=== PATIENT | male | born 1940 | race Caucasian/White ===

== ENCOUNTER 2016-07-13 15:35 | Emergency (ER) | payer MEDICAID, MEDICARE, OTHER ==
[~2016-07-13] VITALS: Ht 165.1 cm; Wt 138.3 kg
[~2016-07-13 15:35] MED LIST: ACET325T38 PO; ALBU2.5V4 IH; ALLO300T2 PO; APIX5TAB PO; ASPI-983 PO; ASPI325T32 PO; ATOR80TA64 PO; BUDE10.2 IH; CARB15DR78 OU; CETI10TA20 PO; CHOL10007 PO; CRV25T PO; DICL100G18 TOP; ETD200C PO; FLUT16SP22 NS; FURO80TA3 PO; GABA-488 PO; GLIP10TA13 PO; GUAI100L13 PO; HYOS0.1216 PO; IPR14IN IH; IPRA4AER IH; ISM60TCR PO; LEVO200T6 PO; LORA1TAB PO; LOSA100T28 PO; MAGN400T39 PO; MENT113G5 TP; MORP100S3 PO; POTA-51 PO; ROPI1TAB40 PO; SODI30SP2 NS; TAMS0.4C98 PO; TRAZ100T92 PO; TRIA15CR TOP
[2016-07-13] MEDS ORDERED: DEXAMETHASONE 4 MG/ML SDV (DECADRON) IH ONE (16:15)
[2016-07-13] MEDS ORDERED: RT-ALBUTEROL/IPRATROPIUM 3 ML (DUONEB) VIAL INH ONE (16:15)
[2016-07-13 16:26] LABS: BASOPHILS # (AUTO) 0.1 10^3/uL (0.0-0.1); BASOPHILS % (AUTO) 1 % (0-10); EOSINOPHILS # (AUTO) 0.2 10^3/uL (0.0-0.3); EOSINOPHILS % (AUTO) 3 % (0-10); LYMPHOCYTES # (AUTO) 1.5 X 10^3 (1.0-4.0); LYMPHOCYTES % (AUTO) 20 % (12-44); MEAN CORPUSCULAR HEMOGLOBIN 31 PG (25-34); MEAN CORPUSCULAR HGB CONC 32 G/DL (32-36); MEAN CORPUSCULAR VOLUME 96 FL (80-99); MEAN PLATELET VOLUME 9.8 FL (7.4-10.4); MONOCYTES # (AUTO) 0.4 X 10^3 (0.0-1.0); MONOCYTES % (AUTO) 6 % (0-12); NEUTROPHILS # (AUTO) 5.2 X 10^3 (1.8-7.8); NEUTROPHILS % (AUTO) 71 % (42-75); PLATELET COUNT 239 10^3/uL (130-400); RED BLOOD COUNT 4.69 10^6/uL (4.35-5.85); RED CELL DISTRIBUTION WIDTH 14.9 % (10.0-14.5); WHITE BLOOD COUNT 7.4 10^3/uL (4.3-11.0)
--- NOTE | 2016-07-13 16:38 | Diagnostic Imaging Report ---
EXAMINATION: Chest radiograph, portable AP view. DATE: July 13, 2016 at 1629 hours. INDICATION: 76-year-old male, shortness of breath. COMPARISON: June 25, 2016. FINDINGS: There are median sternotomy wires. There are mediastinal surgical clips. Stable overall appearance of the cardiomediastinal silhouette. There is no identified pneumothorax. There is no large pleural effusion. There are streaky opacities in the right lower lobe which appear similar to comparison exam. There is no identified interval focal airspace consolidation. IMPRESSION: Streaky opacities in the right lower lobe which appear similar to comparison exam and may relate to atelectasis and/or infiltrate. Dictated by: Dictated on workstation # [id number]
[2016-07-13 16:44] LABS: ALANINE AMINOTRANSFERASE 16 U/L (0-55); ALBUMIN 3.5 G/DL (3.2-4.5); ANION GAP 14 MMOL/L (5-14); ASPARTATE AMINO TRANSFERASE 16 U/L (5-34); BILIRUBIN,TOTAL 0.7 MG/DL (0.1-1.0); BLOOD UREA NITROGEN 16 MG/DL (7-18); BUN/CREATININE RATIO 14; CARBON DIOXIDE 29 MMOL/L (21-32); CHLORIDE 99 MMOL/L (98-107); CREATINE KINASE 19 U/L (30-200); CREATININE SERUM 1.15 MG/DL (0.60-1.30); GFR ESTIMATED > 60; GLUCOSE 108 MG/DL (70-105); MAGNESIUM 1.9 MG/DL (1.8-2.4); POTASSIUM 4.4 MMOL/L (3.6-5.0); SODIUM 142 MMOL/L (135-145); TOTAL PROTEIN 6.6 G/DL (6.4-8.2)
[2016-07-13 16:47] LABS: ABG BASE EXCESS 7.4 MMOL/L (-2.5-2.5); ABG HCO3 34 MMOL/L (23-27); ABG OXYGEN SATURATION 98 % (94-100); ABG PCO2 56 MMHG (35-45); ABG PO2 97 MMHG (79-93); ABG TCO2 35.9 MMOL/L (21.0-31.0); ALLENS TEST POSITIVE
[2016-07-13 16:48] LABS: PATIENT TEMP 98.2
[2016-07-13 16:51] LABS: TROPONIN I < 0.30 NG/ML (<0.30)
--- NOTE | 2016-07-13 16:59 | ED Respiratory ---
General Chief Complaint: Respiratory Problems Stated Complaint: SOA Nursing Triage Note: c/o progressive soa x 2 weeks. Cough/congestion reported. 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 Source: patient History of Present Illness Time seen by provider: 15:45 Initial Comments PT ARRIVES VIA EMS FROM HOME PT HAS COPD AND CHF--HAS INCREASING SHORTNESS OF BREATH OVER THE LAST 2 WEEKS HAS CHRONIC COUGH, BUT IS GRADUALLY GETTING MORE FREQUENT--STATES HE SWALLOWS SPUTUM NO FEVER NO SWELLING IN FEET OR ANKLES HAD NEBULIZER TREATMENT JUST PRIOR TO ARRIVAL TOOK A Z-PACK LAST WEEK--NO IMPROVEMENT IN SYMPTOMS. WAS NOT PRESCRIBED PREDNISONE OR ANY OTHER MEDICATIONS PCP: [facility] CARDIOLOGY: [facility] Allergies and Home Medications Allergies Coded Allergies: adhesive tape (Verified Allergy, Mild, RASH, 05/23/16) shellfish derived (Verified Allergy, Mild, HIVES, 05/23/16) Penicillins (Verified Allergy, Unknown, 05/09/16) Home Medications Acetaminophen 325 Mg Tablet 650 MG PO QID PRN PRN PAIN (Reported) TAKES 2 (325MG) TABLETS Albuterol Sulfate 2.5 Mg/3 Ml Vial.neb 2.5 MG IH QID PRN PRN SHORTNESS OF BREATH (Reported) Allopurinol 300 Mg Tablet 300 MG PO DAILY (Reported) Apixaban 5 Mg Tablet 5 MG PO BID (Reported) Aspirin 81 Mg Tablet.dr 81 MG PO DAILY (Reported) Atorvastatin Calcium 80 Mg Tablet 40 MG PO HS (Reported) TAKES 1/2 (80MG) TABLET Budesonide/Formoterol Fumarate 10.2 Gm Hfa.aer.ad 2 PUFF IH BID (Reported) Carboxymethylcellulose Sodium 15 Ml Drops 1 DROP OU QID PRN PRN DRY EYES ( Reported) Carvedilol 25 Mg Tab 12.5 MG PO DAILY (Reported) TAKES 1/2 (25MG) TABLET Cetirizine HCl 10 Mg Tablet 10 MG PO DAILY (Reported) Cholecalciferol (Vitamin D3) 1,000 Unit Capsule 1,000 UNIT PO DAILY (Reported) Diclofenac Sodium 100 Gm Gel..gram. TOP TID PRN PRN PAIN (Reported) Etodolac 200 Mg Capsule 200 MG PO TID (Reported) Fluticasone Propionate 16 Gm [place].susp 1 SPRAY NS DAILY (Reported) Furosemide 80 Mg Tablet 80 MG PO DAILY (Reported) Gabapentin 300 Mg Capsule 600 MG PO TID (Reported) TAKES 2 (300MG) CAPSULES Glipizide 10 Mg Tablet 5 MG PO BIDAC (Reported) LAST FILLED 02/11/16 #90 / TAKES 1/2 (10MG) TABLET Guaifenesin 100 Mg/5 Ml Liquid 10 ML PO TID PRN PRN COUGH/CONGESTION (Reported) Hyoscyamine Sulfate 0.125 Mg Tablet 0.125 MG PO EVERY 2 HOURS PRN PRN INCREASED SECRETIONS (Reported) Isosorbide Mononitrate 60 Mg Tab 60 MG PO DAILY (Reported) Levofloxacin 500 Mg Tablet #10 500 MG PO DAILY Prescribed by: GINA WASSERMAN on 07/13/16 170 Levothyroxine Sodium 200 Mcg Tablet 200 MCG PO DAILY (Reported) Lorazepam 1 Mg Tablet 1 MG PO Q4H PRN PRN AIR HUNGER (Reported) Magnesium Oxide 400 Mg Tablet 800 MG PO BID (Reported) TAKES 2 (400MG) TABLETS Menthol 113 Gm Gel..gram. TP QID PRN PRN PAIN (Reported) Morphine Sulfate 100 Mg/5 Ml Solution 0.5 ML PO EVERY 15 MINUTES PRN PRN AIR HUNGER (Reported) UP TO 6 CONSECUTIVE DOSES; IF NOT RESOLVED THEN CONTACT PHYSICIAN Potassium Chloride 20 Meq Tablet.er 20 MEQ PO DAILY (Reported) Prednisone 5 Mg Tablet #78 5 MG PO UD 12 PILLS DAY 1, THEN DECREASE BY 1 PILL A DAY UNTIL GONE Prescribed by: GINA WASSERMAN on 07/13/161706 Ropinirole HCl 1 Mg Tablet 1 MG PO HS (Reported) Sodium Chloride 30 Ml [place] 2 SPRAYS NS FIVE TIMES DAILY PRN PRN CONGESTION ( Reported) Tamsulosin HCl 0.4 Mg Cap 0.4 MG PO HS (Reported) Trazodone HCl 100 Mg Tablet 150 MG PO HS (Reported) TAKES 1 & 1/2 (100MG) TABLET Triamcinolone Acetonide 15 Gm Cream..g. TOP BID (Reported) 1% Constitutional: no symptoms reportedNo chills, No diaphoresis, No fever EENTM: no symptoms reported Respiratory: see HPI cough short of breath Cardiovascular: see HPI chest pain (BRIEF CHEST PAIN EARLIER TODAY--NOT NOW) Gastrointestinal: no symptoms reported Genitourinary: no symptoms reported Musculoskeletal: no symptoms reported Skin: no symptoms reported Psychiatric/Neurological: No Symptoms Reported Hematologic/Lymphatic: No Symptoms Reported Immunological/Allergic: no symptoms reported Past Xyohypk-[id number] Hx Patient Social History Alcohol Use: Denies Use Recreational Drug Use: No Smoking Status: Former Smoker Type Used: Cigarettes Recent Foreign Travel: No Contact w/Someone Who Travel: No Recent Infectious Disease Expo: No Recent Hopitalizations: Yes (numerous in May) Physical Abuse Screen: No Sexual Abuse: No Immunizations Up To Date Tetanus Booster (TDap): Unknown Date of Pneumonia Vaccine: Apr 24, 2016 Date of Influenza Vaccine: Apr 24, 2016 Seasonal Allergies Seasonal Allergies: No Surgeries HX Surgeries: Yes (CARDIAC CATHS WITH 4-5 STENTS, S/P CABG 3 VESSEL; RIGHT TOTAL KNEE REPLACEMENT) Surgeries: Cardiac, CABG, Coronary Stent, Joint Replacement, Orthopedic Respiratory Hx Respiratory Disorders: Yes (O2 DEPENDENT AT 4L/NC; BIPAP AT HIS AND PRN DURING DAY) Respiratory Disorders: Asthma, COPD Cardiovascular Hx Cardiac Disorders: Yes (CHF; RBBB) Cardiac Disorders: Atrial Fibrillation, Coronary Artery Disease, High Cholesterol, Hypertension, Peripheral Vascular Neurological Hx Neurological Disorders: Yes (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; RESTLESS LEG) Neurological Disorders: Neuropathy, Stroke Reproductive System Hx Reproductive Disorders: No Sexually Transmitted Disease: No HIV/AIDS: No Genitourinary Hx 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) Genitourinary Disorders: Renal Failure Gastrointestinal Hx Gastrointestinal Disorders: Yes Gastrointestinal Disorders: Gastroesophageal Reflux Musculoskeletal Hx Musculoskeletal Disorders: Yes (ELECTRIC WHEELCHAIR) Musculoskeletal Disorders: Arthritis Endocrine Hx Endocrine Disorders: Yes (MORBID OBESITY) Endocrine Disorders: Diabetes, Non-Insulin dep HEENT HX ENT Disorders: No (GLASSES) Cancer Hx Cancer: No Psychosocial Hx Psychiatric Problems: No Integumentary HX Skin/Integumentary Disorder: No Blood Transfusions Hx Blood Disorders: No Family Medical History Significant Family History: No Pertinent Family Hx Family Medial History: Patient reports no known family medical history. Physical Exam Vital Signs Vital Sign - Last 12Hours 07/13/16 07/13/16 15:35 16:28 Temp 97.8 Pulse 70 Resp 22 B/P 129/84 Pulse Ox 98 O2 Delivery Non Rebreather O2 Flow Rate 4 Capillary Refill : Less Than 3 Seconds General Appearance: WD/WN no apparent distress obese Neck: non-tender full range of motion supple normal inspection Respiratory: decreased breath sounds (DIMINISHED BREATH SOUNDS IN ALL LUNG VAZQUEZ)No accessory muscle use, No wheezing Cardiovascular: no edema no murmur irregularly irregular Gastrointestinal: normal bowel sounds soft Extremities: normal inspection no pedal edema no calf tenderness normal capillary refill Neurologic/Psychiatric: stock repairer II-XII nml as tested no motor/sensory deficits ( HAS HX OF PERIPHERAL NEUROPATHY) alert normal mood/affect oriented x 3 Skin: normal color warm/dry other (SCABBED WOUND OVER LEFT LATERAL MALLEOLUS, AND DRESSING OVER LEFT GREAT TOE) Progress/Results/Core Measures Results/Orders Lab Results Laboratory Tests Test 07/13/16 16:25 07/13/16 16:40 Range/Units Activated Partial Thromboplast Time 20 L 24-35 SEC Alanine Aminotransferase (ALT/SGPT) 16 0-55 U/L Albumin 3.5 3.2-4.5 G/DL Alkaline Phosphatase 115 40-136 U/L Anion Gap 14 5-14 MMOL/L Aspartate Amino Transf (AST/SGOT) 16 5-34 U/L B-Type Natriuretic Peptide 142.0 H <100.0 PG/ML BUN/Creatinine Ratio 14 Basophils # (Auto) 0.1 0.0-0.1 10^3/uL Basophils (%) (Auto) 1 0-10 % Blood Urea Nitrogen 16 7-18 MG/DL Calcium Level 9.0 8.5-10.1 MG/DL Carbon Dioxide Level 29 21-32 MMOL/L Chloride Level 99 98-107 MMOL/L Creatine Kinase MB 0.7 <6.6 NG/ML Creatinine 1.15 0.60-1.30 MG/DL Eosinophils # (Auto) 0.2 0.0-0.3 10^3/uL Eosinophils (%) (Auto) 3 0-10 % Estimat Glomerular Filtration Rate > 60 Glucose Level 108 H 70-105 MG/DL Hematocrit 45 40-54 % Hemoglobin 14.3 13.3-17.7 G/DL INR Comment 1.0 0.8-1.4 Lymphocytes # (Auto) 1.5 1.0-4.0 X 10^3 Lymphocytes (%) (Auto) 20 12-44 % Magnesium Level 1.9 1.8-2.4 MG/DL Mean Corpuscular Hemoglobin 31 25-34 PG Mean Corpuscular Hemoglobin Concent 32 32-36 G/DL Mean Corpuscular Volume 96 80-99 FL Mean Platelet Volume 9.8 7.4-10.4 FL Monocytes # (Auto) 0.4 0.0-1.0 X 10^3 Monocytes (%) (Auto) 6 0-12 % Neutrophils # (Auto) 5.2 1.8-7.8 X 10^3 Neutrophils (%) (Auto) 71 42-75 % Platelet Count 239 130-400 10^3/uL Potassium Level 4.4 3.6-5.0 MMOL/L Prothrombin Time 13.0 12.2-14.7 SEC Red Blood Count 4.69 4.35-5.85 10^6/uL Red Cell Distribution Width 14.9 H 10.0-14.5 % Sodium Level 142 135-145 MMOL/L Total Bilirubin 0.7 0.1-1.0 MG/DL Total Creatine Kinase 19 L 30-200 U/L Total Protein 6.6 6.4-8.2 G/DL Troponin I < 0.30 <0.30 NG/ML White Blood Count 7.4 4.3-11.0 10^3/uL Hayder Test POSITIVE Arterial Blood Base Excess 7.4 H -2.5-2.5 MMOL/L Arterial Blood HCO3 34 H 23-27 MMOL/L Arterial Blood Oxygen Saturation 98 94-100 % Arterial Blood Partial Pressure CO2 56 H 35-45 MMHG Arterial Blood Partial Pressure O2 97 H 79-93 MMHG Arterial Blood Total CO2 35.9 H 21.0-31.0 MMOL/L Arterial Blood pH 7.40 7.37-7.43 Blood Gas Inspired Oxygen 4 Blood Gas Patient Temperature 98.2 Blood Gas Puncture Site RIGHT RADIAL Blood Gas Ventilator Setting NO My Orders Orders-GINA WASSERMAN DO Saline Lock/Iv-Start (07/13/16 16:01) Ekg Tracing (07/13/16 16:01) O2 (07/13/16 16:01) Monitor-Rhythm Ecg Trace Only (07/13/16 16:01) Arterial Blood Gas (07/13/16 16:01) BNP (07/13/16 16:01) Cbc With Automated Diff (07/13/16 16:01) Comprehensive Metabolic Panel (07/13/16 16:01) Creatine Kinase (07/13/16 16:01) Creatine Kinase Mb (07/13/16 16:01) Magnesium (07/13/16 16:01) Protime With Inr (07/13/16 16:01) Partial Thromboplastin Time (07/13/16 16:01) Troponin I (07/13/16 16:01) Chest 1 View, Ap/Pa Only (07/13/16 16:01) Albuterol/Ipra Inhalation Soln (Duoneb I (07/13/16 16:15) Dexamethasone Injection (Decadron Inject (07/13/16 16:15) Rt Request For Service (07/13/16 16:01) Svn Sm Volume Nebulizer Rt-Rfs (07/13/16 16:01) Methylprednisolone Sod Succ (Solu-Medrol (07/13/16 17:00) Levofloxacin Tablet (Levaquin Tablet) (07/13/16 17:15) Medications Given in ED Current Medications Medications Dose Ordered Sig/Scar Route Start Time Stop Time Status Last Admin Dose Admin Albuterol/ Ipratropium 3 ml ONCE ONCE INH 07/13/16 16:15 07/13/16 16:16 DC 07/13/16 16:18 3 ML Dexamethasone Sodium Phosphate 20 mg ONCE ONCE IH 07/13/16 16:15 07/13/16 16:16 DC 07/13/16 16:17 20 MG Levofloxacin 500 mg ONCE ONCE PO 07/13/16 17:15 07/13/16 17:16 DC 07/13/16 17:14 500 MG Methylprednisolone Sodium Succinate 125 mg ONCE ONCE IVP 07/13/16 17:00 07/13/16 17:01 UNV 07/13/16 17:14 125 MG Vital Signs/I&O Vital Sign - Last 12Hours 07/13/16 07/13/16 15:35 16:28 Temp 97.8 Pulse 70 Resp 22 B/P 129/84 Pulse Ox 98 96 O2 Delivery Non Rebreather Nasal Cannula O2 Flow Rate 4 Blood Pressure Mean: 99 Progress Note : Progress Note IMPROVED AERATION AFTER NEBULIZER TREATMENT UNEVENTFUL ER STAY O2 SATS IN UPPER 90'S DURING ENTIRE ER STAY ECG Initial ECG Impression Time: 16:07 Initial ECG Rate: 70 Initial ECG Rhythm: A Fib/Flutter (RBBB) Initial ECG Comparisson: Unchanged Diagnostic Imaging Comments CXR--ATELECTASIS/INFILTRATE RLL, UNCHANGED FROM PREVIOUS--PER RADIOLOGIST REPORT @ 1117 Reviewed: Reviewed by Me Departure Impression Impression: Primary Impression: COPD exacerbation Disposition: HOME, SELF-CARE Condition: Improved Departure-Patient Inst. Referrals: [facility] (PCP/Family) Primary Care Physician Patient Instructions: Exacerbation of COPD (DC) Add. Discharge Instructions: HOME, REST CONTINUE YOUR CURRENT MEDICATIONS PRESCRIBED USE YOUR NEBULIZER PRESCRIBED KEEP YOUR APPOINTMENT ON 07/15/16 SCHEDULED RETURN TO ER IF WORSE All discharge instructions reviewed with patient and/or family. Voiced understanding. Scripts Levofloxacin (Levaquin)500 Mg [id number] Mg PO DAILY INFECTION #10 TAB Prov:GINA WASSERMAN DO 07/13/16 Prednisone 5 Mg Tablet5 Mg PO UD #78 TAB 12 PILLS DAY 1, THEN DECREASE BY 1 PILL A DAY UNTIL GONE Prov:GINA WASSERMAN DO 07/13/16 GINA WASSERMAN DO Jul 13, 2016 16:59
[2016-07-13] MEDS ORDERED: methylPREDNISolone 125 MG (Solu-MEDROL) VIAL IVP ONE (17:00)
[2016-07-13] MEDS ORDERED: methylPREDNISolone 125 MG (Solu-MEDROL) VIAL ONE (17:05)
[2016-07-13] MEDS ORDERED: LEVO500T2 PO (17:07)
[2016-07-13] MEDS ORDERED: PRED5TAB PO (17:07)
[2016-07-13] MEDS ORDERED: LEVOFLOXACIN 500 MG TAB (LEVAQUIN) PO ONE (17:15)
[2016-07-13 17:26] VITALS: BP 136/82
[2016-08-01] MEDS ORDERED: METO100T6 PO (14:52)
[2016-08-01] MEDS ORDERED: PRD20T PO (14:54)
== END 2016-07-13 17:26 | disposition home or self-care (01) ==
LOC: EDUNIT# 15:35 → ER 15:36
DX: J44.1 Chronic obstructive pulmonary disease with (acute) exacerbation (principal); I25.10 Atherosclerotic heart disease of native coronary artery without angina pectoris; I10 Essential (primary) hypertension; E11.9 Type 2 diabetes mellitus without complications; Z95.1 Presence of aortocoronary bypass graft; Z99.81 Dependence on supplemental oxygen; Z87.891 Personal history of nicotine dependence; Z79.899 Other long term (current) drug therapy
CPT/HCPCS: 36415; 71010; 80053; 82550; 82553; 82805; 83735; 83880; 84484; 85025; 85610; 85730; 93005; 93041; 94640; 96374

== ENCOUNTER 2016-07-31 13:54 | Inpatient (IN) | payer OTHER, MEDICAID ==
[~2016-07-31] VITALS: Ht 165.1 cm; Wt 133.1 kg
[~2016-07-31 13:54] MED LIST changes: +LEVO500T2 PO; +PRED5TAB PO; +RT-ALBUTEROL/IPRATROPIUM 3 ML (DUONEB) VIAL ONE
[2016-07-31] MEDS ORDERED: RT-ALBUTEROL SULF 2.5 MG/3 ML PRE-MIX VIAL ONE (14:10)
[2016-07-31 14:11] LABS: BASOPHILS % (AUTO) 0 % (0-10); EOSINOPHILS # (AUTO) 0.1 10^3/uL (0.0-0.3); EOSINOPHILS % (AUTO) 0 % (0-10); LYMPHOCYTES # (AUTO) 1.8 X 10^3 (1.0-4.0); LYMPHOCYTES % (AUTO) 12 % (12-44); MEAN CORPUSCULAR HEMOGLOBIN 31 PG (25-34); MEAN CORPUSCULAR HGB CONC 33 G/DL (32-36); MEAN CORPUSCULAR VOLUME 93 FL (80-99); MEAN PLATELET VOLUME 9.7 FL (7.4-10.4); MONOCYTES # (AUTO) 0.9 X 10^3 (0.0-1.0); MONOCYTES % (AUTO) 6 % (0-12); NEUTROPHILS # (AUTO) 12.1 X 10^3 (1.8-7.8); NEUTROPHILS % (AUTO) 81 % (42-75); PLATELET COUNT 196 10^3/uL (130-400); RED BLOOD COUNT 5.05 10^6/uL (4.35-5.85); RED CELL DISTRIBUTION WIDTH 15.5 % (10.0-14.5); WHITE BLOOD COUNT 14.9 10^3/uL (4.3-11.0)
[2016-07-31 14:30] LABS: BAND NEUTROPHILS 2 %; BASOPHILS % (MANUAL) 0 %; EOSINOPHILS % (MANUAL) 0 %; LYMPHOCYTES % (MANUAL) 16 %; NEUTROPHILS % (MANUAL) 79 %
[2016-07-31 14:31] LABS: ANISOCYTOSIS SLIGHT
[2016-07-31 14:36] LABS: ALANINE AMINOTRANSFERASE 19 U/L (0-55); ALBUMIN 3.5 G/DL (3.2-4.5); ANION GAP 12 MMOL/L (5-14); ASPARTATE AMINO TRANSFERASE 11 U/L (5-34); BILIRUBIN,TOTAL 1.6 MG/DL (0.1-1.0); BLOOD UREA NITROGEN 13 MG/DL (7-18); BUN/CREATININE RATIO 13; CARBON DIOXIDE 28 MMOL/L (21-32); CHLORIDE 97 MMOL/L (98-107); CREATININE SERUM 1.03 MG/DL (0.60-1.30); GFR ESTIMATED > 60; GLUCOSE 164 MG/DL (70-105); POTASSIUM 4.3 MMOL/L (3.6-5.0); SODIUM 137 MMOL/L (135-145); TOTAL PROTEIN 6.6 G/DL (6.4-8.2)
--- NOTE | 2016-07-31 15:34 | Diagnostic Imaging Report ---
Portable upright radiograph of the chest. INDICATION: Shortness of breath. FINDINGS: The heart size is moderately enlarged. There is mild pulmonary vascular congestion. There are sternotomy wires and mediastinal clips seen. No significant effusion. No pneumothorax. The mediastinum and smitha appear unremarkable. IMPRESSION: Cardiomegaly with mild vascular congestion. Dictated by: Dictated on workstation # [id number]
[2016-07-31] MEDS ORDERED: DILTIAZEM 25 MG/5 ML INJ (CARDIZEM) VIAL IVP ONE (16:00)
--- NOTE | 2016-07-31 16:05 | ED Respiratory ---
General Chief Complaint: Respiratory Problems Stated Complaint: SOA Nursing Triage Note: PT ARRIVED PER EMS PT CO OF SOA, STARTED APPROX 4 DAYS AGO, PT HAS O2 ON AT 4L PER N/C, PT HAS SL IN L HAND #22 BY EMS, PT WAS GIVEN 2 RT TX AND SOLUMEDROL 125MG IV BY EMS (LAUREN BERMUDEZ) History of Present Illness Time seen by provider: 14:45 Initial Comments Pt presents for SOA, treated for Pneumonia with Levaquin and Prednisone earlier this month. Improved and became SOA today. Uses bypap at home. Timing/Duration: just prior to arrival Severity: moderate Prior Episodes/Possible Cause: frequent episodes Modifying Factors: Improves With Rest Associated Symptoms: coughNo fever/chills, lightheadednessNo sinus infection , No sore throat, other (Weakness) (LAUREN BERMUDEZ) Allergies and Home Medications Allergies Coded Allergies: adhesive tape (Verified Allergy, Mild, RASH, 05/23/16) shellfish derived (Verified Allergy, Mild, HIVES, 05/23/16) Penicillins (Verified Allergy, Unknown, 05/09/16) Home Medications Albuterol Sulfate 2.5 Mg/3 Ml Vial.neb 2.5 MG IH QID PRN PRN SHORTNESS OF BREATH (Reported) Albuterol/Ipratropium 4 Gm Aero 1 PUFF IH QID (Reported) Allopurinol 300 Mg Tablet 300 MG PO DAILY (Reported) Apixaban 5 Mg Tablet 5 MG PO BID (Reported) Aspirin 81 Mg Tablet.dr 81 MG PO DAILY (Reported) Atorvastatin Calcium 80 Mg Tablet 40 MG PO HS (Reported) TAKES 1/2 (80MG) TABLET Benzonatate 100 Mg Capsule 100 MG PO TID PRN PRN COUGH (Reported) FILLED 07/31/16 #30 FOR A 10 DAY THERAPY Budesonide/Formoterol Fumarate 10.2 Gm Hfa.aer.ad 2 PUFF IH BID (Reported) Carboxymethylcellulose Sodium 15 Ml Drops 1 DROP OU QID PRN PRN DRY EYES ( Reported) Cetirizine HCl 10 Mg Tablet 10 MG PO DAILY (Reported) Cholecalciferol (Vitamin D3) 1,000 Unit Capsule 1,000 UNIT PO DAILY (Reported) Diclofenac Sodium 100 Gm Gel..gram. TOP QID PRN PRN PAIN (Reported) Diphenhydramine HCl 25 Mg Capsule 25 MG PO PRN PRN PRN ALLERGIES (Reported) Etodolac 200 Mg Capsule 200 MG PO TID (Reported) Fluoxetine HCl 20 Mg Capsule 20 MG PO DAILY (Reported) LAST FILLED 06/12/16 #30 Fluticasone Propionate 16 Gm [place].susp 1 SPRAY NS DAILY (Reported) Furosemide 80 Mg Tablet 80 MG PO DAILY (Reported) Gabapentin 300 Mg Capsule 300 MG PO TID (Reported) Glipizide 10 Mg Tablet 5 MG PO BIDAC (Reported) TAKES 1/2 (10MG) TABLET Guaifenesin 100 Mg/5 Ml Liquid 10 ML PO TID PRN PRN COUGH/CONGESTION (Reported) Hydrocodone/Acetaminophen 1 Each Tablet 1 TAB PO BID PRN PRN PAIN (Reported) Isosorbide Mononitrate 60 Mg Tab 60 MG PO DAILY (Reported) Levothyroxine Sodium 112 Mcg Tablet 2 TAB PO DAILY (Reported) Lorazepam 1 Mg Tablet 1 MG PO Q4H PRN PRN ANXIETY (Reported) Losartan Potassium 100 Mg Tablet 100 MG PO DAILY (Reported) Magnesium Oxide 400 Mg Tablet 800 MG PO BID (Reported) TAKES 2 (400MG) TABLETS Metoprolol Succinate 100 Mg Tab.er.24h #30 100 MG PO DAILY Prescribed by: DOM SOLARES on 08/01/16 1452 Potassium Chloride 20 Meq Tablet.er 20 MEQ PO DAILY (Reported) Prednisone 20 Mg Tab #10 40 MG PO DAILY Prescribed by: DOM SOLARES on 08/01/16 1454 Ropinirole HCl 1 Mg Tablet 1 MG PO HS (Reported) Trazodone HCl 100 Mg Tablet 150 MG PO HS (Reported) TAKES 1 & 1/2 (100MG) TABLET Constitutional: no symptoms reported see HPI EENTM: no symptoms reported see HPI Respiratory: see HPI cough dyspnea on exertion short of breath Cardiovascular: see HPI palpitations Gastrointestinal: no symptoms reported see HPI Genitourinary: no symptoms reported see HPI Musculoskeletal: no symptoms reported see HPI Skin: no symptoms reported see HPI Psychiatric/Neurological: No Symptoms Reported See HPI Hematologic/Lymphatic: No Symptoms Reported See HPI Immunological/Allergic: no symptoms reported see HPI (LAUREN BERMUDEZ) All Other Systems Reviewed Negative Unless Noted: Yes (LAUREN BERMUDEZ) Past Wyvsfyx-Bqxiep-Rmzvmu Hx Patient Social History Alcohol Use: Rarely Uses Recreational Drug Use: No Smoking Status: Former Smoker Type Used: Cigarettes Recent Foreign Travel: No Contact w/Someone Who Travel: No Recent Infectious Disease Expo: No Recent Hopitalizations: Yes (numerous in May) Physical Abuse Screen: No Sexual Abuse: No (LAUREN BERMUDEZ) Immunizations Up To Date Tetanus Booster (TDap): Unknown Date of Pneumonia Vaccine: Apr 24, 2016 Date of Influenza Vaccine: Apr 24, 2016 (LAUREN BERMUDEZ) Seasonal Allergies Seasonal Allergies: No (LAUREN BERMUDEZ) Surgeries HX Surgeries: Yes Surgeries: Cardiac, CABG, Coronary Stent, Joint Replacement, Orthopedic (LAUREN BERMUDEZ) Respiratory Hx Respiratory Disorders: Yes (O2 DEPENDENT AT 4L/NC; BIPAP AT HIS AND PRN DURING DAY) Respiratory Disorders: Asthma, COPD (LAUREN BERMUDEZ) Cardiovascular Hx Cardiac Disorders: Yes (CHF; RBBB) Cardiac Disorders: Atrial Fibrillation, Coronary Artery Disease, High Cholesterol, Hypertension, Peripheral Vascular (LAUREN BERMUDEZ) Neurological Hx Neurological Disorders: Yes (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; RESTLESS LEG) Neurological Disorders: Neuropathy, Stroke (LAUREN BERMUDEZ) Reproductive System Hx Reproductive Disorders: No Sexually Transmitted Disease: No HIV/AIDS: No (LAUREN BERMUDEZ) Genitourinary Hx 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) Genitourinary Disorders: Renal Failure (LAUREN BERMUDEZ) Gastrointestinal Hx Gastrointestinal Disorders: Yes Gastrointestinal Disorders: Gastroesophageal Reflux (LAUREN BERMUDEZ) Musculoskeletal Hx Musculoskeletal Disorders: Yes (ELECTRIC WHEELCHAIR) Musculoskeletal Disorders: Arthritis (LAUREN BERMUDEZ) Endocrine Hx Endocrine Disorders: Yes (MORBID OBESITY) Endocrine Disorders: Diabetes, Non-Insulin dep (LAUREN BERMUDEZ) HEENT HX ENT Disorders: No (GLASSES) (LAUREN BERMUDEZ) Cancer Hx Cancer: No (LAUREN BERMUDEZ) Psychosocial Hx Psychiatric Problems: No (LAUREN BERMUDEZ) Integumentary HX Skin/Integumentary Disorder: No (LAUREN BERMUDEZ) Blood Transfusions Hx Blood Disorders: No (LAUREN BERMUDEZ) Reviewed Nursing Assessment Reviewed/Agree w Nursing PMH: Yes (LAUREN BERMUDEZ) Family Medical History Significant Family History: No Pertinent Family Hx Family Medial History: Patient reports no known family medical history. (LAUREN BERMUDEZ) Family Medial History: Patient reports no known family medical history. (FLORIDALMA ALLEN MD) Physical Exam Vital Signs Vital Sign - Last 12Hours 07/31/16 07/31/16 07/31/16 14:00 14:07 14:08 Temp 98.7 Pulse 108 Resp 24 B/P 143/104 Pulse Ox 96 O2 Delivery Nasal Cannula O2 Flow Rate 4 (FLORIDALMA ALLEN MD) Vital Signs Capillary Refill : Less Than 3 Seconds (LAUREN BERMUDEZ) General Appearance: WD/WN no apparent distress Cardiovascular: normal peripheral pulses no edema tachycardia irregularly irregular Gastrointestinal: normal bowel sounds non tender soft Extremities: normal range of motion non-tender normal inspection no pedal edema no calf tenderness normal capillary refill Neurologic/Psychiatric: no motor/sensory deficits alert normal mood/affect Skin: normal color warm/dry Lymphatic: no adenopathy (LAUREN BERMUDEZ) Progress/Results/Core Measures Results/Orders Lab Results Laboratory Tests Test 07/31/16 14:00 Range/Units Alanine Aminotransferase (ALT/SGPT) 19 0-55 U/L Albumin 3.5 3.2-4.5 G/DL Alkaline Phosphatase 89 40-136 U/L Anion Gap 12 5-14 MMOL/L Anisocytosis SLIGHT Aspartate Amino Transf (AST/SGOT) 11 5-34 U/L B-Type Natriuretic Peptide 341.1 H <100.0 PG/ML BUN/Creatinine Ratio 13 Band Neutrophils 2 % Basophils # (Auto) 0.0 0.0-0.1 10^3/uL Basophils % (Manual) 0 % Basophils (%) (Auto) 0 0-10 % Blood Urea Nitrogen 13 7-18 MG/DL Calcium Level 9.0 8.5-10.1 MG/DL Carbon Dioxide Level 28 21-32 MMOL/L Chloride Level 97 L 98-107 MMOL/L Creatinine 1.03 0.60-1.30 MG/DL Eosinophils # (Auto) 0.1 0.0-0.3 10^3/uL Eosinophils % (Manual) 0 % Eosinophils (%) (Auto) 0 0-10 % Estimat Glomerular Filtration Rate > 60 Glucose Level 164 H 70-105 MG/DL Hematocrit 47 40-54 % Hemoglobin 15.6 13.3-17.7 G/DL Lymphocytes # (Auto) 1.8 1.0-4.0 X 10^3 Lymphocytes % (Manual) 16 % Lymphocytes (%) (Auto) 12 12-44 % Mean Corpuscular Hemoglobin 31 25-34 PG Mean Corpuscular Hemoglobin Concent 33 32-36 G/DL Mean Corpuscular Volume 93 80-99 FL Mean Platelet Volume 9.7 7.4-10.4 FL Monocytes # (Auto) 0.9 0.0-1.0 X 10^3 Monocytes % (Manual) 3 % Monocytes (%) (Auto) 6 0-12 % Neutrophils # (Auto) 12.1 H 1.8-7.8 X 10^3 Neutrophils % (Manual) 79 % Neutrophils (%) (Auto) 81 H 42-75 % Platelet Count 196 130-400 10^3/uL Potassium Level 4.3 3.6-5.0 MMOL/L Red Blood Count 5.05 4.35-5.85 10^6/uL Red Cell Distribution Width 15.5 H 10.0-14.5 % Sodium Level 137 135-145 MMOL/L Total Bilirubin 1.6 H 0.1-1.0 MG/DL Total Protein 6.6 6.4-8.2 G/DL White Blood Count 14.9 H 4.3-11.0 10^3/uL (FLORIDALMA ALLEN MD) Vital Signs/I&O Vital Sign - Last 12Hours 07/31/16 07/31/16 07/31/16 07/31/16 14:00 14:02 14:07 14:08 Temp 98.7 Pulse 108 124 Resp 24 22 B/P 143/104 Pulse Ox 96 97 98 96 O2 Delivery Nasal Cannula Nasal Cannula Nasal Cannula O2 Flow Rate 4 3 45 4 07/31/16 16:59 Pulse 99 Resp 28 Pulse Ox 9 O2 Flow Rate 40 (FLORIDALMA ALLEN MD) Blood Pressure Mean: 117 Progress Note : Time: 16:00 Progress Note Heart rate 110-135, Cardizem 20 mg IV. Within 5 min heart rate 80s. Discussed patient findings with Dr. Solares, recommended admission for cardiac stepdown with telemetry. Consult Dr. Butler. Notified Dr. Butler at 1635, requested consult with Dr. Conti. Dr. Conti notified at 1715, asked to order SoluMedrol [address] Butler in ED to assess patient. No new orders received. (LAUREN BERMUDEZ) ECG EKG : EKG Time: 14:32 Rate: 125 Rhythm: A Fib/Flutter Intervals: MI, QRS (138), QT (364) ECG Comparisson: Unchanged ECG Impression: Atrial Fibrillation w/RVR Comment reviewed with Dr. Zelaya, agreed with interpretation. Reviewed by Dr. Butler at 1515, agreed with interpretation. (LAUREN BERMUDEZ) EKG : Comment 07/31/2016, 1432. A-Fib with RVR, rate 125, changed from previous with respect to rate. No evidence of STEMI. (FLORIDALMA ALLEN MD) Diagnostic Imaging Diagonstic Imaging: Xray Plain Films/CT/US/NM/MRI: chest Comments NAME: [facility]ELGAR [facility] REC#: [id number] PT STATUS: REG ER : 1940 PHYSICIAN: SUJATA ZELAYA MD ADMIT DATE: 07/31/16/ER Draft Date of Exam:07/31/16 CHEST 1 VIEW, AP/PA ONLY Portable upright radiograph of the chest. INDICATION: Shortness of breath. FINDINGS: The heart size is moderately enlarged. There is mild pulmonary vascular congestion. There are sternotomy wires and mediastinal clips seen. No significant effusion. No pneumothorax. The mediastinum and smitha appear unremarkable. IMPRESSION: Cardiomegaly with mild vascular congestion. Dictated on workstation # [id number] Dict: 07/31/16 1520 Trans: 07/31/16 1534 [id number] Interpreted by: NIKOLAS NARAYANAN MD Electronically signed by: (LAUREN BERMUDEZ) Departure Impression Impression: Primary Impression: Chronic atrial fibrillation Additional Impression: COPD exacerbation Disposition: ADMITTED INPATIENT Condition: Stable Decision to Admit Reason: Admit from ER (General) Time/Decision to Admit Time: 16:04 (LAUREN BERMUDEZ) Departure-Patient Inst. Referrals: [facility] (PCP/Family) Primary Care Physician Scripts Prednisone 20 Mg Tab40 Mg PO DAILY #10 TAB Ref 0 Prov:DOM SOLARES MD 08/01/16 Metoprolol Succinate (Toprol Xl)100 Mg Tab.er.05i201 Mg PO DAILY #30 TAB Ref 0 Prov:DOM SOLARES MD 08/01/16 LAUREN BERMUDEZ Jul 31, 2016 16:04 FLORIDALMA ALLEN MD Aug 03, 2016 08:52
[2016-07-31] MEDS ORDERED: CATHETER FLUSH 10 ML SYR IV PRN (18:45)
[2016-07-31] MEDS ORDERED: methylPREDNISolone 40 MG/ML (Solu-MEDROL) VIAL IV SCH ×3 (18:45→21:00)
[2016-07-31] MEDS ORDERED: NS IV 1000 ML 1,000 ML IV SCH (18:45)
[2016-07-31] MEDS: RT-ALBUTEROL/IPRATROPIUM 3 ML (DUONEB) VIAL INH SCH ×2 (19:55→22:04)
[2016-07-31 20:10] VITALS: BP 138/103
[2016-07-31] MEDS ORDERED: rOPINIRole 1 MG (REQUIP) TABLET ONE (23:12)
[2016-08-01] VITALS: BP 130/98
[2016-08-01] MEDS: RT-ALBUTEROL/IPRATROPIUM 3 ML (DUONEB) VIAL INH SCH ×3 (02:08→14:52)
[2016-08-01 04:00] VITALS: BP 127/94
[2016-08-01 04:42] LABS: BASOPHILS % (AUTO) 0 % (0-10); EOSINOPHILS % (AUTO) 0 % (0-10); LYMPHOCYTES # (AUTO) 0.6 X 10^3 (1.0-4.0); LYMPHOCYTES % (AUTO) 6 % (12-44); MEAN CORPUSCULAR HEMOGLOBIN 31 PG (25-34); MEAN CORPUSCULAR HGB CONC 34 G/DL (32-36); MEAN CORPUSCULAR VOLUME 93 FL (80-99); MEAN PLATELET VOLUME 10.2 FL (7.4-10.4); MONOCYTES # (AUTO) 0.2 X 10^3 (0.0-1.0); MONOCYTES % (AUTO) 1 % (0-12); NEUTROPHILS # (AUTO) 10.5 X 10^3 (1.8-7.8); NEUTROPHILS % (AUTO) 93 % (42-75); PLATELET COUNT 202 10^3/uL (130-400); RED BLOOD COUNT 4.93 10^6/uL (4.35-5.85); RED CELL DISTRIBUTION WIDTH 15.3 % (10.0-14.5); WHITE BLOOD COUNT 11.3 10^3/uL (4.3-11.0)
[2016-08-01 04:59] LABS: ALANINE AMINOTRANSFERASE 15 U/L (0-55); ALBUMIN 3.4 G/DL (3.2-4.5); ANION GAP 13 MMOL/L (5-14); ASPARTATE AMINO TRANSFERASE 9 U/L (5-34); BILIRUBIN,TOTAL 0.8 MG/DL (0.1-1.0); BLOOD UREA NITROGEN 22 MG/DL (7-18); BUN/CREATININE RATIO 21; CALCIUM 8.9 MG/DL (8.5-10.1); CARBON DIOXIDE 24 MMOL/L (21-32); CHLORIDE 98 MMOL/L (98-107); CREATININE SERUM 1.05 MG/DL (0.60-1.30); GFR ESTIMATED > 60; GLUCOSE 215 MG/DL (70-105); POTASSIUM 4.4 MMOL/L (3.6-5.0); SODIUM 135 MMOL/L (135-145); TOTAL PROTEIN 6.4 G/DL (6.4-8.2)
--- NOTE | 2016-08-01 05:48 | Pulmonary Consultation ---
History of Present Illness History of Present Illness Date of Consultation 08/01/16 05:42 Date of Admission History of Present Illness 76 with hx of recent pneumonia and recent admission for IV abx presented after SOB became progressively worse. Upon admission he was found to be in Afib RVR. He was admitted to ICU after given cardizem bolus. Pt feels improved since admission is Afib is currently controlled with a rate of 80. I am consulted for pulmonary management . Allergies and Home Medications Allergies Coded Allergies: adhesive tape (Verified Allergy, Mild, RASH, 05/23/16) shellfish derived (Verified Allergy, Mild, HIVES, 05/23/16) Penicillins (Verified Allergy, Unknown, 05/09/16) Home Medications Acetaminophen 325 Mg Tablet 650 MG PO QID PRN PRN PAIN (Reported) TAKES 2 (325MG) TABLETS Albuterol Sulfate 2.5 Mg/3 Ml Vial.neb 2.5 MG IH QID PRN PRN SHORTNESS OF BREATH (Reported) Allopurinol 300 Mg Tablet 300 MG PO DAILY (Reported) Apixaban 5 Mg Tablet 5 MG PO BID (Reported) Aspirin 81 Mg Tablet.dr 81 MG PO DAILY (Reported) Atorvastatin Calcium 80 Mg Tablet 40 MG PO HS (Reported) TAKES 1/2 (80MG) TABLET Budesonide/Formoterol Fumarate 10.2 Gm Hfa.aer.ad 2 PUFF IH BID (Reported) Carboxymethylcellulose Sodium 15 Ml Drops 1 DROP OU QID PRN PRN DRY EYES ( Reported) Carvedilol 25 Mg Tab 12.5 MG PO DAILY (Reported) TAKES 1/2 (25MG) TABLET Cetirizine HCl 10 Mg Tablet 10 MG PO DAILY (Reported) Cholecalciferol (Vitamin D3) 1,000 Unit Capsule 1,000 UNIT PO DAILY (Reported) Diclofenac Sodium 100 Gm Gel..gram. TOP TID PRN PRN PAIN (Reported) Etodolac 200 Mg Capsule 200 MG PO TID (Reported) Fluticasone Propionate 16 Gm [place].susp 1 SPRAY NS DAILY (Reported) Furosemide 80 Mg Tablet 80 MG PO DAILY (Reported) Gabapentin 300 Mg Capsule 600 MG PO TID (Reported) TAKES 2 (300MG) CAPSULES Glipizide 10 Mg Tablet 5 MG PO BIDAC (Reported) LAST FILLED 02/11/16 #90 / TAKES 1/2 (10MG) TABLET Guaifenesin 100 Mg/5 Ml Liquid 10 ML PO TID PRN PRN COUGH/CONGESTION (Reported) Hyoscyamine Sulfate 0.125 Mg Tablet 0.125 MG PO EVERY 2 HOURS PRN PRN INCREASED SECRETIONS (Reported) Isosorbide Mononitrate 60 Mg Tab 60 MG PO DAILY (Reported) Levofloxacin 500 Mg Tablet #10 500 MG PO DAILY Prescribed by: GINA WASSERMAN on 07/13/16 1707 Levothyroxine Sodium 200 Mcg Tablet 200 MCG PO DAILY (Reported) Lorazepam 1 Mg Tablet 1 MG PO Q4H PRN PRN AIR HUNGER (Reported) Magnesium Oxide 400 Mg Tablet 800 MG PO BID (Reported) TAKES 2 (400MG) TABLETS Menthol 113 Gm Gel..gram. TP QID PRN PRN PAIN (Reported) Morphine Sulfate 100 Mg/5 Ml Solution 0.5 ML PO EVERY 15 MINUTES PRN PRN AIR HUNGER (Reported) UP TO 6 CONSECUTIVE DOSES; IF NOT RESOLVED THEN CONTACT PHYSICIAN Potassium Chloride 20 Meq Tablet.er 20 MEQ PO DAILY (Reported) Prednisone 5 Mg Tablet #78 5 MG PO UD 12 PILLS DAY 1, THEN DECREASE BY 1 PILL A DAY UNTIL GONE Prescribed by: GINA WASSERMAN on 07/13/161706 Ropinirole HCl 1 Mg Tablet 1 MG PO HS (Reported) Sodium Chloride 30 Ml Fay 2 SPRAYS NS FIVE TIMES DAILY PRN PRN CONGESTION ( Reported) Tamsulosin HCl 0.4 Mg Cap 0.4 MG PO HS (Reported) Trazodone HCl 100 Mg Tablet 150 MG PO HS (Reported) TAKES 1 & 1/2 (100MG) TABLET Triamcinolone Acetonide 15 Gm Cream..g. TOP BID (Reported) 1% Past Lodrqbk-Pitpen-Uepqbd Hx Patient Social History Alcohol Use: Rarely Uses Recreational Drug Use: No Smoking Status: Former Smoker Type Used: Cigarettes Recent Foreign Travel: No Contact w/Someone Who Travel: No Recent Infectious Disease Expo: No Recent Hopitalizations: Yes (numerous in May) Physical Abuse Screen: No Sexual Abuse: No Immunizations Up To Date Tetanus Booster (TDap): Unknown Date of Pneumonia Vaccine: Apr 24, 2016 Date of Influenza Vaccine: Apr 24, 2016 Seasonal Allergies Seasonal Allergies: No Surgeries HX Surgeries: Yes Surgeries: Cardiac, CABG, Coronary Stent, Joint Replacement, Orthopedic Respiratory Hx Respiratory Disorders: Yes (O2 DEPENDENT AT 4L/NC; BIPAP AT HIS AND PRN DURING DAY) Respiratory Disorders: Asthma, COPD Cardiovascular Hx Cardiac Disorders: Yes (CHF; RBBB) Cardiac Disorders: Atrial Fibrillation, Coronary Artery Disease, High Cholesterol, Hypertension, Peripheral Vascular Neurological Hx Neurological Disorders: Yes (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; RESTLESS LEG) Neurological Disorders: Neuropathy, Stroke Reproductive System Hx Reproductive Disorders: No Sexually Transmitted Disease: No HIV/AIDS: No Genitourinary Hx 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) Genitourinary Disorders: Renal Failure Gastrointestinal Hx Gastrointestinal Disorders: Yes Gastrointestinal Disorders: Gastroesophageal Reflux Musculoskeletal Hx Musculoskeletal Disorders: Yes (ELECTRIC WHEELCHAIR) Musculoskeletal Disorders: Arthritis Endocrine Hx Endocrine Disorders: Yes (MORBID OBESITY) Endocrine Disorders: Diabetes, Non-Insulin dep HEENT HX ENT Disorders: No (GLASSES) Cancer Hx Cancer: No Psychosocial Hx Psychiatric Problems: No Integumentary HX Skin/Integumentary Disorder: No Blood Transfusions Hx Blood Disorders: No Reviewed Nursing Assessment Reviewed/Agree w Nursing PMH: Yes Family Medical History Significant Family History: No Pertinent Family Hx Family Medial History: Patient reports no known family medical history. Review of Systems Constitutional: : Malaise: Sweats: WeaknessNo: Chills, Fever, Other Eyes: No: Conjunctivae inflammation, Eyelid inflammation, Other, Pain, Redness , Vision change ENT: No: Ear discharge, Ear pain, Mouth pain, Mouth swelling, Nose congestion, Nose discharge, Nose pain, Other, Throat pain, Throat swelling Respiratory: : Cough: Dry: SOB with excertion: Shortness of breath Cardiovascular: : Edema: Lt Headedness: Orthopnea: Palpitations: Paroxysmal Noc. Dyspnea Gastrointestinal: No: Abdominal Pain, Constipation, Diarrhea, Hematochezia, Melena, Nausea, Other, Vomiting Genitourinary: No Dysuria, No Frequency, No Incontinence, No Hematuria, No Retention, No Other Musculoskeletal: No: arm pain, back pain, foot pain, hand pain, leg pain, neck pain, other, shoulder pain Skin: No: Bruising, Jaundice, Lesions, Other, Rash Neurological: : Weakness Exam Exam Vital Signs Date Time Temp Pulse Resp B/P Pulse Ox O2 Delivery O2 Flow Rate FiO2 08/01/16 04:36 3.00 08/01/16 04:00 96 Nasal Cannula 3.00 08/01/16 04:00 98.2 90 20 127/94 96 Nasal Cannula 3.00 08/01/16 02:08 92 20 94 40.00 08/01/16 01:00 99 08/01/16 00:26 78 20 95 40.00 08/01/16 00:00 97 NIV/Bilevel 40 08/01/16 00:00 98.4 96 20 130/98 96 NIV/Bilevel 40.00 07/31/16 22:05 98 4.00 07/31/16 21:00 97 Nasal Cannula 4.00 07/31/16 20:10 98.0 103 24 138/103 96 Nasal Cannula 4.00 07/31/16 20:00 97 Nasal Cannula 4.00 07/31/16 19:55 97 5.00 07/31/16 19:40 87 6.00 07/31/16 19:38 87 07/31/16 19:00 120 07/31/16 17:50 Nasal Cannula 4.00 07/31/16 17:40 87 18 94 Nasal Cannula 4 07/31/16 16:59 99 28 9 40 07/31/16 14:08 98.7 124 22 143/104 96 Nasal Cannula 4 07/31/16 14:07 108 24 98 45 07/31/16 14:02 97 Nasal Cannula 3 07/31/16 14:00 96 Nasal Cannula 4 General Appearance: No Apparent Distress WD/WN HEENT: PERRL/EOMI TMs Normal Normal ENT Inspection Neck: Full Range of Motion Normal Inspection Non Tender Supple Respiratory: Chest Non Tender No Accessory Muscle Use No Respiratory Distress Decreased Breath Sounds Cardiovascular: Regular Rate, Rhythm No Edema No Gallop Capillary Refill: Less Than 3 Seconds Gastrointestinal: normal bowel sounds non tender soft Extremity: Normal Capillary Refill Normal Inspection Neurologic/Psychiatric: Alert Oriented x3 Skin: Normal Color Warm/Dry Results Lab Laboratory Tests 07/31/16 14:00 08/01/16 03:40 Assessment/Plan Assessment/Plan -Afib RVR - currently controlled -cardiology consulted pulmonary edema with worsening dyspnea -lasix - CHF with EF 40-50% COPD hx -svns CAD with hx of CABG Clinical Quality Measures DVT/VTE Risk/Contraindication: Risk Factor Score Per Nursin RFS Level Per Nursing on Admit: 4+=Very High MU JACKSON DO Aug 01, 2016 05:48
[2016-08-01] MEDS: inSUlin (REGULAR) HUMAN 1 UNIT/0.01 ML (CHARGE PER UNIT) SC SCH ×2 (06:07→11:30)
[2016-08-01] MEDS ORDERED: glipiZIDE 5 MG (GLUCOTROL) TAB PO SCH (07:00)
[2016-08-01] MEDS ORDERED: RT-ALBUTEROL/IPRATROPIUM 3 ML (DUONEB) VIAL INH PRN (07:01)
[2016-08-01 08:32] VITALS: BP 158/94
[2016-08-01] MEDS ORDERED: FUROSEMIDE 40 MG/4 ML INJ (LASIX) IVP SCH (09:00)
[2016-08-01] MEDS ORDERED: HYDR-3812 PO (10:13)
[2016-08-01] MEDS ORDERED: BENZ100C23 PO (10:13)
[2016-08-01] MEDS ORDERED: FLUO20CA25 PO (10:13)
--- NOTE | 2016-08-01 11:11 | Consultation-Cardiology ---
HPI-Cardiology Cardiology Consultation Date of Consultation 08/01/16 Date of Admission Indication: tachycardia HPI 76-year-old gentleman with history of COPD, persistent atrial fibrillation, has been in and out of the hospital recently, yesterday was having increasing shortness of breath, came into the emergency room, was on his BiPAP. Noted to be tachycardic. I was called for evaluation and started him on Cardizem drip. Currently he is feeling better and asking to go home. Denied any chest pain, had baseline shortness of breath which has been persistent, pedal edema, no syncope or near syncopal episodes. Home Medications & Allergies Allergies: Coded Allergies: adhesive tape (Verified Allergy, Mild, RASH, 05/23/16) shellfish derived (Verified Allergy, Mild, HIVES, 05/23/16) Penicillins (Verified Allergy, Unknown, 05/09/16) Home Medication List Reviewed: No reviewed some of his home medication, waiting for the full reconciliation KKH-Aspamt-Mlholk Hx Patient Social History Alcohol Use: Rarely Uses Recreational Drug Use: No Smoking Status: Former Smoker Type Used: Cigarettes Recent Foreign Travel: No Recent Infectious Disease Expo: No Recent Hopitalizations: Yes (numerous in May) Physical Abuse Screen: No Sexual Abuse: No Immunizations Up To Date Tetanus Booster (TDap): Unknown Date of Pneumonia Vaccine: Apr 24, 2016 Date of Influenza Vaccine: Apr 24, 2016 Past Medical History past medical history as discussed below Family Medical History Significant Family History: No Pertinent Family Hx Family Medical Hx noncontributory to his current condition Family History: Patient reports no known family medical history. Constitutional: see HPI malaise weakness EENTM: no symptoms reported see HPI Respiratory: see HPI cough dyspnea on exertion phlegm short of breath Cardiovascular: see HPINo chest pain, edemaNo Hx of Intervention, palpitationsNo syncope, No vascular heart diseas, No other Gastrointestinal: no symptoms reported see HPI Genitourinary: no symptoms reported see HPI Musculoskeletal: no symptoms reported see HPI Skin: no symptoms reported see HPI Psychiatric/Neurological: No Symptoms Reported See HPI Reviewed Test Results Reviewed Test Results Lab Laboratory Tests Test 07/31/16 14:00 08/01/16 03:40 Range/Units Alanine Aminotransferase (ALT/SGPT) 19 15 0-55 U/L Albumin 3.5 3.4 3.2-4.5 G/DL Alkaline Phosphatase 89 86 40-136 U/L Anion Gap 12 13 5-14 MMOL/L Anisocytosis SLIGHT Aspartate Amino Transf (AST/SGOT) 11 9 5-34 U/L B-Type Natriuretic Peptide 341.1 H <100.0 PG/ML BUN/Creatinine Ratio 13 21 Band Neutrophils 2 % Basophils # (Auto) 0.0 0.0 0.0-0.1 10^3/uL Basophils % (Manual) 0 % Basophils (%) (Auto) 0 0 0-10 % Blood Urea Nitrogen 13 22 H 7-18 MG/DL Calcium Level 9.0 8.9 8.5-10.1 MG/DL Carbon Dioxide Level 28 24 21-32 MMOL/L Chloride Level 97 L 98 98-107 MMOL/L Creatinine 1.03 1.05 0.60-1.30 MG/DL Eosinophils # (Auto) 0.1 0.0 0.0-0.3 10^3/uL Eosinophils % (Manual) 0 % Eosinophils (%) (Auto) 0 0 0-10 % Estimat Glomerular Filtration Rate > 60 > 60 Glucose Level 164 H 215 H 70-105 MG/DL Hematocrit 47 46 40-54 % Hemoglobin 15.6 15.3 13.3-17.7 G/DL Lymphocytes # (Auto) 1.8 0.6 L 1.0-4.0 X 10^3 Lymphocytes % (Manual) 16 % Lymphocytes (%) (Auto) 12 6 L 12-44 % Mean Corpuscular Hemoglobin 31 31 25-34 PG Mean Corpuscular Hemoglobin Concent 33 34 32-36 G/DL Mean Corpuscular Volume 93 93 80-99 FL Mean Platelet Volume 9.7 10.2 7.4-10.4 FL Monocytes # (Auto) 0.9 0.2 0.0-1.0 X 10^3 Monocytes % (Manual) 3 % Monocytes (%) (Auto) 6 1 0-12 % Neutrophils # (Auto) 12.1 H 10.5 H 1.8-7.8 X 10^3 Neutrophils % (Manual) 79 % Neutrophils (%) (Auto) 81 H 93 H 42-75 % Platelet Count 196 202 130-400 10^3/uL Potassium Level 4.3 4.4 3.6-5.0 MMOL/L Red Blood Count 5.05 4.93 4.35-5.85 10^6/uL Red Cell Distribution Width 15.5 H 15.3 H 10.0-14.5 % Sodium Level 137 135 135-145 MMOL/L Total Bilirubin 1.6 H 0.8 0.1-1.0 MG/DL Total Protein 6.6 6.4 6.4-8.2 G/DL White Blood Count 14.9 H 11.3 H 4.3-11.0 10^3/uL Physical Exam Vital Signs Vital Sign - Last 12Hours 07/31/16 07/31/16 07/31/16 08/01/16 14:00 14:07 14:08 00:00 Temp 98.7 Pulse 108 Resp 24 B/P 143/104 Pulse Ox 96 O2 Delivery Nasal Cannula O2 Flow Rate 4 FiO2 40 Capillary Refill : Less Than 3 Seconds General Appearance: WD/WN Mild Distress Eyes: Bilateral Eye EOMI, Bilateral Eye Normal Inspection, Bilateral Eye PERRL HEENT: PERRL/EOMI TMs Normal Normal ENT Inspection Pharynx Normal Neck: Full Range of Motion Normal Inspection Non Tender Supple Carotid Bruit Respiratory: Chest Non Tender Normal Breath Sounds No Accessory Muscle Use No Respiratory Distress Crackles Cardiovascular: No Edema No Gallop No JVD No Murmur Normal Peripheral Pulses Irregularly Irregular Gastrointestinal: Normal Bowel Sounds No Organomegaly No Pulsatile Mass Non Tender Soft Back: Normal Inspection No CVA Tenderness No Vertebral Tenderness Extremity: Normal Capillary Refill Normal Inspection Normal Range of Motion Non Tender No Calf Tenderness Pedal Edema Neurologic/Psychiatric: Alert Oriented x3 No Motor/Sensory Deficits Normal Mood/Affect Skin: Normal Color Warm/Dry Lymphatic: No Adenopathy A/P-Cardiology Admission Diagnosis CHF, chronic compensated left ventricular diastolic dysfunction, hypertensive heart disease Shortness of breath COPD Persistent atrial fibrillation Hypertension Assessment/Plan Shortness of breath, status post respiratory insufficiency, better at this time , was on BiPAP last night. better at this time. possible discharge today. Followed by Dr. Conti Chronic congestive heart failure, chronic compensated left ventricular systolic dysfunction, ejection fraction 40-45 percent. Probably ischemic cardiomyopathy. Maintained on beta blockers, cannot tolerate PAMELA inhibitor and/ or ARB due to renal insufficiency with history of renal failure. I recommend the use of selective beta-1 sebastien instead of Coreg, discussed with Dr. Hung. Persistent atrial fibrillation, was tachycardic yesterday, currently heart rate is better controlled. Use selective beta-1 blockers and monitor as an outpatient. [id number] score is 5, yearly risk of stroke without oral anticoagulation is 6.7 percent, maintained on Eliquis 5mg BID. Coronary artery disease, history of CABG 3 done in 2002. Continue to monitor. Planning for stress test as outpatient once patient is more stable. Chronic renal insufficiency, no change from baseline. Continue to monitor renal function Hypertension, controlled, continue current medications and monitor COPD/obstructive sleep apnea using BiPAP and oxygen at home, status post exacerbation, better at this time. Diabetes mellitus, followed and managed by primary care physician Hyperlipidemia, maintained on Lipitor. Hypothyroidism, on thyroid replacement therapy managed by primary care physician Obesity, BMI is 48. Clinical Quality Measures DVT/VTE Risk/Contraindication: Risk Factor Score Per Nursin RFS Level Per Nursing on Admit: 4+=Very High MANJULA COLES MD Aug 01, 2016 11:11
[2016-08-01 12:00] VITALS: BP 142/86
[2016-08-01] MEDS ORDERED: LOSA100T28 PO (14:21)
[2016-08-01] MEDS ORDERED: LEVO112T55 PO (14:24)
[2016-08-01] MEDS ORDERED: IPRA4AER IH (14:29)
[2016-08-01] MEDS ORDERED: DIPH25CA79 PO (14:29)
[2016-08-01] MEDS ORDERED: METO100T6 PO (14:52)
[2016-08-01] MEDS ORDERED: PRD20T PO (14:54)
--- NOTE | 2016-08-01 14:57 | Discharge Instructions ---
Discharge [facility] Discharge Medications New, Converted or Re-Newed RX: Transmitted to Pharmacy New Medications: Metoprolol Succinate (Toprol Xl) 100 Mg Tab.er.24h 100 MG PO DAILY #30 Ref 0 TAB Prednisone (Prednisone) 20 Mg Tab 40 MG PO DAILY #10 Ref 0 TAB Continued Medications: Albuterol Sulfate (Albuterol Sulfate) 2.5 Mg/3 Ml Vial.neb 2.5 MG IH QID PRN SHORTNESS OF BREATH EA Albuterol/Ipratropium (Combivent Respimat Inhal [place]) 4 Gm Aero 1 PUFF IH QID INH Allopurinol (Allopurinol) 300 Mg Tablet 300 MG PO DAILY TAB Apixaban (Eliquis) 5 Mg Tablet 5 MG PO BID TAB Aspirin (Aspirin EC) 81 Mg Tablet.dr 81 MG PO DAILY TAB Atorvastatin Calcium (Lipitor) 80 Mg Tablet 40 MG PO HS TAKES 1/2 (80MG) TABLET TAB Benzonatate (Benzonatate) 100 Mg Capsule 100 MG PO TID FILLED 07/31/16 #30 FOR A 10 DAY THERAPY PRN COUGH CAP Budesonide/Formoterol Fumarate (Symbicort 160-4.5 Mcg Inhaler) 10.2 Gm Hfa.aer.ad 2 PUFF IH BID INHALER Carboxymethylcellulose Sodium (Lubricant Eye Drops) 15 Ml Drops 1 DROP OU QID PRN DRY EYES DROPS Cetirizine HCl (Zyrtec) 10 Mg Tablet 10 MG PO DAILY TAB Cholecalciferol (Vitamin D3) (Vitamin D3) 1,000 Unit Capsule 1000 UNIT PO DAILY CAP Diclofenac Sodium (Voltaren) 100 Gm Gel..gram. TOP QID PRN PAIN EA Diphenhydramine HCl (Benadryl) 25 Mg Capsule 25 MG PO PRN PRN ALLERGIES CAP Etodolac (Etodolac) 200 Mg Capsule 200 MG PO TID CAP Fluoxetine HCl (Fluoxetine HCl) 20 Mg Capsule 20 MG PO DAILY LAST FILLED 06/12/16 #30 Fluticasone Propionate (Fluticasone Propionate) 16 Gm [place].susp 1 SPRAY NS DAILY SPRAY Furosemide (Furosemide) 80 Mg Tablet 80 MG PO DAILY TAB Gabapentin (Gabapentin) 300 Mg Capsule 300 MG PO TID CAP Glipizide (Glipizide) 10 Mg Tablet 5 MG PO BIDAC TAKES 1/2 (10MG) TABLET TAB Guaifenesin (Guaifenesin) 100 Mg/5 Ml Liquid 10 ML PO TID PRN COUGH/CONGESTION EA Hydrocodone/Acetaminophen (Hydrocodon -Acetaminophen 5-325) 1 Each Tablet 1 TAB PO BID PRN PAIN Isosorbide Mononitrate (Isosorbide Mononitrate ER) 60 Mg Tab 60 MG PO DAILY TAB Levothyroxine Sodium (Levothyroxine Sodium) 112 Mcg Tablet 2 TAB PO DAILY TAB Lorazepam (Lorazepam) 1 Mg Tablet 1 MG PO Q4H PRN ANXIETY TAB Losartan Potassium (Losartan Potassium) 100 Mg Tablet 100 MG PO DAILY TAB Magnesium Oxide (Magnesium) 400 Mg Tablet 800 MG PO BID TAKES 2 (400MG) TABLETS TAB Potassium Chloride (Potassium Chloride) 20 Meq Tablet.er 20 MEQ PO DAILY TAB Ropinirole HCl (Requip) 1 Mg Tablet 1 MG PO HS TAB Trazodone HCl (Trazodone HCl) 100 Mg Tablet 150 MG PO HS TAKES 1 & 1/2 (100MG) TABLET TAB Discontinued Medications: Carvedilol (Coreg) 25 Mg Tab 12.5 MG PO BID TAKES 1/2 (25MG) TABLET TAB Hyoscyamine Sulfate (Hyoscyamine Sulfate) 0.125 Mg Tablet 0.125 MG PO EVERY 2 HOURS PRN INCREASED SECRETIONS TAB Patient Instructions Goal/Follow Up Appt: Follow up with Derrick Padilla at [facility] in [place] on 08/11/16 at 1020 am. Patient Instructions: Stop taking carvedilol (for your heart) because it may interfere with your breathing. Start taking Toprol XL in place of it which is less likely to interfere with your breathing. Take prednisone for 5 days to help with your breathing. Return to The Hospital For: Fever, worsening shortness of breath, racing heart, chest pain Activity & Diet Discharge Diet: ADA Diet Activity as Tolerated: Yes Copy Copies To 1: WENDI Tyler BETHANY N MD Aug 01, 2016 2:57 pm
--- NOTE | 2016-08-01 15:04 | Short Stay Summary ---
HPI History of Present Illness: 76 yo male with history of COPD on bipap at home at night and as needed and on 4 lpm supplemental oxygen chronically, presented to ER due to worsening shortness of breath over the last few days. He states he called his primary and was started on tessalon perles because he was coughing a lot but he continued to get worse, so he came in. He denies fever. He does say he uses his nebulizer with albuterol at home, but states he is unable to time his breathing right to use his other inhaler so he has not been using that (he doesn't recall which inhaler it is and on review of his medication list, it appears he should be on symbicort and combivent). He also has a history of a fib and heart failure and was found to be in a fib with RVR in the ER. Today he is on 3 lpm supplemental oxygen after one dose of solumedrol and breathing treatments over night. He states he is feeling well and wanting to go home. He was on cardizem briefly and rate is normal now. Attending Physician Dom Hung MD PCP [facility] [place] Date of Admission Jul 31, 2016 at 5:25 pm Home Medications Home Medications Reviewed patient Home Medication Reconciliation Form Allergies Coded Allergies: adhesive tape (Verified Allergy, Mild, RASH, 05/23/16) shellfish derived (Verified Allergy, Mild, HIVES, 05/23/16) Penicillins (Verified Allergy, Unknown, 05/09/16) IMM-[id number]-Gwvimd Hx Patient Social History Alcohol Use: Rarely Uses Recreational Drug Use: No Smoking Status: Former Smoker Type Used: Cigarettes Recent Foreign Travel: No Contact w/other who traveled: No Recent Hopitalizations: Yes (numerous in May) Recent Infectious Disease Expo: No Physical Abuse Screen: No Sexual Abuse: No Immunizations Up To Date Tetanus Booster (TDap): Unknown Date of Pneumonia Vaccine: Apr 24, 2016 Date of Influenza Vaccine: Apr 24, 2016 Past Medical History PMHx: NIDDMII HTN HLD CHF Hypothyroidism CVA with left leg weakness- non-ambulatory CAD s/p Stents then CABG Chronic A fib COPD SurgHx: Coronary artery bypass Right knee replacement Vasectomy Family Medical History Significant Family History: No Pertinent Family Hx Family History: Patient reports no known family medical history. Review of Systems ([facility]) Constitutional: No fever Respiratory: cough short of breath Cardiovascular: No chest pain Gastrointestinal: No abdominal pain, No constipation, No diarrhea, No nausea, No vomiting Genitourinary: no symptoms reported Musculoskeletal: joint pain Skin: no symptoms reported Psychiatric/Neurological: No Symptoms Reported Reviewed Test Results Reviewed Test Results Lab Laboratory Tests Test 07/31/16 14:00 08/01/16 03:40 08/01/16 11:13 Range/Units Alanine Aminotransferase (ALT/SGPT) 19 15 0-55 U/L Albumin 3.5 3.4 3.2-4.5 G/DL Alkaline Phosphatase 89 86 40-136 U/L Anion Gap 12 13 5-14 MMOL/L Anisocytosis SLIGHT Aspartate Amino Transf (AST/SGOT) 11 9 5-34 U/L B-Type Natriuretic Peptide 341.1 H <100.0 PG/ML BUN/Creatinine Ratio 13 21 Band Neutrophils 2 % Basophils # (Auto) 0.0 0.0 0.0-0.1 10^3/uL Basophils % (Manual) 0 % Basophils (%) (Auto) 0 0 0-10 % Blood Urea Nitrogen 13 22 H 7-18 MG/DL Calcium Level 9.0 8.9 8.5-10.1 MG/DL Carbon Dioxide Level 28 24 21-32 MMOL/L Chloride Level 97 L 98 98-107 MMOL/L Creatinine 1.03 1.05 0.60-1.30 MG/DL Eosinophils # (Auto) 0.1 0.0 0.0-0.3 10^3/uL Eosinophils % (Manual) 0 % Eosinophils (%) (Auto) 0 0 0-10 % Estimat Glomerular Filtration Rate > 60 > 60 Glucose Level 164 H 215 H 70-105 MG/DL Hematocrit 47 46 40-54 % Hemoglobin 15.6 15.3 13.3-17.7 G/DL Lymphocytes # (Auto) 1.8 0.6 L 1.0-4.0 X 10^3 Lymphocytes % (Manual) 16 % Lymphocytes (%) (Auto) 12 6 L 12-44 % Mean Corpuscular Hemoglobin 31 31 25-34 PG Mean Corpuscular Hemoglobin Concent 33 34 32-36 G/DL Mean Corpuscular Volume 93 93 80-99 FL Mean Platelet Volume 9.7 10.2 7.4-10.4 FL Monocytes # (Auto) 0.9 0.2 0.0-1.0 X 10^3 Monocytes % (Manual) 3 % Monocytes (%) (Auto) 6 1 0-12 % Neutrophils # (Auto) 12.1 H 10.5 H 1.8-7.8 X 10^3 Neutrophils % (Manual) 79 % Neutrophils (%) (Auto) 81 H 93 H 42-75 % Platelet Count 196 202 130-400 10^3/uL Potassium Level 4.3 4.4 3.6-5.0 MMOL/L Red Blood Count 5.05 4.93 4.35-5.85 10^6/uL Red Cell Distribution Width 15.5 H 15.3 H 10.0-14.5 % Sodium Level 137 135 135-145 MMOL/L Total Bilirubin 1.6 H 0.8 0.1-1.0 MG/DL Total Protein 6.6 6.4 6.4-8.2 G/DL White Blood Count 14.9 H 11.3 H 4.3-11.0 10^3/uL Glucometer 165 H 70-110 MG/DL Radiology CXR: IMPRESSION: Cardiomegaly with mild vascular congestion. Physical Exam-([facility]) Physical Exam Vital Signs VS - Last 72 Hours, by Label 07/31/16 07/31/16 07/31/16 07/31/16 14:00 14:02 14:07 14:08 Temp 98.7 Pulse 108 124 Resp 24 22 B/P 143/104 Pulse Ox 96 97 98 96 O2 Delivery Nasal Cannula Nasal Cannula Nasal Cannula O2 Flow Rate 4 3 45 4 07/31/16 07/31/16 07/31/16 07/31/16 16:59 17:40 17:50 19:00 Pulse 99 87 120 Resp 28 18 Pulse Ox 9 94 O2 Delivery Nasal Cannula Nasal Cannula O2 Flow Rate 40 4 4.00 07/31/16 07/31/16 07/31/16 07/31/16 19:38 19:40 19:55 20:00 Pulse Ox 87 87 97 97 O2 Delivery Nasal Cannula O2 Flow Rate 6.00 5.00 4.00 07/31/16 07/31/16 07/31/16 08/01/16 20:10 21:00 22:05 00:00 Temp 98.0 98.4 Pulse 103 96 Resp 24 20 B/P 138/103 130/98 Pulse Ox 96 97 98 96 O2 Delivery Nasal Cannula Nasal Cannula NIV/Bilevel O2 Flow Rate 4.00 4.00 4.00 40.00 08/01/16 08/01/16 08/01/16 08/01/16 00:00 00:26 01:00 02:08 Pulse 78 99 92 Resp 20 20 Pulse Ox 97 95 94 O2 Delivery NIV/Bilevel O2 Flow Rate 40.00 40.00 FiO2 40 08/01/16 08/01/16 08/01/16 08/01/16 04:00 04:00 04:36 07:00 Temp 98.2 Pulse 90 92 Resp 20 B/P 127/94 Pulse Ox 96 96 O2 Delivery Nasal Cannula Nasal Cannula O2 Flow Rate 3.00 3.00 3.00 08/01/16 08/01/16 08/01/16 08/01/16 07:08 08:32 08:33 08:34 Temp 97.3 Pulse 99 Resp 20 B/P 158/94 Pulse Ox 95 97 97 97 O2 Delivery Nasal Cannula Nasal Cannula Nasal Cannula O2 Flow Rate 3.00 3.00 3.00 3.00 08/01/16 08/01/16 08/01/16 12:00 12:00 14:52 Temp 98.7 Pulse 96 Resp 18 B/P 142/86 Pulse Ox 94 94 93 O2 Delivery Nasal Cannula Nasal Cannula O2 Flow Rate 3.00 3.00 3.00 Capillary Refill : Less Than 3 Seconds General Appearance: no apparent distress Respiratory: lungs clear Cardiovascular: no murmur irregularly irregular Gastrointestinal: normal bowel sounds non tender soft Extremities: no pedal edema Neurologic/Psychiatric: alert normal mood/affect Skin: normal color warm/dry Short Stay Diagnosis Discharge Diagnosis-Short Stay Admission Diagnosis 1. COPD exacerbation 2. Atrial fibrillation with rapid ventricular response 3. DMII 4. HTN 5. Chronic pain 6. HLD 7. Hypothyroidism Final Discharge Diagnosis 1. COPD exacerbation- rapid improvement with one dose of solumedrol and was not using home inhalers -RT for education on how to use respimat inhaler -Prednisone burst on d/c 2. Atrial fibrillation with rapid ventricular response- likely related to above -Resolved with brief period of cardizem, changed from carvedilol to Toprol XL given his COPD No changes made in the remainder of his medical condition medications 3. DMII 4. HTN 5. Chronic pain 6. HLD 7. Hypothyroidism Conclusion Plan See discharge diagnosis Clinical Quality Measures DVT/VTE Risk/Contraindication: Risk Factor Score Per Nursin RFS Level Per Nursing on Admit: 4+=Very High DOM HUNG MD Aug 01, 2016 3:04 pm
[2016-08-01 15:55] VITALS: BP 142/86
[2016-08-01] MEDS ORDERED: APIXABAN 5 MG (ELIQUIS) TABLET PO SCH (21:00)
[2016-08-01] MEDS ORDERED: rOPINIRole 1 MG (REQUIP) TABLET PO SCH (21:00)
== END 2016-08-01 18:30 | disposition home or self-care (01) | DRG 191 ==
LOC: EDUNIT# 13:54 → ER 13:55 → ICU 17:25
PROVIDERS: ADMIT Family Medicine; ATTEND Family Medicine
DX: J44.1 Chronic obstructive pulmonary disease with (acute) exacerbation (principal); I48.2 Chronic atrial fibrillation; I50.22 Chronic systolic (congestive) heart failure; Z68.42 Body mass index [BMI] 45.0-49.9, adult; I69.354 Hemiplegia and hemiparesis following cerebral infarction affecting left non-dominant side; E11.9 Type 2 diabetes mellitus without complications; I12.9 Hypertensive chronic kidney disease with stage 1 through stage 4 chronic kidney disease, or unspecified chronic kidney disease; Z66 Do not resuscitate; I25.10 Atherosclerotic heart disease of native coronary artery without angina pectoris; N18.9 Chronic kidney disease, unspecified; Z95.1 Presence of aortocoronary bypass graft; Z87.891 Personal history of nicotine dependence; E78.00 Pure hypercholesterolemia, unspecified; K21.9 Gastro-esophageal reflux disease without esophagitis; G47.33 Obstructive sleep apnea (adult) (pediatric); I25.5 Ischemic cardiomyopathy; E78.5 Hyperlipidemia, unspecified; E03.9 Hypothyroidism, unspecified; E66.9 Obesity, unspecified; Z95.5 Presence of coronary angioplasty implant and graft; Z96.651 Presence of right artificial knee joint; G89.29 Other chronic pain; Z99.3 Dependence on wheelchair
CPT/HCPCS: 36415; 71010; 80053; 82962; 83880; 85007; 85025; 85027; 93005; 93041; 94640; 94660; 94664; 94760; 96374

== ENCOUNTER 2016-08-31 07:32 | Emergency (ER) | payer OTHER, MEDICAID ==
[~2016-08-31] VITALS: Ht 165.1 cm; Wt 133.1 kg
[~2016-08-31 07:32] MED LIST changes: +BENZ100C23 PO; +DIPH25CA79 PO; +FLUO20CA25 PO; +HYDR-3812 PO; +LEVO112T55 PO; +METO100T6 PO; +PRD20T PO; -RT-ALBUTEROL/IPRATROPIUM 3 ML (DUONEB) VIAL ONE
--- NOTE | 2016-08-31 07:47 | ED Respiratory ---
General Chief Complaint: Respiratory Problems Stated Complaint: SOB Source: patient, RN/MD, EMS Exam Limitations: no limitations History of Present Illness Time seen by provider: 07:40 Initial Comments Patient states that yesterday he started having progressively worsening shortness of breath over his baseline. He uses 5-1/2 L by oxygen concentrator at home and was using the same amount he came in by EMS this morning. On 5 L nasal cannula. He uses albuterol by small-volume nebulizer his last dose was 5: 00 yesterday evening. He states he uses about 3-4 times a day routinely anyways. He is concerned that he just [facility] and feels that it is not totally set up correctly and he was feeling a little more short of breath than usual. He denies a cough, fever, chills, nausea, vomiting, diarrhea, rash, pain. He does note that about a week ago he dropped a bottle of soda on the floor and while bending over to pick it up from his mobility chair he fell on his left arm and shoulder. His pain is limited to the shoulder and elbow region and was worked up by his doctor outpatient in [place], [place] with an x-ray. He denies chest pain, edema of the legs, pain in the calves. He reports a mild left temporal headache that started on arrival. No radiation or vision changes. He states he gets these headaches may respond to [place] typically. Timing/Duration: yesterday Allergies and Home Medications Allergies Coded Allergies: adhesive tape (Verified Allergy, Mild, RASH, 05/23/16) shellfish derived (Verified Allergy, Mild, HIVES, 05/23/16) Penicillins (Verified Allergy, Unknown, 05/09/16) Home Medications Albuterol Sulfate 2.5 Mg/3 Ml Vial.neb 2.5 MG IH QID PRN PRN SHORTNESS OF BREATH (Reported) Albuterol/Ipratropium 4 Gm Aero 1 PUFF IH QID (Reported) Allopurinol 300 Mg Tablet 300 MG PO DAILY (Reported) Apixaban 5 Mg Tablet 5 MG PO BID (Reported) Aspirin 81 Mg Tablet.dr 81 MG PO DAILY (Reported) Atorvastatin Calcium 80 Mg Tablet 40 MG PO HS (Reported) TAKES 1/2 (80MG) TABLET Benzonatate 100 Mg Capsule 100 MG PO TID PRN PRN COUGH (Reported) FILLED 07/31/16 #30 FOR A 10 DAY THERAPY Budesonide/Formoterol Fumarate 10.2 Gm Hfa.aer.ad 2 PUFF IH BID (Reported) Carboxymethylcellulose Sodium 15 Ml Drops 1 DROP OU QID PRN PRN DRY EYES ( Reported) Cetirizine HCl 10 Mg Tablet 10 MG PO DAILY (Reported) Cholecalciferol (Vitamin D3) 1,000 Unit Capsule 1,000 UNIT PO DAILY (Reported) Diclofenac Sodium 100 Gm Gel..gram. TOP QID PRN PRN PAIN (Reported) Diphenhydramine HCl 25 Mg Capsule 25 MG PO PRN PRN PRN ALLERGIES (Reported) Etodolac 200 Mg Capsule 200 MG PO TID (Reported) Fluoxetine HCl 20 Mg Capsule 20 MG PO DAILY (Reported) LAST FILLED 06/12/16 #30 Fluticasone Propionate 16 Gm [place].susp 1 SPRAY NS DAILY (Reported) Furosemide 80 Mg Tablet 80 MG PO DAILY (Reported) Gabapentin 300 Mg Capsule 300 MG PO TID (Reported) Glipizide 10 Mg Tablet 5 MG PO BIDAC (Reported) TAKES 1/2 (10MG) TABLET Guaifenesin 100 Mg/5 Ml Liquid 10 ML PO TID PRN PRN COUGH/CONGESTION (Reported) Hydrocodone/Acetaminophen 1 Each Tablet 1 TAB PO BID PRN PRN PAIN (Reported) Isosorbide Mononitrate 60 Mg Tab 60 MG PO DAILY (Reported) Levothyroxine Sodium 112 Mcg Tablet 2 TAB PO DAILY (Reported) Lorazepam 1 Mg Tablet 1 MG PO Q4H PRN PRN ANXIETY (Reported) Losartan Potassium 100 Mg Tablet 100 MG PO DAILY (Reported) Magnesium Oxide 400 Mg Tablet 800 MG PO BID (Reported) TAKES 2 (400MG) TABLETS Metoprolol Succinate 100 Mg Tab.er.24h #30 100 MG PO DAILY Prescribed by: DOM SOLARES on 08/01/16 1452 Potassium Chloride 20 Meq Tablet.er 20 MEQ PO DAILY (Reported) Prednisone 20 Mg Tab #10 40 MG PO DAILY Prescribed by: DOM SOLARES on 08/01/16 1454 Ropinirole HCl 1 Mg Tablet 1 MG PO HS (Reported) Trazodone HCl 100 Mg Tablet 150 MG PO HS (Reported) TAKES 1 & 1/2 (100MG) TABLET Constitutional: No chills, No dizziness, No fever, No malaise, No weakness, No weight gain, No weight loss EENTM: No ear pain, No epistaxis, No eye pain, No nose congestion, No nose pain Respiratory: No cough, dyspnea on exertionNo hemoptysis, No phlegm, short of breath wheezing Cardiovascular: No chest pain, Hx of InterventionNo palpitations, No syncope, vascular heart diseas Gastrointestinal: No abdominal pain, No constipation, No diarrhea Genitourinary: No discharge, No dysuria, frequencyNo hematuria, nocturia Musculoskeletal: No back pain, No joint pain Skin: No pruritus, No rash Psychiatric/Neurological: Denies Headache, Denies Paresthesia Past Euoqzwp-Tkdruq-Kcnnou Hx Patient Social History Alcohol Use: Denies Use Recreational Drug Use: No Smoking Status: Former Smoker (crit 1979) Type Used: Cigarettes Recent Hopitalizations: Yes (numerous in May) Immunizations Up To Date Tetanus Booster (TDap): Unknown Date of Pneumonia Vaccine: Apr 24, 2016 Date of Influenza Vaccine: Apr 24, 2016 Seasonal Allergies Seasonal Allergies: No Surgeries HX Surgeries: Yes Surgeries: Cardiac, CABG, Coronary Stent, Joint Replacement, Orthopedic Respiratory Hx Respiratory Disorders: Yes (O2 DEPENDENT AT 4L/NC; BIPAP AT HIS AND PRN DURING DAY) Respiratory Disorders: Asthma, COPD Cardiovascular Hx Cardiac Disorders: Yes (CHF; RBBB) Cardiac Disorders: Atrial Fibrillation, Coronary Artery Disease, High Cholesterol, Hypertension, Peripheral Vascular Neurological Hx Neurological Disorders: Yes (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; RESTLESS LEG) Neurological Disorders: Neuropathy, Stroke Reproductive System Hx Reproductive Disorders: No Sexually Transmitted Disease: No HIV/AIDS: No Genitourinary Hx 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) Genitourinary Disorders: Renal Failure Gastrointestinal Hx Gastrointestinal Disorders: Yes Gastrointestinal Disorders: Gastroesophageal Reflux Musculoskeletal Hx Musculoskeletal Disorders: Yes (ELECTRIC WHEELCHAIR) Musculoskeletal Disorders: Arthritis Endocrine Hx Endocrine Disorders: Yes (MORBID OBESITY) Endocrine Disorders: Diabetes, Non-Insulin dep HEENT HX ENT Disorders: No (GLASSES) Cancer Hx Cancer: No Psychosocial Hx Psychiatric Problems: No Integumentary HX Skin/Integumentary Disorder: No Blood Transfusions Hx Blood Disorders: No Family Medical History Significant Family History: No Pertinent Family Hx Family Medial History: Patient reports no known family medical history. Physical Exam Vital Signs Vital Sign - Last 12Hours 08/31/16 08/31/16 07:32 08:40 Temp 98.7 Pulse 112 B/P 117/113 Pulse Ox 93 O2 Delivery Nasal Cannula O2 Flow Rate 2 Capillary Refill : General Appearance: WD/WN no apparent distress Eyes: Bilateral Eye EOMI, Bilateral Eye Normal Inspection HEENT: normal ENT inspection TMs normal pharynx normal Neck: non-tender supple normal inspection Respiratory: chest non-tender no respiratory distress decreased breath soundsNo accessory muscle use Cardiovascular: normal peripheral pulses regular rate, rhythm no edema Gastrointestinal: normal bowel sounds non tender soft Extremities: non-tender no calf tenderness normal capillary refillNo inflammation Neurologic/Psychiatric: alert normal mood/affect oriented x 3 Skin: warm/dry rash (excoriations on trunk from xeroderma) Progress/Results/Core Measures Results/Orders Lab Results Laboratory Tests Test 08/31/16 07:47 Range/Units Anion Gap 10 5-14 MMOL/L BUN/Creatinine Ratio 11 Basophils # (Auto) 0.0 0.0-0.1 10^3/uL Basophils (%) (Auto) 0 0-10 % Blood Urea Nitrogen 13 7-18 MG/DL Calcium Level 9.4 8.5-10.1 MG/DL Carbon Dioxide Level 39 H 21-32 MMOL/L Chloride Level 93 L 98-107 MMOL/L Creatinine 1.21 0.60-1.30 MG/DL Eosinophils # (Auto) 0.1 0.0-0.3 10^3/uL Eosinophils (%) (Auto) 1 0-10 % Estimat Glomerular Filtration Rate 59 Glucose Level 136 H 70-105 MG/DL Hematocrit 42 40-54 % Hemoglobin 12.9 L 13.3-17.7 G/DL Lymphocytes # (Auto) 1.3 1.0-4.0 X 10^3 Lymphocytes (%) (Auto) 14 12-44 % Magnesium Level 1.8 1.8-2.4 MG/DL Mean Corpuscular Hemoglobin 30 25-34 PG Mean Corpuscular Hemoglobin Concent 31 L 32-36 G/DL Mean Corpuscular Volume 99 80-99 FL Mean Platelet Volume 9.7 7.4-10.4 FL Monocytes # (Auto) 0.6 0.0-1.0 X 10^3 Monocytes (%) (Auto) 6 0-12 % Neutrophils # (Auto) 7.7 1.8-7.8 X 10^3 Neutrophils (%) (Auto) 79 H 42-75 % Platelet Count 228 130-400 10^3/uL Potassium Level 4.7 3.6-5.0 MMOL/L Red Blood Count 4.24 L 4.35-5.85 10^6/uL Red Cell Distribution Width 14.7 H 10.0-14.5 % Sodium Level 142 135-145 MMOL/L Troponin I < 0.30 <0.30 NG/ML White Blood Count 9.8 4.3-11.0 10^3/uL Micro Results Microbiology 08/31/16 Influenza Types A,B Antigen (MARTY) - Final, Complete My Orders Orders-MICHELLE MADRID Basic Metabolic Panel (08/31/16 07:47) Cbc With Automated Diff (08/31/16 07:47) Magnesium (08/31/16 07:47) Troponin I (08/31/16 07:47) Influenza A And B Antigens (08/31/16 07:47) Chest 1 View, Ap/Pa Only (08/31/16 07:47) Albuterol/Ipra Inhalation Soln (Duoneb I (08/31/16 08:00) Ekg Tracing (08/31/16 07:47) O2 (08/31/16 07:47) Saline Lock/Iv-Start (08/31/16 07:47) Monitor-Rhythm Ecg Trace Only (08/31/16 07:47) Svn Sm Volume Nebulizer Rt-Rfs (08/31/16 07:47) Methylprednisolone Sod Succ (Solu-Medrol (08/31/16 08:00) Acetaminophen Tablet (Tylenol Tablet) (08/31/16 08:27) Ondansetron Injection (Zofran Injectio (08/31/16 09:00) Azithromycin Tablet (Zithromax Tablet) (08/31/16 09:15) Medications Given in ED Current Medications Medications Dose Ordered Sig/Scar Route Start Time Stop Time Status Last Admin Dose Admin Albuterol/ Ipratropium 3 ml ONCE ONCE INH 08/31/16 08:00 08/31/16 08:01 DC 08/31/16 08:39 3 ML Methylprednisolone Sodium Succinate 125 mg ONCE ONCE IVP 08/31/16 08:00 08/31/16 08:01 DC 08/31/16 08:34 125 MG Ondansetron HCl 4 mg ONCE ONCE IVP 08/31/16 09:00 08/31/16 09:01 DC 08/31/16 09:03 4 MG Vital Signs/I&O Vital Sign - Last 12Hours 08/31/16 08/31/16 08/31/16 07:32 07:32 08:40 Temp 98.7 Pulse 112 B/P 117/113 Pulse Ox 93 O2 Delivery Nasal Cannula O2 Flow Rate 2 2.00 Progress Note : Time: 07:59 Progress Note Patient with a long-standing history of COPD presents ER with complaint of more short of breath on his new CPAP settings. He denies any cough or fever which would be consistent with a pneumonia. We will get an influenza anyways as he does use inhaled steroids. The patient has no pedal edema or redness suggestive of DVT and is therefore low probability for PE. The patient's pain in his left arm is consistent with his recent fall been going on for a week. Just the same we will get a troponin considering epicardial occlusion given his history of CABG. EKG and chest x-ray. Basic set of lab. This most likely represents COPD exacerbation with possible Tarik colitis versus pneumonia as will be revealed on x-ray. We'll plan to treat with steroids and antibiotics as appropriate. Influeza neg. Mild anemia probably of chronic disease. Bicarbonate elevated likely in response to his chronic respiratory acidosis. Glucose marginally elevated at 136. Influenza Negative. Troponin negative. Just a tree shows new pulmonary congestion since last x-ray in month ago and he may need to increase his Lasix. We will give an initial dose of steroids and azithromycin today ECG EKG : Rhythm: S.Tach Intervals: Normal ECG Comparisson: Unchanged ECG Impression: Nonspecific Changes (movement artifact noted.) Diagnostic Imaging Diagonstic Imaging: Xray Plain Films/CT/US/NM/MRI: chest Comments Right medial lobe lower atelectasis from probable poor inspiratory effort noted. Pulmonary congestion noted. No infiltrates noted. NAME: RAMEZ MELGAR [facility] REC#: [id number] PT STATUS: REG ER : 1940 PHYSICIAN: MICHELLE MADRID MD ADMIT DATE: 08/31/16/ER Draft Date of Exam:08/31/16 CHEST 1 VIEW, AP/PA ONLY INDICATION: Chest pain with shortness of breath. Comparison with 07/31/2016. FINDINGS: There is cardiomegaly again noted with median sternotomy changes. The lungs are well-aerated. No infiltrates have developed. There continues to be mild pulmonary venous congestion.. No pneumothorax or pleural effusion. IMPRESSION: Cardiomegaly with pulmonary venous congestive changes again noted. Overall appearance has not changed significantly. Dictated on workstation # [id number] Dict: 08/31/16 0855 Trans: 08/31/16 0859 [facility] [id number] Interpreted by: JN FALCON MD Electronically signed by: Departure Impression Impression: Primary Impression: COPD exacerbation Disposition: Condition: Stable Departure-Patient Inst. Decision time for Depature: 09:10 Referrals: [facility] (PCP/Family) Primary Care Physician Patient Instructions: Exacerbation of COPD (DC) Add. Discharge Instructions: There are no signs of infection in any of your blood work or x-ray however he may be having an exacerbation or worsening temporarily of your COPD. We have given used steroids and a first dose of antibiotics. Tomorrow you'll need to take Your prescriptions from the pharmacy and start taking one tablet of the prednisone, steroid twice a day with food. He will also need to take one tablet of the antibiotic every day with food to completion. If you have new or worsening symptoms he should return to care or toxic your primary care provider for help with your CPAP. You should contact your supplier for the CPAP machine tomorrow trying get it adjusted so that you do not feel so short of breath. He should also consider doing daily weights to monitor for fluid overload and discuss the appropriate treatment with your primary care physician. All discharge instructions reviewed with patient and/or family. Voiced understanding. Scripts Prednisone 20 Mg Tab20 Mg PO BID #8 TAB Ref 0 Prov:MICHELLE MADRID 08/31/16 Azithromycin 250 Mg [id number] Mg PO DAILY #4 TAB Ref 0 Prov:MICHELLE MADRID 08/31/16 Copy Copies To 1: LEI CHATTERJEE TITUS J Aug 31, 2016 07:47
[2016-08-31] MEDS ORDERED: RT-ALBUTEROL/IPRATROPIUM 3 ML (DUONEB) VIAL INH ONE (08:00)
[2016-08-31] MEDS ORDERED: methylPREDNISolone 125 MG (Solu-MEDROL) VIAL IVP ONE (08:00)
[2016-08-31 08:02] LABS: BASOPHILS % (AUTO) 0 % (0-10); EOSINOPHILS # (AUTO) 0.1 10^3/uL (0.0-0.3); EOSINOPHILS % (AUTO) 1 % (0-10); LYMPHOCYTES # (AUTO) 1.3 X 10^3 (1.0-4.0); LYMPHOCYTES % (AUTO) 14 % (12-44); MEAN CORPUSCULAR HEMOGLOBIN 30 PG (25-34); MEAN CORPUSCULAR HGB CONC 31 G/DL (32-36); MEAN CORPUSCULAR VOLUME 99 FL (80-99); MEAN PLATELET VOLUME 9.7 FL (7.4-10.4); MONOCYTES # (AUTO) 0.6 X 10^3 (0.0-1.0); MONOCYTES % (AUTO) 6 % (0-12); NEUTROPHILS # (AUTO) 7.7 X 10^3 (1.8-7.8); NEUTROPHILS % (AUTO) 79 % (42-75); PLATELET COUNT 228 10^3/uL (130-400); RED BLOOD COUNT 4.24 10^6/uL (4.35-5.85); RED CELL DISTRIBUTION WIDTH 14.7 % (10.0-14.5); WHITE BLOOD COUNT 9.8 10^3/uL (4.3-11.0)
[2016-08-31 08:14] LABS: ANION GAP 10 MMOL/L (5-14); BLOOD UREA NITROGEN 13 MG/DL (7-18); BUN/CREATININE RATIO 11; CALCIUM 9.4 MG/DL (8.5-10.1); CARBON DIOXIDE 39 MMOL/L (21-32); CHLORIDE 93 MMOL/L (98-107); CREATININE SERUM 1.21 MG/DL (0.60-1.30); GFR ESTIMATED 59; GLUCOSE 136 MG/DL (70-105); MAGNESIUM 1.8 MG/DL (1.8-2.4); POTASSIUM 4.7 MMOL/L (3.6-5.0); SODIUM 142 MMOL/L (135-145)
[2016-08-31 08:21] LABS: TROPONIN I < 0.30 NG/ML (<0.30)
[2016-08-31] MEDS ORDERED: ACETAMINOPHEN 500 MG TAB (TYLENOL) PO STA (08:27)
--- NOTE | 2016-08-31 08:59 | Diagnostic Imaging Report ---
INDICATION: Chest pain with shortness of breath. Comparison with 07/31/2016. FINDINGS: There is cardiomegaly again noted with median sternotomy changes. The lungs are well-aerated. No infiltrates have developed. There continues to be mild pulmonary venous congestion.. No pneumothorax or pleural effusion. IMPRESSION: Cardiomegaly with pulmonary venous congestive changes again noted. Overall appearance has not changed significantly. Dictated by: Dictated on workstation # [id number]
[2016-08-31] MEDS ORDERED: ONDANSETRON 4 MG/2 ML (SDV) Z0FRAN IVP ONE (09:00)
[2016-08-31] MEDS ORDERED: AZIT250T5 PO (09:14)
[2016-08-31] MEDS ORDERED: PRD20T PO (09:14)
[2016-08-31] MEDS ORDERED: AZITHROMYCIN 250 MG TAB (ZITHROMAX) PO ONE (09:15)
[2016-08-31 09:36] VITALS: BP 137/94
[2016-08-31 10:22] VITALS: BP 170/99
[2016-11-22] MEDS ORDERED: PRED10TA22 PO (10:36)
[2016-11-22] MEDS ORDERED: LEVO750T9 PO (10:36)
== END 2016-08-31 10:22 | disposition home or self-care (01) ==
LOC: EDUNIT# 07:32 → ER 07:33
DX: J44.1 Chronic obstructive pulmonary disease with (acute) exacerbation (principal); I10 Essential (primary) hypertension; I51.7 Cardiomegaly; I25.10 Atherosclerotic heart disease of native coronary artery without angina pectoris; E66.01 Morbid (severe) obesity due to excess calories; Z79.01 Long term (current) use of anticoagulants; Z79.82 Long term (current) use of aspirin; Z79.899 Other long term (current) drug therapy; Z95.1 Presence of aortocoronary bypass graft; Z95.5 Presence of coronary angioplasty implant and graft; Z99.81 Dependence on supplemental oxygen
CPT/HCPCS: 36415; 71010; 80048; 83735; 84484; 85025; 87804; 93005; 93041; 94640; 96374; 96375

== ENCOUNTER 2016-09-26 20:01 | Observation (INO) | payer OTHER, MEDICAID ==
[~2016-09-26] VITALS: Ht 167.6 cm; Wt 132.4 kg
[~2016-09-26 20:01] MED LIST changes: +AZIT250T5 PO
[2016-09-26 21:00] VITALS: BP 133/90
[2016-09-26 22:00] VITALS: BP 139/97
[2016-09-26] MEDS ORDERED: FUROSEMIDE 40 MG/4 ML INJ (LASIX) IVP SCH (22:00)
[2016-09-26 22:31] LABS: MEAN PLATELET VOLUME 10.2 FL (7.4-10.4); RED BLOOD COUNT 4.54 10^6/uL (4.35-5.85); WHITE BLOOD COUNT 10.3 10^3/uL (4.3-11.0)
[2016-09-26 22:38] LABS: ALBUMIN 3.6 G/DL (3.2-4.5); BILIRUBIN,TOTAL 0.7 MG/DL (0.1-1.0); CALCIUM 9.8 MG/DL (8.5-10.1); CREATININE SERUM 1.53 MG/DL (0.60-1.30); TOTAL PROTEIN 7.2 G/DL (6.4-8.2)
[2016-09-26 22:42] LABS: POTASSIUM 5.1 MMOL/L (3.6-5.0)
[2016-09-26 23:00] VITALS: BP 160/96
[2016-09-27] VITALS (12 sets, daily range): BP systolic 97–164; BP diastolic 69–119
[2016-09-27] MEDS ORDERED: RT-ALBUTEROL SULF 2.5 MG/3 ML PRE-MIX VIAL INH PRN
[2016-09-27] MEDS: HYDROcodone/APAP 5 MG/325 MG (LORTAB) TAB PO PRN ×2 (01:00→08:15)
[2016-09-27] MEDS ORDERED: HYDROcodone/APAP 5 MG/325 MG (LORTAB) TAB ONE (01:04)
[2016-09-27] MEDS: RT-ALBUTEROL SULF 2.5 MG/3 ML PRE-MIX VIAL INH SCH ×2 (02:47→06:39)
[2016-09-27 04:29] LABS: MEAN PLATELET VOLUME 10.4 FL (7.4-10.4); RED BLOOD COUNT 4.55 10^6/uL (4.35-5.85); RED CELL DISTRIBUTION WIDTH 14.9 % (10.0-14.5); WHITE BLOOD COUNT 7.5 10^3/uL (4.3-11.0)
[2016-09-27 04:55] LABS: ALBUMIN 3.5 G/DL (3.2-4.5); BILIRUBIN,TOTAL 0.7 MG/DL (0.1-1.0); CALCIUM 9.8 MG/DL (8.5-10.1); CREATININE SERUM 1.46 MG/DL (0.60-1.30); PHOSPHORUS 4.3 MG/DL (2.3-4.7); TOTAL PROTEIN 7.2 G/DL (6.4-8.2)
[2016-09-27] MEDS ORDERED: meTOprolol SUCCINATE 100 MG (TOPROL XL) TAB PO ONE (05:30)
[2016-09-27] MEDS ORDERED: meTOproloL SUCCINATE 50 MG (TOPROL XL) TAB PO ONE (05:35)
[2016-09-27] MEDS ORDERED: RT-ADVAIR HFA 115/21 MCG PER PUFF IH SCH (08:00)
--- NOTE | 2016-09-27 08:35 | Diagnostic Imaging Report ---
INDICATION: Shortness of breath. Comparison is made with prior examination from 08/31/16. FINDINGS: There is cardiomegaly. There is some central pulmonary venous congestion. There are bibasilar infiltrates, left greater than right. There is no pleural effusion or pneumothorax. There has been a previous median sternotomy. IMPRESSION: Bibasilar infiltrates, left greater than right. Cardiomegaly and moderate central pulmonary venous congestion Dictated by: Dictated on workstation # [id number]
[2016-09-27] MEDS ORDERED: FUROSEMIDE 40 MG/4 ML INJ (LASIX) IVP ONE (08:45)
--- NOTE | 2016-09-27 08:48 | Short Stay Summary ---
History of Present Illness History of Present Illness Reason for visit/HPI 76-year-old gentleman with history of COPD, using BiPAP, history of cardiomyopathy. He went to [facility] emergency room for increasing shortness of breath and weakness in his left upper extremity. He was reported to have elevated proBNP. Patient has history of chronic atrial fibrillation, hypertension and hyperlipidemia. Upon arrival patient was feeling better, he denied any chest pain, shortness of breath has improved after receiving 80 mg of Lasix. His BNP on arrival was normal and repeating BMP this morning was normal, chest x-ray was underpenetrated and suggested of mild pulmonary edema. He is currently asymptomatic. He has been compliant with his medications. Noncompliant with appointments. Date of Admission Sep 26, 2016 at 21:04 Date of Discharge Attending Physician Blair Butler MD Admitting Physician Rebecca,[facility] Allergies and Home Medications Allergies Coded Allergies: adhesive tape (Verified Allergy, Mild, RASH, 05/23/16) shellfish derived (Verified Allergy, Mild, HIVES, 05/23/16) Penicillins (Verified Allergy, Unknown, 05/09/16) Home Medications Albuterol Sulfate 2.5 Mg/3 Ml Vial.neb 2.5 MG IH QID PRN PRN SHORTNESS OF BREATH (Reported) Albuterol/Ipratropium 4 Gm Aero 1 PUFF IH QID (Reported) Allopurinol 300 Mg Tablet 300 MG PO DAILY (Reported) Apixaban 5 Mg Tablet 5 MG PO BID (Reported) Aspirin 81 Mg Tablet.dr 81 MG PO DAILY (Reported) Atorvastatin Calcium 80 Mg Tablet 40 MG PO HS (Reported) TAKES 1/2 (80MG) TABLET Azithromycin 250 Mg Tablet #4 250 MG PO DAILY Prescribed by: MICHELLE MADRID on 08/31/16 0914 Benzonatate 100 Mg Capsule 100 MG PO TID PRN PRN COUGH (Reported) FILLED 07/31/16 #30 FOR A 10 DAY THERAPY Budesonide/Formoterol Fumarate 10.2 Gm Hfa.aer.ad 2 PUFF IH BID (Reported) Carboxymethylcellulose Sodium 15 Ml Drops 1 DROP OU QID PRN PRN DRY EYES ( Reported) Cetirizine HCl 10 Mg Tablet 10 MG PO DAILY (Reported) Cholecalciferol (Vitamin D3) 1,000 Unit Capsule 1,000 UNIT PO DAILY (Reported) Diclofenac Sodium 100 Gm Gel..gram. TOP QID PRN PRN PAIN (Reported) Diphenhydramine HCl 25 Mg Capsule 25 MG PO PRN PRN PRN ALLERGIES (Reported) Etodolac 200 Mg Capsule 200 MG PO TID (Reported) Fluoxetine HCl 20 Mg Capsule 20 MG PO DAILY (Reported) LAST FILLED 06/12/16 #30 Fluticasone Propionate 16 Gm [place].susp 1 SPRAY NS DAILY (Reported) Furosemide 80 Mg Tablet 80 MG PO DAILY (Reported) Gabapentin 300 Mg Capsule 300 MG PO TID (Reported) Glipizide 10 Mg Tablet 5 MG PO BIDAC (Reported) TAKES 1/2 (10MG) TABLET Guaifenesin 100 Mg/5 Ml Liquid 10 ML PO TID PRN PRN COUGH/CONGESTION (Reported) Hydrocodone/Acetaminophen 1 Each Tablet 1 TAB PO BID PRN PRN PAIN (Reported) Isosorbide Mononitrate 60 Mg Tab 60 MG PO DAILY (Reported) Levothyroxine Sodium 112 Mcg Tablet 2 TAB PO DAILY (Reported) Lorazepam 1 Mg Tablet 1 MG PO Q4H PRN PRN ANXIETY (Reported) Losartan Potassium 100 Mg Tablet 100 MG PO DAILY (Reported) Magnesium Oxide 400 Mg Tablet 800 MG PO BID (Reported) TAKES 2 (400MG) TABLETS Metoprolol Succinate 100 Mg Tab.er.24h #30 100 MG PO DAILY Prescribed by: DOM SOLARES on 08/01/16 1452 Potassium Chloride 20 Meq Tablet.er 20 MEQ PO DAILY (Reported) Prednisone 20 Mg Tab #10 40 MG PO DAILY Prescribed by: DOM SOLARES on 08/01/16 1454 Prednisone 20 Mg Tab #8 20 MG PO BID Prescribed by: MICHELLE MADRID on 08/31/16 0914 Ropinirole HCl 1 Mg Tablet 1 MG PO HS (Reported) Trazodone HCl 100 Mg Tablet 150 MG PO HS (Reported) TAKES 1 & 1/2 (100MG) TABLET Past [id number]-Egivrg Hx Patient Social History Alcohol Use: Occasionally Uses Recreational Drug Use: No Smoking Status: Former Smoker Type Used: Cigarettes Physical Abuse Screen: No Sexual Abuse: No Recent Foreign Travel: No Contact w/other who traveled: No Recent Hopitalizations: Yes (numerous in May) Recent Infectious Disease Expo: No Immunizations Up To Date Tetanus Booster (TDap): Unknown Date of Pneumonia Vaccine: Apr 24, 2016 Date of Influenza Vaccine: Apr 24, 2016 Seasonal Allergies Seasonal Allergies: No Surgeries HX Surgeries: Yes Surgeries: Cardiac, CABG, Coronary Stent, Joint Replacement, Orthopedic Respiratory Hx Respiratory Disorders: Yes (O2 DEPENDENT AT 4L/NC; BIPAP AT HIS AND PRN DURING DAY) Cardiovascular Hx Cardiovascular Disorders: Yes (CHF; RBBB) Cardiac Disorders: Atrial Fibrillation, Coronary Artery Disease, High Cholesterol, Hypertension, Peripheral Vascular Neurological Hx Neurological Disorders: Yes (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; RESTLESS LEG) Neurological Disorders: Neuropathy, Stroke Reproductive System Hx Reproductive Disorders: No Sexually Transmitted Disease: No HIV/AIDS: No Genitourinary Hx 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) Genitourinary Disorders: Renal Failure Gastrointestinal Hx Gastrointestinal Disorders: Yes Gastrointestinal Disorders: Gastroesophageal Reflux Musculoskeletal Hx Musculoskeletal Disorders: Yes (ELECTRIC WHEELCHAIR) Musculoskeletal Disorders: Arthritis Endocrine Hx Endocrine Disorders: Yes (MORBID OBESITY) Endocrine Disorders: Diabetes, Non-Insulin dep HEENT HX ENT Disorders: No (GLASSES) Cancer Hx Cancer: No Psychosocial Hx Psychiatric Problems: No Integumentary HX Skin/Integumentary Disorder: No Blood Transfusions Hx Blood Disorders: No Family Medical History Significant Family History: No Pertinent Family Hx Other Significan Family Hx: noncontributory to his current condition Family Hx: Patient reports no known family medical history. Constitutional: no symptoms reported see HPI EENTM: no symptoms reported see HPI Respiratory: see HPI cough dyspnea on exertionNo hemoptysis, No orthopnea, No phlegm, short of breathNo stridor, No wheezing, No other Cardiovascular: no symptoms reported see HPI Gastrointestinal: no symptoms reported see HPI Genitourinary: no symptoms reported see HPI Musculoskeletal: no symptoms reported see HPI Skin: no symptoms reported see HPI Psychiatric/Neurological: No Symptoms Reported See HPI Physical Exam Vital Signs Vital Sign - Last 12Hours 09/26/16 21:00 Pulse 90 Resp 19 B/P 133/90 Pulse Ox 98 O2 Delivery Nasal Cannula O2 Flow Rate 3.50 Capillary Refill : General Appearance: No Apparent Distress WD/WN Eyes: Bilateral Eye EOMI, Bilateral Eye Normal Inspection, Bilateral Eye PERRL HEENT: PERRL/EOMI TMs Normal Normal ENT Inspection Pharynx Normal Neck: Full Range of Motion Normal Inspection Non Tender Supple Carotid Bruit Respiratory: Chest Non Tender Lungs Clear Normal Breath Sounds No Accessory Muscle Use No Respiratory Distress Cardiovascular: No Edema No Gallop No JVD Normal Peripheral Pulses Systolic Murmur Irregularly Irregular Gastrointestinal: Normal Bowel Sounds No Organomegaly No Pulsatile Mass Non Tender Soft Back: Normal Inspection No CVA Tenderness No Vertebral Tenderness Extremity: Normal Capillary Refill Normal Inspection Normal Range of Motion Non Tender No Calf Tenderness No Pedal Edema Neurologic/Psychiatric: Alert Oriented x3 No Motor/Sensory Deficits Normal Mood/Affect Skin: Normal Color Warm/Dry Lymphatic: No Adenopathy Clinical Quality Measures DVT/VTE Risk/Contraindication: VTE Present on Admission: Yes Risk Factor Score Per Nursin RFS Level Per Nursing on Admit: 4+=Very High Short Stay Diagnosis Discharge Diagnosis-Short Stay Admission Diagnosis: shortness of breath Congestive heart failure, chronic compensated left ventricular systolic dysfunction, ejection fraction 40-45 percent Coronary artery disease Hypertension Hyperlipidemia Final Discharge Diagnosis: shortness of breath Coronary artery disease COPD/obstructive sleep apnea Hypertension Atrial fibrillation Conclusion Labs Laboratory Tests 09/26/16 22:07: Alanine Aminotransferase (ALT/SGPT) 7, Albumin 3.6, Alkaline Phosphatase 91, Anion Gap 13, Aspartate Amino Transf (AST/SGOT) 9, B-Type Natriuretic Peptide 93.6, BUN/Creatinine Ratio 12, Blood Urea Nitrogen 19H, Calcium Level 9.8, Carbon Dioxide Level 35H, Chloride Level 91L, Creatinine 1.53H, Estimat Glomerular Filtration Rate 45, Glucose Level 142H, Hematocrit 44, Hemoglobin 14.1, Mean Corpuscular Hemoglobin 31, Mean Corpuscular Hemoglobin Concent 32, Mean Corpuscular Volume 96, Mean Platelet Volume 10.2, Platelet Count 269, Potassium Level 5.1H, Red Blood Count 4.54, Red Cell Distribution Width 15.0H, Sodium Level 139, Total Bilirubin 0.7, Total Protein 7.2, White Blood Count 10.3 09/27/16 03:35: Alanine Aminotransferase (ALT/SGPT) 9, Albumin 3.5, Alkaline Phosphatase 89, Anion Gap 15H, Aspartate Amino Transf (AST/SGOT) 11, B-Type Natriuretic Peptide 67.7, BUN/Creatinine Ratio 14, Blood Urea Nitrogen 21H, Calcium Level 9.8, Carbon Dioxide Level 33H, Chloride Level 90L, Creatinine 1.46H, Estimat Glomerular Filtration Rate 47, Glucose Level 179H, Hematocrit 43, Hemoglobin 14.0, Mean Corpuscular Hemoglobin 31, Mean Corpuscular Hemoglobin Concent 32, Mean Corpuscular Volume 95, Mean Platelet Volume 10.4, Platelet Count 296, Potassium Level 5.0, Red Blood Count 4.55, Red Cell Distribution Width 14.9H, Sodium Level 138, Total Bilirubin 0.7, Total Protein 7.2, White Blood Count 7.5 , Magnesium Level 2.0, Phosphorus Level 4.3 Conclusion/Plan Shortness of breath, reporting improvement. Patient was seen previously by Dr. Conti, noncompliant with appointments. Chronic congestive heart failure, chronic compensated left ventricular systolic dysfunction, ejection fraction 40-45 percent. Probably ischemic cardiomyopathy. Maintained on beta blockers, cannot tolerate PAMELA inhibitor and/ or ARB due to renal insufficiency with history of renal failure. BNP level is normal. No changes are recommended. Continue on home medication and monitor. Educated about compliance with medication Persistent atrial fibrillation, rate is controlled, continue on current medication monitor. [id number] score is 5, yearly risk of stroke without oral anticoagulation is 6.7 percent, maintained on Eliquis 5mg BID. Coronary artery disease, history of CABG 3 done in 2002. Continue to monitor. Planning for stress test as outpatient Chronic renal insufficiency, continue to monitor renal function as an outpatient Hypertension, controlled, continue current medications and monitor COPD/obstructive sleep apnea using BiPAP and oxygen at home, educated about compliance Diabetes mellitus, followed and managed by primary care physician Hyperlipidemia, maintained on Lipitor. Hypothyroidism, followed and managed by primary care physician Obesity, BMI is 47 Noncompliance with medication and doctor's appointment, educated about compliance.. BLAIR BUTLER MD Sep 27, 2016 08:48
[2016-09-27] MEDS ORDERED: APIXABAN 5 MG (ELIQUIS) TABLET PO SCH ×2 (09:00→21:00)
[2016-09-27] MEDS ORDERED: meTOproloL SUCCINATE 50 MG (TOPROL XL) TAB PO SCH (09:00)
[2016-09-27] MEDS ORDERED: LORA10TA7 PO (10:41)
--- NOTE | 2016-09-27 10:44 | Diagnostic Imaging Report ---
INDICATION: Chest pain. COMPARISON: 09/26/2016 FINDINGS: There is cardiomegaly. There is venous congestion. There are bibasilar infiltrates. There has been a previous sternotomy. There is no pneumothorax. The mediastinum is unremarkable. IMPRESSION: Bibasilar pulmonary infiltrates. Cardiomegaly and central pulmonary venous congestion. Dictated by: Dictated on workstation # [id number]
[2016-09-27] MEDS ORDERED: TAMS0.4C2 PO (10:51)
[2016-09-27] MEDS ORDERED: NAPR500T3 PO (10:53)
[2016-09-27] MEDS ORDERED: RT-ALBUTEROL/IPRATROPIUM 3 ML (DUONEB) VIAL INH PRN (11:00)
[2016-09-27] MEDS ORDERED: RT-ALBUTEROL SULF 2.5 MG/3 ML PRE-MIX VIAL IH PRN (11:15)
[2016-09-27] MEDS ORDERED: RX-HYDROCODONE/APAP 5/325 MG #4 TAB PK PO PRN (11:15)
[2016-09-27] MEDS ORDERED: guaiFENesin SYRUP 100 MG/5 ML 10 ML (ROBITUSSIN SF) PO PRN (11:15)
[2016-09-27] MEDS ORDERED: GABAPENTIN 300 MG (NEURONTIN) CAP PO SCH (13:00)
[2016-09-27] MEDS ORDERED: NON-FORMULARY MEDICATION 1 EA EA (Albuterol/Ipratropium (Combivent Respimat Inhal Spray) 1 IH SCH (13:00)
[2016-09-27] MEDS ORDERED: RT-ALBUTEROL/IPRATROPIUM 3 ML (DUONEB) VIAL INH SCH (14:00)
[2016-09-27] MEDS ORDERED: ALFUZOSIN HCL 10 MG TAB (UROXATRAL) PO SCH (18:00)
[2016-09-27] MEDS ORDERED: traZODone 100 MG (DESYREL) TAB PO SCH (21:00)
[2016-09-27] MEDS ORDERED: ATORVASTATIN 80 MG (LIPITOR) TABLET PO SCH (21:00)
[2016-09-27] MEDS ORDERED: RT-SYMBICORT 160/4.5 MCG INHALER PER PUFF IH SCH (21:00)
[2016-09-27] MEDS ORDERED: rOPINIRole 1 MG (REQUIP) TABLET PO SCH (21:00)
[2016-09-28] MEDS ORDERED: LORATADINE (CLARITIN) 10 MG TAB PO SCH (09:00)
[2016-09-28] MEDS ORDERED: ASPIRIN E.C. 81 MG (ECOTRIN) TAB PO SCH (09:00)
[2016-09-28] MEDS ORDERED: ALLOPURINOL 300 MG (ZYLOPRIM) TAB PO SCH (09:00)
[2016-09-28] MEDS ORDERED: ISOSORBIDE MONONITRATE 60 MG (IMDUR) TAB PO SCH (09:00)
[2016-09-28] MEDS ORDERED: meTOprolol SUCCINATE 100 MG (TOPROL XL) TAB PO SCH (09:00)
[2016-09-28] MEDS ORDERED: FLUTICASONE NASAL SPRAY (FLONASE) 16 GM BTL NS SCH (09:00)
[2016-11-22] MEDS ORDERED: PRED10TA22 PO (10:36)
[2016-11-22] MEDS ORDERED: LEVO750T9 PO (10:36)
== END 2016-09-27 11:09 | disposition home or self-care (01) ==
LOC: ICU 21:04 → INTOOBSV 21:04 → UNDODISIN 09-27 13:55
PROVIDERS: ADMIT Internal Medicine Cardiovascular Disease; ATTEND Internal Medicine Cardiovascular Disease
DX: R06.02 Shortness of breath (principal); I25.10 Atherosclerotic heart disease of native coronary artery without angina pectoris; J44.9 Chronic obstructive pulmonary disease, unspecified; G47.33 Obstructive sleep apnea (adult) (pediatric); I13.0 Hypertensive heart and chronic kidney disease with heart failure and stage 1 through stage 4 chronic kidney disease, or unspecified chronic kidney disease; I50.22 Chronic systolic (congestive) heart failure; N18.9 Chronic kidney disease, unspecified; I48.1 Persistent atrial fibrillation; E11.9 Type 2 diabetes mellitus without complications; E78.5 Hyperlipidemia, unspecified; I73.9 Peripheral vascular disease, unspecified; I69.954 Hemiplegia and hemiparesis following unspecified cerebrovascular disease affecting left non-dominant side; E03.9 Hypothyroidism, unspecified; E66.9 Obesity, unspecified; Z99.81 Dependence on supplemental oxygen; Z99.3 Dependence on wheelchair; Z91.14 Patient's other noncompliance with medication regimen; Z91.19 Patient's noncompliance with other medical treatment and regimen; Z68.42 Body mass index [BMI] 45.0-49.9, adult; Z87.891 Personal history of nicotine dependence; Z95.5 Presence of coronary angioplasty implant and graft; Z95.1 Presence of aortocoronary bypass graft
CPT/HCPCS: 36415; 71010; 80053; 83735; 83880; 84100; 85027; 87081; 93005; 94640; 99211; G0378

== ENCOUNTER → 2016-11-19 | Outpatient (CLI) | payer MEDICARE, MEDICAID ==
[~2016-11-19] VITALS: Ht 167.6 cm; Wt 138.8 kg
[~2016-11-19] MED LIST changes: +CATHETER FLUSH 10 ML SYR IV PRN; +LORA10TA7 PO; +NAPR500T3 PO; +REGADENOSON 0.4 MG/5 ML SYR (LEXISCAN) IV ONE; +TAMS0.4C2 PO
[2016-11-19 09:31] VITALS: BP 175/102
--- NOTE | 2016-11-20 07:08 | STRESS TEST ---
DATE OF SERVICE: LEXISCAN MYOVIEW STRESS TEST REFERRING PHYSICIAN: [facility] FINDINGS: Baseline heart rate is 85. Baseline blood pressure 175/102. Baseline EKG is sinus rhythm with right bundle branch block. SUMMARY: The patient was injected with 10.42 mCi of technetium-99 Myoview, and the resting images were obtained. Then the patient received 0.4 mg of Lexiscan, followed by 31.2 mCi of technetium-99 Myoview. Throughout the test, there were no EKG changes. The resting and stress images were reviewed and compared in the short axis, horizontal long axis and vertical long axis views. Review of the images showed diaphragmatic attenuation with apical thinning, fixed defect noted at the mid to apical inferior wall and inferolateral wall. SSS is 6, SDS 1, TID value 1.09. On the gated images, there were 2 different measurements. The first measurement, ejection fraction 52%. The second measurement was 36% with hypokinesia noted diffusely, probably due to the underlying right bundle branch block. CONCLUSIONS: 1. The patient tolerated Lexiscan well. 2. Baseline right bundle branch block persisted throughout test. 3. Diaphragmatic attenuation with fixed defect at the mid to apical inferior wall and inferolateral wall with no significant ischemia. 4. Gated images have discrepancy in the measurement at 36% in one modality and 52% at the second modality. 5. Overall, echocardiogram would be helpful in evaluating the left ventricular function. Job ID: [id number] DocumentID: [id number] Dictated Date: 11/19/2016 15:58:21 [employer] Date: 11/19/2016 20:43:00 Dictated By: MANJULA COLES MD
== END ==
LOC: CARD 08:17
PROVIDERS: ATTEND Internal Medicine Cardiovascular Disease
DX: I48.91 Unspecified atrial fibrillation (principal); I50.9 Heart failure, unspecified; N17.9 Acute kidney failure, unspecified; E11.9 Type 2 diabetes mellitus without complications; J44.9 Chronic obstructive pulmonary disease, unspecified
CPT/HCPCS: 78452; 93017

== ENCOUNTER 2016-11-21 18:04 | Inpatient (IN) | payer MEDICARE, MEDICAID ==
[2016-11-21] VITALS (8 sets, daily range): BP systolic 133–202; BP diastolic 55–128
[~2016-11-21] VITALS: Ht 165.1 cm; Wt 134.0 kg
[~2016-11-21 18:04] MED LIST changes: -CATHETER FLUSH 10 ML SYR IV PRN; -REGADENOSON 0.4 MG/5 ML SYR (LEXISCAN) IV ONE
[2016-11-21] MEDS ORDERED: NS IV 1000 ML 1,000 ML IV ONE (18:14)
--- NOTE | 2016-11-21 18:27 | ED General ---
General Chief Complaint: Respiratory Problems Stated Complaint: SOA Source of Information: Patient, EMS Exam Limitations: No Limitations History of Present Illness Time Seen by Provider: 18:07 Initial Comments Here with report of shortness of breath since 1 a.m. this morning that has persisted despite multiple breathing treatments. EMS was called and brought patient here. He complains of shortness of breath and nausea without vomiting. Denies fever or chills. Denies diarrhea. Does have history of pneumonia. He did have stress test done earlier this week Timing/Duration: 12-24 Hours Severity: Moderate Modifying Factors: worse with Movement, improves with Rest Associated Systoms: No Chest Pain, No Cough, No Fever/Chills, Nausea/Vomiting, Shortness of Air Allergies and Home Medications Allergies Coded Allergies: adhesive tape (Verified Allergy, Mild, RASH, 05/23/16) shellfish derived (Verified Allergy, Mild, HIVES, 05/23/16) Penicillins (Verified Allergy, Unknown, 05/09/16) Home Medications Albuterol Sulfate 2.5 Mg/3 Ml Vial.neb, 2.5 MG IH QID PRN for SHORTNESS OF BREATH, (Reported) Albuterol/Ipratropium 4 Gm Aero, 1 PUFF IH QID, (Reported) Allopurinol 300 Mg Tablet, 300 MG PO DAILY, (Reported) Apixaban 5 Mg Tablet, 5 MG PO BID, (Reported) Aspirin 81 Mg Tablet.dr, 81 MG PO DAILY, (Reported) Atorvastatin Calcium 80 Mg Tablet, 40 MG PO HS, (Reported) TAKES 1/2 (80MG) TABLET Budesonide/Formoterol Fumarate 10.2 Gm Hfa.aer.ad, 2 PUFF IH BID, (Reported) Carboxymethylcellulose Sodium 15 Ml Drops, 1 DROP OU QID PRN for DRY EYES, ( Reported) Cholecalciferol (Vitamin D3) 1,000 Unit Capsule, 1,000 UNIT PO DAILY, (Reported) Diclofenac Sodium 100 Gm Gel..gram., TOP QID PRN for PAIN, (Reported) Diphenhydramine HCl 25 Mg Capsule, 25 MG PO PRN PRN for ALLERGIES, (Reported) Fluticasone Propionate 16 Gm Wilson.susp, 1 SPRAY NS DAILY, (Reported) Furosemide 80 Mg Tablet, 80 MG PO DAILY, (Reported) Gabapentin 300 Mg Capsule, 300 MG PO TID, (Reported) Glipizide 10 Mg Tablet, 5 MG PO BIDAC, (Reported) TAKES 1/2 (10MG) TABLET Guaifenesin 100 Mg/5 Ml Liquid, 10 ML PO TID PRN for COUGH/CONGESTION, (Reported ) Hydrocodone/Acetaminophen 1 Each Tablet, 1 TAB PO BID PRN for PAIN, (Reported) Isosorbide Mononitrate 60 Mg Tab, 60 MG PO DAILY, (Reported) Levothyroxine Sodium 112 Mcg Tablet, 2 TAB PO DAILY, (Reported) Loratadine 10 Mg Tablet, 10 MG PO DAILY, (Reported) Lorazepam 1 Mg Tablet, 0.5 MG PO BID, (Reported) Losartan Potassium 100 Mg Tablet, 100 MG PO DAILY, (Reported) Magnesium Oxide 400 Mg Tablet, 420 MG PO BID, (Reported) TAKES 2 (400MG) TABLETS Metoprolol Succinate 100 Mg Tab.er.24h, 100 MG PO DAILY, #30 Ref 0 Prescribed by: DOM SOLARES on 08/01/16 1452 Naproxen 500 Mg Tablet, 500 MG PO BID, (Reported) Potassium Chloride 20 Meq Tablet.er, 20 MEQ PO DAILY, (Reported) Ropinirole HCl 1 Mg Tablet, 1 MG PO HS, (Reported) Tamsulosin HCl 0.4 Mg Cap.er.24h, 0.4 MG PO HS, (Reported) Trazodone HCl 100 Mg Tablet, 150 MG PO HS, (Reported) TAKES 1 & 1/2 (100MG) TABLET Constitutional: see HPI, No chills, fever (mild noted at triage) EENTM: no symptoms reported Respiratory: cough, short of breath, wheezing Cardiovascular: No chest pain, No palpitations Gastrointestinal: No abdominal pain, nausea, No vomiting Genitourinary: no symptoms reported Musculoskeletal: no symptoms reported Skin: no symptoms reported All Other Systems Reviewed Negative Unless Noted: Yes Past Ehdtjsb-Cisfsv-Oucbdr Hx Patient Social History Alcohol Use: Occasionally Uses Recreational Drug Use: No Smoking Status: Former Smoker Type Used: Cigarettes Recent Hopitalizations: Yes (numerous in May) Immunizations Up To Date Tetanus Booster (TDap): Unknown PED Vaccines UTD: No Date of Pneumonia Vaccine: Apr 24, 2016 Date of Influenza Vaccine: Apr 24, 2016 Seasonal Allergies Seasonal Allergies: No Surgeries HX Surgeries: Yes Surgeries: Cardiac, CABG, Coronary Stent, Joint Replacement, Orthopedic Respiratory Hx Respiratory Disorders: Yes (O2 DEPENDENT AT 4L/NC; BIPAP AT HIS AND PRN DURING DAY) Respiratory Disorders: Asthma, Sleep Apnea, COPD Cardiovascular Hx Cardiac Disorders: Yes (CHF; RBBB) Cardiac Disorders: Atrial Fibrillation, Coronary Artery Disease, High Cholesterol, Hypertension, Peripheral Vascular Neurological Hx Neurological Disorders: Yes (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; RESTLESS LEG) Neurological Disorders: Neuropathy, Stroke Reproductive System Hx Reproductive Disorders: No Sexually Transmitted Disease: No HIV/AIDS: No Genitourinary Hx 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) Genitourinary Disorders: Renal Failure Gastrointestinal Hx Gastrointestinal Disorders: Yes Gastrointestinal Disorders: Gastroesophageal Reflux Musculoskeletal Hx Musculoskeletal Disorders: Yes (ELECTRIC WHEELCHAIR) Musculoskeletal Disorders: Arthritis Endocrine Hx Endocrine Disorders: Yes (MORBID OBESITY) Endocrine Disorders: Diabetes, Non-Insulin dep HEENT HX ENT Disorders: No (GLASSES) Cancer Hx Cancer: No Psychosocial Hx Psychiatric Problems: No Integumentary HX Skin/Integumentary Disorder: No Blood Transfusions Hx Blood Disorders: No Reviewed Nursing Assessment Reviewed/Agree w Nursing PMH: Yes Family Medical History Significant Family History: No Pertinent Family Hx Family Medial History: Patient reports no known family medical history. Physical Exam-Suspected Sepsis Physical Exam Vital Signs Vital Sign - Last 12Hours 11/21/16 18:04 Temp 99.6 Pulse 120 B/P (MAP) 159/93 Pulse Ox 95 O2 Delivery Room Air O2 Flow Rate 3.00 Capillary Refill : General Appearance: No Apparent Distress, Obese HEENT: PERRL/EOMI, Pharynx Normal Neck: Non Tender, Supple Respiratory: Lungs Clear, Decreased Breath Sounds Cardiovascular: Irregularly Irregular, Tachycardia Gastrointestinal: Non Tender, Soft Back: Normal Inspection, No CVA Tenderness, No Vertebral Tenderness Extremity: Normal Capillary Refill, Non Tender, No Calf Tenderness Neurologic/Psychiatric: Alert, Oriented x3 Skin: normal color Focused Exam Lactic Acid Level Laboratory Tests Test 11/21/16 19:00 Lactic Acid Level 1.51 MMOL/L (0.50-2.00) Progress/Results/Core Measures Suspected Sepsis SIRS Temperature: Pulse: Respiratory Rate: Laboratory Tests 11/21/16 19:00: White Blood Count 15.3H Blood Pressure / Mean: Laboratory Tests 11/21/16 19:00: Creatinine 0.95, INR Comment 1.0, Platelet Count 312, Total Bilirubin 1.2H Results/Orders Lab Results Laboratory Tests Test 11/21/16 18:14 11/21/16 19:00 Range/Units Urine Color YELLOW Urine Clarity CLEAR Urine pH 8 5-9 Urine Specific Renner 1.010 L 1.016-1.022 Urine Protein 2+ H NEGATIVE Urine Glucose (UA) NEGATIVE NEGATIVE Urine Ketones NEGATIVE NEGATIVE Urine Nitrite NEGATIVE NEGATIVE Urine Bilirubin NEGATIVE NEGATIVE Urine Urobilinogen NORMAL NORMAL MG/DL Urine Leukocyte Esterase NEGATIVE NEGATIVE Urine RBC (Auto) NEGATIVE NEGATIVE Urine RBC NONE /HPF Urine WBC NONE /HPF Urine Squamous Epithelial Cells RARE /HPF Urine Crystals NONE /LPF Urine Bacteria NONE /HPF Urine Casts NONE /LPF Urine Mucus NEGATIVE /LPF Urine Culture Indicated NO White Blood Count 15.3 H 4.3-11.0 10^3/uL Red Blood Count 4.91 4.35-5.85 10^6/uL Hemoglobin 15.1 13.3-17.7 G/DL Hematocrit 48 40-54 % Mean Corpuscular Volume 98 80-99 FL Mean Corpuscular Hemoglobin 31 25-34 PG Mean Corpuscular Hemoglobin Concent 32 32-36 G/DL Red Cell Distribution Width 14.8 H 10.0-14.5 % Platelet Count 312 130-400 10^3/uL Mean Platelet Volume 10.0 7.4-10.4 FL Neutrophils (%) (Auto) 80 H 42-75 % Lymphocytes (%) (Auto) 11 L 12-44 % Monocytes (%) (Auto) 6 0-12 % Eosinophils (%) (Auto) 3 0-10 % Basophils (%) (Auto) 1 0-10 % Neutrophils # (Auto) 12.3 H 1.8-7.8 X 10^3 Lymphocytes # (Auto) 1.6 1.0-4.0 X 10^3 Monocytes # (Auto) 0.9 0.0-1.0 X 10^3 Eosinophils # (Auto) 0.5 H 0.0-0.3 10^3/uL Basophils # (Auto) 0.1 0.0-0.1 10^3/uL Neutrophils % (Manual) 72 % Lymphocytes % (Manual) 7 % Monocytes % (Manual) 6 % Eosinophils % (Manual) 7 % Basophils % (Manual) 1 % Band Neutrophils 7 % Blood Morphology Comment NORMAL Prothrombin Time 13.0 12.2-14.7 SEC INR Comment 1.0 0.8-1.4 Activated Partial Thromboplast Time 31 24-35 SEC Sodium Level 139 135-145 MMOL/L Potassium Level 4.2 3.6-5.0 MMOL/L Chloride Level 90 L 98-107 MMOL/L Carbon Dioxide Level 37 H 21-32 MMOL/L Anion Gap 12 5-14 MMOL/L Blood Urea Nitrogen 14 7-18 MG/DL Creatinine 0.95 0.60-1.30 MG/DL Estimat Glomerular Filtration Rate > 60 BUN/Creatinine Ratio 15 Glucose Level 166 H 70-105 MG/DL Lactic Acid Level 1.51 0.50-2.00 MMOL/L Calcium Level 10.2 H 8.5-10.1 MG/DL Total Bilirubin 1.2 H 0.1-1.0 MG/DL Aspartate Amino Transf (AST/SGOT) 13 5-34 U/L Alanine Aminotransferase (ALT/SGPT) 13 0-55 U/L Alkaline Phosphatase 95 40-136 U/L Troponin I < 0.30 <0.30 NG/ML Total Protein 8.1 6.4-8.2 G/DL Albumin 4.1 3.2-4.5 G/DL My Orders Orders - FLORIDALMA ALLEN MD Cbc With Automated Diff (11/21/16 18:14) Comprehensive Metabolic Panel (11/21/16 18:14) Lactic Acid Analyzer (11/21/16 18:14) Blood Culture (11/21/16 18:14) Sputum Culture (11/21/16 18:14) Ua Culture If Indicated (11/21/16 18:14) Protime With Inr (11/21/16 18:14) Partial Thromboplastin Time (11/21/16 18:14) Chest 1 View, Ap/Pa Only (11/21/16 18:14) O2 (11/21/16 18:14) Saline Lock/Iv-Start (11/21/16 18:14) Ekg Tracing (11/21/16 18:14) Troponin I (11/21/16 18:14) Vital Signs Adult Sepsis Patie Q1HR (11/21/16 18:14) Remove Rings In Anticipation O (11/21/16 18:14) Accucheck Stat ONCE (11/21/16 18:14) Saline Lock/Iv-Start (11/21/16 18:14) Ns Iv 1000 Ml (Sodium Chloride 0.9%) (11/21/16 18:14) Sodium Chloride (Ad... W/Diltiazem Drip (11/21/16 19:15) Diltiazem Injection (Cardizem Injection) (11/21/16 19:15) Manual Differential (11/21/16 19:00) Methylprednisolone Sod Succ (Solu-Medrol (11/21/16 20:41) Medications Given in ED Current Medications Medications Dose Ordered Sig/Scar Route Start Time Stop Time Status Last Admin Dose Admin Diltiazem HCl 20 mg ONCE ONCE IVP 11/21/16 19:15 11/21/16 19:16 DC 11/21/16 19:15 20 MG Sodium Chloride 1,000 ml @ 0 mls/hr Q0M ONCE IV 11/21/16 18:14 11/21/16 18:17 DC 11/21/16 18:54 0 MLS/HR Vital Signs/I&O Vital Sign - Last 12Hours 11/21/16 11/21/16 11/21/16 18:04 18:04 19:15 Temp 99.6 99.6 Pulse 120 120 B/P (MAP) 159/93 159/93 Pulse Ox 95 95 O2 Delivery Room Air Nasal Cannula O2 Flow Rate 3.00 3.00 Capillary Refill : Progress Note : Progress Note Seen and evaluated. IV, labs, EKG, chest x-ray, blood cultures and lactic acid , normal saline 1 L bolus. Patient noted to be in atrial fibrillation with rapid ventricular response. We will see if she responds to fluids. He admits to using multiple dosing of albuterol throughout the day due to the breathing problems. His lungs are currently clear but decreased breath sounds. Monitor patient. Cardizem 20 mg bolus and drip at 10 mg an hour initiated. 1944: Heart rate improved. Patient will need admission. Labs are pending. 2020: Patient states he does not want to stay despite concerns about worsening of his condition including . He states he is not comfortable in the hospital and wants to go home. He has oxygen at home although does not have oxygen for the trip. We discussed this and he states he is okay with that he'll discomfort back if needed. He adamantly refuses admission. We will attempt to get home health again if possible. I will also try to convert him to oral dosing at least for tonight of Cardizem. Monitor patient. 2024: We are working on getting oxygen from home health for him to take and use on the way home. 2034: Patient states that he will stay now. I did discuss the case with Dr. Evangelista at 2037 and she accepts patient for admission, inpatient status. We will initiate Solu-Medrol IV and RT mat protocol as he likely has underlying bronchitis as well. 2042: Did discuss the case with Dr. Wright, on-call for cardiology as patient normally sees Dr. Butler. He accepts patient in consult. Patient and family agree with plan. ECG Initial ECG Impression Date: November 21, 2016 Initial ECG Impression Time: 18:17 Initial ECG Rate: 126 Initial ECG Rhythm: A Fib/Flutter Initial ECG Impression: Atrial Fibrillation w/RVR Comment Atrial fibrillation with rapid ventricular response. No evidence of ST elevation [place]. Left axis deviation and similar previous. Overall similar to previous except for increased rate. Interpreted by me. Previous EKG 09/27/16. Diagnostic Imaging Diagonstic Imaging: Xray Plain Films/CT/US/NM/MRI: chest Comments VIA [facility]. [place], [place] NAME: RAMEZ MELGAR [facility] REC#: [id number] PT STATUS: REG ER : 1940 PHYSICIAN: FLORIDALMA ALLEN MD ADMIT DATE: 11/21/16/ER Draft Date of Exam:11/21/16 CHEST 1 VIEW, AP/PA ONLY INDICATION: Shortness of breath. Comparison is made with prior examination from 09/27/16. FINDINGS: There is cardiomegaly. There is some central pulmonary venous congestion. There is no pleural effusion or pneumothorax. There has been a previous median sternotomy and coronary bypass graft. There does appear to be some minimal right basilar subsegmental atelectasis and/or pneumonitis. IMPRESSION: 1. Minimal right basilar subsegmental atelectasis and/or pneumonitis. 2. Cardiomegaly and some central pulmonary venous congestion. Dictated on workstation # [id number] Dict: 11/21/16 1829 Trans: 11/21/16 1124 [facility] [id number] Interpreted by: MIGUEL ANGEL RODRIGUEZ Electronically signed by: Departure Communication Time/Spoke to Admitting Phy: 20:38 Time/Spoke to Consulting Physi: 20:43 Impression Impression: Primary Impression: Atrial fibrillation with RVR Additional Impression: Dyspnea Qualified Codes: R06.09 - Other forms of dyspnea Disposition: 09 ADMITTED INPATIENT Condition: Stable Decision to Admit Reason: Admit from ER (General) Decision to Admit/Date: November 21, 2016 Time/Decision to Admit Time: 20:38 Departure-Patient Inst. Decision time for Depature: 20:28 Referrals: LEI CHATTERJEE DO (PCP) Primary Care Physician SUSANA WAYNE (Family) Primary Care Physician Add. Discharge Instructions: All discharge instructions reviewed with patient and/or family. Voiced understanding. FLORIDALMA ALLEN MD November 21, 2016 18:27
--- NOTE | 2016-11-21 18:34 | Diagnostic Imaging Report ---
INDICATION: Shortness of breath. Comparison is made with prior examination from 09/27/16. FINDINGS: There is cardiomegaly. There is some central pulmonary venous congestion. There is no pleural effusion or pneumothorax. There has been a previous median sternotomy and coronary bypass graft. There does appear to be some minimal right basilar subsegmental atelectasis and/or pneumonitis. IMPRESSION: 1. Minimal right basilar subsegmental atelectasis and/or pneumonitis. 2. Cardiomegaly and some central pulmonary venous congestion. Dictated by: Dictated on workstation # [id number]
[2016-11-21 19:10] LABS: BASOPHILS # (AUTO) 0.1 10^3/uL (0.0-0.1); BASOPHILS % (AUTO) 1 % (0-10); EOSINOPHILS # (AUTO) 0.5 10^3/uL (0.0-0.3); EOSINOPHILS % (AUTO) 3 % (0-10); LYMPHOCYTES # (AUTO) 1.6 X 10^3 (1.0-4.0); LYMPHOCYTES % (AUTO) 11 % (12-44); MEAN CORPUSCULAR HEMOGLOBIN 31 PG (25-34); MEAN CORPUSCULAR HGB CONC 32 G/DL (32-36); MEAN CORPUSCULAR VOLUME 98 FL (80-99); MONOCYTES # (AUTO) 0.9 X 10^3 (0.0-1.0); MONOCYTES % (AUTO) 6 % (0-12); NEUTROPHILS # (AUTO) 12.3 X 10^3 (1.8-7.8); NEUTROPHILS % (AUTO) 80 % (42-75); PLATELET COUNT 312 10^3/uL (130-400); RED BLOOD COUNT 4.91 10^6/uL (4.35-5.85); RED CELL DISTRIBUTION WIDTH 14.8 % (10.0-14.5); WHITE BLOOD COUNT 15.3 10^3/uL (4.3-11.0)
[2016-11-21 19:12] LABS: BILIRUBIN,URINE NEGATIVE (NEGATIVE); KETONES,URINE NEGATIVE (NEGATIVE); LEUKOCYTE ESTERASE ,URINE NEGATIVE (NEGATIVE); NITRITE,URINE NEGATIVE (NEGATIVE); PH,URINE 8 (5-9); PROTEIN,URINE 2+ (NEGATIVE); UROBILINOGEN,URINE NORMAL (NORMAL)
[2016-11-21] MEDS ORDERED: DILTIAZEM 25 MG/5 ML INJ (CARDIZEM) VIAL IVP ONE (19:15)
[2016-11-21] MEDS ORDERED: DILTIAZEM DRIP 100 MG in SODIUM CHLORIDE (ADD-VANTAGE) 100 ML IV SCH (19:15)
[2016-11-21 19:20] LABS: SQUAMOUS EPITHELIAL CELL,UR RARE /HPF
[2016-11-21 19:27] LABS: BAND NEUTROPHILS 7 %; BASOPHILS % (MANUAL) 1 %; EOSINOPHILS % (MANUAL) 7 %; LYMPHOCYTES % (MANUAL) 7 %; NEUTROPHILS % (MANUAL) 72 %
[2016-11-21 19:30] LABS: ALANINE AMINOTRANSFERASE 13 U/L (0-55); ALBUMIN 4.1 G/DL (3.2-4.5); ANION GAP 12 MMOL/L (5-14); ASPARTATE AMINO TRANSFERASE 13 U/L (5-34); BILIRUBIN,TOTAL 1.2 MG/DL (0.1-1.0); BLOOD UREA NITROGEN 14 MG/DL (7-18); BUN/CREATININE RATIO 15; CALCIUM 10.2 MG/DL (8.5-10.1); CARBON DIOXIDE 37 MMOL/L (21-32); CHLORIDE 90 MMOL/L (98-107); CREATININE SERUM 0.95 MG/DL (0.60-1.30); GFR ESTIMATED > 60; GLUCOSE 166 MG/DL (70-105); POTASSIUM 4.2 MMOL/L (3.6-5.0); SODIUM 139 MMOL/L (135-145); TOTAL PROTEIN 8.1 G/DL (6.4-8.2)
[2016-11-21 19:36] LABS: TROPONIN I < 0.30 NG/ML (<0.30)
[2016-11-21] MEDS ORDERED: methylPREDNISolone 125 MG (Solu-MEDROL) VIAL IV STA (20:41)
[2016-11-21] MEDS ORDERED: CATHETER FLUSH 10 ML SYR IV PRN (21:30)
[2016-11-21] MEDS ORDERED: DILTIAZEM DRIP 100 MG/NS 100 ML IV SCH ×2 (21:30)
[2016-11-21] MEDS ORDERED: NS IV 1000 ML 1,000 ML IV SCH (21:30)
[2016-11-21] MEDS: APIXABAN 5 MG (ELIQUIS) TABLET PO SCH (21:40)
[2016-11-21] MEDS: CATHETER FLUSH 10 ML SYR IV SCH (22:00)
[2016-11-21] MEDS ORDERED: RT-ALBUTEROL SULF 2.5 MG/3 ML PRE-MIX VIAL IH PRN (22:00)
[2016-11-22] VITALS (13 sets, daily range): BP systolic 142–189; BP diastolic 93–146
[2016-11-22] MEDS: methylPREDNISolone 125 MG (Solu-MEDROL) VIAL IV SCH ×2 (01:48→08:19)
[2016-11-22] MEDS ORDERED: hydrALAZINE (APESOLINE) 20 MG/ML VIAL IV ONE (03:45)
[2016-11-22] MEDS ORDERED: LORazepam 1 MG (ATIVAN) TAB ONE (04:25)
[2016-11-22] MEDS ORDERED: LORazepam 1 MG (ATIVAN) TAB PO ONE (04:30)
[2016-11-22 04:42] LABS: BASOPHILS % (AUTO) 0 % (0-10); EOSINOPHILS % (AUTO) 0 % (0-10); LYMPHOCYTES # (AUTO) 0.7 X 10^3 (1.0-4.0); LYMPHOCYTES % (AUTO) 6 % (12-44); MEAN CORPUSCULAR HEMOGLOBIN 30 PG (25-34); MEAN CORPUSCULAR HGB CONC 32 G/DL (32-36); MEAN CORPUSCULAR VOLUME 96 FL (80-99); MEAN PLATELET VOLUME 10.6 FL (7.4-10.4); MONOCYTES # (AUTO) 0.1 X 10^3 (0.0-1.0); MONOCYTES % (AUTO) 1 % (0-12); NEUTROPHILS # (AUTO) 10.8 X 10^3 (1.8-7.8); NEUTROPHILS % (AUTO) 94 % (42-75); PLATELET COUNT 297 10^3/uL (130-400); RED BLOOD COUNT 4.87 10^6/uL (4.35-5.85); RED CELL DISTRIBUTION WIDTH 14.7 % (10.0-14.5); WHITE BLOOD COUNT 11.5 10^3/uL (4.3-11.0)
[2016-11-22] MEDS ORDERED: HYDROmorphone (DILAUDID) 2 MG/ML VIAL IV ONE (05:00)
[2016-11-22] MEDS ORDERED: HYDROmorphone (DILAUDID) 2 MG/ML VIAL IVP ONE (05:00)
[2016-11-22 05:01] LABS: ALANINE AMINOTRANSFERASE 13 U/L (0-55); ALBUMIN 3.8 G/DL (3.2-4.5); ANION GAP 14 MMOL/L (5-14); ASPARTATE AMINO TRANSFERASE 13 U/L (5-34); BILIRUBIN,TOTAL 1.1 MG/DL (0.1-1.0); BLOOD UREA NITROGEN 14 MG/DL (7-18); BUN/CREATININE RATIO 16; CALCIUM 9.7 MG/DL (8.5-10.1); CARBON DIOXIDE 31 MMOL/L (21-32); CHLORIDE 93 MMOL/L (98-107); GFR ESTIMATED > 60; GLUCOSE 264 MG/DL (70-105); MAGNESIUM 1.6 MG/DL (1.8-2.4); PHOSPHORUS 2.5 MG/DL (2.3-4.7); POTASSIUM 4.3 MMOL/L (3.6-5.0); SODIUM 138 MMOL/L (135-145); TOTAL PROTEIN 7.8 G/DL (6.4-8.2)
[2016-11-22] MEDS ORDERED: KCL 20 MEQ TAB (K-DUR) PO SCH (06:00)
[2016-11-22] MEDS ORDERED: MAGNESIUM 1 GM/100 ML IVPB 100 ML IV SCH ×2 (06:00→06:15)
[2016-11-22] MEDS ORDERED: POTASSIUM CL 10MEQ/50ML IVPB 50 ML IV SCH (06:00)
[2016-11-22] MEDS ORDERED: RT-ALBUTEROL SULF 2.5 MG/3 ML PRE-MIX VIAL IH SCH (07:00)
[2016-11-22] MEDS: CATHETER FLUSH 10 ML SYR IV SCH (08:19)
[2016-11-22] MEDS: APIXABAN 5 MG (ELIQUIS) TABLET PO SCH (08:33)
--- NOTE | 2016-11-22 08:42 | Diagnostic Imaging Report ---
EXAMINATION: Chest radiograph, portable AP view. DATE: November 22, at 2017 at 0441 hours. INDICATION: 76-year-old male, dyspnea. COMPARISON: 11/21/2016. FINDINGS: There are median sternotomy wires. There are mediastinal surgical clips. Stable overall appearance of the cardio mediastinal silhouette. There is no identified pneumothorax. There is no large pleural effusion. There are bilateral predominantly interstitial opacities which appear unchanged. IMPRESSION: 1. Unchanged bilateral predominantly interstitial lung opacities since comparison exam. Differential diagnostic considerations would include pulmonary interstitial edema versus atypical infection. Dictated by: Dictated on workstation # [id number]
[2016-11-22] MEDS ORDERED: meTOprolol SUCCINATE 100 MG (TOPROL XL) TAB PO SCH ×2 (09:00→09:15)
[2016-11-22] MEDS ORDERED: FUROSEMIDE 40 MG (LASIX) TAB PO SCH (09:16)
[2016-11-22] MEDS ORDERED: LOSARTAN 50 MG (COZAAR) TAB PO SCH (09:16)
[2016-11-22] MEDS ORDERED: ISOSORBIDE MONONITRATE 60 MG (IMDUR) TAB PO SCH (09:17)
--- NOTE | 2016-11-22 10:30 | Short Stay Summary ---
HPI History of Present Illness: 76 yo M that presented to ER with palpitations. Patient states that he has had 3 days of shortness of breath and was taking albuterol neb treatments every 2 hrs for the last 24 hrs. Denies any fevers or chills. No sick contacts. Has not missed any doses of medications. States that he had big salty meal 3 days ago but denies any increased swelling or weight gain. Source: patient, RN/MD, old records Exam Limitations: no limitations Date seen by provider: November 22, 2016 Time seen by provider: 11:45 Attending Physician Kandis Evangelista MD PCP Aliyah Gonzales DO Consult Date of Admission November 21, 2016 at 20:50 Home Medications Home Medications Reviewed patient Home Medication Reconciliation Form Allergies Coded Allergies: adhesive tape (Verified Allergy, Mild, RASH, 05/23/16) shellfish derived (Verified Allergy, Mild, HIVES, 05/23/16) Penicillins (Verified Allergy, Unknown, 05/09/16) [id number] Hx Patient Social History Living Status: Lives at home and has youth care worker come into home Alcohol Use: Occasionally Uses Recreational Drug Use: No Smoking Status: Former Smoker Type Used: Cigarettes Recent Foreign Travel: No Contact w/other who traveled: No Recent Hopitalizations: Yes (numerous in May) Recent Infectious Disease Expo: No Physical Abuse Screen: No Sexual Abuse: No Immunizations Up To Date Tetanus Booster (TDap): Unknown Date of Pneumonia Vaccine: Apr 24, 2016 Date of Influenza Vaccine: Apr 24, 2016 Past Medical History PMHx: NIDDMII HTN HLD CHF Hypothyroidism CVA with left leg weakness- non-ambulatory CAD s/p Stents then CABG Chronic A fib COPD SurgHx: Coronary artery bypass Right knee replacement Vasectomy Family Medical History Significant Family History: No Pertinent Family Hx Other Significan Family Hx: noncontributory to his current condition Family History: Patient reports no known family medical history. Review of Systems ([facility]) Constitutional: no symptoms reported, No chills, No fever, No malaise, No weakness, No weight gain EENTM: nose congestion Respiratory: cough, dyspnea on exertion, No orthopnea, short of breath, No wheezing Cardiovascular: No chest pain, No edema, palpitations Gastrointestinal: no symptoms reported, No abdominal pain, No constipation, No diarrhea, No nausea, No vomiting Genitourinary: no symptoms reported, No dysuria, No frequency, No hematuria Musculoskeletal: no symptoms reported, No back pain, No joint pain, No muscle pain Skin: no symptoms reported, No lesions, No rash Psychiatric/Neurological: No Symptoms Reported, Denies Anxiety, Denies Depressed, Denies Weakness Reviewed Test Results Reviewed Test Results Lab Laboratory Tests Test 11/22/16 01:13 11/22/16 03:54 Range/Units Troponin I < 0.30 <0.30 NG/ML White Blood Count 11.5 H 4.3-11.0 10^3/uL Red Blood Count 4.87 4.35-5.85 10^6/uL Hemoglobin 14.8 13.3-17.7 G/DL Hematocrit 47 40-54 % Mean Corpuscular Volume 96 80-99 FL Mean Corpuscular Hemoglobin 30 25-34 PG Mean Corpuscular Hemoglobin Concent 32 32-36 G/DL Red Cell Distribution Width 14.7 H 10.0-14.5 % Platelet Count 297 130-400 10^3/uL Mean Platelet Volume 10.6 H 7.4-10.4 FL Neutrophils (%) (Auto) 94 H 42-75 % Lymphocytes (%) (Auto) 6 L 12-44 % Monocytes (%) (Auto) 1 0-12 % Eosinophils (%) (Auto) 0 0-10 % Basophils (%) (Auto) 0 0-10 % Neutrophils # (Auto) 10.8 H 1.8-7.8 X 10^3 Lymphocytes # (Auto) 0.7 L 1.0-4.0 X 10^3 Monocytes # (Auto) 0.1 0.0-1.0 X 10^3 Eosinophils # (Auto) 0.0 0.0-0.3 10^3/uL Basophils # (Auto) 0.0 0.0-0.1 10^3/uL Sodium Level 138 135-145 MMOL/L Potassium Level 4.3 3.6-5.0 MMOL/L Chloride Level 93 L 98-107 MMOL/L Carbon Dioxide Level 31 21-32 MMOL/L Anion Gap 14 5-14 MMOL/L Blood Urea Nitrogen 14 7-18 MG/DL Creatinine 0.90 0.60-1.30 MG/DL Estimat Glomerular Filtration Rate > 60 BUN/Creatinine Ratio 16 Glucose Level 264 H 70-105 MG/DL Calcium Level 9.7 8.5-10.1 MG/DL Phosphorus Level 2.5 2.3-4.7 MG/DL Magnesium Level 1.6 L 1.8-2.4 MG/DL Total Bilirubin 1.1 H 0.1-1.0 MG/DL Aspartate Amino Transf (AST/SGOT) 13 5-34 U/L Alanine Aminotransferase (ALT/SGPT) 13 0-55 U/L Alkaline Phosphatase 91 40-136 U/L Total Protein 7.8 6.4-8.2 G/DL Albumin 3.8 3.2-4.5 G/DL Radiology Date of Exam: 11/21/16 CHEST 1 VIEW, AP/PA ONLY INDICATION: Shortness of breath. Comparison is made with prior examination from 09/27/16. FINDINGS: There is cardiomegaly. There is some central pulmonary venous congestion. There is no pleural effusion or pneumothorax. There has been a previous median sternotomy and coronary bypass graft. There does appear to be some minimal right basilar subsegmental atelectasis and/or pneumonitis. IMPRESSION: 1. Minimal right basilar subsegmental atelectasis and/or pneumonitis. 2. Cardiomegaly and some central pulmonary venous congestion. Physical Exam-([facility]) Physical Exam Vital Signs VS - Last 72 Hours, by Label 11/21/16 11/21/16 11/21/16 11/21/16 18:04 18:04 19:15 20:58 Temp 99.6 99.6 98.7 Pulse 120 120 104 Resp 23 B/P (MAP) 159/93 159/93 Pulse Ox 95 95 95 O2 Delivery Room Air Nasal Cannula O2 Flow Rate 3.00 3.00 4.00 11/21/16 11/21/16 11/21/16 11/21/16 21:00 21:00 21:00 21:05 Temp 99.3 Pulse 75 103 96 Resp 22 30 B/P (MAP) 133/91 133/91 Pulse Ox 97 94 97 O2 Delivery Nasal Cannula Nasal Cannula O2 Flow Rate 4.00 4.00 11/21/16 11/21/16 11/21/16 11/21/16 21:15 21:30 21:34 21:34 Pulse 94 93 Resp 37 20 B/P (MAP) 202/128 201/126 Pulse Ox 96 96 94 94 O2 Delivery Nasal Cannula Nasal Cannula O2 Flow Rate 4.00 4.00 4.00 11/21/16 11/21/16 11/21/16 11/21/16 21:45 22:00 22:30 23:00 Pulse 77 96 74 75 Resp 37 23 24 33 B/P (MAP) 183/88 154/55 151/88 139/124 Pulse Ox 97 95 O2 Delivery Nasal Cannula Nasal Cannula Nasal Cannula NIV Bilevel O2 Flow Rate 4.00 4.00 4.00 4.00 11/21/16 11/22/16 11/22/16 11/22/16 23:15 00:00 00:00 00:08 Temp 97.7 Pulse 76 75 75 Resp 18 22 26 B/P (MAP) 173/112 Pulse Ox 94 94 94 96 O2 Delivery NIV Bilevel O2 Flow Rate 4.00 4.00 4.00 4.00 11/22/16 11/22/16 11/22/16 11/22/16 01:00 01:21 02:00 02:22 Pulse 87 83 80 99 Resp 19 32 26 B/P (MAP) 181/103 183/126 Pulse Ox 93 93 94 O2 Delivery NIV Bilevel NIV Bilevel O2 Flow Rate 4.00 4.00 4.00 11/22/16 11/22/16 11/22/16 11/22/16 03:00 03:21 04:00 04:00 Temp 98.3 Pulse 87 93 98 Resp 25 25 31 B/P (MAP) 164/101 164/95 189/146 Pulse Ox 95 93 92 92 O2 Delivery NIV Bilevel Nasal Cannula O2 Flow Rate 4.00 4.00 5.00 5.00 11/22/16 11/22/16 11/22/16 11/22/16 05:00 06:00 07:00 07:43 Temp 97.0 Pulse 98 84 80 Resp 30 25 B/P (MAP) 184/123 167/118 Pulse Ox 96 95 O2 Delivery Nasal Cannula Nasal Cannula O2 Flow Rate 5.00 5.00 11/22/16 11/22/16 07:58 08:00 Pulse Ox 95 94 O2 Flow Rate 5.00 5.00 Capillary Refill : Less Than 3 Seconds General Appearance: WD/WN, no apparent distress, obese HEENT: PERRL/EOMI Neck: non-tender, full range of motion, supple, normal inspection Respiratory: chest non-tender, normal breath sounds, no respiratory distress, no accessory muscle use, No crackles, wheezing Cardiovascular: normal peripheral pulses, irregularly irregular, other (1+ edema, which is patient baseline) Gastrointestinal: normal bowel sounds, non tender, soft, no organomegaly, no pulsatile mass Extremities: normal range of motion, non-tender, normal inspection, no calf tenderness, normal capillary refill, pedal edema Neurologic/Psychiatric: generator worker II-XII nml as tested, no motor/sensory deficits, alert, normal mood/affect, oriented x 3 Skin: normal color, warm/dry Lymphatic: no adenopathy Short Stay Diagnosis Discharge Diagnosis-Short Stay Admission Diagnosis Atrial Fibrillation with RVR COPD Exacerbation HTN DM Gout Hypothyroidism Final Discharge Diagnosis See Above Conclusion Plan 76 yo M that was admitted from ER with palpitations and shortness of breath found to be in Atrial fibrillation with RVR Plan Atrial Fibrillation with RVR - Cardiology consult - Patient is rate controlled this AM in the 70s on Cardizem, Restart home Metoprolol - Continue chronic anticoagulation COPD Exacerbation - Discussed with patient the importance of not taking albuterol more then prescribed as this could have increased risk of A fib with RVR - Started on PO steroids and 7 days of Levaquin - Patient on home oxygen requirement HTN - Restart home meds, BP curve trending down Hypothyroidism - Normal TSH in clinic - Restart home synthroid FEN: Cardiac, ADA diet DVT PPX: Eliquis Dispo: Ok to d/c home with close follow up in clinic if ok with cardiology Clinical Quality Measures DVT/VTE Risk/Contraindication: Risk Factor Score Per Nursin RFS Level Per Nursing on Admit: 4+=Very High Copy Copies To 1: Derrick NIETO HOLLY R MD November 22, 2016 10:30
[2016-11-22] MEDS ORDERED: PRED10TA22 PO (10:36)
[2016-11-22] MEDS ORDERED: LEVO750T9 PO (10:36)
--- NOTE | 2016-11-22 10:39 | Discharge Instructions ---
Discharge [facility] Discharge Medications New, Converted or Re-Newed RX: Transmitted to Pharmacy New Medications: Levofloxacin (Levaquin) 750 Mg Tablet 750 MG PO DAILY for 7 Days, #7 TAB Prednisone (Prednisone) 10 Mg Tab.ds.pk 10 MG PO DAILY, #42 PKG Take 6 tabs(60mg)daily,decrease by 1 tab(10mg)every other day. Continued Medications: Albuterol Sulfate (Albuterol Sulfate) 2.5 Mg/3 Ml Vial.neb 2.5 MG IH QID PRN for SHORTNESS OF BREATH, EA Albuterol/Ipratropium (Combivent Respimat Inhal [place]) 4 Gm Aero 1 PUFF IH QID, INH Allopurinol (Allopurinol) 300 Mg Tablet 300 MG PO DAILY, TAB Apixaban (Eliquis) 5 Mg Tablet 5 MG PO BID, TAB Aspirin (Aspirin EC) 81 Mg Tablet.dr 81 MG PO DAILY, TAB Atorvastatin Calcium (Lipitor) 80 Mg Tablet 40 MG PO HS, TAB TAKES 1/2 (80MG) TABLET Budesonide/Formoterol Fumarate (Symbicort 160-4.5 Mcg Inhaler) 10.2 Gm Hfa.aer.ad 2 PUFF IH BID, INHALER Carboxymethylcellulose Sodium (Lubricant Eye Drops) 15 Ml Drops 1 DROP OU QID PRN for DRY EYES, DROPS Cholecalciferol (Vitamin D3) (Vitamin D3) 1,000 Unit Capsule 1000 UNIT PO DAILY, CAP Diclofenac Sodium (Voltaren) 100 Gm Gel..gram. TOP QID PRN for PAIN, EA Diphenhydramine HCl (Benadryl) 25 Mg Capsule 25 MG PO PRN PRN for ALLERGIES, CAP Fluticasone Propionate (Fluticasone Propionate) 16 Gm [place].susp 1 SPRAY NS DAILY, SPRAY Furosemide (Furosemide) 80 Mg Tablet 80 MG PO DAILY, TAB Gabapentin (Gabapentin) 300 Mg Capsule 300 MG PO TID, CAP Glipizide (Glipizide) 10 Mg Tablet 5 MG PO BIDAC, TAB TAKES 1/2 (10MG) TABLET Guaifenesin (Guaifenesin) 100 Mg/5 Ml Liquid 10 ML PO TID PRN for COUGH/CONGESTION, EA Hydrocodone/Acetaminophen (Hydrocodon -Acetaminophen 5-325) 1 Each Tablet 1 TAB PO BID PRN for PAIN Isosorbide Mononitrate (Isosorbide Mononitrate ER) 60 Mg Tab 60 MG PO DAILY, TAB Levothyroxine Sodium (Levothyroxine Sodium) 112 Mcg Tablet 2 TAB PO DAILY, TAB Loratadine (Loratadine) 10 Mg Tablet 10 MG PO DAILY, TAB Lorazepam (Lorazepam) 1 Mg Tablet 0.5 MG PO BID, TAB Losartan Potassium (Losartan Potassium) 100 Mg Tablet 100 MG PO DAILY, TAB Magnesium Oxide (Magnesium) 400 Mg Tablet 420 MG PO BID, TAB TAKES 2 (400MG) TABLETS Metoprolol Succinate (Toprol Xl) 100 Mg Tab.er.24h 100 MG PO DAILY, #30 TAB 0 Refills Naproxen (Naproxen) 500 Mg Tablet 500 MG PO BID, TAB Potassium Chloride (Potassium Chloride) 20 Meq Tablet.er 20 MEQ PO DAILY, TAB Ropinirole HCl (Requip) 1 Mg Tablet 1 MG PO HS, TAB Tamsulosin HCl (Tamsulosin HCl) 0.4 Mg Cap.er.24h 0.4 MG PO HS, CAP Discontinued Medications: Trazodone HCl (Trazodone HCl) 100 Mg Tablet 150 MG PO HS, TAB TAKES 1 & 1/2 (100MG) TABLET Patient Instructions Goal/Follow Up Appt: We will call with a hospital followup appt for next week Patient Instructions: - Make sure you complete your steroids and antibioitics - Do not take more then prescribed breathing treatments Return to The Hospital For: - Increasing shortness of breath - Chest pain - Palpitations Activity & Diet Discharge Diet: Low Sodium Diet, ADA Diet, Cardiac Diet Activity as Tolerated: Yes Copy Copies To 1: MITZI BARTLETT MD, HOLLY R MD November 22, 2016 10:39
--- NOTE | 2016-11-22 11:30 | Consultation-Cardiology ---
HPI-Cardiology Cardiology Consultation: Date of Consultation 11/22/16 Date of Admission Attending Physician Mitzi Bartlett MD Admitting Physician Aliyah Gonzales DO Consulting Physician Devon WRIGHT MD HPI: Chief Complaint: Shortness of breath This is a 76-year-old gentleman who is a patient of Dr. Butler. He has history of persistent atrial fibrillation on rate control and Eliquis for anticoagulation. He also has history of morbid obesity, COPD. He presented to the ER with complaints of palpitations and shortness of breath. He had taken significant amount of albuterol in the prior 24 hours. He denied any syncope or near syncope. He also denied any chest pain. He was found to be in atrial fibrillation with rapid ventricular rate and given IV Cardizem. Review of Systems-Cardiology Review of Systems Constitutional: No As described under HPI, No no symptoms reported, No chills, No fever, No lightheadedness, No malaise, No tiredness, No weight loss, No weight gain, No other Eyes: No As described under HPI, No no symptoms reported, No blindness, No blurred vision, No contact lenses, No drainage, No decreased acuity, No foreign body sensation, No glasses, No inflammation, No pain, No photophobia, No previous injury, No shadows, No tunnel vision, No other, No vision change Ears/Nose/Throat: No As described under HPI, No no symptoms reported, No chronic hearing loss, No epistaxis, No ear discharge, No ear pain, No loose teeth, No mouth pain, No mouth swelling, No nasal drainage, No nose pain, No recent hearing loss, No throat pain, No throat swelling, No ulcerations, No other Respiratory: shortness of breath Cardiovascular: palpitations Gastrointestinal: No no symptoms reported, No As described under HPI, No abdomen distended, No abdominal pain, No blood streaked bowels, No constipation , No diarrhea, No difficulty swallowing, No nausea, No poor appetite, No poor fluid intake, No rectal bleeding, No vomiting, No other, No nausea/vomiting/ diarrhea, No stool coloration changes Genitourinary: No no symptoms reported, No As described under HPI, No burning, No dysuria, No discharge, No frequency, No flank pain, No hematuria, No incontinence, No pain, No urgency, No other, No urine frequency changes, No urine coloration changes Musculoskeletal: No no symptoms reported, No As describe under HPI, No back pain, No gout, No joint pain, No joint swelling, No muscle pain, No muscle stiffness, No neck pain, No other Skin: No no symptoms reported, No As described under HPI, No change in color, No change in hair/nails, No dryness, No lesions, No lumps, No rash, No other, No skin related problems, No ulcerations, No rash on exposed areas, No ulcerations on exposed areas Psychiatric/Neurological: No As described under HPI, No anxiety, No depression , No emotional problems, No focal weakness, No headache, No no symptoms reported , No numbness, No other, No pre-existing deficit, No seizure, No syncope, No tingling, No tremors, No weakness Hematologic: No no symptoms reported, No As described under HPI, No anemia, No blood clots, No easy bleeding, No easy bruising, No swollen glands, No other, No bleeding abnormalities All Other Systems Reviewed Negative Unless Noted: Yes OPA-Bdgtvn-Deelbt Hx Patient Social History Alcohol Use: Occasionally Uses Recreational Drug Use: No Smoking Status: Former Smoker Type Used: Cigarettes Recent Foreign Travel: No Recent Infectious Disease Expo: No Physical Abuse Screen: No Sexual Abuse: No Immunizations Up To Date Tetanus Booster (TDap): Unknown Date of Pneumonia Vaccine: Apr 24, 2016 Date of Influenza Vaccine: Apr 24, 2016 Past Medical History PMH As described under Assessment. Family Medical History Family History: Patient reports no known family medical history. Allergies and Home Medications Allergies Coded Allergies: adhesive tape (Verified Allergy, Mild, RASH, 05/23/16) shellfish derived (Verified Allergy, Mild, HIVES, 05/23/16) Penicillins (Verified Allergy, Unknown, 05/09/16) Home Medications Albuterol Sulfate 2.5 Mg/3 Ml Vial.neb, 2.5 MG IH QID PRN for SHORTNESS OF BREATH, (Reported) Albuterol/Ipratropium 4 Gm Aero, 1 PUFF IH QID, (Reported) Allopurinol 300 Mg Tablet, 300 MG PO DAILY, (Reported) Apixaban 5 Mg Tablet, 5 MG PO BID, (Reported) Aspirin 81 Mg Tablet.dr, 81 MG PO DAILY, (Reported) Atorvastatin Calcium 80 Mg Tablet, 40 MG PO HS, (Reported) TAKES 1/2 (80MG) TABLET Budesonide/Formoterol Fumarate 10.2 Gm Hfa.aer.ad, 2 PUFF IH BID, (Reported) Carboxymethylcellulose Sodium 15 Ml Drops, 1 DROP OU QID PRN for DRY EYES, ( Reported) Cholecalciferol (Vitamin D3) 1,000 Unit Capsule, 1,000 UNIT PO DAILY, (Reported) Diclofenac Sodium 100 Gm Gel..gram., TOP QID PRN for PAIN, (Reported) Diphenhydramine HCl 25 Mg Capsule, 25 MG PO PRN PRN for ALLERGIES, (Reported) Fluticasone Propionate 16 Gm [place].susp, 1 SPRAY NS DAILY, (Reported) Furosemide 80 Mg Tablet, 80 MG PO DAILY, (Reported) Gabapentin 300 Mg Capsule, 300 MG PO TID, (Reported) Glipizide 10 Mg Tablet, 5 MG PO BIDAC, (Reported) TAKES 1/2 (10MG) TABLET Guaifenesin 100 Mg/5 Ml Liquid, 10 ML PO TID PRN for COUGH/CONGESTION, (Reported ) Hydrocodone/Acetaminophen 1 Each Tablet, 1 TAB PO BID PRN for PAIN, (Reported) Isosorbide Mononitrate 60 Mg Tab, 60 MG PO DAILY, (Reported) Levofloxacin 750 Mg Tablet, 750 MG PO DAILY for 7 Days, #7 Prescribed by: MITZI BARTLETT on 11/22/16 1036 Levothyroxine Sodium 112 Mcg Tablet, 2 TAB PO DAILY, (Reported) Loratadine 10 Mg Tablet, 10 MG PO DAILY, (Reported) Lorazepam 1 Mg Tablet, 0.5 MG PO BID, (Reported) Losartan Potassium 100 Mg Tablet, 100 MG PO DAILY, (Reported) Magnesium Oxide 400 Mg Tablet, 420 MG PO BID, (Reported) TAKES 2 (400MG) TABLETS Metoprolol Succinate 100 Mg Tab.er.24h, 100 MG PO DAILY, #30 Ref 0 Prescribed by: DOM SOLARES on 08/01/16 1452 Naproxen 500 Mg Tablet, 500 MG PO BID, (Reported) Potassium Chloride 20 Meq Tablet.er, 20 MEQ PO DAILY, (Reported) Prednisone 10 Mg Tab.ds.pk, 10 MG PO DAILY, #42 Take 6 tabs(60mg)daily,decrease by 1 tab(10mg)every other day. Prescribed by: MITZI BARTLETT on 11/22/16 1036 Ropinirole HCl 1 Mg Tablet, 1 MG PO HS, (Reported) Tamsulosin HCl 0.4 Mg Cap.er.24h, 0.4 MG PO HS, (Reported) Physical Exam-Cardiology Physical Exam Vital Signs/I&O Vital Sign - Last 12Hours 11/22/16 11/22/16 11/22/16 11/22/16 00:00 00:00 00:08 01:00 Temp 97.7 Pulse 75 75 87 Resp 22 26 19 B/P (MAP) 173/112 181/103 Pulse Ox 94 94 96 93 O2 Delivery NIV Bilevel NIV Bilevel O2 Flow Rate 4.00 4.00 4.00 4.00 11/22/16 11/22/16 11/22/16 11/22/16 01:21 02:00 02:22 03:00 Pulse 83 80 99 87 Resp 32 26 25 B/P (MAP) 183/126 164/101 Pulse Ox 93 94 95 O2 Delivery NIV Bilevel NIV Bilevel O2 Flow Rate 4.00 4.00 4.00 11/22/16 11/22/16 11/22/16 11/22/16 03:21 04:00 04:00 05:00 Temp 98.3 Pulse 93 98 98 Resp 25 31 30 B/P (MAP) 164/95 189/146 184/123 Pulse Ox 93 92 92 96 O2 Delivery Nasal Cannula Nasal Cannula O2 Flow Rate 4.00 5.00 5.00 5.00 11/22/16 11/22/16 11/22/16 11/22/16 06:00 07:00 07:43 07:58 Temp 97.0 Pulse 84 80 Resp 25 B/P (MAP) 167/118 Pulse Ox 95 95 O2 Delivery Nasal Cannula O2 Flow Rate 5.00 5.00 11/22/16 08:00 Pulse Ox 94 O2 Flow Rate 5.00 Intake and Output 11/22/16 00:00 Intake Total 1125 ml Balance 1125 ml Capillary Refill : Less Than 3 Seconds Constitutional: No appears stated age, No AAO x 3, No apparent distress, No PERRL, No well-developed, No well-nourished, No other HEENT: No PERRL, No normal ENT inspection, No TMs normal, No pharynx normal, No scleral icterus (R), No scleral icterus (L), No pale conjunctivae (R), No pale conjunctivae (L), No photophobia, No TM abnormal (R), No TM abnormal (L), No pharyngeal erythema, No tonsillar exudate, No other, No discharge, No EOMI, No hearing is well preserved, No hard of hearing, No oral hygience is good, No ulceration, No xanthelasmas are seen Neck: No non-tender, No full range of motion, No supple, No normal inspection, No carotid bruit, No limited range of motion, No lymphadenopathy (R), No lymphadenopathy (L), No tender lateral, No tender midline, No thyromegaly, No other, No carotid pulses are 2 + bilaterally, No with good upstrokes Respiratory: chest expansion is symmetric, chest is bilaterally symmetric, other (Decrease air entry bilaterally) Cardiovascular: irregularly irregular, S1 and S2 Gastrointestinal: No tender, No soft, No round, No distended, No pulsatile mass , No organomegaly, No guarding, No rebound, No tenderness, No hernia, No mass, No audible bowel sounds, No abnormal bowel sounds, No abdominal bruits, No spleenomegaly, No other Rectal: deferred Extremities: No normal range of motion, No non-tender, No normal inspection, No pedal edema, No calf tenderness, No normal capillary refill, No pelvis stable , No calf tenderness, No inflammation, No pedal edema, No slow capillary refill , No swelling, No other, No abrasion, No clubbing, No cyanosis, No ecchymosis, No laceration, No no lower extremity edema bilateral, No significant edema, No tenderness, No wound Neurologic/Psychiatric: No supervisor pigment making II-XII nml as tested, No no motor/sensory deficits, No alert, No normal mood/affect, No oriented x 3, No abnormal cerebellar tests, No abnormal supervisor pigment making II-XII, No abnormal gait, No aphasia, No EOM palsy, No facial droop, No motor weakness, No sensory deficit, No depressed affect, No disoriented x 3, No other, No grossly intact, No power is 5/5 both on sides Skin: normal color Data Review Labs Laboratory Tests 11/21/16 18:14: Urine Color YELLOW, Urine Clarity CLEAR, Urine pH 8, Urine Specific [place] 1.010L, Urine Protein 2+H, Urine Glucose (UA) NEGATIVE, Urine Ketones NEGATIVE, Urine Nitrite NEGATIVE, Urine Bilirubin NEGATIVE, Urine Urobilinogen NORMAL, Urine Leukocyte Esterase NEGATIVE, Urine RBC (Auto) NEGATIVE, Urine RBC NONE, Urine WBC NONE, Urine Squamous Epithelial Cells RARE, Urine Crystals NONE, Urine Bacteria NONE, Urine Casts NONE, Urine Mucus NEGATIVE, Urine Culture Indicated NO 11/21/16 19:00: White Blood Count 15.3H, Red Blood Count 4.91, Hemoglobin 15.1, Hematocrit 48, Mean Corpuscular Volume 98, Mean Corpuscular Hemoglobin 31, Mean Corpuscular Hemoglobin Concent 32, Red Cell Distribution Width 14.8H, Platelet Count 312, Mean Platelet Volume 10.0, Neutrophils (%) (Auto) 80H, Lymphocytes (%) (Auto) 11L, Monocytes (%) (Auto) 6, Eosinophils (%) (Auto) 3, Basophils (%) (Auto) 1, Neutrophils # (Auto) 12.3H, Lymphocytes # (Auto) 1.6, Monocytes # (Auto) 0.9, Eosinophils # (Auto) 0.5H, Basophils # (Auto) 0.1, Neutrophils % (Manual) 72, Lymphocytes % (Manual) 7, Monocytes % (Manual) 6, Eosinophils % (Manual) 7, Basophils % (Manual) 1, Band Neutrophils 7, Blood Morphology Comment NORMAL, Prothrombin Time 13.0, INR Comment 1.0, Activated Partial Thromboplast Time 31, Sodium Level 139, Potassium Level 4.2, Chloride Level 90L, Carbon Dioxide Level 37H, Anion Gap 12, Blood Urea Nitrogen 14, Creatinine 0.95, Estimat Glomerular Filtration Rate > 60, BUN/Creatinine Ratio 15, Glucose Level 166H, Lactic Acid Level 1.51, Calcium Level 10.2H, Total Bilirubin 1.2H, Aspartate Amino Transf ( AST/SGOT) 13, Alanine Aminotransferase (ALT/SGPT) 13, Alkaline Phosphatase 95, Troponin I < 0.30, Total Protein 8.1, Albumin 4.1 11/22/16 01:13: Troponin I < 0.30 11/22/16 03:54: White Blood Count 11.5H, Red Blood Count 4.87, Hemoglobin 14.8, Hematocrit 47, Mean Corpuscular Volume 96, Mean Corpuscular Hemoglobin 30, Mean Corpuscular Hemoglobin Concent 32, Red Cell Distribution Width 14.7H, Platelet Count 297, Mean Platelet Volume 10.6H, Neutrophils (%) (Auto) 94H, Lymphocytes (%) (Auto) 6L, Monocytes (%) (Auto) 1, Eosinophils (%) (Auto) 0, Basophils (%) (Auto) 0, Neutrophils # (Auto) 10.8H, Lymphocytes # (Auto) 0.7L, Monocytes # (Auto) 0.1, Eosinophils # (Auto) 0.0, Basophils # (Auto) 0.0, Sodium Level 138, Potassium Level 4.3, Chloride Level 93L, Carbon Dioxide Level 31, Anion Gap 14, Blood Urea Nitrogen 14, Creatinine 0.90, Estimat Glomerular Filtration Rate > 60, BUN/ Creatinine Ratio 16, Glucose Level 264H, Calcium Level 9.7, Total Bilirubin 1.1H , Aspartate Amino Transf (AST/SGOT) 13, Alanine Aminotransferase (ALT/SGPT) 13, Alkaline Phosphatase 91, Total Protein 7.8, Albumin 3.8, Phosphorus Level 2.5, Magnesium Level 1.6L ECG Impression ECG Initial ECG Impression: Atrial Fibrillation A/P-Cardiology Assessment/Admission Diagnosis Atrial fibrillation, COPD exacerbation, Albuterol overdose Plan Was kept on IV Cardizem overnight. Better rate control was achieved. We will transition to home dose of metoprolol and DC IV Cardizem. He will continue on oral anticoagulation. Deferred treatment of COPD to primary team. Okay to discharge and can follow-up with Dr. Butler as an outpatient. Thank you for your consultation. Please call me if you have any questions. Susanne Wright MD, FACP, FACC, FSCAI, FHRS, CCDS Interventional Cardiology Cardiac Electrophysiology Vascular Medicine and Endovascular Interventions Clinical Quality Measures DVT/VTE Risk/Contraindication: Risk Factor Score Per Nursin RFS Level Per Nursing on Admit: 4+=Very High Devon WRIGHT MD November 22, 2016 11:30 am
[2016-11-23] MEDS ORDERED: meTOprolol SUCCINATE 100 MG (TOPROL XL) TAB PO SCH (09:00)
== END 2016-11-22 12:10 | disposition home or self-care (01) | DRG 309 ==
LOC: EDUNIT# 18:04 → ER 18:06 → ICU 20:50
PROVIDERS: ADMIT Family Medicine; ATTEND Family Medicine
DX: I48.2 Chronic atrial fibrillation (principal); J44.1 Chronic obstructive pulmonary disease with (acute) exacerbation; I69.354 Hemiplegia and hemiparesis following cerebral infarction affecting left non-dominant side; E11.9 Type 2 diabetes mellitus without complications; I10 Essential (primary) hypertension; Z68.42 Body mass index [BMI] 45.0-49.9, adult; E78.5 Hyperlipidemia, unspecified; Z66 Do not resuscitate; I50.9 Heart failure, unspecified; E03.9 Hypothyroidism, unspecified; I25.10 Atherosclerotic heart disease of native coronary artery without angina pectoris; E66.01 Morbid (severe) obesity due to excess calories; T48.6X1A Poisoning by antiasthmatics, accidental (unintentional), initial encounter; Z95.1 Presence of aortocoronary bypass graft; Z95.5 Presence of coronary angioplasty implant and graft; Z96.651 Presence of right artificial knee joint; Z87.891 Personal history of nicotine dependence; Z79.01 Long term (current) use of anticoagulants
CPT/HCPCS: 36415; 71010; 80053; 81000; 83605; 83735; 84100; 84484; 85007; 85025; 85027; 85610; 85730; 87040; 87081; 93005; 94640; 94660; 94760; 96361; 96365; 96366; 96375

== ENCOUNTER 2016-12-05 17:21 | Inpatient (IN) | payer MEDICARE, MEDICAID ==
[~2016-12-05] VITALS: Ht 167.6 cm; Wt 132.5 kg
[~2016-12-05 17:21] MED LIST changes: +LEVO750T9 PO; +PRED10TA22 PO
[2016-12-05] MEDS ORDERED: DILTIAZEM 25 MG/5 ML INJ (CARDIZEM) VIAL IVP ONE (17:30)
[2016-12-05] MEDS ORDERED: DILTIAZEM DRIP 100 MG in SODIUM CHLORIDE (ADD-VANTAGE) 100 ML IV SCH (17:30)
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
[2016-12-05 17:46] LABS: BASOPHILS % (AUTO) 0 % (0-10); EOSINOPHILS % (AUTO) 0 % (0-10); LYMPHOCYTES # (AUTO) 1.1 X 10^3 (1.0-4.0); LYMPHOCYTES % (AUTO) 5 % (12-44); MEAN CORPUSCULAR HEMOGLOBIN 31 PG (25-34); MEAN CORPUSCULAR HGB CONC 32 G/DL (32-36); MEAN CORPUSCULAR VOLUME 94 FL (80-99); MEAN PLATELET VOLUME 9.5 FL (7.4-10.4); MONOCYTES # (AUTO) 0.9 X 10^3 (0.0-1.0); MONOCYTES % (AUTO) 5 % (0-12); NEUTROPHILS # (AUTO) 17.9 X 10^3 (1.8-7.8); NEUTROPHILS % (AUTO) 90 % (42-75); PLATELET COUNT 308 10^3/uL (130-400); RED BLOOD COUNT 4.91 10^6/uL (4.35-5.85); RED CELL DISTRIBUTION WIDTH 15.7 % (10.0-14.5); WHITE BLOOD COUNT 19.9 10^3/uL (4.3-11.0)
[2016-12-05 17:55] LABS: ABG BASE EXCESS 8.9 MMOL/L (-2.5-2.5); ABG HCO3 33 MMOL/L (23-27); ABG OXYGEN SATURATION 94 % (94-100); ABG PCO2 51 MMHG (35-45); ABG PH 7.43 (7.37-7.43); ABG PO2 68 MMHG (79-93)
[2016-12-05 17:56] LABS: ALLENS TEST YES-POS; PATIENT TEMP 98.9
[2016-12-05 18:02] LABS: BAND NEUTROPHILS 6 %; BASOPHILS % (MANUAL) 0 %; EOSINOPHILS % (MANUAL) 0 %; LYMPHOCYTES % (MANUAL) 8 %; NEUTROPHILS % (MANUAL) 78 %
[2016-12-05 18:06] LABS: ALANINE AMINOTRANSFERASE 31 U/L (0-55); ALBUMIN 3.6 G/DL (3.2-4.5); ANION GAP 14 MMOL/L (5-14); ASPARTATE AMINO TRANSFERASE 16 U/L (5-34); BILIRUBIN,TOTAL 1.3 MG/DL (0.1-1.0); BLOOD UREA NITROGEN 19 MG/DL (7-18); BUN/CREATININE RATIO 20; CALCIUM 9.6 MG/DL (8.5-10.1); CARBON DIOXIDE 30 MMOL/L (21-32); CHLORIDE 92 MMOL/L (98-107); CREATININE SERUM 0.95 MG/DL (0.60-1.30); GFR ESTIMATED > 60; GLUCOSE 211 MG/DL (70-105); POTASSIUM 4.1 MMOL/L (3.6-5.0); SODIUM 136 MMOL/L (135-145); TOTAL PROTEIN 7.1 G/DL (6.4-8.2)
[2016-12-05 18:12] LABS: TROPONIN I < 0.30 NG/ML (<0.30)
--- NOTE | 2016-12-05 18:23 | Diagnostic Imaging Report ---
Indication: Worsening dyspnea. Discussion: Single portable upright view of the chest was obtained, comparison 11/22/2016. Cardiomegaly is stable. Probable mild pulmonary edema is slightly decreased as compared to prior exam. No pleural fluid or pneumothorax. Median sternotomy is again noted. Impression: Cardiomegaly with decreasing pulmonary edema. Dictated by: Dictated on workstation # [id number]
[2016-12-05 18:27] LABS: THYROID STIMULATING HORMONE 0.61 UIU/ML (0.35-4.94)
[2016-12-05 19:20] VITALS: BP 194/122
[2016-12-05 20:00] VITALS: BP 155/117
[2016-12-05] MEDS ORDERED: CATHETER FLUSH 10 ML SYR IV PRN (20:00)
[2016-12-05] MEDS ORDERED: RT-ADVAIR HFA 115/21 MCG PER PUFF IH SCH (20:00)
[2016-12-05] MEDS ORDERED: RT-ALBUTEROL SULF 2.5 MG/3 ML PRE-MIX VIAL IH PRN (20:00)
[2016-12-05] MEDS: DILTIAZEM DRIP 100 MG/NS 100 ML IV SCH ×2 (20:28)
[2016-12-05] MEDS: APIXABAN 5 MG (ELIQUIS) TABLET PO SCH (20:28)
[2016-12-05] MEDS: NS IV 1000 ML 1,000 ML IV SCH (20:28)
[2016-12-05 21:00] VITALS: BP 142/107
[2016-12-05] MEDS ORDERED: meTOprolol 5 MG/5 ML (LOPRESSOR) VIAL IV ONE (21:15)
[2016-12-05 22:00] VITALS: BP 116/82
[2016-12-05 23:00] VITALS: BP 123/90
[2016-12-06] VITALS (13 sets, daily range): BP systolic 104–173; BP diastolic 74–131
[2016-12-06] MEDS ORDERED: TRAZ100T92 PO (00:24)
[2016-12-06] MEDS ORDERED: LORazepam 0.5 MG (ATIVAN) TABLET ONE (02:19)
[2016-12-06] MEDS: rOPINIRole 0.25 MG (REQUIP) TAB ONE ×2 (03:00→03:18)
[2016-12-06] MEDS ORDERED: rOPINIRole 1 MG (REQUIP) TABLET PO ONE (03:00)
[2016-12-06] MEDS: DILTIAZEM DRIP 100 MG/NS 100 ML IV SCH ×2 (03:18)
[2016-12-06 04:40] LABS: BASOPHILS % (AUTO) 0 % (0-10); EOSINOPHILS # (AUTO) 0.1 10^3/uL (0.0-0.3); EOSINOPHILS % (AUTO) 1 % (0-10); LYMPHOCYTES # (AUTO) 1.3 X 10^3 (1.0-4.0); LYMPHOCYTES % (AUTO) 9 % (12-44); MEAN CORPUSCULAR HEMOGLOBIN 30 PG (25-34); MEAN CORPUSCULAR HGB CONC 32 G/DL (32-36); MEAN CORPUSCULAR VOLUME 96 FL (80-99); MONOCYTES # (AUTO) 0.7 X 10^3 (0.0-1.0); MONOCYTES % (AUTO) 5 % (0-12); NEUTROPHILS # (AUTO) 12.2 X 10^3 (1.8-7.8); NEUTROPHILS % (AUTO) 85 % (42-75); PLATELET COUNT 264 10^3/uL (130-400); RED BLOOD COUNT 4.62 10^6/uL (4.35-5.85); RED CELL DISTRIBUTION WIDTH 15.8 % (10.0-14.5); WHITE BLOOD COUNT 14.4 10^3/uL (4.3-11.0)
[2016-12-06 05:15] LABS: ANION GAP 12 MMOL/L (5-14); BLOOD UREA NITROGEN 21 MG/DL (7-18); BUN/CREATININE RATIO 23; CARBON DIOXIDE 31 MMOL/L (21-32); CHLORIDE 94 MMOL/L (98-107); GFR ESTIMATED > 60; GLUCOSE 142 MG/DL (70-105); MAGNESIUM 2.1 MG/DL (1.8-2.4); PHOSPHORUS 3.4 MG/DL (2.3-4.7); POTASSIUM 3.7 MMOL/L (3.6-5.0); SODIUM 137 MMOL/L (135-145)
[2016-12-06] MEDS ORDERED: MAGNESIUM 1 GM/100 ML IVPB 100 ML IV SCH (06:00)
[2016-12-06] MEDS ORDERED: KCL 20 MEQ TAB (K-DUR) PO SCH (06:00)
[2016-12-06] MEDS ORDERED: POTASSIUM CL 10MEQ/50ML IVPB 50 ML IV SCH (06:00)
[2016-12-06] MEDS: RT-ALBUTEROL SULF 2.5 MG/3 ML PRE-MIX VIAL IH SCH ×2 (07:19→11:11)
[2016-12-06] MEDS: APIXABAN 5 MG (ELIQUIS) TABLET PO SCH (08:12)
[2016-12-06] MEDS: NS IV 1000 ML 1,000 ML IV SCH (08:13)
[2016-12-06] MEDS ORDERED: ASPIRIN 81 MG CHEW (CHILDREN'S ASA) PO SCH (09:00)
[2016-12-06] MEDS ORDERED: LORazepam 0.5 MG (ATIVAN) TABLET PO SCH (09:00)
[2016-12-06] MEDS ORDERED: meTOprolol SUCCINATE 100 MG (TOPROL XL) TAB PO SCH (09:00)
--- NOTE | 2016-12-06 11:56 | Diagnostic Imaging Report ---
INDICATION: Atrial fibrillation, congestive failure. Study compared 12/05/2016. FINDINGS: There is leftward rotation, cardiomediastinal silhouette stable. There is borderline prominence of the central pulmonary vascularity but no convincing evidence of edema, pneumonia, effusion, or pneumothorax. IMPRESSION: No significant change. Dictated by: Dictated on workstation # [id number]
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
--- NOTE | 2016-12-06 12:17 | Discharge Instructions ---
Discharge [facility] Discharge Medications New, Converted or Re-Newed RX: Other Continued Medications: Albuterol Sulfate (Albuterol Sulfate) 2.5 Mg/3 Ml Vial.neb 2.5 MG IH QID PRN for SHORTNESS OF BREATH, EA Albuterol/Ipratropium (Combivent Respimat Inhal [place]) 4 Gm Aero 1 PUFF IH QID, INH Allopurinol (Allopurinol) 300 Mg Tablet 300 MG PO DAILY, TAB Apixaban (Eliquis) 5 Mg Tablet 5 MG PO BID, TAB Aspirin (Aspirin EC) 81 Mg Tablet.dr 81 MG PO DAILY, TAB Atorvastatin Calcium (Lipitor) 80 Mg Tablet 40 MG PO HS, TAB TAKES 1/2 (80MG) TABLET Budesonide/Formoterol Fumarate (Symbicort 160-4.5 Mcg Inhaler) 10.2 Gm Hfa.aer.ad 2 PUFF IH BID, INHALER Carboxymethylcellulose Sodium (Lubricant Eye Drops) 15 Ml Drops 1 DROP OU QID PRN for DRY EYES, DROPS Cholecalciferol (Vitamin D3) (Vitamin D3) 1,000 Unit Capsule 1000 UNIT PO DAILY, CAP Diclofenac Sodium (Voltaren) 100 Gm Gel..gram. TOP QID PRN for PAIN, EA Diphenhydramine HCl (Benadryl) 25 Mg Capsule 25 MG PO PRN PRN for ALLERGIES, CAP Fluticasone Propionate (Fluticasone Propionate) 16 Gm [place].susp 1 SPRAY NS DAILY, SPRAY Furosemide (Furosemide) 80 Mg Tablet 80 MG PO DAILY, TAB Gabapentin (Gabapentin) 300 Mg Capsule 300 MG PO TID, CAP Glipizide (Glipizide) 10 Mg Tablet 5 MG PO BIDAC, TAB TAKES 1/2 (10MG) TABLET Guaifenesin (Guaifenesin) 100 Mg/5 Ml Liquid 10 ML PO TID PRN for COUGH/CONGESTION, EA Hydrocodone/Acetaminophen (Hydrocodon -Acetaminophen 5-325) 1 Each Tablet 1 TAB PO BID PRN for PAIN Isosorbide Mononitrate (Isosorbide Mononitrate ER) 60 Mg Tab 60 MG PO DAILY, TAB Loratadine (Loratadine) 10 Mg Tablet 10 MG PO DAILY, TAB Lorazepam (Lorazepam) 1 Mg Tablet 0.5 MG PO BID, TAB Losartan Potassium (Losartan Potassium) 100 Mg Tablet 100 MG PO DAILY, TAB Magnesium Oxide (Magnesium) 400 Mg Tablet 420 MG PO BID, TAB TAKES 2 (400MG) TABLETS Metoprolol Succinate (Toprol Xl) 100 Mg Tab.er.24h 100 MG PO DAILY, #30 TAB 0 Refills Naproxen (Naproxen) 500 Mg Tablet 500 MG PO BID, TAB Potassium Chloride (Potassium Chloride) 20 Meq Tablet.er 20 MEQ PO DAILY, TAB Ropinirole HCl (Requip) 1 Mg Tablet 1 MG PO HS, TAB Tamsulosin HCl (Tamsulosin HCl) 0.4 Mg Cap.er.24h 0.4 MG PO HS, CAP Trazodone HCl (Trazodone HCl) 100 Mg Tablet 200 MG PO HS, TAB Patient Instructions Goal/Follow Up Appt: The [facility] transition care nurse will call you with an appointment on Thursday. Patient Instructions: Please take all medications as prescribed. Return to The Hospital For: chest pain, rapid heart rate, shortness of breath Activity & Diet Discharge Diet: ADA Diet Activity as Tolerated: Yes Copy Copies To 1: CARON KNUTSON APRN, MD December 06, 2016 12:17
--- NOTE | 2016-12-06 12:30 | Consultation-Cardiology ---
HPI-Cardiology Cardiology Consultation: Date of Consultation 12/06/16 Date of Admission Attending Physician Keyona Adames MD Admitting Physician Aliyah Gonzales DO Consulting Physician Devon QIU MD HPI: Chief Complaint: atrial fibrillation this is a 76-year-old gentleman with known history of COPD, CABG, atrial fibrillation. He is a patient of Dr. Butler. I recently saw him for an episode of atrial fibrillation with rapid ventricular rate which were controlled with Cardizem. He is already on Eliquis for oral anticoagulation. He presents with shortness of breath and was found to have atrial fibrillation with rapid ventricular rate which has responded to Cardizem. On my interview he does not complain of any palpitations or shortness of breath. Review of Systems-Cardiology Review of Systems Constitutional: No As described under HPI, No no symptoms reported, No chills, No fever, No lightheadedness, No malaise, No tiredness, No weight loss, No weight gain, No other Eyes: No As described under HPI, No no symptoms reported, No blindness, No blurred vision, No contact lenses, No drainage, No decreased acuity, No foreign body sensation, No glasses, No inflammation, No pain, No photophobia, No previous injury, No shadows, No tunnel vision, No other, No vision change Ears/Nose/Throat: No As described under HPI, No no symptoms reported, No chronic hearing loss, No epistaxis, No ear discharge, No ear pain, No loose teeth, No mouth pain, No mouth swelling, No nasal drainage, No nose pain, No recent hearing loss, No throat pain, No throat swelling, No ulcerations, No other Respiratory: No no symptoms reported, No As described under HPI, No cough, No orthopnea, shortness of breath, No SOB with excertion, No SOB at rest, No stridor, No wheezing, No other Cardiovascular: No no symptoms reported, No As described under HPI, No chest pain, No edema, irregular heart rate, No lightheadedness, No palpitations, No syncope, No other Gastrointestinal: No no symptoms reported, No As described under HPI, No abdomen distended, No abdominal pain, No blood streaked bowels, No constipation , No diarrhea, No difficulty swallowing, No nausea, No poor appetite, No poor fluid intake, No rectal bleeding, No vomiting, No other, No nausea/vomiting/ diarrhea, No stool coloration changes Genitourinary: No no symptoms reported, No As described under HPI, No burning, No dysuria, No discharge, No frequency, No flank pain, No hematuria, No incontinence, No pain, No urgency, No other, No urine frequency changes, No urine coloration changes Musculoskeletal: No no symptoms reported, No As describe under HPI, No back pain, No gout, No joint pain, No joint swelling, No muscle pain, No muscle stiffness, No neck pain, No other Skin: No no symptoms reported, No As described under HPI, No change in color, No change in hair/nails, No dryness, No lesions, No lumps, No rash, No other, No skin related problems, No ulcerations, No rash on exposed areas, No ulcerations on exposed areas Psychiatric/Neurological: No As described under HPI, No anxiety, No depression , No emotional problems, No focal weakness, No headache, No no symptoms reported , No numbness, No other, No pre-existing deficit, No seizure, No syncope, No tingling, No tremors, No weakness VNT-Uzkazp-Bmlrit Hx Patient Social History Alcohol Use: Occasionally Uses Recreational Drug Use: No Smoking Status: Former Smoker Type Used: Cigarettes Recent Foreign Travel: No Recent Infectious Disease Expo: No Physical Abuse Screen: No Sexual Abuse: No Immunizations Up To Date Tetanus Booster (TDap): Unknown Date of Pneumonia Vaccine: Apr 24, 2016 Date of Influenza Vaccine: Apr 24, 2016 Past Medical History PMH As described under Assessment. Family Medical History Family History: Patient reports no known family medical history. Allergies and Home Medications Allergies Coded Allergies: adhesive tape (Verified Allergy, Mild, RASH, 05/23/16) shellfish derived (Verified Allergy, Mild, HIVES, 05/23/16) Penicillins (Verified Allergy, Unknown, 05/09/16) Home Medications Albuterol Sulfate 2.5 Mg/3 Ml Vial.neb, 2.5 MG IH QID PRN for SHORTNESS OF BREATH, (Reported) Albuterol/Ipratropium 4 Gm Aero, 1 PUFF IH QID, (Reported) Allopurinol 300 Mg Tablet, 300 MG PO DAILY, (Reported) Apixaban 5 Mg Tablet, 5 MG PO BID, (Reported) Aspirin 81 Mg Tablet.dr, 81 MG PO DAILY, (Reported) Atorvastatin Calcium 80 Mg Tablet, 40 MG PO HS, (Reported) TAKES 1/2 (80MG) TABLET Budesonide/Formoterol Fumarate 10.2 Gm Hfa.aer.ad, 2 PUFF IH BID, (Reported) Carboxymethylcellulose Sodium 15 Ml Drops, 1 DROP OU QID PRN for DRY EYES, ( Reported) Cholecalciferol (Vitamin D3) 1,000 Unit Capsule, 1,000 UNIT PO DAILY, (Reported) Diclofenac Sodium 100 Gm Gel..gram., TOP QID PRN for PAIN, (Reported) Diphenhydramine HCl 25 Mg Capsule, 25 MG PO PRN PRN for ALLERGIES, (Reported) Fluticasone Propionate 16 Gm [place].susp, 1 SPRAY NS DAILY, (Reported) Furosemide 80 Mg Tablet, 80 MG PO DAILY, (Reported) Gabapentin 300 Mg Capsule, 300 MG PO TID, (Reported) Glipizide 10 Mg Tablet, 5 MG PO BIDAC, (Reported) TAKES 1/2 (10MG) TABLET Guaifenesin 100 Mg/5 Ml Liquid, 10 ML PO TID PRN for COUGH/CONGESTION, (Reported ) Hydrocodone/Acetaminophen 1 Each Tablet, 1 TAB PO BID PRN for PAIN, (Reported) Isosorbide Mononitrate 60 Mg Tab, 60 MG PO DAILY, (Reported) Loratadine 10 Mg Tablet, 10 MG PO DAILY, (Reported) Lorazepam 1 Mg Tablet, 0.5 MG PO BID, (Reported) Losartan Potassium 100 Mg Tablet, 100 MG PO DAILY, (Reported) Magnesium Oxide 400 Mg Tablet, 420 MG PO BID, (Reported) TAKES 2 (400MG) TABLETS Metoprolol Succinate 100 Mg Tab.er.24h, 100 MG PO DAILY, #30 Ref 0 Prescribed by: DOM SOLARES on 08/01/16 1452 Naproxen 500 Mg Tablet, 500 MG PO BID, (Reported) Potassium Chloride 20 Meq Tablet.er, 20 MEQ PO DAILY, (Reported) Ropinirole HCl 1 Mg Tablet, 1 MG PO HS, (Reported) Tamsulosin HCl 0.4 Mg Cap.er.24h, 0.4 MG PO HS, (Reported) Trazodone HCl 100 Mg Tablet, 200 MG PO HS, (Reported) Physical Exam-Cardiology Physical Exam Vital Signs/I&O Vital Sign - Last 12Hours 12/06/16 12/06/16 12/06/1617 01:00 01:00 02:00 03:00 Pulse 66 76 79 76 Resp 22 B/P (MAP) 155/131 147/95 137/112 Pulse Ox 95 89 91 O2 Flow Rate 4.00 4.00 4.00 12/06/16 12/06/16 12/06/16 12/06/16 03:18 04:00 04:00 04:00 Temp 98.6 98.0 Pulse 76 78 Resp 22 B/P (MAP) 137/112 173/93 Pulse Ox 91 92 93 O2 Flow Rate 4.00 4.00 4.00 12/06/16 12/06/16 12/06/16 12/06/16 05:00 06:00 07:00 07:00 Temp 98.3 Pulse 89 79 87 B/P (MAP) 158/101 145/113 Pulse Ox 89 90 O2 Flow Rate 4.00 4.00 12/06/16 12/06/16 12/06/16 12/06/16 07:19 07:31 08:00 11:11 Pulse Ox 96 95 96 O2 Flow Rate 4.50 4.50 4.00 4.50 12/06/16 12:00 O2 Flow Rate 4.00 Intake and Output 12/06/16 00:00 Intake Total 250 ml Balance 250 ml Capillary Refill : Less Than 3 Seconds Constitutional: No appears stated age, No AAO x 3, No apparent distress, No PERRL, No well-developed, No well-nourished, other (obese) HEENT: No PERRL, No normal ENT inspection, No TMs normal, No pharynx normal, No scleral icterus (R), No scleral icterus (L), No pale conjunctivae (R), No pale conjunctivae (L), No photophobia, No TM abnormal (R), No TM abnormal (L), No pharyngeal erythema, No tonsillar exudate, No other, No discharge, No EOMI, No hearing is well preserved, No hard of hearing, No oral hygience is good, No ulceration, No xanthelasmas are seen Neck: No non-tender, No full range of motion, No supple, No normal inspection, No carotid bruit, No limited range of motion, No lymphadenopathy (R), No lymphadenopathy (L), No tender lateral, No tender midline, No thyromegaly, No other, No carotid pulses are 2 + bilaterally, No with good upstrokes Respiratory: chest expansion is symmetric, chest is bilaterally symmetric, other (decreased air entry bilaterally.) Cardiovascular: No regular rate-rhythm, irregularly irregular, No extra beats, No parasternal heave is noted, No JVD, edema, No bradycardia, No tachycardia, No point of maximal impulse, No cardiac thrills are palpable, No S1 and S2, No gallop/S3, No gallop/S4, No diastolic murmur, No systolic murmur, No friction rub, No click, No other Gastrointestinal: No tender, No soft, No round, No distended, No pulsatile mass , No organomegaly, No guarding, No rebound, No tenderness, No hernia, No mass, No audible bowel sounds, No abnormal bowel sounds, No abdominal bruits, No spleenomegaly, No other Rectal: deferred Extremities: No normal range of motion, No non-tender, No normal inspection, pedal edema, No calf tenderness, No normal capillary refill, No pelvis stable, No calf tenderness, No inflammation, No pedal edema, No slow capillary refill, No swelling, No other, No abrasion, No clubbing, No cyanosis, No ecchymosis, No laceration, No no lower extremity edema bilateral, No significant edema, No tenderness, No wound Neurologic/Psychiatric: No supervisor pleating II-XII nml as tested, No no motor/sensory deficits, No alert, No normal mood/affect, No oriented x 3, No abnormal cerebellar tests, No abnormal supervisor pleating II-XII, No abnormal gait, No aphasia, No EOM palsy, No facial droop, No motor weakness, No sensory deficit, No depressed affect, No disoriented x 3, No other, No grossly intact, No power is 5/5 both on sides Data Review Labs Laboratory Tests 12/05/16 17:35: White Blood Count 19.9H, Red Blood Count 4.91, Hemoglobin 15.0, Hematocrit 46, Mean Corpuscular Volume 94, Mean Corpuscular Hemoglobin 31, Mean Corpuscular Hemoglobin Concent 32, Red Cell Distribution Width 15.7H, Platelet Count 308, Mean Platelet Volume 9.5, Neutrophils (%) (Auto) 90H, Lymphocytes (%) (Auto) 5L , Monocytes (%) (Auto) 5, Eosinophils (%) (Auto) 0, Basophils (%) (Auto) 0, Neutrophils # (Auto) 17.9H, Lymphocytes # (Auto) 1.1, Monocytes # (Auto) 0.9, Eosinophils # (Auto) 0.0, Basophils # (Auto) 0.0, Neutrophils % (Manual) 78, Lymphocytes % (Manual) 8, Monocytes % (Manual) 8, Eosinophils % (Manual) 0, Basophils % (Manual) 0, Band Neutrophils 6, Blood Morphology Comment NORMAL, Sodium Level 136, Potassium Level 4.1, Chloride Level 92L, Carbon Dioxide Level 30, Anion Gap 14, Blood Urea Nitrogen 19H, Creatinine 0.95, Estimat Glomerular Filtration Rate > 60, BUN/Creatinine Ratio 20, Glucose Level 211H, Calcium Level 9.6, Total Bilirubin 1.3H, Aspartate Amino Transf (AST/SGOT) 16, Alanine Aminotransferase (ALT/SGPT) 31, Alkaline Phosphatase 80, Troponin I < 0.30, B- Type Natriuretic Peptide 355.4H, Total Protein 7.1, Albumin 3.6, Thyroid Stimulating Hormone (TSH) 0.61, Free Thyroxine 1.18 12/05/16 17:46: Blood Gas Puncture Site RR, Blood Gas Patient Temperature 98.9, Arterial Blood pH 7.43, Arterial Blood Partial Pressure CO2 51H, Arterial Blood Partial Pressure O2 68L, Arterial Blood HCO3 33H, Arterial Blood Total CO2 35.0H, Arterial Blood Oxygen Saturation 94, Arterial Blood Base Excess 8.9H, Hayder Test YES-POS, Blood Gas Ventilator Setting NO, Blood Gas Inspired Oxygen 5L 12/06/16 04:06: White Blood Count 14.4H, Red Blood Count 4.62, Hemoglobin 13.9, Hematocrit 44, Mean Corpuscular Volume 96, Mean Corpuscular Hemoglobin 30, Mean Corpuscular Hemoglobin Concent 32, Red Cell Distribution Width 15.8H, Platelet Count 264, Mean Platelet Volume 10.0, Neutrophils (%) (Auto) 85H, Lymphocytes (%) (Auto) 9L , Monocytes (%) (Auto) 5, Eosinophils (%) (Auto) 1, Basophils (%) (Auto) 0, Neutrophils # (Auto) 12.2H, Lymphocytes # (Auto) 1.3, Monocytes # (Auto) 0.7, Eosinophils # (Auto) 0.1, Basophils # (Auto) 0.0, Sodium Level 137, Potassium Level 3.7, Chloride Level 94L, Carbon Dioxide Level 31, Anion Gap 12, Blood Urea Nitrogen 21H, Creatinine 0.90, Estimat Glomerular Filtration Rate > 60, BUN /Creatinine Ratio 23, Glucose Level 142H, Calcium Level 9.0, Phosphorus Level 3.4, Magnesium Level 2.1 ECG Impression ECG Initial ECG Impression: Atrial Fibrillation A/P-Cardiology Assessment/Admission Diagnosis atrial fibrillation with rapid ventricular rate, Mild acute diastolic heart failure CAD, CABG Plan atrial fibrillation: Well controlled on Cardizem and Eliquis. Acute diastolic heart failure: Stable now. CAD, CABG: Continue outpatient medications. Patient is okay to discharge Cardiac bravo to follow-up with Dr. Butler next week. Thank you for your consultation. Please call me if you have any questions. Susanne Qiu MD, FACP, FACC, FSCAI, FHRS, CCDS Interventional Cardiology Cardiac Electrophysiology Vascular Medicine and Endovascular Interventions Clinical Quality Measures DVT/VTE Risk/Contraindication: Risk Factor Score Per Nursin RFS Level Per Nursing on Admit: 2=Moderate Devon QIU MD December 06, 2016 12:30 pm
[2016-12-06] MEDS ORDERED: rOPINIRole 1 MG (REQUIP) TABLET PO SCH (21:00)
--- NOTE | 2016-12-08 07:02 | ECHOCARDIOGRAPHY REPORT ---
DATE OF SERVICE: 12/06/2016 ECHOCARDIOGRAM ATTENDING PHYSICIAN: Dr. Keyona Adames ORDERING PHYSICIAN: Jhon Wright MD PRIMARY PHYSICIAN: Aliyah Gonzales DO DIAGNOSES: Atrial fibrillation with rapid ventricular rate, congestive heart failure. FINDINGS: 1. Atrial fibrillation. 2. Left atrial dimensions are significantly enlarged. Left atrial diameter is 5.5 cm. 3. Aortic root dimension is normal. 4. Left ventricular systolic function is borderline normal. LVEF is 50%. Moderate concentric LVH is present. Diastolic interventricular septal diameter is 1.5 cm. 5. No significant wall motion abnormalities. 6. Right atrial enlargement and right ventricular enlargement is noted. 7. There is no evidence of pericardial effusion. 8. Mild diastolic dysfunction is present. 9. IVC is dilated at 2.4 cm, which suggests increased right atrial pressure. VALVULAR STRUCTURE OF THE HEART: There is mild to moderate tricuspid regurgitation with RVSP of 42 mmHg. The mitral valve is thickened with mitral annular calcification and mild mitral regurgitation. Aortic calcification is noted with no significant stenosis or regurgitation. There is no significant pulmonic valve pathology. CONCLUSION: 1. Atrial fibrillation. 2. Borderline LVEF of 50%. 3. Enlarged left atrium and concentric LVH. 4. Mild to moderate tricuspid regurgitation. 5. Mild pulmonary hypertension. 6. Enlarged right atrium and RV enlargement. 7. Dilated IVC, which suggests increased right atrial pressure. 8. Mild diastolic dysfunction. Job ID: [id number] DocumentID: [id number] Dictated Date: 12/07/2016 13:50:14 Steeping Press Tender Date: 12/07/2016 15:44:08 Dictated By: JHON WRIGHT MD
--- NOTE | 2016-12-11 08:22 | Physician Query-Heart Failure ---
Physician Query-Heart Failure Query to Physician: Provider's Document Request-Please contact hide and skin fleshing machine operator listed on document for more information. Dear Provider, We need your assistance to accurately capture the severity of the patients heart failure. Physician participation is requested in all cases of information coder uncertainty to minimize errors in code assignment and to avoid compliance issues. Please select the type of heart failure the patient has below. Clinical Findings: Pro-BNP 355.4 Ejection Fraction: Above/Equal to 40 PHYSICIAN RESPONSE: Please clarify if the patient has mild ACUTE diastolic CHF. I am not seeing treatment for it other than his current home medications. His BNP is mildly elevated. If this is ACUTE diastolic CHF please state what treatment was done. thank you Type of Heart Failure: Type of Heart Failure: Diastolic HF (Acute) Status: Acute If you have questions please contact: Digital Cartographer: Ext: Thank you for your time and cooperation. Clinical Tong Setter/Digital Cartographer This is a permanent part of the medical record STEPHANIA CHAWLA Dec 11, 2016 08:22 Devon QIU MD Dec 11, 2016 16:33
== END 2016-12-06 13:00 | disposition home or self-care (01) | DRG 308 ==
LOC: EDUNIT# 17:21 → ER 17:23 → ICU 18:38
PROVIDERS: ADMIT Pediatrics; ATTEND Pediatrics
DX: I48.0 Paroxysmal atrial fibrillation (principal); I11.0 Hypertensive heart disease with heart failure; I50.31 Acute diastolic (congestive) heart failure; E66.01 Morbid (severe) obesity due to excess calories; Z68.42 Body mass index [BMI] 45.0-49.9, adult; I69.354 Hemiplegia and hemiparesis following cerebral infarction affecting left non-dominant side; I25.10 Atherosclerotic heart disease of native coronary artery without angina pectoris; I07.1 Rheumatic tricuspid insufficiency; Z66 Do not resuscitate; J44.9 Chronic obstructive pulmonary disease, unspecified; E11.9 Type 2 diabetes mellitus without complications; E78.5 Hyperlipidemia, unspecified; E03.9 Hypothyroidism, unspecified; K21.9 Gastro-esophageal reflux disease without esophagitis; Z87.891 Personal history of nicotine dependence; Z79.01 Long term (current) use of anticoagulants; Z99.81 Dependence on supplemental oxygen; Z95.1 Presence of aortocoronary bypass graft; Z95.5 Presence of coronary angioplasty implant and graft
CPT/HCPCS: 36415; 71010; 80048; 80053; 82805; 83735; 83880; 84100; 84439; 84443; 84484; 85007; 85025; 85027; 87081; 93005; 93306; 94640; 94760; 96365

== ENCOUNTER 2016-12-25 13:17 | Observation (INO) | payer MEDICARE, MEDICAID ==
[~2016-12-25] VITALS: Ht 172.7 cm; Wt 144.2 kg
[2016-12-25] MEDS ORDERED: ASPIRIN 81 MG CHEW (CHILDREN'S ASA) PO ONE (13:45)
[2016-12-25] MEDS ORDERED: RT-ALBUTEROL/IPRATROPIUM 3 ML (DUONEB) VIAL ONE (13:50)
--- NOTE | 2016-12-25 14:03 | ED Respiratory ---
General Chief Complaint: Respiratory Problems Stated Complaint: RESP ISSUES Source: patient Exam Limitations: no limitations History of Present Illness Time seen by provider: 14:03 Initial Comments To ER per [facility] with reports of shortness of breath that is chronic in nature worse since yesterday. No fevers or chills. No cough. He has known COPD and atrial fibrillation. Upon arrival to ER his rate is controlled in the 90-100 range. Oxygen saturation 93 percent on 3 L. He does wear a BiPAP at home nearly all the time. He is morbidly obese which is contributing to his hypoventilation Timing/Duration: yesterday, getting worse Severity: moderate Associated Symptoms: shortness of breath Allergies and Home Medications Allergies Coded Allergies: adhesive tape (Verified Allergy, Mild, RASH, 05/23/16) shellfish derived (Verified Allergy, Mild, HIVES, 05/23/16) Penicillins (Verified Allergy, Unknown, 05/09/16) Home Medications Albuterol Sulfate 2.5 Mg/3 Ml Vial.neb, 2.5 MG IH QID PRN for SHORTNESS OF BREATH, (Reported) Albuterol/Ipratropium 4 Gm Aero, 1 PUFF IH QID, (Reported) Allopurinol 300 Mg Tablet, 300 MG PO DAILY, (Reported) Apixaban 5 Mg Tablet, 5 MG PO BID, (Reported) Aspirin 81 Mg Tablet.dr, 81 MG PO DAILY, (Reported) Atorvastatin Calcium 80 Mg Tablet, 40 MG PO HS, (Reported) TAKES 1/2 (80MG) TABLET Budesonide/Formoterol Fumarate 10.2 Gm Hfa.aer.ad, 2 PUFF IH BID, (Reported) Carboxymethylcellulose Sodium 15 Ml Drops, 1 DROP OU QID PRN for DRY EYES, ( Reported) Cholecalciferol (Vitamin D3) 1,000 Unit Capsule, 1,000 UNIT PO DAILY, (Reported) Diclofenac Sodium 100 Gm Gel..gram., TOP QID PRN for PAIN, (Reported) Diphenhydramine HCl 25 Mg Capsule, 25 MG PO PRN PRN for ALLERGIES, (Reported) Fluticasone Propionate 16 Gm Antlers.susp, 1 SPRAY NS DAILY, (Reported) Furosemide 80 Mg Tablet, 80 MG PO DAILY, (Reported) Gabapentin 300 Mg Capsule, 300 MG PO TID, (Reported) Glipizide 10 Mg Tablet, 5 MG PO BIDAC, (Reported) TAKES 1/2 (10MG) TABLET Guaifenesin 100 Mg/5 Ml Liquid, 10 ML PO TID PRN for COUGH/CONGESTION, (Reported ) Hydrocodone/Acetaminophen 1 Each Tablet, 1 TAB PO BID PRN for PAIN, (Reported) Isosorbide Mononitrate 60 Mg Tab, 60 MG PO DAILY, (Reported) Loratadine 10 Mg Tablet, 10 MG PO DAILY, (Reported) Lorazepam 1 Mg Tablet, 0.5 MG PO BID, (Reported) Losartan Potassium 100 Mg Tablet, 100 MG PO DAILY, (Reported) Magnesium Oxide 400 Mg Tablet, 420 MG PO BID, (Reported) TAKES 2 (400MG) TABLETS Metoprolol Succinate 100 Mg Tab.er.24h, 100 MG PO DAILY, #30 Ref 0 Prescribed by: DOM SOLARES on 08/01/16 1452 Naproxen 500 Mg Tablet, 500 MG PO BID, (Reported) Potassium Chloride 20 Meq Tablet.er, 20 MEQ PO DAILY, (Reported) Ropinirole HCl 1 Mg Tablet, 1 MG PO HS, (Reported) Tamsulosin HCl 0.4 Mg Cap.er.24h, 0.4 MG PO HS, (Reported) Trazodone HCl 100 Mg Tablet, 200 MG PO HS, (Reported) Constitutional: see HPI EENTM: see HPI Respiratory: see HPI, dyspnea on exertion, short of breath Genitourinary: no symptoms reported Musculoskeletal: no symptoms reported Skin: no symptoms reported Psychiatric/Neurological: No Symptoms Reported Hematologic/Lymphatic: No Symptoms Reported Past Vokkyil-Arjpgj-Dlsfsl Hx Patient Social History Type Used: Cigarettes Recent Hopitalizations: Yes (ONE MONTH AGO) Immunizations Up To Date Tetanus Booster (TDap): Unknown PED Vaccines UTD: No Date of Pneumonia Vaccine: Apr 24, 2016 Date of Influenza Vaccine: Apr 24, 2016 Seasonal Allergies Seasonal Allergies: No Surgeries HX Surgeries: Yes Surgeries: Cardiac, CABG, Coronary Stent, Joint Replacement, Orthopedic Respiratory Hx Respiratory Disorders: Yes (O2 DEPENDENT AT 4L/NC; BIPAP AT HIS AND PRN DURING DAY) Respiratory Disorders: Asthma, Sleep Apnea, COPD Cardiovascular Hx Cardiac Disorders: Yes (CHF; RBBB) Cardiac Disorders: Atrial Fibrillation, Coronary Artery Disease, High Cholesterol, Hypertension, Peripheral Vascular Neurological Hx Neurological Disorders: Yes (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; RESTLESS LEG) Neurological Disorders: Neuropathy, Stroke Reproductive System Hx Reproductive Disorders: No Sexually Transmitted Disease: No HIV/AIDS: No Genitourinary Hx 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) Genitourinary Disorders: Renal Failure Gastrointestinal Hx Gastrointestinal Disorders: Yes Gastrointestinal Disorders: Gastroesophageal Reflux Musculoskeletal Hx Musculoskeletal Disorders: Yes (ELECTRIC WHEELCHAIR) Musculoskeletal Disorders: Arthritis Endocrine Hx Endocrine Disorders: Yes (MORBID OBESITY) Endocrine Disorders: Diabetes, Non-Insulin dep HEENT HX ENT Disorders: No (GLASSES) Cancer Hx Cancer: No Psychosocial Hx Psychiatric Problems: No Integumentary HX Skin/Integumentary Disorder: No Blood Transfusions Hx Blood Disorders: No Family Medical History Significant Family History: No Pertinent Family Hx Family Medial History: Patient reports no known family medical history. Physical Exam Vital Signs Vital Sign - Last 12Hours 12/25/16 12/25/16 13:17 13:18 Temp 97.9 Pulse 100 Resp 22 B/P (MAP) 139/100 Pulse Ox 94 O2 Delivery Nasal Cannula O2 Flow Rate 4.00 Capillary Refill : General Appearance: WD/WN, no apparent distress Eyes: Bilateral Eye EOMI, Bilateral Eye Normal Inspection, Bilateral Eye PERRL HEENT: PERRL/EOMI, normal ENT inspection Neck: non-tender, full range of motion Respiratory: no respiratory distress, no accessory muscle use, decreased breath sounds, accessory muscle use Cardiovascular: no murmur, irregularly irregular Gastrointestinal: normal bowel sounds, non tender, soft Extremities: normal range of motion, non-tender Neurologic/Psychiatric: alert, normal mood/affect, oriented x 3 Skin: normal color, warm/dry Progress/Results/Core Measures Results/Orders Lab Results Laboratory Tests Test 12/25/16 13:50 12/25/16 14:20 Range/Units White Blood Count 10.0 4.3-11.0 10^3/uL Red Blood Count 4.59 4.35-5.85 10^6/uL Hemoglobin 13.8 13.3-17.7 G/DL Hematocrit 45 40-54 % Mean Corpuscular Volume 97 80-99 FL Mean Corpuscular Hemoglobin 30 25-34 PG Mean Corpuscular Hemoglobin Concent 31 L 32-36 G/DL Red Cell Distribution Width 14.8 H 10.0-14.5 % Platelet Count 285 130-400 10^3/uL Mean Platelet Volume 9.8 7.4-10.4 FL Neutrophils (%) (Auto) 80 H 42-75 % Lymphocytes (%) (Auto) 12 12-44 % Monocytes (%) (Auto) 6 0-12 % Eosinophils (%) (Auto) 2 0-10 % Basophils (%) (Auto) 0 0-10 % Neutrophils # (Auto) 8.1 H 1.8-7.8 X 10^3 Lymphocytes # (Auto) 1.2 1.0-4.0 X 10^3 Monocytes # (Auto) 0.6 0.0-1.0 X 10^3 Eosinophils # (Auto) 0.2 0.0-0.3 10^3/uL Basophils # (Auto) 0.0 0.0-0.1 10^3/uL Sodium Level 140 135-145 MMOL/L Potassium Level 4.2 3.6-5.0 MMOL/L Chloride Level 93 L 98-107 MMOL/L Carbon Dioxide Level 37 H 21-32 MMOL/L Anion Gap 10 5-14 MMOL/L Blood Urea Nitrogen 10 7-18 MG/DL Creatinine 0.93 0.60-1.30 MG/DL Estimat Glomerular Filtration Rate > 60 BUN/Creatinine Ratio 11 0-20 Glucose Level 180 H 70-105 MG/DL Calcium Level 9.2 8.5-10.1 MG/DL Magnesium Level 1.9 1.8-2.4 MG/DL Total Bilirubin 0.5 0.1-1.0 MG/DL Aspartate Amino Transf (AST/SGOT) 15 5-34 U/L Alanine Aminotransferase (ALT/SGPT) 17 0-55 U/L Alkaline Phosphatase 94 40-136 U/L Myoglobin 40.8 10.0-92.0 NG/ML Troponin I < 0.30 <0.30 NG/ML Total Protein 6.4 6.4-8.2 GM/DL Albumin 3.7 3.2-4.5 GM/DL Blood Gas Puncture Site RT RAD Blood Gas Patient Temperature 97.4 Arterial Blood pH 7.34 *L 7.37-7.43 Arterial Blood Partial Pressure CO2 76 *H 35-45 MMHG Arterial Blood Partial Pressure O2 92 79-93 MMHG Arterial Blood HCO3 40 H 23-27 MMOL/L Arterial Blood Total CO2 42.9 H 21.0-31.0 MMOL/L Arterial Blood Oxygen Saturation 98 94-100 % Arterial Blood Base Excess 14.0 H -2.5-2.5 MMOL/L Hayder Test YES-POS Blood Gas Ventilator Setting NO Blood Gas Inspired Oxygen 4L My Orders Orders - MOUNA CLAUDIO APRN Cbc With Automated Diff (12/25/16 13:31) Magnesium (12/25/16 13:31) Chest 1 View, Ap/Pa Only (12/25/16 13:31) Ekg Tracing (12/25/16 13:31) Cardiac Profile 1 (12/25/16 13:31) Comprehensive Metabolic Panel (12/25/16 13:31) Myoglobin Serum (12/25/16 13:31) Protime With Inr (12/25/16 13:31) Partial Thromboplastin Time (12/25/16 13:31) O2 (12/25/16 13:31) Monitor-Rhythm Ecg Trace Only (12/25/16 13:31) Lipid Panel (12/26/16 06:00) Aspirin Chewable Tablet (Baby Aspirin Ch (12/25/16 13:45) Saline Lock/Iv-Start (12/25/16 13:31) Arterial Blood Gas (12/25/16 13:48) Albuterol/Ipra Inhalation Soln (Duoneb I (12/25/16 13:50) Arterial Blood Gas (12/25/16 14:23) BNP (12/25/16 14:36) Furosemide Injection (Lasix Injection) (12/25/16 14:45) Bipap Rt-Rfs (12/25/16 14:37) Medications Given in ED Current Medications Medications Dose Ordered Sig/Scar Route Start Time Stop Time Status Last Admin Dose Admin Albuterol/ Ipratropium 3 ml STK-MED ONCE .ROUTE 12/25/16 13:50 12/25/16 13:55 DC 12/25/16 14:09 3 ML Aspirin 324 mg ONCE ONCE PO 12/25/16 13:45 12/25/16 13:46 DC 12/25/16 14:08 324 MG Vital Signs/I&O Vital Sign - Last 12Hours 12/25/16 12/25/16 12/25/16 12/25/16 13:17 13:18 14:08 14:09 Temp 97.9 98.1 Pulse 100 Resp 22 B/P (MAP) 139/100 Pulse Ox 94 96 95 O2 Delivery Nasal Cannula Nasal Cannula Nasal Cannula O2 Flow Rate 4.00 4.00 Departure Impression Impression: Primary Impression: Acute on chronic diastolic CHF (congestive heart failure) Additional Impressions: COPD exacerbation Hypercapnia Disposition: ADMITTED INPATIENT Condition: Stable Departure-Patient Inst. Referrals: LEI CHATTERJEE DO (PCP) Primary Care Physician SUSANA WAYNE (Family) Primary Care Physician MOUNA CLAUDIO APRN Dec 25, 2016 14:03
[2016-12-25 14:13] LABS: BASOPHILS % (AUTO) 0 % (0-10); EOSINOPHILS # (AUTO) 0.2 10^3/uL (0.0-0.3); EOSINOPHILS % (AUTO) 2 % (0-10); LYMPHOCYTES # (AUTO) 1.2 X 10^3 (1.0-4.0); LYMPHOCYTES % (AUTO) 12 % (12-44); MEAN CORPUSCULAR HEMOGLOBIN 30 PG (25-34); MEAN CORPUSCULAR HGB CONC 31 G/DL (32-36); MEAN CORPUSCULAR VOLUME 97 FL (80-99); MEAN PLATELET VOLUME 9.8 FL (7.4-10.4); MONOCYTES # (AUTO) 0.6 X 10^3 (0.0-1.0); MONOCYTES % (AUTO) 6 % (0-12); NEUTROPHILS # (AUTO) 8.1 X 10^3 (1.8-7.8); NEUTROPHILS % (AUTO) 80 % (42-75); PLATELET COUNT 285 10^3/uL (130-400); RED BLOOD COUNT 4.59 10^6/uL (4.35-5.85); RED CELL DISTRIBUTION WIDTH 14.8 % (10.0-14.5)
[2016-12-25 14:27] LABS: ALANINE AMINOTRANSFERASE 17 U/L (0-55); ALBUMIN 3.7 GM/DL (3.2-4.5); ANION GAP 10 MMOL/L (5-14); ASPARTATE AMINO TRANSFERASE 15 U/L (5-34); BILIRUBIN,TOTAL 0.5 MG/DL (0.1-1.0); BLOOD UREA NITROGEN 10 MG/DL (7-18); BUN/CREATININE RATIO 11 (0-20); CALCIUM 9.2 MG/DL (8.5-10.1); CARBON DIOXIDE 37 MMOL/L (21-32); CHLORIDE 93 MMOL/L (98-107); CREATININE SERUM 0.93 MG/DL (0.60-1.30); GFR ESTIMATED > 60; GLUCOSE 180 MG/DL (70-105); HEMOLYSIS 32 (0-29); ICTERUS 0.6 (0-1.9); LIPEMIA 4 (0-49); MAGNESIUM 1.9 MG/DL (1.8-2.4); POTASSIUM 4.2 MMOL/L (3.6-5.0); SODIUM 140 MMOL/L (135-145); TOTAL PROTEIN 6.4 GM/DL (6.4-8.2)
[2016-12-25 14:30] LABS: ABG HCO3 40 MMOL/L (23-27); ABG OXYGEN SATURATION 98 % (94-100); ABG PO2 92 MMHG (79-93); ABG TCO2 42.9 MMOL/L (21.0-31.0)
[2016-12-25 14:31] LABS: ABG PCO2 76 MMHG (35-45); ABG PH 7.34 (7.37-7.43); ALLENS TEST YES-POS
[2016-12-25 14:32] LABS: PATIENT TEMP 97.4
--- NOTE | 2016-12-25 14:33 | Diagnostic Imaging Report ---
Portable upright radiograph of the chest. INDICATION: Shortness of breath. COMPARISON: 12/06/2016. FINDINGS: The heart size is moderately enlarged. There is vascular congestion and interstitial thickening compatible with interstitial edema. No significant airspace consolidation. No effusion or pneumothorax. The mediastinum and smitha appear unremarkable. Sternotomy wires are seen. The findings overall are similar/ slightly worse compared to 12/06/2016. IMPRESSION: Cardiomegaly with interstitial pulmonary edema. Dictated by: Dictated on workstation # [id number]
[2016-12-25 14:34] LABS: MYOGLOBIN SERUM 40.8 NG/ML (10.0-92.0)
[2016-12-25 14:38] LABS: INR 1.1 (0.8-1.4); PROTHROMBIN TIME PATIENT 13.6 SEC (12.2-14.7)
[2016-12-25] MEDS ORDERED: FUROSEMIDE 40 MG/4 ML INJ (LASIX) IVP ONE (14:45)
[2016-12-25 14:53] VITALS: BP 139/100
[2016-12-25 16:47] LABS: ABG BASE EXCESS 14.7 MMOL/L (-2.5-2.5); ABG OXYGEN SATURATION 99 % (94-100); ABG PO2 133 MMHG (79-93); ABG TCO2 43.6 MMOL/L (21.0-31.0)
[2016-12-25 16:51] LABS: ABG HCO3 41 MMOL/L (23-27); ABG PCO2 77 MMHG (35-45); ABG PH 7.34 (7.37-7.43)
[2016-12-25 16:52] LABS: PATIENT TEMP 97.3
[2016-12-25] MEDS ORDERED: CATHETER FLUSH 10 ML SYR IV PRN (19:00)
[2016-12-25 20:00] VITALS: BP 92/64
[2016-12-26] VITALS: BP 106/88
[2016-12-26 04:00] VITALS: BP 119/91
[2016-12-26 04:20] LABS: BASOPHILS % (AUTO) 0 % (0-10); EOSINOPHILS # (AUTO) 0.2 10^3/uL (0.0-0.3); EOSINOPHILS % (AUTO) 2 % (0-10); LYMPHOCYTES # (AUTO) 1.8 X 10^3 (1.0-4.0); LYMPHOCYTES % (AUTO) 19 % (12-44); MEAN CORPUSCULAR HEMOGLOBIN 30 PG (25-34); MEAN CORPUSCULAR HGB CONC 30 G/DL (32-36); MEAN CORPUSCULAR VOLUME 100 FL (80-99); MEAN PLATELET VOLUME 9.7 FL (7.4-10.4); MONOCYTES # (AUTO) 0.6 X 10^3 (0.0-1.0); MONOCYTES % (AUTO) 6 % (0-12); NEUTROPHILS # (AUTO) 6.7 X 10^3 (1.8-7.8); NEUTROPHILS % (AUTO) 73 % (42-75); PLATELET COUNT 267 10^3/uL (130-400); RED BLOOD COUNT 4.37 10^6/uL (4.35-5.85); RED CELL DISTRIBUTION WIDTH 14.9 % (10.0-14.5); WHITE BLOOD COUNT 9.2 10^3/uL (4.3-11.0)
[2016-12-26 04:39] LABS: CHOLESTEROL 194 MG/DL (< 200); DIRECT LDL 129 MG/DL (1-129); LIPEMIA 6 (0-49); TRIGLYCERIDES 166 MG/DL (<150); VLDL CHOLESTEROL 33 MG/DL (5-40)
[2016-12-26] MEDS: CATHETER FLUSH 10 ML SYR IV SCH ×2 (06:28→14:21)
[2016-12-26] MEDS ORDERED: FUROSEMIDE 40 MG/4 ML INJ (LASIX) IV SCH (07:00)
[2016-12-26 08:05] VITALS: BP 132/86
[2016-12-26] MEDS ORDERED: RT-ALBUTEROL/IPRATROPIUM 3 ML (DUONEB) VIAL INH PRN (08:30)
--- NOTE | 2016-12-26 08:49 | Short Stay Summary ---
HPI History of Present Illness: 76yo gentleman well known to the medicine service presents from his home in [place] with complaints of increasing shortness of breath. Patient has a longstanding hsitory of CHF and severe COPD along with obesity hypoventilation syndrome. He has a home BiPAP but is questionable compliant. States he had increasing shortnes of breath in the days leading up to [facility] ER visit. No fever , no sputum production, cough at baseline. Has been taking meds as prescribed. Source: patient Exam Limitations: no limitations Date seen by provider: Dec 26, 2016 Time Seen by Provider: 09:30 Attending Physician Caron Adames MD PCP Aliyah Gonzales DO Consult Date of Admission Dec 25, 2016 at 16:56 Home Medications Home Medications Reviewed patient Home Medication Reconciliation Form Allergies Coded Allergies: adhesive tape (Verified Allergy, Mild, RASH, 05/23/16) shellfish derived (Verified Allergy, Mild, HIVES, 05/23/16) Penicillins (Verified Allergy, Unknown, 05/09/16) PMZ-Tiaioa-Yrcnej Hx Patient Social History Alcohol Use: Occasionally Uses Recreational Drug Use: No Smoking Status: Former Smoker Type Used: Cigarettes Recent Foreign Travel: No Contact w/other who traveled: No Recent Hopitalizations: Yes (ONE MONTH AGO) Recent Infectious Disease Expo: No Physical Abuse Screen: No Sexual Abuse: No Immunizations Up To Date Tetanus Booster (TDap): Unknown Date of Pneumonia Vaccine: Apr 24, 2016 Date of Influenza Vaccine: Apr 24, 2016 Past Medical History PMHx: NIDDMII HTN HLD CHF Hypothyroidism CVA with left leg weakness- non-ambulatory CAD s/p Stents then CABG Chronic A fib COPD SurgHx: Coronary artery bypass Right knee replacement Vasectomy Family Medical History Significant Family History: No Pertinent Family Hx Other Significan Family Hx: noncontributory to his current condition Family History: Patient reports no known family medical history. Review of Systems (CHC) Time Seen by Provider: 09:30 Constitutional: no symptoms reported Reviewed Test Results Reviewed Test Results Lab Laboratory Tests Test 12/25/16 13:50 12/25/16 14:20 12/25/16 16:35 12/26/16 04:02 Range/Units White Blood Count 10.0 9.2 4.3-11.0 10^3/uL Red Blood Count 4.59 4.37 4.35-5.85 10^6/uL Hemoglobin 13.8 13.0 L 13.3-17.7 G/DL Hematocrit 45 44 40-54 % Mean Corpuscular Volume 97 100 H 80-99 FL Mean Corpuscular Hemoglobin 30 30 25-34 PG Mean Corpuscular Hemoglobin Concent 31 L 30 L 32-36 G/DL Red Cell Distribution Width 14.8 H 14.9 H 10.0-14.5 % Platelet Count 285 267 130-400 10^3/uL Mean Platelet Volume 9.8 9.7 7.4-10.4 FL Neutrophils (%) (Auto) 80 H 73 42-75 % Lymphocytes (%) (Auto) 12 19 12-44 % Monocytes (%) (Auto) 6 6 0-12 % Eosinophils (%) (Auto) 2 2 0-10 % Basophils (%) (Auto) 0 0 0-10 % Neutrophils # (Auto) 8.1 H 6.7 1.8-7.8 X 10^3 Lymphocytes # (Auto) 1.2 1.8 1.0-4.0 X 10^3 Monocytes # (Auto) 0.6 0.6 0.0-1.0 X 10^3 Eosinophils # (Auto) 0.2 0.2 0.0-0.3 10^3/uL Basophils # (Auto) 0.0 0.0 0.0-0.1 10^3/uL Prothrombin Time 13.6 12.2-14.7 SEC INR Comment 1.1 0.8-1.4 Activated Partial Thromboplast Time 32 24-35 SEC Sodium Level 140 135-145 MMOL/L Potassium Level 4.2 3.6-5.0 MMOL/L Chloride Level 93 L 98-107 MMOL/L Carbon Dioxide Level 37 H 21-32 MMOL/L Anion Gap 10 5-14 MMOL/L Blood Urea Nitrogen 10 7-18 MG/DL Creatinine 0.93 0.60-1.30 MG/DL Estimat Glomerular Filtration Rate > 60 BUN/Creatinine Ratio 11 0-20 Glucose Level 180 H 70-105 MG/DL Calcium Level 9.2 8.5-10.1 MG/DL Magnesium Level 1.9 1.8-2.4 MG/DL Total Bilirubin 0.5 0.1-1.0 MG/DL Aspartate Amino Transf (AST/SGOT) 15 5-34 U/L Alanine Aminotransferase (ALT/SGPT) 17 0-55 U/L Alkaline Phosphatase 94 40-136 U/L Myoglobin 40.8 10.0-92.0 NG/ML Troponin I < 0.30 <0.30 NG/ML B-Type Natriuretic Peptide 242.0 H <100.0 PG/ML Total Protein 6.4 6.4-8.2 GM/DL Albumin 3.7 3.2-4.5 GM/DL Blood Gas Puncture Site RT RAD LEFT AC Blood Gas Patient Temperature 97.4 97.3 Arterial Blood pH 7.34 *L 7.34 *L 7.37-7.43 Arterial Blood Partial Pressure CO2 76 *H 77 *H 35-45 MMHG Arterial Blood Partial Pressure O2 92 133 H 79-93 MMHG Arterial Blood HCO3 40 H 41 *H 23-27 MMOL/L Arterial Blood Total CO2 42.9 H 43.6 H 21.0-31.0 MMOL/L Arterial Blood Oxygen Saturation 98 99 94-100 % Arterial Blood Base Excess 14.0 H 14.7 H -2.5-2.5 MMOL/L Hayder Test YES-POS NA Blood Gas Ventilator Setting NO NO Blood Gas Inspired Oxygen 4L 50% BIPAP Triglycerides Level 166 H <150 MG/DL Cholesterol Level 194 < 200 MG/DL LDL Cholesterol Direct 129 1-129 MG/DL VLDL Cholesterol 33 5-40 MG/DL HDL Cholesterol 37 L 40-60 MG/DL Physical Exam-(CHC) Physical Exam Vital Signs VS - Last 72 Hours, by Label 12/25/16 12/25/16 12/25/16 12/25/16 13:17 13:18 14:08 14:09 Temp 97.9 98.1 Pulse 100 Resp 22 B/P (MAP) 139/100 Pulse Ox 94 96 95 O2 Delivery Nasal Cannula Nasal Cannula Nasal Cannula O2 Flow Rate 4.00 4.00 12/25/16 12/25/16 12/25/16 12/25/16 14:53 18:36 18:40 18:51 Temp 97.5 Pulse 109 90 Resp 24 18 22 Pulse Ox 98 100 O2 Delivery NIV Bilevel O2 Flow Rate 50.00 50.00 FiO2 50 12/25/16 12/25/16 12/25/16 12/25/16 19:00 20:00 20:00 21:00 Temp 96.6 Pulse 80 80 Resp 21 B/P (MAP) 92/64 Pulse Ox 98 98 98 O2 Delivery NIV Bilevel NIV Bilevel NIV Bilevel O2 Flow Rate 50.00 50.00 50.00 12/25/16 12/26/16 12/26/16 12/26/16 22:23 00:00 00:00 00:39 Temp 97.0 Pulse 83 Resp 18 21 20 B/P (MAP) 106/88 Pulse Ox 96 96 O2 Delivery NIV Bilevel NIV Bilevel O2 Flow Rate 50.00 50.00 50.00 50.00 12/26/16 12/26/16 12/26/16 12/26/16 01:00 01:52 04:00 04:00 Temp 97.7 Pulse 74 80 66 Resp 18 21 B/P (MAP) 119/91 Pulse Ox 95 96 96 O2 Delivery NIV Bilevel NIV Bilevel O2 Flow Rate 50.00 50.00 50.00 12/26/16 12/26/16 12/26/16 04:15 07:00 08:22 Pulse 79 75 80 Resp 23 21 Pulse Ox 98 100 O2 Flow Rate 50.00 50.00 Capillary Refill : Less Than 3 Seconds General Appearance: WD/WN, no apparent distress, obese HEENT: PERRL/EOMI, normal ENT inspection, other (BiPAP mask obscures further exam) Neck: non-tender, full range of motion, supple, normal inspection Respiratory: lungs clear, normal breath sounds, no respiratory distress, no accessory muscle use Cardiovascular: no edema, no gallop, no JVD, no murmur, irregularly irregular Gastrointestinal: normal bowel sounds, non tender, soft, no organomegaly Neurologic/Psychiatric: orthopedic dentist II-XII nml as tested, no motor/sensory deficits, alert, normal mood/affect, oriented x 3 Skin: normal color, warm/dry Short Stay Diagnosis Discharge Diagnosis-Short Stay Admission Diagnosis COPD WITH ACUTE EXACERBATION CHRONIC ATRIAL FIBRILLATION OBESITY HYPOVENTILATION SYNDROME CHRONIC SYSTOLIC HEART FAILURE Final Discharge Diagnosis SEE ABOVE Conclusion Plan Derick was observed in hospital. I did not determine that Mr Nguyễn was more acutely ill than is his chronic symptomatology. I did mention to him that he was in hospital a lot and that he had the option of speaking with our palliative care nurse. He stated that he wanted to continue coming to hospital to get everything done as he was "trying to get a wing built in his name." He apparently believes that coming to hospital is a benefit to us. He agreed that he was feeling better after having had the lasix 40mg IV in ER and spending the night in ICU. His afib rate was controlled while in hospital. He was discharged to continue his current regimen at home. Clinical Quality Measures DVT/VTE Risk/Contraindication: Risk Factor Score Per Nursin RFS Level Per Nursing on Admit: 4+=Very High Copy Copies To 1: CARON KNUTSON APRN, MD Dec 26, 2016 08:49
[2016-12-26] MEDS ORDERED: RT-ALBUTEROL/IPRATROPIUM 3 ML (DUONEB) VIAL INH SCH ×2 (09:00→11:00)
[2016-12-26 12:00] VITALS: BP 129/86
--- NOTE | 2016-12-26 12:13 | Discharge Instructions ---
Discharge [facility] Discharge Medications New, Converted or Re-Newed RX: Other Continued Medications: Albuterol Sulfate (Albuterol Sulfate) 2.5 Mg/3 Ml Vial.neb 2.5 MG IH QID PRN for SHORTNESS OF BREATH, EA Albuterol/Ipratropium (Combivent Respimat Inhal Conklin) 4 Gm Aero 1 PUFF IH QID, INH Allopurinol (Allopurinol) 300 Mg Tablet 300 MG PO DAILY, TAB Apixaban (Eliquis) 5 Mg Tablet 5 MG PO BID, TAB Aspirin (Aspirin EC) 81 Mg Tablet.dr 81 MG PO DAILY, TAB Atorvastatin Calcium (Lipitor) 80 Mg Tablet 40 MG PO HS, TAB TAKES 1/2 (80MG) TABLET Budesonide/Formoterol Fumarate (Symbicort 160-4.5 Mcg Inhaler) 10.2 Gm Hfa.aer.ad 2 PUFF IH BID, INHALER Carboxymethylcellulose Sodium (Lubricant Eye Drops) 15 Ml Drops 1 DROP OU QID PRN for DRY EYES, DROPS Cholecalciferol (Vitamin D3) (Vitamin D3) 1,000 Unit Capsule 1000 UNIT PO DAILY, CAP Diclofenac Sodium (Voltaren) 100 Gm Gel..gram. TOP QID PRN for PAIN, EA Diphenhydramine HCl (Benadryl) 25 Mg Capsule 25 MG PO PRN PRN for ALLERGIES, CAP Fluticasone Propionate (Fluticasone Propionate) 16 Gm Conklin.susp 1 SPRAY NS DAILY, SPRAY Furosemide (Furosemide) 80 Mg Tablet 80 MG PO DAILY, TAB Gabapentin (Gabapentin) 300 Mg Capsule 300 MG PO TID, CAP Glipizide (Glipizide) 10 Mg Tablet 5 MG PO BIDAC, TAB TAKES 1/2 (10MG) TABLET Guaifenesin (Guaifenesin) 100 Mg/5 Ml Liquid 10 ML PO TID PRN for COUGH/CONGESTION, EA Hydrocodone/Acetaminophen (Hydrocodon -Acetaminophen 5-325) 1 Each Tablet 1 TAB PO BID PRN for PAIN Isosorbide Mononitrate (Isosorbide Mononitrate ER) 60 Mg Tab 60 MG PO DAILY, TAB Loratadine (Loratadine) 10 Mg Tablet 10 MG PO DAILY, TAB Lorazepam (Lorazepam) 1 Mg Tablet 0.5 MG PO BID, TAB Losartan Potassium (Losartan Potassium) 100 Mg Tablet 100 MG PO DAILY, TAB Magnesium Oxide (Magnesium) 400 Mg Tablet 420 MG PO BID, TAB TAKES 2 (400MG) TABLETS Metoprolol Succinate (Toprol Xl) 100 Mg Tab.er.24h 100 MG PO DAILY, #30 TAB 0 Refills Naproxen (Naproxen) 500 Mg Tablet 500 MG PO BID, TAB Potassium Chloride (Potassium Chloride) 20 Meq Tablet.er 20 MEQ PO DAILY, TAB Ropinirole HCl (Requip) 1 Mg Tablet 1 MG PO HS, TAB Tamsulosin HCl (Tamsulosin HCl) 0.4 Mg Cap.er.24h 0.4 MG PO HS, CAP Trazodone HCl (Trazodone HCl) 100 Mg Tablet 200 MG PO HS, TAB Patient Instructions Goal/Follow Up Appt: COLIN WAYNE AT 3PM ON 01/01 Patient Instructions: PLEASE TAKE ALL MEDICATIONS PRESCRIBED. USE YOUR BIPAP MACHINE PRESCRIBED. Return to The Hospital For: INCREASED SHORTNESS OF BREATH THAT WORSENS SUDDENLY. Activity & Diet Discharge Diet: Low Fat/Low Cholesterol Activity as Tolerated: Yes Copy Copies To 1: CARON KNUTSON APRN, MD Dec 26, 2016 12:13
== END 2016-12-26 12:11 | disposition home or self-care (01) ==
LOC: EDUNIT# 13:17 → ER 13:18 → ICU 16:56 → UNDOADMOB 16:56 → ICU 18:40 → UNDODISOB 12-26 14:35
PROVIDERS: ADMIT Pediatrics; ATTEND Pediatrics
DX: J44.1 Chronic obstructive pulmonary disease with (acute) exacerbation (principal); I50.22 Chronic systolic (congestive) heart failure; I48.2 Chronic atrial fibrillation; E66.2 Morbid (severe) obesity with alveolar hypoventilation; I69.354 Hemiplegia and hemiparesis following cerebral infarction affecting left non-dominant side; I25.10 Atherosclerotic heart disease of native coronary artery without angina pectoris; E11.9 Type 2 diabetes mellitus without complications; I10 Essential (primary) hypertension; K21.9 Gastro-esophageal reflux disease without esophagitis; J45.909 Unspecified asthma, uncomplicated; I45.10 Unspecified right bundle-branch block; G25.81 Restless legs syndrome; G47.30 Sleep apnea, unspecified; Z95.1 Presence of aortocoronary bypass graft; Z95.5 Presence of coronary angioplasty implant and graft; Z99.81 Dependence on supplemental oxygen
CPT/HCPCS: 36415; 71010; 80053; 80061; 82805; 83735; 83874; 83880; 84484; 85025; 85610; 85730; 93005; 93041; 94640; 94660; 99211; G0378

== ENCOUNTER 2017-01-08 11:23 | Inpatient (IN) | payer MEDICARE, MEDICAID ==
[~2017-01-08] VITALS: Ht 172.7 cm; Wt 135.8 kg
[2017-01-08] VITALS (10 sets, daily range): BP systolic 132–205; BP diastolic 73–146
[2017-01-08] MEDS ORDERED: methylPREDNISolone 125 MG (Solu-MEDROL) VIAL IVP ONE (11:30)
[2017-01-08] MEDS ORDERED: RT-ALBUTEROL/IPRATROPIUM 3 ML (DUONEB) VIAL INH ONE (11:30)
[2017-01-08] MEDS ORDERED: DEXAMETHASONE 4 MG/ML SDV (DECADRON) IH ONE (11:30)
[2017-01-08] MEDS ORDERED: NITROGLYCERIN 2% OINT 1 GM UNIT DOSE PACKET ONE (11:31)
--- NOTE | 2017-01-08 11:34 | ED Respiratory ---
General Stated Complaint: DYSPNEA Source: patient (LIMITED HISTORIAN), EMS, old records (ALLPM[facility] IS FROM OLD RECORDS) History of Present Illness Time seen by provider: 11:23 Initial Comments PT ARRIVES VIA [facility] PT WITH LONGSTANDING CHF AND COPD, WITH C/O INCREASED SHORTNESS OF BREATH SINCE 399 PT ALSO HAS CHRONIC OBESITY-RELATED HYPOVENTILATION C/O SLIGHT RIGHT CP NO FEVER HAS HAD INCREASED COUGH WITH A LITTLE SPUTUM NO SWELLING IN LEGS/ FEET OR PAIN IN CALVES PT WITH HOME BIPAP/CPAP--EMS REPORT CPAP, OLD RECORDS STATE BIPAP AND PT DOES NOT KNOW WHICH ONE IT IS. PT WITH HISTORY OF NON-COMPLIANCE WITH IT'S USE EMS REPORT THAT WHEN THEY ARRIVED, PT HAD THE MASK ON, BUT O2 HAD BEEN TURNED OFF PT NORMALLY WEARS O2 AT 4-5 L/NC AND O2 SAT AT SCENE WAS 96% ON 4L PT WAS JUST ADMITTED HERE 12/25-12/26/16 FOR SAME COMPLAINTS PCP: [facility] Allergies and Home Medications Allergies Coded Allergies: adhesive tape (Verified Allergy, Mild, RASH, 05/23/16) shellfish derived (Verified Allergy, Mild, HIVES, 05/23/16) Penicillins (Verified Allergy, Unknown, 05/09/16) Home Medications Albuterol Sulfate 2.5 Mg/3 Ml Vial.neb, 2.5 MG IH QID PRN for SHORTNESS OF BREATH, (Reported) Albuterol/Ipratropium 4 Gm Aero, 1 PUFF IH QID, (Reported) Allopurinol 300 Mg Tablet, 300 MG PO DAILY, (Reported) Apixaban 5 Mg Tablet, 5 MG PO BID, (Reported) Aspirin 81 Mg Tablet.dr, 81 MG PO DAILY, (Reported) Atorvastatin Calcium 80 Mg Tablet, 40 MG PO HS, (Reported) TAKES 1/2 (80MG) TABLET Budesonide/Formoterol Fumarate 10.2 Gm Hfa.aer.ad, 2 PUFF IH BID, (Reported) Carboxymethylcellulose Sodium 15 Ml Drops, 1 DROP OU QID PRN for DRY EYES, ( Reported) Cholecalciferol (Vitamin D3) 1,000 Unit Capsule, 1,000 UNIT PO DAILY, (Reported) Diclofenac Sodium 100 Gm Gel..gram., TOP QID PRN for PAIN, (Reported) Diphenhydramine HCl 25 Mg Capsule, 25 MG PO PRN PRN for ALLERGIES, (Reported) Fluticasone Propionate 16 Gm [place].susp, 1 SPRAY NS DAILY, (Reported) Furosemide 80 Mg Tablet, 80 MG PO DAILY, (Reported) Gabapentin 300 Mg Capsule, 300 MG PO TID, (Reported) Glipizide 10 Mg Tablet, 5 MG PO BIDAC, (Reported) TAKES 1/2 (10MG) TABLET Guaifenesin 100 Mg/5 Ml Liquid, 10 ML PO TID PRN for COUGH/CONGESTION, (Reported ) Hydrocodone/Acetaminophen 1 Each Tablet, 1 TAB PO BID PRN for PAIN, (Reported) Isosorbide Mononitrate 60 Mg Tab, 60 MG PO DAILY, (Reported) Loratadine 10 Mg Tablet, 10 MG PO DAILY, (Reported) Lorazepam 1 Mg Tablet, 0.5 MG PO BID, (Reported) Losartan Potassium 100 Mg Tablet, 100 MG PO DAILY, (Reported) Magnesium Oxide 400 Mg Tablet, 420 MG PO BID, (Reported) TAKES 2 (400MG) TABLETS Metoprolol Succinate 100 Mg Tab.er.24h, 100 MG PO DAILY, #30 Ref 0 Prescribed by: DOM SOLARES on 08/01/16 1452 Naproxen 500 Mg Tablet, 500 MG PO BID, (Reported) Potassium Chloride 20 Meq Tablet.er, 20 MEQ PO DAILY, (Reported) Ropinirole HCl 1 Mg Tablet, 1 MG PO HS, (Reported) Tamsulosin HCl 0.4 Mg Cap.er.24h, 0.4 MG PO HS, (Reported) Trazodone HCl 100 Mg Tablet, 200 MG PO HS, (Reported) Constitutional: no symptoms reported, No chills, No diaphoresis, No fever EENTM: no symptoms reported Respiratory: see HPI, cough, dyspnea on exertion, short of breath, No wheezing Cardiovascular: see HPI, chest pain, No edema, No palpitations, No syncope Gastrointestinal: no symptoms reported Genitourinary: no symptoms reported Musculoskeletal: no symptoms reported Skin: no symptoms reported Psychiatric/Neurological: No Symptoms Reported Hematologic/Lymphatic: No Symptoms Reported Immunological/Allergic: no symptoms reported Past Nqpuipj-Mmjuez-Spkptj Hx Patient Social History Type Used: Cigarettes Recent Hopitalizations: Yes (ONE MONTH AGO) Immunizations Up To Date Tetanus Booster (TDap): Unknown PED Vaccines UTD: No Date of Pneumonia Vaccine: Apr 24, 2016 Date of Influenza Vaccine: Apr 24, 2016 Seasonal Allergies Seasonal Allergies: No Surgeries HX Surgeries: Yes (CARDIAC CATHS WITH STENTS, THEN CABG; RIGHT TOTAL KNEE REPLACEMENT) Surgeries: Cardiac, CABG, Coronary Stent, Joint Replacement, Orthopedic, Vasectomy Respiratory Hx Respiratory Disorders: Yes (O2 DEPENDENT AT 4L/NC; BIPAP AT HIS AND PRN DURING DAY) Respiratory Disorders: Asthma, Sleep Apnea, COPD Cardiovascular Hx Cardiac Disorders: Yes (CHF; RBBB) Cardiac Disorders: Atrial Fibrillation, Coronary Artery Disease, High Cholesterol, Hypertension, Peripheral Vascular Neurological Hx Neurological Disorders: Yes (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; RESTLESS LEG) Neurological Disorders: Neuropathy, Stroke Reproductive System Hx Reproductive Disorders: No Sexually Transmitted Disease: No HIV/AIDS: No Genitourinary Hx 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) Genitourinary Disorders: Renal Failure Gastrointestinal Hx Gastrointestinal Disorders: Yes Gastrointestinal Disorders: Gastroesophageal Reflux Musculoskeletal Hx Musculoskeletal Disorders: Yes (ELECTRIC WHEELCHAIR) Musculoskeletal Disorders: Arthritis Endocrine Hx Endocrine Disorders: Yes (MORBID OBESITY) Endocrine Disorders: Hypothyroidsim, Diabetes, Non-Insulin dep HEENT HX ENT Disorders: No (GLASSES) Cancer Hx Cancer: No Psychosocial Hx Psychiatric Problems: No Integumentary HX Skin/Integumentary Disorder: No Blood Transfusions Hx Blood Disorders: No Family Medical History Significant Family History: No Pertinent Family Hx Family Medial History: Patient reports no known family medical history. Physical Exam Vital Signs Vital Sign - Last 12Hours 01/08/17 01/08/17 01/08/17 11:34 11:45 12:00 Temp 98.2 Pulse 97 Resp 22 B/P (MAP) 199/139 Pulse Ox 98 O2 Delivery NIV Bilevel O2 Flow Rate 50.00 FiO2 50 Capillary Refill : General Appearance: moderate distress, obese, other (MILDLY LETHRAGIC/DROWSY. WANTS TO LAY FLAT. ) HEENT: PERRL/EOMI Neck: normal inspection Respiratory: respiratory distress, decreased breath sounds (MINIMAL AERARTION IN ALL LUNG VAZQUEZ), accessory muscle use, No rales, No rhonchi, No wheezing Cardiovascular: no edema, no JVD, no murmur, irregularly irregular Gastrointestinal: non tender, soft Extremities: normal inspection, no pedal edema, no calf tenderness, normal capillary refill Neurologic/Psychiatric: director of employer services II-XII nml as tested, no motor/sensory deficits, alert, oriented x 3, other (MILDLY LETHARGIC) Skin: normal color, warm/dry Focused Exam Lactic Acid Level Laboratory Tests Test 01/08/17 12:02 Lactic Acid Level 1.78 MMOL/L (0.50-2.00) Progress/Results/Core Measures Results/Orders Lab Results Laboratory Tests Test 01/08/17 11:37 01/08/17 11:45 01/08/17 12:02 Range/Units White Blood Count 8.1 4.3-11.0 10^3/uL Red Blood Count 4.76 4.35-5.85 10^6/uL Hemoglobin 14.3 13.3-17.7 G/DL Hematocrit 45 40-54 % Mean Corpuscular Volume 95 80-99 FL Mean Corpuscular Hemoglobin 30 25-34 PG Mean Corpuscular Hemoglobin Concent 32 32-36 G/DL Red Cell Distribution Width 14.8 H 10.0-14.5 % Platelet Count 266 130-400 10^3/uL Mean Platelet Volume 10.0 7.4-10.4 FL Neutrophils (%) (Auto) 67 42-75 % Lymphocytes (%) (Auto) 24 12-44 % Monocytes (%) (Auto) 5 0-12 % Eosinophils (%) (Auto) 4 0-10 % Basophils (%) (Auto) 1 0-10 % Neutrophils # (Auto) 5.4 1.8-7.8 X 10^3 Lymphocytes # (Auto) 1.9 1.0-4.0 X 10^3 Monocytes # (Auto) 0.4 0.0-1.0 X 10^3 Eosinophils # (Auto) 0.3 0.0-0.3 10^3/uL Basophils # (Auto) 0.1 0.0-0.1 10^3/uL Prothrombin Time 12.5 12.2-14.7 SEC INR Comment 1.0 0.8-1.4 Activated Partial Thromboplast Time 28 24-35 SEC Sodium Level 139 135-145 MMOL/L Potassium Level 4.0 3.6-5.0 MMOL/L Chloride Level 93 L 98-107 MMOL/L Carbon Dioxide Level 32 21-32 MMOL/L Anion Gap 14 5-14 MMOL/L Blood Urea Nitrogen 14 7-18 MG/DL Creatinine 1.09 0.60-1.30 MG/DL Estimat Glomerular Filtration Rate > 60 BUN/Creatinine Ratio 13 Glucose Level 163 H 70-105 MG/DL Calcium Level 9.3 8.5-10.1 MG/DL Magnesium Level 1.8 1.8-2.4 MG/DL Total Bilirubin 0.4 0.1-1.0 MG/DL Aspartate Amino Transf (AST/SGOT) 17 5-34 U/L Alanine Aminotransferase (ALT/SGPT) 20 0-55 U/L Alkaline Phosphatase 100 40-136 U/L Total Creatine Kinase 17 L 30-200 U/L Creatine Kinase MB 1.3 <6.6 NG/ML Troponin I < 0.30 <0.30 NG/ML B-Type Natriuretic Peptide 124.0 H <100.0 PG/ML Total Protein 7.4 6.4-8.2 GM/DL Albumin 3.7 3.2-4.5 GM/DL Blood Gas Puncture Site RR Blood Gas Patient Temperature 98.2 Arterial Blood pH 7.35 L 7.37-7.43 Arterial Blood Partial Pressure CO2 53 H 35-45 MMHG Arterial Blood Partial Pressure O2 138 H 79-93 MMHG Arterial Blood HCO3 28 H 23-27 MMOL/L Arterial Blood Total CO2 29.8 21.0-31.0 MMOL/L Arterial Blood Oxygen Saturation 99 94-100 % Arterial Blood Base Excess 3.0 H -2.5-2.5 MMOL/L Hayder Test YES-POS Blood Gas Ventilator Setting NO Blood Gas Inspired Oxygen 50% Lactic Acid Level 1.78 0.50-2.00 MMOL/L My Orders Orders - GINA WASSERMAN DO Saline Lock/Iv-Start (01/08/17 11:29) Ekg Tracing (01/08/17 11:29) O2 (01/08/17 11:29) Monitor-Rhythm Ecg Trace Only (01/08/17 11:29) Arterial Blood Gas (01/08/17 11:29) BNP (01/08/17 11:29) Cbc With Automated Diff (01/08/17 11:29) Comprehensive Metabolic Panel (01/08/17 11:29) Creatine Kinase (01/08/17 11:29) Creatine Kinase Mb (01/08/17 11:29) Lactic Acid Analyzer (01/08/17 11:29) Magnesium (01/08/17 11:29) Protime With Inr (01/08/17 11:29) Partial Thromboplastin Time (01/08/17 11:29) Troponin I (01/08/17 11:29) Blood Culture (01/08/17 11:29) Chest 1 View, Ap/Pa Only (01/08/17 11:29) Albuterol/Ipra Inhalation Soln (Duoneb I (01/08/17 11:30) Dexamethasone Injection (Decadron Inject (01/08/17 11:30) Rt Request For Service (01/08/17 11:29) Svn Sm Volume Nebulizer Rt-Rfs (01/08/17 11:29) Svn Sm Volume Nebulizer Rt-Rfs (01/08/17 11:29) Methylprednisolone Sod Succ (Solu-Medrol (01/08/17 11:30) Nitroglycerin Ointment (Nitrobid Ointme (01/08/17 11:45) Nitroglycerin Ointment (Nitrobid Ointme (01/08/17 11:31) Dexamethasone Pf Injection (Decadron Pf (01/08/17 11:35) Furosemide Injection (Lasix Injection) (01/08/17 12:45) Medications Given in ED Current Medications Medications Dose Ordered Sig/Scar Route Start Time Stop Time Status Last Admin Dose Admin Albuterol/ Ipratropium 3 ml ONCE ONCE INH 01/08/17 11:30 01/08/17 11:32 DC 01/08/17 11:42 3 ML Dexamethasone Sodium Phosphate 10 mg STK-MED ONCE .ROUTE 01/08/17 11:35 01/08/17 11:40 DC 01/08/17 11:42 20 MG Furosemide 40 mg ONCE ONCE IVP 01/08/17 12:45 01/08/17 12:52 DC 01/08/17 13:01 40 MG Methylprednisolone Sodium Succinate 125 mg ONCE ONCE IVP 01/08/17 11:30 01/08/17 11:32 DC 01/08/17 11:42 125 MG Nitroglycerin 1 inch ONCE ONCE TOP 01/08/17 11:45 01/08/17 11:46 DC 01/08/17 11:41 1 INCH Vital Signs/I&O Vital Sign - Last 12Hours 01/08/17 01/08/17 01/08/17 01/08/17 11:34 11:45 11:50 12:00 Temp 98.2 Pulse 97 97 Resp 22 22 B/P (MAP) 199/139 Pulse Ox 98 99 98 98 O2 Delivery NIV Bilevel Bi-pap O2 Flow Rate 50.00 50.00 FiO2 50 50 Progress Note : Progress Note BIPAP PLACED ON ARRIVAL GIVEN NEB TREATMENT, SOLU-MEDROL, LASIX AND NITROPASTE--BP DOWN, INCREASED AREATION. O2 SATS IN UPPER 90'S THROUGHOUT ER STAY PT SLEPT THROUGH ENTIRE ER STAY--ROUSES TO VERBAL AND TACTILE STIMULI, THEN GOES BACK TO SLEEP--WANTS TO LAY FLAT ON HIS BACK ECG Initial ECG Impression Time: 11:31 Initial ECG Rate: 99 Initial ECG Rhythm: A Fib/Flutter (RBBB) Initial ECG Comparisson: Unchanged Diagnostic Imaging Comments CXR--CARDIOMEGALY, CENTRAL VASCULAR CONGESTION AND POSSIBLE EDEMA--PER RADIOLOGIST REPORT @ 1240 Reviewed: Reviewed by Me Departure Communication Progress Notes 1245--SPOKE WITH DR. LOPEZ, DEVELOPMENTAL MATHEMATICS PROFESSOR FOR [facility]. ACCEPTS PT FOR ADMIT. WILL CONSULT DR. JACKSON AND DR. COLES ON PT'S ADMIT Impression Impression: Primary Impression: COPD exacerbation Additional Impressions: Uncontrolled hypertension Chronic atrial fibrillation Chronic CHF CHRONIC HYPOVENTILATION DUE TO OBESITY Disposition: ADMITTED INPATIENT Condition: Improved Decision to Admit Reason: Admit from ER (General) Decision to Admit/Date: Jan 08, 2017 Time/Decision to Admit Time: 12:45 Departure-Patient Inst. Referrals: LEI CHATTERJEE DO (PCP/Family) Primary Care Physician GINA WASSERMAN DO Jan 08, 2017 11:34
[2017-01-08] MEDS ORDERED: DEXAMETHASONE PF 10 MG/ML (DECADRON) VIAL ONE (11:35)
[2017-01-08] MEDS ORDERED: NITROGLYCERIN 2% OINT 1 GM UNIT DOSE PACKET TOP ONE (11:45)
[2017-01-08 11:46] LABS: BASOPHILS # (AUTO) 0.1 10^3/uL (0.0-0.1); BASOPHILS % (AUTO) 1 % (0-10); EOSINOPHILS # (AUTO) 0.3 10^3/uL (0.0-0.3); EOSINOPHILS % (AUTO) 4 % (0-10); LYMPHOCYTES # (AUTO) 1.9 X 10^3 (1.0-4.0); LYMPHOCYTES % (AUTO) 24 % (12-44); MEAN CORPUSCULAR HEMOGLOBIN 30 PG (25-34); MEAN CORPUSCULAR HGB CONC 32 G/DL (32-36); MEAN CORPUSCULAR VOLUME 95 FL (80-99); MONOCYTES # (AUTO) 0.4 X 10^3 (0.0-1.0); MONOCYTES % (AUTO) 5 % (0-12); NEUTROPHILS # (AUTO) 5.4 X 10^3 (1.8-7.8); NEUTROPHILS % (AUTO) 67 % (42-75); PLATELET COUNT 266 10^3/uL (130-400); RED BLOOD COUNT 4.76 10^6/uL (4.35-5.85); RED CELL DISTRIBUTION WIDTH 14.8 % (10.0-14.5); WHITE BLOOD COUNT 8.1 10^3/uL (4.3-11.0)
--- OUTSIDE RECORDS SUMMARY | 2017-01-08 11:55 | XMS REPORT | Continuity of Care Document ---
Author Author [facility] Organization [facility] Address Unknown Phone Unavailable Allergies Active Description Code Type Severity Reaction Onset Reported/Identified Relationship to Patient Clinical Status Yes SHELLFISH Food Allergy N/A N/A 10/29/2010 Yes Penicillins Drug Allergy N/A N/A 02/15/2013 Yes Penicillins [id number] Drug Allergy Unknown N/A 05/09/2016 Yes adhesive tape [id number] Drug Allergy Mild RASH 05/23/2016 Yes shellfish derived [id number] Drug Allergy Mild HIVES 05/23/2016 Medications Problems Date Dx Coded Attending Type Code Diagnosis Diagnosed By 08/16/2008 465.9 ECHO VIRUS UPPER RESPIRATORY 08/16/2008 496 CHRONIC OBSTRUCTIVE PULMONARY DISEASE 08/16/2008 LEI CHATTERJEE DO 465.9 ECHO VIRUS UPPER RESPIRATORY 08/16/2008 LEI CHATTERJEE DO 496 CHRONIC OBSTRUCTIVE PULMONARY DISEASE 08/16/2008 SUSANA WAYNE APRN 465.9 ECHO VIRUS UPPER RESPIRATORY 08/16/2008 SUSANA WAYNE APRN 496 CHRONIC OBSTRUCTIVE PULMONARY DISEASE 05/29/2009 244.9 HYPOTHYROIDISM 05/29/2009 272.4 HYPERLIPIDEMIA UNSPECIFIED 05/29/2009 278.01 OBESITY MORBID BMI >40 05/29/2009 401.1 HYPERTENSION, BENIGN ESSENTIAL 05/29/2009 414.01 CAD 05/29/2009 786.05 SHORTNESS OF BREATH 05/29/2009 844.3 SPRAINS AND STRAINS OF KNEE AND LEG, TIBIOFIBULAR (JOINT) ( LIGAMENT), SUPERIOR 05/29/2009 LEI CHATTERJEE DO 244.9 HYPOTHYROIDISM 05/29/2009 LEI CHATTERJEE DO 272.4 HYPERLIPIDEMIA UNSPECIFIED 05/29/2009 LEI CHATTERJEE DO 278.01 OBESITY MORBID BMI >40 05/29/2009 LEI CHATTERJEE DO 401.1 HYPERTENSION, BENIGN ESSENTIAL 05/29/2009 LEI CHATTERJEE DO 414.01 CAD 05/29/2009 LEI CHATTERJEE DO 786.05 SHORTNESS OF BREATH 05/29/2009 LEI CHATTERJEE DO 844.3 SPRAINS AND STRAINS OF KNEE AND LEG, TIBIOFIBULAR (JOINT) (LIGAMENT), SUPERIOR 05/29/2009 SUSANA WAYNE APRN 244.9 HYPOTHYROIDISM 05/29/2009 SUSANA WAYNE APRN 272.4 HYPERLIPIDEMIA UNSPECIFIED 05/29/2009 SUSANA WAYNE APRN 278.01 OBESITY MORBID BMI >40 05/29/2009 SUSANA WAYNE APRN 401.1 HYPERTENSION, BENIGN ESSENTIAL 05/29/2009 SUSANA WAYNE APRN 414.01 CAD 05/29/2009 SUSANA WAYNE APRN 786.05 SHORTNESS OF BREATH 05/29/2009 SUSANA WAYNE APRN 844.3 SPRAINS AND STRAINS OF KNEE AND LEG, TIBIOFIBULAR (JOINT) (LIGAMENT), SUPERIOR 10/29/2010 381.00 ACUTE NONSUPPURATIVE OTITIS MEDIA UNSPECIFIED 10/29/2010 LEI CHATTERJEE DO 381.00 ACUTE NONSUPPURATIVE OTITIS MEDIA UNSPECIFIED 10/29/2010 SUSANA WAYNE APRN 381.00 ACUTE NONSUPPURATIVE OTITIS MEDIA UNSPECIFIED 01/31/2013 342.80 OTHER SPECIFIED HEMIPLEGIA AND HEMIPARESIS AFFECTING UNSPECIFIED SIDE 01/31/2013 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 01/31/2013 LEI CHATTERJEE DO 342.80 OTHER SPECIFIED HEMIPLEGIA AND HEMIPARESIS AFFECTING UNSPECIFIED SIDE 01/31/2013 LEI CHATTERJEE DO 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 01/31/2013 SUSANA WAYNE APRN 342.80 OTHER SPECIFIED HEMIPLEGIA AND HEMIPARESIS AFFECTING UNSPECIFIED SIDE 01/31/2013 SUSANA WAYNE APRN 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 02/15/2013 719.07 EDEMA FOOT 02/15/2013 LEI CHATTERJEE DO 719.07 EDEMA FOOT 02/15/2013 SUSANA WAYNE APRN 719.07 EDEMA FOOT 04/18/2013 LEI CHATTERJEE DO 110.3 DERMATOPHYTOSIS OF GROIN AND PERIANAL AREA 04/18/2013 SUSANA WAYNE APRN 110.3 DERMATOPHYTOSIS OF GROIN AND PERIANAL AREA 12/08/2013 CHATTERJEE DO, LEI K 380.4 CERUMEN IMPACTION 12/08/2013 LEI CHATTERJEE DO K 719.46 PAIN- KNEE 12/08/2013 TONE ARTISSUSNAA Amos R 380.4 CERUMEN IMPACTION 12/08/2013 TONE ARTISSUSANA Amos 719.46 PAIN- KNEE 08/08/2014 WAYNESUSANA BEACH APRN 691.8 ECZEMA- ATOPIC 05/09/2016 DOM SOLARES MD, Ot E11.9 TYPE 2 DIABETES MELLITUS WITHOUT COMPLIC 05/09/2016 DOM SOLARES MD, Ot E66.9 OBESITY, UNSPECIFIED 05/09/2016 DOM SOLARES MD, Ot E78.00 PURE HYPERCHOLESTEROLEMIA, UNSPECIFIED 05/09/2016 DOM SOLARES MD, Ot I10 ESSENTIAL (PRIMARY) HYPERTENSION 05/09/2016 DOM SOLARES MD, Ot I25.10 ATHSCL HEART DISEASE OF [place] CORONARY 05/09/2016 DOM SOLARES MD Ot I69.354 HEMIPLGA FOLLOWING CEREBRAL INFRC AFFECT 05/09/2016 DOM SOLARES MD Ot I69.398 OTHER SEQUELAE OF CEREBRAL INFARCTION 05/09/2016 DOM SOLARES MD, Ot J44.9 CHRONIC OBSTRUCTIVE PULMONARY DISEASE, U 05/09/2016 DOM SOLARES MD Ot N17.9 ACUTE KIDNEY FAILURE, UNSPECIFIED 05/09/2016 DOM SOLARES MD Ot R32 UNSPECIFIED URINARY INCONTINENCE 05/09/2016 DOM SOLARES MD Ot Z68.42 BODY MASS INDEX (BMI) 45.0-49.9, ADULT 05/09/2016 DOM SOLARES MD Ot Z95.1 PRESENCE OF AORTOCORONARY BYPASS GRAFT 05/09/2016 DOM SOLARES MD Ot Z95.5 PRESENCE OF CORONARY ANGIOPLASTY IMPLANT 05/09/2016 DOM SOLARES MD Ot E11.9 TYPE 2 DIABETES MELLITUS WITHOUT COMPLIC 05/09/2016 DOM SOLARES MD Ot E66.9 OBESITY, UNSPECIFIED 05/09/2016 DOM SOLARES MD Ot E78.00 PURE HYPERCHOLESTEROLEMIA, UNSPECIFIED 05/09/2016 DOM SOLARES MD Ot I10 ESSENTIAL (PRIMARY) HYPERTENSION 05/09/2016 DOM SOLARES MD Ot I25.10 ATHSCL HEART DISEASE OF [place] CORONARY 05/09/2016 DOM SOLARES MD Ot I69.354 HEMIPLGA FOLLOWING CEREBRAL INFRC AFFECT 05/09/2016 DOM SOLARES MD Ot I69.398 OTHER SEQUELAE OF CEREBRAL INFARCTION 05/09/2016 DOM SOLARES MD Ot J44.9 CHRONIC OBSTRUCTIVE PULMONARY DISEASE, U 05/09/2016 DOM SOLARES MD Ot N17.9 ACUTE KIDNEY FAILURE, UNSPECIFIED 05/09/2016 DOM SOLARES MD Ot R32 UNSPECIFIED URINARY INCONTINENCE 05/09/2016 DOM SOLARES MD Ot Z68.42 BODY MASS INDEX (BMI) 45.0-49.9, ADULT 05/09/2016 DOM SOLARES MD Ot Z95.1 PRESENCE OF AORTOCORONARY BYPASS GRAFT 05/09/2016 DOM SOLARES MD Ot Z95.5 PRESENCE OF CORONARY ANGIOPLASTY IMPLANT 05/09/2016 DOM SOLARES MD Ot E11.9 TYPE 2 DIABETES MELLITUS WITHOUT COMPLIC 05/09/2016 DOM SOLARES MD Ot E66.9 OBESITY, UNSPECIFIED 05/09/2016 DOM SOLARES MD Ot E78.00 PURE HYPERCHOLESTEROLEMIA, UNSPECIFIED 05/09/2016 DOM SOLARES MD Ot I10 ESSENTIAL (PRIMARY) HYPERTENSION 05/09/2016 DOM SOLARES MD Ot I25.10 ATHSCL HEART DISEASE OF [place] CORONARY 05/09/2016 DOM SOLARES MD Ot I69.354 HEMIPLGA FOLLOWING CEREBRAL INFRC AFFECT 05/09/2016 DOM SOLARES MD Ot I69.398 OTHER SEQUELAE OF CEREBRAL INFARCTION 05/09/2016 DOM SOLARES MD Ot J44.9 CHRONIC OBSTRUCTIVE PULMONARY DISEASE, U 05/09/2016 DOM SOLARES MD Ot N17.9 ACUTE KIDNEY FAILURE, UNSPECIFIED 05/09/2016 DOM SOLARES MD Ot R32 UNSPECIFIED URINARY INCONTINENCE 05/09/2016 DOM SOLARES MD Ot Z68.42 BODY MASS INDEX (BMI) 45.0-49.9, ADULT 05/09/2016 DOM SOLARES MD Ot Z95.1 PRESENCE OF AORTOCORONARY BYPASS GRAFT 05/09/2016 DOM SOLARES MD Ot Z95.5 PRESENCE OF CORONARY ANGIOPLASTY IMPLANT 05/10/2016 DOM SOLARES MD Ot E11.9 TYPE 2 DIABETES MELLITUS WITHOUT COMPLIC 05/10/2016 DOM SOLARES MD Ot E66.9 OBESITY, UNSPECIFIED 05/10/2016 DOM SOLARES MD Ot E78.00 PURE HYPERCHOLESTEROLEMIA, UNSPECIFIED 05/10/2016 DOM SOLARES MD Ot I10 ESSENTIAL (PRIMARY) HYPERTENSION 05/10/2016 DOM SOLARES MD Ot I25.10 ATHSCL HEART DISEASE OF [place] CORONARY 05/10/2016 DOM SOLARES MD Ot I69.354 HEMIPLGA FOLLOWING CEREBRAL INFRC AFFECT 05/10/2016 DOM SOLARES MD Ot I69.398 OTHER SEQUELAE OF CEREBRAL INFARCTION 05/10/2016 DOM SOLARES MD Ot J44.9 CHRONIC OBSTRUCTIVE PULMONARY DISEASE, U 05/10/2016 DOM SOLARES MD Ot N17.9 ACUTE KIDNEY FAILURE, UNSPECIFIED 05/10/2016 DOM SOLARES MD Ot R32 UNSPECIFIED URINARY INCONTINENCE 05/10/2016 DOM SOLARES MD Ot Z68.42 BODY MASS INDEX (BMI) 45.0-49.9, ADULT 05/10/2016 DOM SOLARES MD Ot Z95.1 PRESENCE OF AORTOCORONARY BYPASS GRAFT 05/10/2016 DOM SOLARES MD Ot Z95.5 PRESENCE OF CORONARY ANGIOPLASTY IMPLANT 05/10/2016 DOM SOLARES MD Ot E11.9 TYPE 2 DIABETES MELLITUS WITHOUT COMPLIC 05/10/2016 DOM SOLARES MD Ot E66.9 OBESITY, UNSPECIFIED 05/10/2016 DOM SOLARES MD Ot E78.00 PURE HYPERCHOLESTEROLEMIA, UNSPECIFIED 05/10/2016 DOM SOLARES MD Ot I10 ESSENTIAL (PRIMARY) HYPERTENSION 05/10/2016 DOM SOLARES MD Ot I25.10 ATHSCL HEART DISEASE OF [place] CORONARY 05/10/2016 DOM SOLARES MD Ot I69.354 HEMIPLGA FOLLOWING CEREBRAL INFRC AFFECT 05/10/2016 DOM SOLARES MD Ot I69.398 OTHER SEQUELAE OF CEREBRAL INFARCTION 05/10/2016 DOM SOLARES MD, Ot J44.9 CHRONIC OBSTRUCTIVE PULMONARY DISEASE, U 05/10/2016 DOM SOLARES MD Ot N17.9 ACUTE KIDNEY FAILURE, UNSPECIFIED 05/10/2016 DOM SOLARES MD Ot R32 UNSPECIFIED URINARY INCONTINENCE 05/10/2016 DOM SOLARES MD Ot Z68.42 BODY MASS INDEX (BMI) 45.0-49.9, ADULT 05/10/2016 DOM SOLARES MD Ot Z95.1 PRESENCE OF AORTOCORONARY BYPASS GRAFT 05/10/2016 DOM SOLARES MD Ot Z95.5 PRESENCE OF CORONARY ANGIOPLASTY IMPLANT 05/10/2016 DOM SOLARES MD Ot E11.9 TYPE 2 DIABETES MELLITUS WITHOUT COMPLIC 05/10/2016 DOM SOLARES MD Ot E66.9 OBESITY, UNSPECIFIED 05/10/2016 DOM SOLARES MD Ot E78.00 PURE HYPERCHOLESTEROLEMIA, UNSPECIFIED 05/10/2016 DOM SOLARES MD Ot I10 ESSENTIAL (PRIMARY) HYPERTENSION 05/10/2016 DOM SOLARES MD Ot I25.10 ATHSCL HEART DISEASE OF [place] CORONARY 05/10/2016 DOM SOLARES MD Ot I69.354 HEMIPLGA FOLLOWING CEREBRAL INFRC AFFECT 05/10/2016 DOM SOLARES MD Ot I69.398 OTHER SEQUELAE OF CEREBRAL INFARCTION 05/10/2016 DOM SOLARES MD Ot J44.9 CHRONIC OBSTRUCTIVE PULMONARY DISEASE, U 05/10/2016 DOM SOLARES MD Ot N17.9 ACUTE KIDNEY FAILURE, UNSPECIFIED 05/10/2016 DOM SOLARES MD Ot R32 UNSPECIFIED URINARY INCONTINENCE 05/10/2016 DOM SOLARES MD Ot Z68.42 BODY MASS INDEX (BMI) 45.0-49.9, ADULT 05/10/2016 DOM SOLARES MD Ot Z95.1 PRESENCE OF AORTOCORONARY BYPASS GRAFT 05/10/2016 DOM SOLARES MD Ot Z95.5 PRESENCE OF CORONARY ANGIOPLASTY IMPLANT 05/10/2016 DOM SOLARES MD Ot E03.9 HYPOTHYROIDISM, UNSPECIFIED 05/10/2016 DOM SOLARES MD Ot E11.9 TYPE 2 DIABETES MELLITUS WITHOUT COMPLIC 05/10/2016 DOM SOLARES MD, Ot E66.9 OBESITY, UNSPECIFIED 05/10/2016 DOM SOLARES MD Ot E78.00 PURE HYPERCHOLESTEROLEMIA, UNSPECIFIED 05/10/2016 DOM SOLARES MD, Ot E78.5 HYPERLIPIDEMIA, UNSPECIFIED 05/10/2016 DOM SOLARES MD Ot G47.33 OBSTRUCTIVE SLEEP APNEA (ADULT) (PEDIATR 05/10/2016 DOM SOLARES MD, Ot I10 ESSENTIAL (PRIMARY) HYPERTENSION 05/10/2016 DOM SOLARES MD, Ot I11.0 HYPERTENSIVE HEART DISEASE WITH HEART FA 05/10/2016 DOM SOLARES MD, Ot I25.10 ATHSCL HEART DISEASE OF [place] CORONARY 05/10/2016 DOM SOLARES MD Ot I48.2 CHRONIC ATRIAL FIBRILLATION 05/10/2016 DOM SOLARES MD, Ot 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 CHRONIC SYSTOLIC (CONGESTIVE) HEART FAIL 05/10/2016 DOM SOLARES MD Ot I69.354 HEMIPLGA FOLLOWING CEREBRAL INFRC AFFECT 05/10/2016 DOM SOLARES MD Ot I69.398 OTHER SEQUELAE OF CEREBRAL INFARCTION 05/10/2016 DOM SOLARES MD, Ot J44.9 CHRONIC OBSTRUCTIVE PULMONARY DISEASE, U 05/10/2016 DOM SOLARES MD, Ot N17.9 ACUTE KIDNEY FAILURE, UNSPECIFIED 05/10/2016 DOM SOLARES MD Ot R32 UNSPECIFIED URINARY INCONTINENCE 05/10/2016 DOM SOLARES MD Ot Z68.42 BODY MASS INDEX (BMI) 45.0-49.9, ADULT 05/10/2016 DOM SOLARES MD, Ot Z87.891 PERSONAL HISTORY OF NICOTINE DEPENDENCE 05/10/2016 DOM SOLARES MD, Ot Z95.1 PRESENCE OF AORTOCORONARY BYPASS GRAFT 05/10/2016 DOM SOLARES MD, Ot Z95.5 PRESENCE OF CORONARY ANGIOPLASTY IMPLANT 05/21/2016 MITZI BARTLETT MD Ot E11.9 TYPE 2 DIABETES MELLITUS WITHOUT COMPLIC 05/21/2016 MITZI BARTLETT MD Ot I10 ESSENTIAL (PRIMARY) HYPERTENSION 05/21/2016 MITZI BARTLETT MD Ot I69.998 OTHER SEQUELAE FOLLOWING UNSPECIFIED CER 05/21/2016 MITZI BARTLETT MD Ot J44.9 CHRONIC OBSTRUCTIVE PULMONARY DISEASE, U 05/21/2016 MITZI BARTLETT MD Ot R06.02 SHORTNESS OF BREATH 05/21/2016 MITZI BARTLETT MD Ot Z79.82 INTERMEDIATE (CURRENT) USE OF ASPIRIN 05/21/2016 MITZI BARTLETT MD Ot Z79.84 PATIENT SUPPORT TECH (CURRENT) USE OF ORAL HYPOGLYC 05/21/2016 MITZI BARTLETT MD Ot Z79.899 OTHER PATIENT SUPPORT TECH (CURRENT) DRUG THERAPY 05/21/2016 MITZI BARTLETT MD Ot Z95.1 PRESENCE OF AORTOCORONARY BYPASS GRAFT 05/21/2016 MITZI BARTLETT MD Ot Z95.5 PRESENCE OF CORONARY ANGIOPLASTY IMPLANT 05/21/2016 MITZI BARTLETT MD Ot E11.9 TYPE 2 DIABETES MELLITUS WITHOUT COMPLIC 05/21/2016 MITZI BARTLETT MD Ot I10 ESSENTIAL (PRIMARY) HYPERTENSION 05/21/2016 MITZI BARTLETT MD Ot I69.998 OTHER SEQUELAE FOLLOWING UNSPECIFIED CER 05/21/2016 MITZI BARTLETT MD Ot J44.9 CHRONIC OBSTRUCTIVE PULMONARY DISEASE, U 05/21/2016 MITZI BARTLETT MD Ot R06.02 SHORTNESS OF BREATH 05/21/2016 MITZI BARTLETT MD Ot Z79.82 INTERMEDIATE (CURRENT) USE OF ASPIRIN 05/21/2016 MITZI BARTLETT MD Ot Z79.84 INTERMEDIATE (CURRENT) USE OF ORAL HYPOGLYC 05/21/2016 MITZI BARTLETT MD Ot Z79.899 OTHER INTERMEDIATE (CURRENT) DRUG THERAPY 05/21/2016 MITZI BARTLETT MD Ot Z95.1 PRESENCE OF AORTOCORONARY BYPASS GRAFT 05/21/2016 MITZI BARTLETT MD Ot Z95.5 PRESENCE OF CORONARY ANGIOPLASTY IMPLANT 05/21/2016 MITZI BARTLETT MD Ot E11.9 TYPE 2 DIABETES MELLITUS WITHOUT COMPLIC 05/21/2016 MITZI BARTLETT MD Ot I10 ESSENTIAL (PRIMARY) HYPERTENSION 05/21/2016 MITZI BARTLETT MD Ot I69.998 OTHER SEQUELAE FOLLOWING UNSPECIFIED CER 05/21/2016 MITZI BARTLETT MD Ot J44.9 CHRONIC OBSTRUCTIVE PULMONARY DISEASE, U 05/21/2016 MITZI BARTLETT MD Ot R06.02 SHORTNESS OF BREATH 05/21/2016 MITZI BARTLETT MD Ot Z79.82 PATIENT SUPPORT TECH (CURRENT) USE OF ASPIRIN 05/21/2016 MITZI BARTLETT MD Ot Z79.84 PATIENT SUPPORT TECH (CURRENT) USE OF ORAL HYPOGLYC 05/21/2016 MITZI BARTLETT MD Ot Z79.899 OTHER PATIENT SUPPORT TECH (CURRENT) DRUG THERAPY 05/21/2016 MITZI BARTLETT MD Ot Z95.1 PRESENCE OF AORTOCORONARY BYPASS GRAFT 05/21/2016 MITZI BARTLETT MD Ot Z95.5 PRESENCE OF CORONARY ANGIOPLASTY IMPLANT 05/21/2016 MITZI BARTLETT MD Ot E11.9 TYPE 2 DIABETES MELLITUS WITHOUT COMPLIC 05/21/2016 MITZI BARTLETT MD Ot I10 ESSENTIAL (PRIMARY) HYPERTENSION 05/21/2016 MITZI BARTLETT MD Ot I69.998 OTHER SEQUELAE FOLLOWING UNSPECIFIED CER 05/21/2016 MITZI BARTLETT MD Ot J44.9 CHRONIC OBSTRUCTIVE PULMONARY DISEASE, U 05/21/2016 MITZI BARTLETT MD Ot R06.02 SHORTNESS OF BREATH 05/21/2016 MITZI BARTLETT MD Ot Z79.82 INTERMEDIATE (CURRENT) USE OF ASPIRIN 05/21/2016 MITZI BARTLETT MD Ot Z79.84 PATIENT SUPPORT TECH (CURRENT) USE OF ORAL HYPOGLYC 05/21/2016 MITZI BARTLETT MD Ot Z79.899 OTHER PATIENT SUPPORT TECH (CURRENT) DRUG THERAPY 05/21/2016 MITZI BARTLETT MD Ot Z95.1 PRESENCE OF AORTOCORONARY BYPASS GRAFT 05/21/2016 MITZI BARTLETT MD Ot Z95.5 PRESENCE OF CORONARY ANGIOPLASTY IMPLANT 05/22/2016 MITZI BARTLETT MD Ot E11.9 TYPE 2 DIABETES MELLITUS WITHOUT COMPLIC 05/22/2016 MITZI BARTLETT MD Ot I10 ESSENTIAL (PRIMARY) HYPERTENSION 05/22/2016 MITZI BARTLETT MD Ot I69.998 OTHER SEQUELAE FOLLOWING UNSPECIFIED CER 05/22/2016 MITZI BARTLETT MD Ot J44.9 CHRONIC OBSTRUCTIVE PULMONARY DISEASE, U 05/22/2016 MITZI BARTLETT MD Ot R06.02 SHORTNESS OF BREATH 05/22/2016 MITZI BARTLETT MD Ot Z79.82 PATIENT SUPPORT TECH (CURRENT) USE OF ASPIRIN 05/22/2016 MITZI BARTLETT MD Ot Z79.84 INTERMEDIATE (CURRENT) USE OF ORAL HYPOGLYC 05/22/2016 MITZI BARTLETT MD Ot Z79.899 OTHER INTERMEDIATE (CURRENT) DRUG THERAPY 05/22/2016 MITZI BARTLETT MD Ot Z95.1 PRESENCE OF AORTOCORONARY BYPASS GRAFT 05/22/2016 MITZI BARTLETT MD Ot Z95.5 PRESENCE OF CORONARY ANGIOPLASTY IMPLANT 05/22/2016 MITZI BARTLETT MD Ot E11.9 TYPE 2 DIABETES MELLITUS WITHOUT COMPLIC 05/22/2016 MITZI BARTLETT MD, Ot I10 ESSENTIAL (PRIMARY) HYPERTENSION 05/22/2016 MITZI BARTLETT MD Ot I69.998 OTHER SEQUELAE FOLLOWING UNSPECIFIED CER 05/22/2016 MITZI BARTLETT MD, Ot J44.9 CHRONIC OBSTRUCTIVE PULMONARY DISEASE, U 05/22/2016 MITZI BARTLETT MD Ot R06.02 SHORTNESS OF BREATH 05/22/2016 MITZI BARTLETT MD Ot Z79.82 INTERMEDIATE (CURRENT) USE OF ASPIRIN 05/22/2016 MITZI BARTLETT MD Ot Z79.84 INTERMEDIATE (CURRENT) USE OF ORAL HYPOGLYC 05/22/2016 MITZI BARTLETT MD Ot Z79.899 OTHER INTERMEDIATE (CURRENT) DRUG THERAPY 05/22/2016 MITZI BARTLETT MD Ot Z95.1 PRESENCE OF AORTOCORONARY BYPASS GRAFT 05/22/2016 MITZI BARTLETT MD Ot Z95.5 PRESENCE OF CORONARY ANGIOPLASTY IMPLANT 05/23/2016 MITZI BARTLETT MD Ot E03.9 HYPOTHYROIDISM, UNSPECIFIED 05/23/2016 MITZI BARTLETT MD Ot 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 05/23/2016 MITZI BARTLETT MD, Ot E66.01 MORBID (SEVERE) OBESITY DUE TO EXCESS CA 05/23/2016 MITZI BARTLETT MD, Ot E78.5 HYPERLIPIDEMIA, UNSPECIFIED 05/23/2016 MITZI BARTLETT MD, Ot G47.33 OBSTRUCTIVE SLEEP APNEA (ADULT) (PEDIATR 05/23/2016 MITZI BARTLETT MD, Ot I13.0 HYP HRT CHR KDNY DIS W HRT FAIL AND ST 05/23/2016 MITZI BARTLETT MD, Ot I25.10 ATHSCL HEART DISEASE OF [place] CORONARY 05/23/2016 MITZI BARTLETT MD, Ot I48.0 PAROXYSMAL ATRIAL FIBRILLATION 05/23/2016 MITZI BARTLETT MD, Ot I50.33 ACUTE ON CHRONIC DIASTOLIC (CONGESTIVE) 05/23/2016 MITZI BARTLETT MD, Ot I69.354 HEMIPLGA FOLLOWING CEREBRAL INFRC AFFECT 05/23/2016 MITZI BARTLETT MD, Ot J44.1 CHRONIC OBSTRUCTIVE PULMONARY DISEASE W 05/23/2016 MITZI BARTLETT MD, Ot J96.00 ACUTE RESPIRATORY FAILURE, UNSP W HYPOXI 05/23/2016 MITZI BARTLETT MD, Ot N18.9 CHRONIC KIDNEY DISEASE, UNSPECIFIED 05/23/2016 MITZI BARTLETT MD, Ot R06.02 SHORTNESS OF BREATH 05/23/2016 MITZI BARTLETT MD, Ot Z68.42 BODY MASS INDEX (BMI) 45.0-49.9, ADULT 05/23/2016 MITZI BARTLETT MD, Ot Z79.84 PATIENT SUPPORT TECH (CURRENT) USE OF ORAL HYPOGLYC 05/23/2016 MITZI BARTLETT MD, Ot Z87.891 PERSONAL HISTORY OF NICOTINE DEPENDENCE 05/23/2016 MITZI BARTLETT MD, Ot Z95.1 PRESENCE OF AORTOCORONARY BYPASS GRAFT 05/23/2016 MITZI BARTLETT MD, Ot Z95.5 PRESENCE OF CORONARY ANGIOPLASTY IMPLANT 05/23/2016 MITZI BARTLETT MD Ot E03.9 HYPOTHYROIDISM, UNSPECIFIED 05/23/2016 MITZI BARTLETT MD Ot 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 05/23/2016 MITZI BARTLETT MD Ot E66.01 MORBID (SEVERE) OBESITY DUE TO EXCESS CA 05/23/2016 MITZI BARTLETT MD, Ot E78.5 HYPERLIPIDEMIA, UNSPECIFIED 05/23/2016 MITZI BARTLETT MD, Ot G47.33 OBSTRUCTIVE SLEEP APNEA (ADULT) (PEDIATR 05/23/2016 MITZI BARTLETT MD, Ot I13.0 HYP HRT CHR [place] DIS W HRT FAIL AND ST 05/23/2016 MITZI BARTLETT MD, Ot I25.10 ATHSCL HEART DISEASE OF [place] CORONARY 05/23/2016 MITZI BARTLETT MD, Ot I48.0 PAROXYSMAL ATRIAL FIBRILLATION 05/23/2016 MITZI BARTLETT MD, Ot I50.33 ACUTE ON CHRONIC DIASTOLIC (CONGESTIVE) 05/23/2016 MITZI BARTLETT MD Ot I69.354 HEMIPLGA FOLLOWING CEREBRAL INFRC AFFECT 05/23/2016 MITZI BARTLETT MD, Ot J44.1 CHRONIC OBSTRUCTIVE PULMONARY DISEASE W 05/23/2016 MITZI BARTLETT MD, Ot J96.00 ACUTE RESPIRATORY FAILURE, UNSP W HYPOXI 05/23/2016 MITZI BARTLETT MD, Ot N18.9 CHRONIC KIDNEY DISEASE, UNSPECIFIED 05/23/2016 MITZI BARTLETT MD, Ot R06.02 SHORTNESS OF BREATH 05/23/2016 MITZI BARTLETT MD, Ot Z68.42 BODY MASS INDEX (BMI) 45.0-49.9, ADULT 05/23/2016 MITZI BARTLETT MD, Ot Z79.84 INTERMEDIATE (CURRENT) USE OF ORAL HYPOGLYC 05/23/2016 MITZI BARTLETT MD, Ot Z87.891 PERSONAL HISTORY OF NICOTINE DEPENDENCE 05/23/2016 MITZI BARTLETT MD, Ot Z95.1 PRESENCE OF AORTOCORONARY BYPASS GRAFT 05/23/2016 MITZI BARTLETT MD, Ot Z95.5 PRESENCE OF CORONARY ANGIOPLASTY IMPLANT 05/23/2016 MITZI BARTLETT MD, Ot E03.9 HYPOTHYROIDISM, UNSPECIFIED 05/23/2016 MITZI BARTLETT MD, Ot 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 05/23/2016 MITZI BARTLETT MD, Ot E66.01 MORBID (SEVERE) OBESITY DUE TO EXCESS CA 05/23/2016 MITIZ BARTLETT MD, Ot E78.5 HYPERLIPIDEMIA, UNSPECIFIED 05/23/2016 MITZI BARTLETT MD, Ot G47.33 OBSTRUCTIVE SLEEP APNEA (ADULT) (PEDIATR 05/23/2016 MITZI BARTLETT MD, Ot I13.0 HYP HRT CHR [place] DIS W HRT FAIL AND ST 05/23/2016 MITZI BARTLETT MD, Ot I25.10 ATHSCL HEART DISEASE OF [place] CORONARY 05/23/2016 MITZI BARTLETT MD, Ot I48.0 PAROXYSMAL ATRIAL FIBRILLATION 05/23/2016 GAULT MD, MITZI R Ot I50.33 ACUTE ON CHRONIC DIASTOLIC (CONGESTIVE) 05/23/2016 MITZI BARTLETT MD, Ot I69.354 HEMIPLGA FOLLOWING CEREBRAL INFRC AFFECT 05/23/2016 MITZI BARTLETT MD, Ot J44.1 CHRONIC OBSTRUCTIVE PULMONARY DISEASE W 05/23/2016 MITZI BARTLETT MD, Ot J96.00 ACUTE RESPIRATORY FAILURE, UNSP W HYPOXI 05/23/2016 MITZI BARTLETT MD, Ot N18.9 CHRONIC KIDNEY DISEASE, UNSPECIFIED 05/23/2016 MITZI BARTLETT MD, Ot R06.02 SHORTNESS OF BREATH 05/23/2016 MITZI BARTLETT MD, Ot Z68.42 BODY MASS INDEX (BMI) 45.0-49.9, ADULT 05/23/2016 MITZI BARTLETT MD, Ot Z79.84 PATIENT SUPPORT TECH (CURRENT) USE OF ORAL HYPOGLYC 05/23/2016 MITZI BARTLETT MD, Ot Z87.891 PERSONAL HISTORY OF NICOTINE DEPENDENCE 05/23/2016 MITZI BARTLETT MD, Ot Z95.1 PRESENCE OF AORTOCORONARY BYPASS GRAFT 05/23/2016 MITZI BARTLETT MD, Ot Z95.5 PRESENCE OF CORONARY ANGIOPLASTY IMPLANT 05/23/2016 MITZI BARTLETT MD, Ot E03.9 HYPOTHYROIDISM, UNSPECIFIED 05/23/2016 MITZI BARTLETT MD, Ot 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 05/23/2016 MITZI BARTLETT MD, Ot E66.01 MORBID (SEVERE) OBESITY DUE TO EXCESS CA 05/23/2016 MITZI BARTLETT MD, Ot E78.5 HYPERLIPIDEMIA, UNSPECIFIED 05/23/2016 MITZI BARTLETT MD, Ot G47.33 OBSTRUCTIVE SLEEP APNEA (ADULT) (PEDIATR 05/23/2016 MITZI BARTLETT MD, Ot I13.0 HYP HRT CHR [place] DIS W HRT FAIL AND ST 05/23/2016 MITZI BARTLETT MD, Ot I25.10 ATHSCL HEART DISEASE OF [place] CORONARY 05/23/2016 MITZI BARTLETT MD, Ot I48.0 PAROXYSMAL ATRIAL FIBRILLATION 05/23/2016 MITZI BARTLETT MD, Ot I50.33 ACUTE ON CHRONIC DIASTOLIC (CONGESTIVE) 05/23/2016 MITZI BARTLETT MD, Ot I69.354 HEMIPLGA FOLLOWING CEREBRAL INFRC AFFECT 05/23/2016 MITZI BARTLETT MD, Ot J44.1 CHRONIC OBSTRUCTIVE PULMONARY DISEASE W 05/23/2016 MITZI BARTLETT MD, Ot J96.00 ACUTE RESPIRATORY FAILURE, UNSP W HYPOXI 05/23/2016 MITZI BARTLETT MD, Ot N18.9 CHRONIC KIDNEY DISEASE, UNSPECIFIED 05/23/2016 MITZI BARTLETT MD, Ot R06.02 SHORTNESS OF BREATH 05/23/2016 MITZI BARTLETT MD, Ot Z68.42 BODY MASS INDEX (BMI) 45.0-49.9, ADULT 05/23/2016 MITZI BARTLETT MD, Ot Z79.84 PATIENT SUPPORT TECH (CURRENT) USE OF ORAL HYPOGLYC 05/23/2016 MITZI BARTLETT MD, Ot Z87.891 PERSONAL HISTORY OF NICOTINE DEPENDENCE 05/23/2016 MITZI BARTLETT MD, Ot Z95.1 PRESENCE OF AORTOCORONARY BYPASS GRAFT 05/23/2016 MITZI BARTLETT MD, Ot Z95.5 PRESENCE OF CORONARY ANGIOPLASTY IMPLANT 05/24/2016 MITZI BARTLETT MD, Ot E03.9 HYPOTHYROIDISM, UNSPECIFIED 05/24/2016 MITZI BARTLETT MD, Ot 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 05/24/2016 MITZI BARTLETT MD, Ot E66.01 MORBID (SEVERE) OBESITY DUE TO EXCESS CA 05/24/2016 MITZI BARTLETT MD, Ot E78.5 HYPERLIPIDEMIA, UNSPECIFIED 05/24/2016 MITZI BARTLETT MD, Ot G47.33 OBSTRUCTIVE SLEEP APNEA (ADULT) (PEDIATR 05/24/2016 MITZI BARTLETT MD, Ot I13.0 HYP HRT CHR [place] DIS W HRT FAIL AND ST 05/24/2016 MITZI BARTLETT MD, Ot I25.10 ATHSCL HEART DISEASE OF [place] CORONARY 05/24/2016 MITZI BARTLETT MD, Ot I48.0 PAROXYSMAL ATRIAL FIBRILLATION 05/24/2016 MITZI BARTLETT MD, Ot I50.33 ACUTE ON CHRONIC DIASTOLIC (CONGESTIVE) 05/24/2016 MITZI BARTLETT MD, Ot I69.354 HEMIPLGA FOLLOWING CEREBRAL INFRC AFFECT 05/24/2016 MITZI BARTLETT MD, Ot J44.1 CHRONIC OBSTRUCTIVE PULMONARY DISEASE W 05/24/2016 MITZI BARTLETT MD, Ot J96.00 ACUTE RESPIRATORY FAILURE, UNSP W HYPOXI 05/24/2016 MITZI BARTLETT MD, Ot N18.9 CHRONIC KIDNEY DISEASE, UNSPECIFIED 05/24/2016 MITZI BARTLETT MD, Ot R06.02 SHORTNESS OF BREATH 05/24/2016 MITZI BARTLETT MD, Ot Z68.42 BODY MASS INDEX (BMI) 45.0-49.9, ADULT 05/24/2016 MITZI BARTLETT MD Ot Z79.84 INTERMEDIATE (CURRENT) USE OF ORAL HYPOGLYC 05/24/2016 MITZI BARTLETT MD, Ot Z87.891 PERSONAL HISTORY OF NICOTINE DEPENDENCE 05/24/2016 MITZI BARTLETT MD, Ot Z95.1 PRESENCE OF AORTOCORONARY BYPASS GRAFT 05/24/2016 MITZI BARTLETT MD, Ot Z95.5 PRESENCE OF CORONARY ANGIOPLASTY IMPLANT 05/25/2016 MITZI BARTLETT MD, Ot E03.9 HYPOTHYROIDISM, UNSPECIFIED 05/25/2016 MITZI BARTLETT MD Ot 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 05/25/2016 MITZI BARTLETT MD, Ot E66.01 MORBID (SEVERE) OBESITY DUE TO EXCESS CA 05/25/2016 MITZI BARTLETT MD, Ot E78.5 HYPERLIPIDEMIA, UNSPECIFIED 05/25/2016 MITZI BARTLETT MD, Ot G47.33 OBSTRUCTIVE SLEEP APNEA (ADULT) (PEDIATR 05/25/2016 MITZI BARTLETT MD, Ot I13.0 HYP HRT CHR [place] DIS W HRT FAIL AND ST 05/25/2016 MITZI BARTLETT MD, Ot I25.10 ATHSCL HEART DISEASE OF [place] CORONARY 05/25/2016 MITZI BARTLETT MD, Ot I48.0 PAROXYSMAL ATRIAL FIBRILLATION 05/25/2016 MITZI BARTLETT MD, Ot I50.33 ACUTE ON CHRONIC DIASTOLIC (CONGESTIVE) 05/25/2016 MITZI BARTLETT MD, Ot I69.354 HEMIPLGA FOLLOWING CEREBRAL INFRC AFFECT 05/25/2016 MITZI BARTLETT MD, Ot J44.1 CHRONIC OBSTRUCTIVE PULMONARY DISEASE W 05/25/2016 MITZI BARTLETT MD, Ot J96.00 ACUTE RESPIRATORY FAILURE, UNSP W HYPOXI 05/25/2016 MITZI BARTLETT MD, Ot N18.9 CHRONIC KIDNEY DISEASE, UNSPECIFIED 05/25/2016 GAULT MD, MITZI R Ot R06.02 SHORTNESS OF BREATH 05/25/2016 MITZI BARTLETT MD, Ot Z68.42 BODY MASS INDEX (BMI) 45.0-49.9, ADULT 05/25/2016 MITZI BARTLETT MD, Ot Z79.84 INTERMEDIATE (CURRENT) USE OF ORAL HYPOGLYC 05/25/2016 MITZI BARTLETT MD, Ot Z87.891 PERSONAL HISTORY OF NICOTINE DEPENDENCE 05/25/2016 MITZI BARTLETT MD, Ot Z95.1 PRESENCE OF AORTOCORONARY BYPASS GRAFT 05/25/2016 MITZI BARTLETT MD, Ot Z95.5 PRESENCE OF CORONARY ANGIOPLASTY IMPLANT 05/26/2016 MITZI BARTLETT MD, Ot E03.9 HYPOTHYROIDISM, UNSPECIFIED 05/26/2016 MITZI BARTLETT MD, Ot 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 05/26/2016 MITZI BARTLETT MD, Ot E66.01 MORBID (SEVERE) OBESITY DUE TO EXCESS CA 05/26/2016 MITZI BARTLETT MD, Ot E78.5 HYPERLIPIDEMIA, UNSPECIFIED 05/26/2016 MITZI BARTLETT MD, Ot G47.33 OBSTRUCTIVE SLEEP APNEA (ADULT) (PEDIATR 05/26/2016 MITZI BARTLETT MD, Ot I13.0 HYP HRT CHR KDNY DIS W HRT FAIL AND ST 05/26/2016 MITZI BARTLETT MD, Ot I25.10 ATHSCL HEART DISEASE OF [place] CORONARY 05/26/2016 MITZI BARTLETT MD, Ot I48.0 PAROXYSMAL ATRIAL FIBRILLATION 05/26/2016 MITZI BARTLETT MD, Ot I50.33 ACUTE ON CHRONIC DIASTOLIC (CONGESTIVE) 05/26/2016 MITZI BARTLETT MD, Ot I69.354 HEMIPLGA FOLLOWING CEREBRAL INFRC AFFECT 05/26/2016 MITZI BARTLTET MD, Ot J44.1 CHRONIC OBSTRUCTIVE PULMONARY DISEASE W 05/26/2016 MITZI BARTLETT MD, Ot J96.00 ACUTE RESPIRATORY FAILURE, UNSP W HYPOXI 05/26/2016 MITZI BARTLETT MD, Ot N18.9 CHRONIC KIDNEY DISEASE, UNSPECIFIED 05/26/2016 MITZI BARTLETT MD, Ot R06.02 SHORTNESS OF BREATH 05/26/2016 MITZI BARTLETT MD, Ot Z68.42 BODY MASS INDEX (BMI) 45.0-49.9, ADULT 05/26/2016 MITZI BARTLETT MD, Ot Z79.84 INTERMEDIATE (CURRENT) USE OF ORAL HYPOGLYC 05/26/2016 MITZI BARTLETT MD, Ot Z87.891 PERSONAL HISTORY OF NICOTINE DEPENDENCE 05/26/2016 MITZI BARTLETT MD, Ot Z95.1 PRESENCE OF AORTOCORONARY BYPASS GRAFT 05/26/2016 MITZI BARTLETT MD, Ot Z95.5 PRESENCE OF CORONARY ANGIOPLASTY IMPLANT 05/26/2016 MITZI BARTLETT MD Ot E03.9 HYPOTHYROIDISM, UNSPECIFIED 05/26/2016 MITZI BARTLETT MD, Ot 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 05/26/2016 MITZI ABRTLETT MD, Ot E66.01 MORBID (SEVERE) OBESITY DUE TO EXCESS CA 05/26/2016 MITZI BARTLETT MD, Ot E66.2 MORBID (SEVERE) OBESITY WITH ALVEOLAR HY 05/26/2016 MITZI BARTLETT MD, Ot E78.5 HYPERLIPIDEMIA, UNSPECIFIED 05/26/2016 MITZI BARTLETT MD, Ot G47.33 OBSTRUCTIVE SLEEP APNEA (ADULT) (PEDIATR 05/26/2016 MITZI BARTLETT MD, Ot I13.0 HYP HRT CHR KDNY DIS W HRT FAIL AND ST 05/26/2016 MITZI BARTLETT MD, Ot I25.10 ATHSCL HEART DISEASE OF [place] CORONARY 05/26/2016 MITZI BARTLETT MD, Ot I48.0 PAROXYSMAL ATRIAL FIBRILLATION 05/26/2016 MITZI BARTLETT MD, Ot I50.33 ACUTE ON CHRONIC DIASTOLIC (CONGESTIVE) 05/26/2016 MITZI BARTLETT MD, Ot I69.354 HEMIPLGA FOLLOWING CEREBRAL INFRC AFFECT 05/26/2016 MITZI BARTLETT MD, Ot J44.1 CHRONIC OBSTRUCTIVE PULMONARY DISEASE W 05/26/2016 MITZI BARTLETT MD, Ot J96.00 ACUTE RESPIRATORY FAILURE, UNSP W HYPOXI 05/26/2016 MITZI BARTLETT MD, Ot N18.9 CHRONIC KIDNEY DISEASE, UNSPECIFIED 05/26/2016 MITZI BARTLETT MD, Ot R06.02 SHORTNESS OF BREATH 05/26/2016 MITZI BARTLETT MD, Ot Z23 ENCOUNTER FOR IMMUNIZATION 05/26/2016 MITZI BARTLETT MD, Ot Z68.42 BODY MASS INDEX (BMI) 45.0-49.9, ADULT 05/26/2016 MITZI BARTLETT MD Ot Z79.84 INTERMEDIATE (CURRENT) USE OF ORAL HYPOGLYC 05/26/2016 MITZI BARTLETT MD Ot Z87.891 PERSONAL HISTORY OF NICOTINE DEPENDENCE 05/26/2016 MITZI BARTLETT MD Ot Z95.1 PRESENCE OF AORTOCORONARY BYPASS GRAFT 05/26/2016 MITZI BARTLETT MD Ot Z95.5 PRESENCE OF CORONARY ANGIOPLASTY IMPLANT 06/08/2016 KERI MALDONADO MD Ot E03.9 HYPOTHYROIDISM, UNSPECIFIED 06/08/2016 KERI MALDONADO MD, Ot E11.9 TYPE 2 DIABETES MELLITUS WITHOUT COMPLIC 06/08/2016 KERI MALDONADO MD Ot E78.5 HYPERLIPIDEMIA, UNSPECIFIED 06/08/2016 KERI MALDONADO MD Ot G47.33 OBSTRUCTIVE SLEEP APNEA (ADULT) (PEDIATR 06/08/2016 KERI MALDONADO MD, Ot I12.9 HYPERTENSIVE CHRONIC KIDNEY DISEASE W ST 06/08/2016 KERI MALDONADO MD, Ot I25.10 ATHSCL HEART DISEASE OF [place] CORONARY 06/08/2016 KERI MALDONADO MD Ot I48.2 CHRONIC ATRIAL FIBRILLATION 06/08/2016 KERI MALDONADO MD Ot I50.9 HEART FAILURE, UNSPECIFIED 06/08/2016 KERI MALDONADO MD, Ot J44.9 CHRONIC OBSTRUCTIVE PULMONARY DISEASE, U 06/08/2016 KERI MALDONADO MD Ot N18.9 CHRONIC KIDNEY DISEASE, UNSPECIFIED 06/08/2016 KERI MALDONADO MD, Ot Z95.1 PRESENCE OF AORTOCORONARY BYPASS GRAFT 06/25/2016 LISY , GINA K Ot E11.9 TYPE 2 DIABETES MELLITUS WITHOUT COMPLIC 06/25/2016 LISY DO, GINA K Ot E66.01 MORBID (SEVERE) OBESITY DUE TO EXCESS CA 06/25/2016 LISY DO, GINA K Ot I10 ESSENTIAL (PRIMARY) HYPERTENSION 06/25/2016 LISY DO, GINA K Ot I48.2 CHRONIC ATRIAL FIBRILLATION 06/25/2016 LISY DO, GINA K Ot I50.9 HEART FAILURE, UNSPECIFIED 06/25/2016 LISY DO GINA K Ot J44.9 CHRONIC OBSTRUCTIVE PULMONARY DISEASE, U 06/25/2016 LISY GINA JOINER Ot R06.02 SHORTNESS OF BREATH 06/25/2016 LISY GINA JOINER K Ot Z79.82 INTERMEDIATE (CURRENT) USE OF ASPIRIN 06/25/2016 LISY SEVERO JOINERA K Ot Z79.899 OTHER PATIENT SUPPORT TECH (CURRENT) DRUG THERAPY 06/25/2016 LISY SEVERO JOINERA K Ot Z87.891 PERSONAL HISTORY OF NICOTINE DEPENDENCE 06/25/2016 LISY SEVERO JOINERA K Ot Z91.14 PATIENT'S OTHER NONCOMPLIANCE WITH MEDIC 06/25/2016 LISY DO GINA K Ot Z95.1 PRESENCE OF AORTOCORONARY BYPASS GRAFT 06/25/2016 LISY DO GINA K Ot Z95.5 PRESENCE OF CORONARY ANGIOPLASTY IMPLANT 06/25/2016 LISY GINA K Ot Z99.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 07/02/2016 LISY GINA K Ot E11.9 TYPE 2 DIABETES MELLITUS WITHOUT COMPLIC 07/02/2016 LISY GINA K Ot E66.01 MORBID (SEVERE) OBESITY DUE TO EXCESS CA 07/02/2016 LISY SEVERO JOINERA K Ot I10 ESSENTIAL (PRIMARY) HYPERTENSION 07/02/2016 LISY SEVERO JOINERA K Ot I48.2 CHRONIC ATRIAL FIBRILLATION 07/02/2016 LISY GINA K Ot I50.9 HEART FAILURE, UNSPECIFIED 07/02/2016 LISY GINA JOINER K Ot J44.9 CHRONIC OBSTRUCTIVE PULMONARY DISEASE, U 07/02/2016 LISY GINA JOINER Ot R06.02 SHORTNESS OF BREATH 07/02/2016 LISY GINA Tobias Ot Z79.82 PATIENT SUPPORT TECH (CURRENT) USE OF ASPIRIN 07/02/2016 LISY GINA K Ot Z79.899 OTHER INTERMEDIATE (CURRENT) DRUG THERAPY 07/02/2016 LISY SEVERO JOINERA K Ot Z87.891 PERSONAL HISTORY OF NICOTINE DEPENDENCE 07/02/2016 LISY GINA K Ot Z91.14 PATIENT'S OTHER NONCOMPLIANCE WITH MEDIC 07/02/2016 LISY GINA K Ot Z95.1 PRESENCE OF AORTOCORONARY BYPASS GRAFT 07/02/2016 LISY DO GINA K Ot Z95.5 PRESENCE OF CORONARY ANGIOPLASTY IMPLANT 07/02/2016 LISY GINA K Ot Z99.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 07/13/2016 LISY DO, GINA K Ot E11.9 TYPE 2 DIABETES MELLITUS WITHOUT COMPLIC 07/13/2016 LISY DO, GINA K Ot I10 ESSENTIAL (PRIMARY) HYPERTENSION 07/13/2016 LISY DO, GINA K Ot I25.10 ATHSCL HEART DISEASE OF [place] CORONARY 07/13/2016 LISY DO, GINA K Ot J44.1 CHRONIC OBSTRUCTIVE PULMONARY DISEASE W 07/13/2016 LISY DO, GINA K Ot R06.02 SHORTNESS OF BREATH 07/13/2016 LISY DO, GINA K Ot Z79.899 OTHER INTERMEDIATE (CURRENT) DRUG THERAPY 07/13/2016 LISY DO, GINA K Ot Z87.891 PERSONAL HISTORY OF NICOTINE DEPENDENCE 07/13/2016 LISY DO, GINA K Ot Z95.1 PRESENCE OF AORTOCORONARY BYPASS GRAFT 07/13/2016 LISY DO, GINA K Ot Z99.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 07/15/2016 LISY DO, GINA K Ot E11.9 TYPE 2 DIABETES MELLITUS WITHOUT COMPLIC 07/15/2016 LISY DO, GINA K Ot I10 ESSENTIAL (PRIMARY) HYPERTENSION 07/15/2016 LISY DO, GINA K Ot I25.10 ATHSCL HEART DISEASE OF [place] CORONARY 07/15/2016 LISY DO, GINA K Ot J44.1 CHRONIC OBSTRUCTIVE PULMONARY DISEASE W 07/15/2016 LISY DO, GINA K Ot R06.02 SHORTNESS OF BREATH 07/15/2016 LISY DO, GINA K Ot Z79.899 OTHER PATIENT SUPPORT TECH (CURRENT) DRUG THERAPY 07/15/2016 LISY DO, GINA K Ot Z87.891 PERSONAL HISTORY OF NICOTINE DEPENDENCE 07/15/2016 LISY DO, GINA K Ot Z95.1 PRESENCE OF AORTOCORONARY BYPASS GRAFT 07/15/2016 LISY DO, GINA K Ot Z99.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 07/16/2016 LISY DO, GINA K Ot E11.9 TYPE 2 DIABETES MELLITUS WITHOUT COMPLIC 07/16/2016 LISY DO, GINA K Ot I10 ESSENTIAL (PRIMARY) HYPERTENSION 07/16/2016 LISY DO, GINA K Ot I25.10 ATHSCL HEART DISEASE OF [place] CORONARY 07/16/2016 LISY DO, GINA K Ot J44.1 CHRONIC OBSTRUCTIVE PULMONARY DISEASE W 07/16/2016 GINA WASSERMAN DO Ot R06.02 SHORTNESS OF BREATH 07/16/2016 GINA WASSERMAN DO Ot Z79.899 OTHER PATIENT SUPPORT TECH (CURRENT) DRUG THERAPY 07/16/2016 GINA WASSERMAN DO Ot Z87.891 PERSONAL HISTORY OF NICOTINE DEPENDENCE 07/16/2016 GINA WASSERMAN DO Ot Z95.1 PRESENCE OF AORTOCORONARY BYPASS GRAFT 07/16/2016 GINA WASSERMAN DO Ot Z99.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 08/01/2016 DOM SOLARES MD Ot E03.9 HYPOTHYROIDISM, UNSPECIFIED 08/01/2016 DOM SOLARES MD Ot E11.9 TYPE 2 DIABETES MELLITUS WITHOUT COMPLIC 08/01/2016 DOM SOLARES MD Ot E66.9 OBESITY, UNSPECIFIED 08/01/2016 DOM SOLARES MD Ot E78.00 PURE HYPERCHOLESTEROLEMIA, UNSPECIFIED 08/01/2016 DOM SOLARES MD Ot E78.5 HYPERLIPIDEMIA, UNSPECIFIED 08/01/2016 DOM SOLARES MD Ot G47.33 OBSTRUCTIVE SLEEP APNEA (ADULT) (PEDIATR 08/01/2016 DOM SOLARES MD Ot G89.29 OTHER CHRONIC PAIN 08/01/2016 DOM SOLARES MD Ot I12.9 HYPERTENSIVE CHRONIC KIDNEY DISEASE W ST 08/01/2016 DOM SOLARES MD Ot I25.10 ATHSCL HEART DISEASE OF [place] CORONARY 08/01/2016 DOM SOLARES MD Ot I25.5 ISCHEMIC CARDIOMYOPATHY 08/01/2016 DOM SOLARES MD Ot I48.2 CHRONIC ATRIAL FIBRILLATION 08/01/2016 DOM SOLARES MD Ot I50.1 LEFT VENTRICULAR FAILURE 08/01/2016 DOM SOLARES MD Ot I50.22 CHRONIC SYSTOLIC (CONGESTIVE) HEART FAIL 08/01/2016 DOM SOLARES MD Ot I69.354 HEMIPLGA FOLLOWING CEREBRAL INFRC AFFECT 08/01/2016 DOM SOLARES MD Ot J44.1 CHRONIC OBSTRUCTIVE PULMONARY DISEASE W 08/01/2016 DOM SOLARES MD Ot K21.9 GASTRO-ESOPHAGEAL REFLUX DISEASE WITHOUT 08/01/2016 DOM SOLARES MD, Ot N18.9 CHRONIC KIDNEY DISEASE, UNSPECIFIED 08/01/2016 DOM SOLARES MD Ot Z66 DO NOT RESUSCITATE 08/01/2016 DOM SOLARES MD, Ot Z68.42 BODY MASS INDEX (BMI) 45.0-49.9, ADULT 08/01/2016 DOM SOLARES MD, Ot Z87.891 PERSONAL HISTORY OF NICOTINE DEPENDENCE 08/01/2016 DOM SOLARES MD, Ot Z95.1 PRESENCE OF AORTOCORONARY BYPASS GRAFT 08/01/2016 DOM SOLARES MD Ot Z95.5 PRESENCE OF CORONARY ANGIOPLASTY IMPLANT 08/01/2016 DOM SOLARES MD Ot Z96.651 PRESENCE OF RIGHT ARTIFICIAL KNEE JOINT 08/01/2016 DOM SOLARES MD Ot Z99.3 DEPENDENCE ON WHEELCHAIR 08/31/2016 MICHELLE MADRID MD Ot E66.01 MORBID (SEVERE) OBESITY DUE TO EXCESS CA 08/31/2016 MICHELLE MADRID MD Ot I10 ESSENTIAL (PRIMARY) HYPERTENSION 08/31/2016 MICHELLE MADRID MD Ot I25.10 ATHSCL HEART DISEASE OF [place] CORONARY 08/31/2016 MICHELLE MADRID MD Ot I51.7 CARDIOMEGALY 08/31/2016 MICHELLE MADRID MD Ot J44.1 CHRONIC OBSTRUCTIVE PULMONARY DISEASE W 08/31/2016 MICHELLE MADRID MD Ot R06.02 SHORTNESS OF BREATH 08/31/2016 MICHELLE MADRID MD Ot Z79.01 PATIENT SUPPORT TECH (CURRENT) USE OF ANTICOAGULANT 08/31/2016 MICHELLE MADRID MD Ot Z79.82 INTERMEDIATE (CURRENT) USE OF ASPIRIN 08/31/2016 MICHELLE MADRID MD Ot Z79.899 OTHER INTERMEDIATE (CURRENT) DRUG THERAPY 08/31/2016 MICHELLE MADRID MD Ot Z95.1 PRESENCE OF AORTOCORONARY BYPASS GRAFT 08/31/2016 MICHELLE MADRID MD Ot Z95.5 PRESENCE OF CORONARY ANGIOPLASTY IMPLANT 08/31/2016 MICHELLE MADRID MD Ot Z99.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 09/02/2016 MICHELLE MADRID MD Ot E66.01 MORBID (SEVERE) OBESITY DUE TO EXCESS CA 09/02/2016 MICHELLE MADRID MD Ot I10 ESSENTIAL (PRIMARY) HYPERTENSION 09/02/2016 MICHELLE MADRID MD Ot I25.10 ATHSCL HEART DISEASE OF [place] CORONARY 09/02/2016 MICHELLE MADRID MD Ot I51.7 CARDIOMEGALY 09/02/2016 MICHELLE MADRID MD Ot J44.1 CHRONIC OBSTRUCTIVE PULMONARY DISEASE W 09/02/2016 MICHELLE MADRID MD Ot R06.02 SHORTNESS OF BREATH 09/02/2016 MICHELLE MADRID MD Ot Z79.01 PATIENT SUPPORT TECH (CURRENT) USE OF ANTICOAGULANT 09/02/2016 MICHELLE MADRID MD Ot Z79.82 INTERMEDIATE (CURRENT) USE OF ASPIRIN 09/02/2016 MICHELLE MADRID MD Ot Z79.899 OTHER PATIENT SUPPORT TECH (CURRENT) DRUG THERAPY 09/02/2016 MICHELLE MADRID MD Ot Z95.1 PRESENCE OF AORTOCORONARY BYPASS GRAFT 09/02/2016 MICHELLE MADRID MD Ot Z95.5 PRESENCE OF CORONARY ANGIOPLASTY IMPLANT 09/02/2016 MICHELLE MADRID MD Ot Z99.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 09/03/2016 MICHELLE MADRID MD Ot E66.01 MORBID (SEVERE) OBESITY DUE TO EXCESS CA 09/03/2016 MICHELLE MADRID MD Ot I10 ESSENTIAL (PRIMARY) HYPERTENSION 09/03/2016 MICHELLE MADRID MD Ot I25.10 ATHSCL HEART DISEASE OF [place] CORONARY 09/03/2016 MICHELLE MADRID MD Ot I51.7 CARDIOMEGALY 09/03/2016 MICHELLE MADRID MD Ot J44.1 CHRONIC OBSTRUCTIVE PULMONARY DISEASE W 09/03/2016 MICHELLE MADRID MD Ot R06.02 SHORTNESS OF BREATH 09/03/2016 MICHELLE MADRID MD Ot Z79.01 PATIENT SUPPORT TECH (CURRENT) USE OF ANTICOAGULANT 09/03/2016 MICHELLE MADRID MD Ot Z79.82 PATIENT SUPPORT TECH (CURRENT) USE OF ASPIRIN 09/03/2016 MICHELLE MADRID MD Ot Z79.899 OTHER PATIENT SUPPORT TECH (CURRENT) DRUG THERAPY 09/03/2016 MICHELLE MADRID MD Ot Z95.1 PRESENCE OF AORTOCORONARY BYPASS GRAFT 09/03/2016 MICHELLE MADRID MD Ot Z95.5 PRESENCE OF CORONARY ANGIOPLASTY IMPLANT 09/03/2016 MERCY GOODSON, MICHELLE Bright Ot Z99.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 09/27/2016 MANJULA COLES MD Ot E03.9 HYPOTHYROIDISM, UNSPECIFIED 09/27/2016 MANJULA COLES MD Ot E11.9 TYPE 2 DIABETES MELLITUS WITHOUT COMPLIC 09/27/2016 MANJULA COLES MD Ot E66.9 OBESITY, UNSPECIFIED 09/27/2016 MANJULA COLES MD Ot E78.5 HYPERLIPIDEMIA, UNSPECIFIED 09/27/2016 MANJULA COLES MD Ot G47.33 OBSTRUCTIVE SLEEP APNEA (ADULT) (PEDIATR 09/27/2016 MANJULA COLES MD, Ot I12.9 HYPERTENSIVE CHRONIC KIDNEY DISEASE W ST 09/27/2016 MANJULA COLES MD, Ot I13.0 HYP HRT CHR KDNY DIS W HRT FAIL AND ST 09/27/2016 MANJULA COLES MD Ot I25.10 ATHSCL HEART DISEASE OF [place] CORONARY 09/27/2016 MANJULA COLES MD Ot I48.1 PERSISTENT ATRIAL FIBRILLATION 09/27/2016 MANJULA COLES MD Ot 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 CHRONIC SYSTOLIC (CONGESTIVE) HEART FAIL 09/27/2016 MANJULA COLES MD Ot 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 09/27/2016 MANJULA COLES MD, Ot I73.9 PERIPHERAL VASCULAR DISEASE, UNSPECIFIED 09/27/2016 MANJULA COLES MD, Ot J44.9 CHRONIC OBSTRUCTIVE PULMONARY DISEASE, U 09/27/2016 MANJULA COLES MD, Ot N18.9 CHRONIC KIDNEY DISEASE, UNSPECIFIED 09/27/2016 MANJULA COLES MD Ot R06.02 SHORTNESS OF BREATH 09/27/2016 MANJULA COLES MD Ot Z68.42 BODY MASS INDEX (BMI) 45.0-49.9, ADULT 09/27/2016 MANJULA COLES MD, Ot Z87.891 PERSONAL HISTORY OF NICOTINE DEPENDENCE 09/27/2016 MANJULA COLES MD Ot Z91.14 PATIENT'S OTHER NONCOMPLIANCE WITH MEDIC 09/27/2016 MANJULA COLES MD Ot Z91.19 PATIENT'S NONCOMPLIANCE W OT MEDICAL TR 09/27/2016 MANJULA COLES MD Ot Z95.1 PRESENCE OF AORTOCORONARY BYPASS GRAFT 09/27/2016 MANJULA COLES MD Ot Z95.5 PRESENCE OF CORONARY ANGIOPLASTY IMPLANT 09/27/2016 MANJULA COLES MD Ot Z99.3 DEPENDENCE ON WHEELCHAIR 09/27/2016 MANJULA COLES MD Ot Z99.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 09/30/2016 MANJULA COLES MD Ot E03.9 HYPOTHYROIDISM, UNSPECIFIED 09/30/2016 MANJULA COLES MD Ot E11.9 TYPE 2 DIABETES MELLITUS WITHOUT COMPLIC 09/30/2016 MANJULA COLES MD Ot E66.9 OBESITY, UNSPECIFIED 09/30/2016 MANJULA COLES MD Ot E78.5 HYPERLIPIDEMIA, UNSPECIFIED 09/30/2016 MANJULA COLES MD Ot G47.33 OBSTRUCTIVE SLEEP APNEA (ADULT) (PEDIATR 09/30/2016 MANJULA COLES MD Ot I12.9 HYPERTENSIVE CHRONIC KIDNEY DISEASE W ST 09/30/2016 MANJULA COLES MD Ot I25.10 ATHSCL HEART DISEASE OF [place] CORONARY 09/30/2016 MANJULA COLES MD Ot I48.1 PERSISTENT ATRIAL FIBRILLATION 09/30/2016 MANJULA COLES MD Ot I50.22 CHRONIC SYSTOLIC (CONGESTIVE) HEART FAIL 09/30/2016 MANJULA COLES MD Ot 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 09/30/2016 MANJULA COLES MD Ot I73.9 PERIPHERAL VASCULAR DISEASE, UNSPECIFIED 09/30/2016 MANJULA COLES MD Ot J44.9 CHRONIC OBSTRUCTIVE PULMONARY DISEASE, U 09/30/2016 MANJULA COLES MD Ot N18.9 CHRONIC KIDNEY DISEASE, UNSPECIFIED 09/30/2016 MANJULA COLES MD Ot Z68.42 BODY MASS INDEX (BMI) 45.0-49.9, ADULT 09/30/2016 MANJULA COLES MD Ot Z87.891 PERSONAL HISTORY OF NICOTINE DEPENDENCE 09/30/2016 MANJULA COLES MD Ot Z91.14 PATIENT'S OTHER NONCOMPLIANCE WITH MEDIC 09/30/2016 MANJULA COLES MD Ot Z91.19 PATIENT'S NONCOMPLIANCE W [facility] MEDICAL TR 09/30/2016 MANJULA COLES MD Ot Z95.1 PRESENCE OF AORTOCORONARY BYPASS GRAFT 09/30/2016 MANJULA COLES MD, Ot Z95.5 PRESENCE OF CORONARY ANGIOPLASTY IMPLANT 09/30/2016 MANJULA COLES MD, Ot Z99.3 DEPENDENCE ON WHEELCHAIR 09/30/2016 MANJULA COLES MD, Ot Z99.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 11/22/2016 MITZI BARTLETT MD, Ot E03.9 HYPOTHYROIDISM, UNSPECIFIED 11/22/2016 MITZI BARTLETT MD, Ot E11.9 TYPE 2 DIABETES MELLITUS WITHOUT COMPLIC 11/22/2016 MITZI BARTLETT MD, Ot E66.01 MORBID (SEVERE) OBESITY DUE TO EXCESS CA 11/22/2016 MITZI BARTLETT MD, Ot E78.5 HYPERLIPIDEMIA, UNSPECIFIED 11/22/2016 MITZI BARTLETT MD, Ot I10 ESSENTIAL (PRIMARY) HYPERTENSION 11/22/2016 MITZI BARTLETT MD, Ot I25.10 ATHSCL HEART DISEASE OF [place] CORONARY 11/22/2016 MITZI BARTLETT MD, Ot I48.2 CHRONIC ATRIAL FIBRILLATION 11/22/2016 MITZI BARTLETT MD, Ot I50.9 HEART FAILURE, UNSPECIFIED 11/22/2016 MITZI BARTLETT MD, Ot I69.354 HEMIPLGA FOLLOWING CEREBRAL INFRC AFFECT 11/22/2016 MITZI BARTLETT MD, Ot J44.1 CHRONIC OBSTRUCTIVE PULMONARY DISEASE W 11/22/2016 MITZI BARTLETT MD, Ot T48.6X1A POISONING BY ANTIASTHMATICS, ACCIDENTAL, 11/22/2016 MITZI BARTLETT MD, Ot Z66 DO NOT RESUSCITATE 11/22/2016 MITZI BARTLETT MD, Ot Z68.42 BODY MASS INDEX (BMI) 45.0-49.9, ADULT 11/22/2016 MITZI BARTLETT MD, Ot Z79.01 PATIENT SUPPORT TECH (CURRENT) USE OF ANTICOAGULANT 11/22/2016 MITZI BARTLETT MD, Ot Z87.891 PERSONAL HISTORY OF NICOTINE DEPENDENCE 11/22/2016 MITZI BARTLETT MD, Ot Z95.1 PRESENCE OF AORTOCORONARY BYPASS GRAFT 11/22/2016 MITZI BARTLETT MD, Ot Z95.5 PRESENCE OF CORONARY ANGIOPLASTY IMPLANT 11/22/2016 MITZI BARTLETT MD, Ot Z96.651 PRESENCE OF RIGHT ARTIFICIAL KNEE JOINT 11/25/2016 MANJULA COLES MD Ot E11.9 TYPE 2 DIABETES MELLITUS WITHOUT COMPLIC 11/25/2016 MANJULA COLES MD Ot I48.91 UNSPECIFIED ATRIAL FIBRILLATION 11/25/2016 MANJULA COLES MD Ot I50.9 HEART FAILURE, UNSPECIFIED 11/25/2016 MANJULA COLES MD Ot J44.9 CHRONIC OBSTRUCTIVE PULMONARY DISEASE, U 11/25/2016 MANJULA COLES MD Ot N17.9 ACUTE KIDNEY FAILURE, UNSPECIFIED 12/02/2016 MANJULA COLES MD Ot E11.9 TYPE 2 DIABETES MELLITUS WITHOUT COMPLIC 12/02/2016 MANJULA COLES MD Ot I48.91 UNSPECIFIED ATRIAL FIBRILLATION 12/02/2016 MANJULA COLES MD Ot I50.9 HEART FAILURE, UNSPECIFIED 12/02/2016 MANJULA COLES MD, Ot J44.9 CHRONIC OBSTRUCTIVE PULMONARY DISEASE, U 12/02/2016 MANJULA COLES MD Ot N17.9 ACUTE KIDNEY FAILURE, UNSPECIFIED 12/06/2016 CARON LOPEZ MD Ot E03.9 HYPOTHYROIDISM, UNSPECIFIED 12/06/2016 CARON LOPEZ MD Ot E11.9 TYPE 2 DIABETES MELLITUS WITHOUT COMPLIC 12/06/2016 CARON LOPEZ MD Ot E66.01 MORBID (SEVERE) OBESITY DUE TO EXCESS CA 12/06/2016 CARON LOPEZ MD Ot E78.5 HYPERLIPIDEMIA, UNSPECIFIED 12/06/2016 CARON LOPEZ MD Ot I07.1 RHEUMATIC TRICUSPID INSUFFICIENCY 12/06/2016 CARON LOPEZ MD Ot I11.0 HYPERTENSIVE HEART DISEASE WITH HEART FA 12/06/2016 CARON LOPEZ MD, Ot I25.10 ATHSCL HEART DISEASE OF [place] CORONARY 12/06/2016 CARON LOPEZ MD Ot I48.0 PAROXYSMAL ATRIAL FIBRILLATION 12/06/2016 CARON LOPEZ MD, Ot I50.31 ACUTE DIASTOLIC (CONGESTIVE) HEART FAILU 12/06/2016 CARON LOPEZ MD Ot I69.354 HEMIPLGA FOLLOWING CEREBRAL INFRC AFFECT 12/06/2016 CARON LOPEZ MD, Ot J44.9 CHRONIC OBSTRUCTIVE PULMONARY DISEASE, U 12/06/2016 CARON LOPEZ MD, Ot K21.9 GASTRO-ESOPHAGEAL REFLUX DISEASE WITHOUT 12/06/2016 CARON LOPEZ MD Ot Z66 DO NOT RESUSCITATE 12/06/2016 CARON LOPEZ MD Ot Z68.42 BODY MASS INDEX (BMI) 45.0-49.9, ADULT 12/06/2016 CARON LOPEZ MD Ot Z79.01 INTERMEDIATE (CURRENT) USE OF ANTICOAGULANT 12/06/2016 CARON LOPEZ MD, Ot Z87.891 PERSONAL HISTORY OF NICOTINE DEPENDENCE 12/06/2016 CARON LOPEZ MD Ot Z95.1 PRESENCE OF AORTOCORONARY BYPASS GRAFT 12/06/2016 CARON LOPEZ MD Ot Z95.5 PRESENCE OF CORONARY ANGIOPLASTY IMPLANT 12/06/2016 CARON LOPEZ MD Ot Z99.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 12/26/2016 CARON LOPEZ MD Ot E11.9 TYPE 2 DIABETES MELLITUS WITHOUT COMPLIC 12/26/2016 CARON LOPEZ MD Ot E66.2 MORBID (SEVERE) OBESITY WITH ALVEOLAR HY 12/26/2016 CARON LOPEZ MD Ot G25.81 RESTLESS LEGS SYNDROME 12/26/2016 CARON LOPEZ MD, Ot G47.30 SLEEP APNEA, UNSPECIFIED 12/26/2016 CARON LOPEZ MD Ot I10 ESSENTIAL (PRIMARY) HYPERTENSION 12/26/2016 CARON LOPEZ MD, Ot I25.10 ATHSCL HEART DISEASE OF [place] CORONARY 12/26/2016 CARON LOPEZ MD, Ot I45.10 UNSPECIFIED RIGHT BUNDLE-BRANCH BLOCK 12/26/2016 CARON LOPEZ MD, Ot I48.2 CHRONIC ATRIAL FIBRILLATION 12/26/2016 CARON LOPEZ MD Ot I50.22 CHRONIC SYSTOLIC (CONGESTIVE) HEART FAIL 12/26/2016 CARON LOPEZ MD, Ot I69.354 HEMIPLGA FOLLOWING CEREBRAL INFRC AFFECT 12/26/2016 CARON LOPEZ MD, Ot J44.1 CHRONIC OBSTRUCTIVE PULMONARY DISEASE W 12/26/2016 CARON LOPEZ MD Ot J45.909 UNSPECIFIED ASTHMA, UNCOMPLICATED 12/26/2016 CARON LOPEZ MD, Ot K21.9 GASTRO-ESOPHAGEAL REFLUX DISEASE WITHOUT 12/26/2016 CARON LOPEZ MD, Ot Z95.1 PRESENCE OF AORTOCORONARY BYPASS GRAFT 12/26/2016 CARON LOPEZ MD Ot Z95.5 PRESENCE OF CORONARY ANGIOPLASTY IMPLANT 12/26/2016 CARON LOPEZ MD Ot Z99.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 Procedures Code Description Performed By Performed On JOINT INJECTION- LARGE JOINT (SPECIFY MEDCIN DESCRIPTION) 12/08/2013 [id number] CERUMEN REMOVAL 12/08/2013 Encounters ACCT No. Visit Date/Time Discharge Status Pt. Type Provider Facility Loc./Unit Complaint [id number] 12/25/2016 16:56:00 2016 14:35:00 DIS Inpatient CARON LOPEZ MD [facility] ICU HYPERCAPNIA,OBESITY DYSPNEA [id number] 12/05/2016 18:38:00 2016 13:00:00 DIS Inpatient CARON LOPEZ MD [facility] ICU AFIB W/ RVR, CHF [id number] 11/21/2016 20:50:00 2016 12:10:00 DIS Inpatient MITZI BARTLETT MD [facility] ICU A-FIB LESS THAN OR EQUAL TO RVR, COPD [id number] 09/26/2016 21:04:00 2016 11:09:00 DIS Inpatient SANKET GOODSON, MANJULA Bright [facility] ICU CHF [id number] 08/31/2016 07:33:00 2016 10:22:00 DIS Emergency MICHELLE MADRID MD [facility] ER SOB [id number] 07/31/2016 17:25:00 2016 18:30:00 DIS Inpatient DOM SOLARES MD [facility] ICU COPD EXACERBATION, A-FIB W/RVR [id number] 07/13/2016 15:36:00 2016 17:26:00 DIS Emergency LISY DOGINA [facility] ER SOA [id number] 06/25/2016 02:03:00 2015 04:44:00 DIS Emergency LISY DOGINA [facility] ER SOB [id number] 06/05/2016 22:17:00 2015 09:51:00 DIS Inpatient ERICA GOODSON, KERI Bright [facility] 4TH CHF EXACERBATION [id number] 05/21/2016 12:26:00 2015 16:02:00 DIS Inpatient DHRUV GOODSON, MITZI aClhoun [facility] 4TH DYSPNEA AFIB RVR CHF ELEV UBC W/LEFT SHIFT [id number] 05/08/2016 23:57:00 2015 14:55:00 DIS Inpatient SUJATHA GOODSON, DOM Amos [facility] 4TH ACUTE RENAL FAILURE;NIDDM [id number] 12/04/2012 15:13:00 2012 23:59:59 CLS Outpatient MAJOR, BHUPINDER [employer] [facility] QUICK LEG PAIN/INJURY [id number] 11/19/2016 08:17:00 ACT Outpatient SANKET GOODSON, MANJULA Bright [facility] CARD I48.91,N17.9,I50.9
[2017-01-08 11:57] LABS: ABG HCO3 28 MMOL/L (23-27); ABG OXYGEN SATURATION 99 % (94-100); ABG PCO2 53 MMHG (35-45); ABG PH 7.35 (7.37-7.43); ABG PO2 138 MMHG (79-93); ABG TCO2 29.8 MMOL/L (21.0-31.0); ALLENS TEST YES-POS
[2017-01-08 11:58] LABS: PATIENT TEMP 98.2
[2017-01-08 11:59] LABS: PROTHROMBIN TIME PATIENT 12.5 SEC (12.2-14.7)
[2017-01-08 12:07] LABS: ALANINE AMINOTRANSFERASE 20 U/L (0-55); ALBUMIN 3.7 GM/DL (3.2-4.5); ANION GAP 14 MMOL/L (5-14); ASPARTATE AMINO TRANSFERASE 17 U/L (5-34); BILIRUBIN,TOTAL 0.4 MG/DL (0.1-1.0); BLOOD UREA NITROGEN 14 MG/DL (7-18); BUN/CREATININE RATIO 13; CALCIUM 9.3 MG/DL (8.5-10.1); CARBON DIOXIDE 32 MMOL/L (21-32); CHLORIDE 93 MMOL/L (98-107); CREATINE KINASE 17 U/L (30-200); CREATININE SERUM 1.09 MG/DL (0.60-1.30); GFR ESTIMATED > 60; GLUCOSE 163 MG/DL (70-105); MAGNESIUM 1.8 MG/DL (1.8-2.4); SODIUM 139 MMOL/L (135-145); TOTAL PROTEIN 7.4 GM/DL (6.4-8.2)
[2017-01-08 12:14] LABS: TROPONIN I < 0.30 NG/ML (<0.30)
--- NOTE | 2017-01-08 12:34 | Diagnostic Imaging Report ---
INDICATION: Dyspnea. Frontal chest obtained at 12:12 p.m. FINDINGS: There is cardiomegaly and poststernotomy change. There is central vascular congestion with borderline edema. There is no consolidation or pneumothorax or pleural fluid. IMPRESSION: Cardiomegaly and central vascular congestion and borderline edema. No consolidation or pleural fluid. Dictated by: Dictated on workstation # [id number]
[2017-01-08] MEDS ORDERED: FUROSEMIDE 40 MG/4 ML INJ (LASIX) IVP ONE (12:45)
--- OUTSIDE RECORDS SUMMARY | 2017-01-08 13:15 | XMS REPORT | Continuity of Care Document ---
Author Author [facility] Organization [facility] Address Unknown Phone Unavailable Allergies Active Description Code Type Severity Reaction Onset Reported/Identified Relationship to Patient Clinical Status Yes SHELLFISH Food Allergy N/A N/A 10/29/2010 Yes Penicillins Drug Allergy N/A N/A 02/15/2013 Yes Penicillins [id number] Drug Allergy Unknown N/A 05/09/2016 Yes adhesive tape [id number] Drug Allergy Mild RASH 05/23/2016 Yes shellfish derived [id number] Drug Allergy Mild HIVES 05/23/2016 Medications Problems [...] DO K 719.46 PAIN- KNEE 12/08/2013 TONE ARTISSUSANA Amos R 380.4 CERUMEN IMPACTION 12/08/2013 TONE [...] MD, Ot I25.10 ATHSCL HEART DISEASE OF [place] CORONARY 05/09/2016 DOM SOLARES MD Ot I69.354 HEMIPLGA FOLLOWING CEREBRAL INFRC AFFECT 05/09/2016 DOM SOLARES MD Ot I69.398 OTHER SEQUELAE OF CEREBRAL INFARCTION 05/09/2016 DOM SOLARES MD, Ot J44.9 CHRONIC OBSTRUCTIVE PULMONARY DISEASE, U 05/09/2016 DOM SOLARES MD Ot N17.9 ACUTE KIDNEY FAILURE, UNSPECIFIED 05/09/2016 DMO SOLARES MD Ot R32 UNSPECIFIED URINARY INCONTINENCE [...] MD Ot I25.10 ATHSCL HEART DISEASE OF [place] CORONARY 05/09/2016 DOM SOLARES MD Ot I69.354 [...] MD Ot I25.10 ATHSCL HEART DISEASE OF [place] CORONARY 05/09/2016 DOM SOLARES MD Ot I69.354 [...] MD Ot I25.10 ATHSCL HEART DISEASE OF [place] CORONARY 05/10/2016 DOM SOLARES MD Ot I69.354 [...] MD Ot I25.10 ATHSCL HEART DISEASE OF [place] CORONARY 05/10/2016 DOM SOLARES MD Ot I69.354 [...] MD Ot I25.10 ATHSCL HEART DISEASE OF [place] CORONARY 05/10/2016 DOM SOLARES MD Ot I69.354 [...] MD, Ot I25.10 ATHSCL HEART DISEASE OF [place] CORONARY 05/10/2016 DOM SOLARES MD Ot I48.2 [...] BREATH 05/21/2016 MITZI BARTLETT MD Ot Z79.82 JAIL (CURRENT) USE OF ASPIRIN 05/21/2016 MITZI BARTLETT MD Ot Z79.84 CUSHION COVER INSPECTOR (CURRENT) USE OF ORAL HYPOGLYC 05/21/2016 MITZI BARTLETT MD Ot Z79.899 OTHER CUSHION COVER INSPECTOR (CURRENT) DRUG THERAPY 05/21/2016 MITZI BARTLETT MD [...] BREATH 05/21/2016 MITZI BARTLETT MD Ot Z79.82 JAIL (CURRENT) USE OF ASPIRIN 05/21/2016 MITZI BARTLETT MD Ot Z79.84 JAIL (CURRENT) USE OF ORAL HYPOGLYC 05/21/2016 MITZI BARTLETT MD Ot Z79.899 OTHER JAIL (CURRENT) DRUG THERAPY 05/21/2016 MITZI BARTLETT MD [...] BREATH 05/21/2016 MITZI BARTLETT MD Ot Z79.82 CUSHION COVER INSPECTOR (CURRENT) USE OF ASPIRIN 05/21/2016 MITZI BARTLETT MD Ot Z79.84 CUSHION COVER INSPECTOR (CURRENT) USE OF ORAL HYPOGLYC 05/21/2016 MITZI BARTLETT MD Ot Z79.899 OTHER CUSHION COVER INSPECTOR (CURRENT) DRUG THERAPY 05/21/2016 MITZI BARTLETT MD [...] BREATH 05/21/2016 MITZI BARTLETT MD Ot Z79.82 JAIL (CURRENT) USE OF ASPIRIN 05/21/2016 MITZI BARTLETT MD Ot Z79.84 CUSHION COVER INSPECTOR (CURRENT) USE OF ORAL HYPOGLYC 05/21/2016 MITZI BARTLETT MD Ot Z79.899 OTHER CUSHION COVER INSPECTOR (CURRENT) DRUG THERAPY 05/21/2016 MITZI BARTLETT MD [...] BREATH 05/22/2016 MITZI BARTLETT MD Ot Z79.82 CUSHION COVER INSPECTOR (CURRENT) USE OF ASPIRIN 05/22/2016 MITZI BARTLETT MD Ot Z79.84 JAIL (CURRENT) USE OF ORAL HYPOGLYC 05/22/2016 MITZI BARTLETT MD Ot Z79.899 OTHER JAIL (CURRENT) DRUG THERAPY 05/22/2016 MITZI BARTLETT MD [...] BREATH 05/22/2016 MITZI BARTLETT MD Ot Z79.82 JAIL (CURRENT) USE OF ASPIRIN 05/22/2016 MITZI BARTLETT MD Ot Z79.84 JAIL (CURRENT) USE OF ORAL HYPOGLYC 05/22/2016 MITZI BARTLETT MD Ot Z79.899 OTHER JAIL (CURRENT) DRUG THERAPY 05/22/2016 MITZI BARTLETT MD Ot Z95.1 PRESENCE OF AORTOCORONARY BYPASS GRAFT 05/22/2016 MITZI BARTLETT MD Ot Z95.5 PRESENCE OF CORONARY ANGIOPLASTY IMPLANT 05/23/2016 MITZI BARTLETT MD Ot E03.9 HYPOTHYROIDISM, UNSPECIFIED 05/23/2016 MITZI BARTLETT MD Ot 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 05/23/2016 MITZI BARTLETT MD, Ot E66.01 MORBID (SEVERE) OBESITY DUE TO EXCESS CA 05/23/2016 MITZI BARTLETT MD, Ot E78.5 HYPERLIPIDEMIA, UNSPECIFIED 05/23/2016 MITZI BARTLETT MD, Ot G47.33 OBSTRUCTIVE SLEEP APNEA (ADULT) (PEDIATR 05/23/2016 MITZI BARTLETT MD, Ot I13.0 HYP HRT CHR KDNY DIS W HRT FAIL AND ST 05/23/2016 MITZI BARTLETT MD, Ot I25.10 ATHSCL HEART DISEASE OF [place] CORONARY 05/23/2016 MITZI BARTLETT MD, Ot I48.0 PAROXYSMAL ATRIAL FIBRILLATION 05/23/2016 MITZI BARTLETT MD, Ot I50.33 ACUTE ON CHRONIC DIASTOLIC (CONGESTIVE) 05/23/2016 MITZI BARTLETT MD, Ot I69.354 HEMIPLGA FOLLOWING CEREBRAL INFRC AFFECT 05/23/2016 MITIZ BARTLETT MD, Ot J44.1 CHRONIC OBSTRUCTIVE PULMONARY DISEASE W 05/23/2016 MITZI BARTLETT MD, Ot J96.00 ACUTE RESPIRATORY FAILURE, UNSP W HYPOXI 05/23/2016 MITZI BARTLETT MD, Ot N18.9 CHRONIC KIDNEY DISEASE, UNSPECIFIED 05/23/2016 MITZI BARTLETT MD, Ot R06.02 SHORTNESS OF BREATH 05/23/2016 MITZI BARTLETT MD, Ot Z68.42 BODY MASS INDEX (BMI) 45.0-49.9, ADULT 05/23/2016 MITZI BARTLETT MD, Ot Z79.84 CUSHION COVER INSPECTOR (CURRENT) USE OF ORAL HYPOGLYC 05/23/2016 MITZI BARTLETT MD, Ot Z87.891 PERSONAL HISTORY OF NICOTINE DEPENDENCE 05/23/2016 MITZI BARTLETT MD, Ot Z95.1 PRESENCE OF AORTOCORONARY BYPASS GRAFT 05/23/2016 MITZI BARTLETT MD, Ot Z95.5 PRESENCE OF CORONARY ANGIOPLASTY IMPLANT 05/23/2016 MITZI BARTLETT MD Ot E03.9 HYPOTHYROIDISM, UNSPECIFIED 05/23/2016 MITZI BARTLETT MD Ot 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 05/23/2016 MITZI BARTLETT MD Ot E66.01 MORBID (SEVERE) OBESITY DUE TO EXCESS CA 05/23/2016 MITZI BARTLETT MD, Ot E78.5 HYPERLIPIDEMIA, UNSPECIFIED 05/23/2016 MITZI BARTLETT MD, Ot G47.33 OBSTRUCTIVE SLEEP APNEA (ADULT) (PEDIATR 05/23/2016 MITZI BARTLETT MD, Ot I13.0 HYP HRT CHR KDNY DIS W HRT FAIL AND ST 05/23/2016 MITZI BARTLETT MD, Ot I25.10 ATHSCL HEART DISEASE OF [place] CORONARY 05/23/2016 MITZI BARTLETT MD, Ot I48.0 [...] N18.9 CHRONIC KIDNEY DISEASE, UNSPECIFIED 05/23/2016 MITZI ABRTLETT MD, Ot R06.02 SHORTNESS OF BREATH 05/23/2016 MITZI BARTLETT MD, Ot Z68.42 BODY MASS INDEX (BMI) 45.0-49.9, ADULT 05/23/2016 MITZI BARTLETT MD, Ot Z79.84 JAIL (CURRENT) USE OF ORAL HYPOGLYC 05/23/2016 MITZI BARTLETT MD, Ot Z87.891 PERSONAL HISTORY OF NICOTINE DEPENDENCE 05/23/2016 MITZI BARTLETT MD, Ot Z95.1 PRESENCE OF AORTOCORONARY BYPASS GRAFT 05/23/2016 MITZI BARTLETT MD, Ot Z95.5 PRESENCE OF CORONARY ANGIOPLASTY IMPLANT 05/23/2016 MITZI BARTLETT MD, Ot E03.9 HYPOTHYROIDISM, UNSPECIFIED 05/23/2016 MITZI BARTLETT MD, Ot 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 05/23/2016 MITZI BARTLETT MD, Ot E66.01 MORBID (SEVERE) OBESITY DUE TO EXCESS CA 05/23/2016 MITZI BARTLETT MD, Ot E78.5 HYPERLIPIDEMIA, UNSPECIFIED 05/23/2016 MITZI BARTLETT MD, Ot G47.33 OBSTRUCTIVE SLEEP APNEA (ADULT) (PEDIATR 05/23/2016 MITZI BARTLETT MD, Ot I13.0 HYP HRT CHR KDNY DIS W HRT FAIL AND ST 05/23/2016 MITZI BARTLETT MD, Ot I25.10 ATHSCL HEART DISEASE OF [place] CORONARY 05/23/2016 MITZI BARTLETT MD, Ot I48.0 [...] ADULT 05/23/2016 MITZI BARTLETT MD, Ot Z79.84 CUSHION COVER INSPECTOR (CURRENT) USE OF ORAL HYPOGLYC 05/23/2016 MITZI BARTLETT MD, Ot Z87.891 PERSONAL HISTORY OF NICOTINE DEPENDENCE 05/23/2016 MITZI BARTLETT MD, Ot Z95.1 PRESENCE OF AORTOCORONARY BYPASS GRAFT 05/23/2016 MITZI BARTLETT MD, Ot Z95.5 PRESENCE OF CORONARY ANGIOPLASTY IMPLANT 05/23/2016 MITZI BARTLETT MD, Ot E03.9 HYPOTHYROIDISM, UNSPECIFIED 05/23/2016 MITZI BARTLETT MD, Ot 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 05/23/2016 MITZI BARTLETT MD, Ot E66.01 MORBID (SEVERE) OBESITY DUE TO EXCESS CA 05/23/2016 MITZI BARTLETT MD, Ot E78.5 HYPERLIPIDEMIA, UNSPECIFIED 05/23/2016 MITZI BARTLETT MD, Ot G47.33 OBSTRUCTIVE SLEEP APNEA (ADULT) (PEDIATR 05/23/2016 MITZI BARTLETT MD, Ot I13.0 HYP HRT CHR KD[place] DIS W HRT FAIL AND ST 05/23/2016 MITZI BARTLETT MD, Ot I25.10 ATHSCL HEART DISEASE OF [place] CORONARY 05/23/2016 MITZI BARTLETT MD, Ot I48.0 [...] ADULT 05/23/2016 MITZI BARTLETT MD, Ot Z79.84 CUSHION COVER INSPECTOR (CURRENT) USE OF ORAL HYPOGLYC 05/23/2016 MITZI BARTLETT MD, Ot Z87.891 PERSONAL HISTORY OF NICOTINE DEPENDENCE 05/23/2016 MITZI BARTLETT MD, Ot Z95.1 PRESENCE OF AORTOCORONARY BYPASS GRAFT 05/23/2016 MITZI BARTLETT MD, Ot Z95.5 PRESENCE OF CORONARY ANGIOPLASTY IMPLANT 05/24/2016 MITZI BARTLETT MD, Ot E03.9 HYPOTHYROIDISM, UNSPECIFIED 05/24/2016 MITZI BARTLETT MD, Ot 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 05/24/2016 MITZI BARTLETT MD, Ot E66.01 MORBID (SEVERE) OBESITY DUE TO EXCESS CA 05/24/2016 MITZI BARTLETT MD, Ot E78.5 HYPERLIPIDEMIA, UNSPECIFIED 05/24/2016 MITZI BARTLETT MD, Ot G47.33 OBSTRUCTIVE SLEEP APNEA (ADULT) (PEDIATR 05/24/2016 MITZI BARTLETT MD, Ot I13.0 HYP HRT CHR KDNY DIS W HRT FAIL AND ST 05/24/2016 MITZI BARTLETT MD, Ot I25.10 ATHSCL HEART DISEASE OF [place] CORONARY 05/24/2016 MITZI BARTLETT MD, Ot I48.0 [...] ADULT 05/24/2016 MITZI BARTLETT MD Ot Z79.84 JAIL (CURRENT) USE OF ORAL HYPOGLYC 05/24/2016 MITZI BARTLETT MD, Ot Z87.891 PERSONAL HISTORY OF NICOTINE DEPENDENCE 05/24/2016 MITZI BARTLETT MD, Ot Z95.1 PRESENCE OF AORTOCORONARY BYPASS GRAFT 05/24/2016 MITZI BARTLETT MD, Ot Z95.5 PRESENCE OF CORONARY ANGIOPLASTY IMPLANT 05/25/2016 MITZI BARTLETT MD, Ot E03.9 HYPOTHYROIDISM, UNSPECIFIED 05/25/2016 MITZI BARTLETT MD Ot 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 05/25/2016 MITZI BARTLETT MD, Ot E66.01 MORBID (SEVERE) OBESITY DUE TO EXCESS CA 05/25/2016 MITZI BARTLETT MD, Ot E78.5 HYPERLIPIDEMIA, UNSPECIFIED 05/25/2016 MITZI BARTLETT MD, Ot G47.33 OBSTRUCTIVE SLEEP APNEA (ADULT) (PEDIATR 05/25/2016 MITZI BARTLETT MD, Ot I13.0 HYP HRT CHR KDNY DIS W HRT FAIL AND ST 05/25/2016 MITZI BARTLETT MD, Ot I25.10 ATHSCL HEART DISEASE OF [place] CORONARY 05/25/2016 MITZI BARTLETT MD, Ot I48.0 [...] ADULT 05/25/2016 MITZI BARTLETT MD, Ot Z79.84 JAIL (CURRENT) USE OF ORAL HYPOGLYC 05/25/2016 MITZI BARTLETT MD, Ot Z87.891 PERSONAL HISTORY OF NICOTINE DEPENDENCE 05/25/2016 MITZI BARTLETT MD, Ot Z95.1 PRESENCE OF AORTOCORONARY BYPASS GRAFT 05/25/2016 MITZI BARTLETT MD, Ot Z95.5 PRESENCE OF CORONARY ANGIOPLASTY IMPLANT 05/26/2016 MITZI BARTLETT MD, Ot E03.9 HYPOTHYROIDISM, UNSPECIFIED 05/26/2016 MITZI BARTLETT MD, Ot 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 05/26/2016 MITZI BARTLETT MD, Ot E66.01 MORBID (SEVERE) OBESITY DUE TO EXCESS CA 05/26/2016 MITZI BARTLETT MD, Ot E78.5 HYPERLIPIDEMIA, UNSPECIFIED 05/26/2016 MITZI BARTLETT MD, Ot G47.33 OBSTRUCTIVE SLEEP APNEA (ADULT) (PEDIATR 05/26/2016 MITZI BARTLETT MD, Ot I13.0 HYP HRT CHR KDNY DIS W HRT FAIL AND ST 05/26/2016 MITZI BARTLETT MD, Ot I25.10 ATHSCL HEART DISEASE OF [place] CORONARY 05/26/2016 MITZI BARTLETT MD, Ot I48.0 [...] ADULT 05/26/2016 MITZI BARTLETT MD, Ot Z79.84 JAIL (CURRENT) USE OF ORAL HYPOGLYC 05/26/2016 MITZI BARTLETT MD, Ot Z87.891 PERSONAL HISTORY OF NICOTINE DEPENDENCE 05/26/2016 MITZI BARTLETT MD, Ot Z95.1 PRESENCE OF AORTOCORONARY BYPASS GRAFT 05/26/2016 MITZI BARTLETT MD, Ot Z95.5 PRESENCE OF CORONARY ANGIOPLASTY IMPLANT 05/26/2016 MITZI BARTLETT MD Ot E03.9 HYPOTHYROIDISM, UNSPECIFIED 05/26/2016 MITZI BARTLETT MD, Ot 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 05/26/2016 MITZI BARTLETT MD, Ot E66.01 MORBID [...] MD, Ot I25.10 ATHSCL HEART DISEASE OF [place] CORONARY 05/26/2016 MITZI BARTLETT MD, Ot I48.0 [...] ADULT 05/26/2016 MITZI BARTLETT MD Ot Z79.84 JAIL (CURRENT) USE OF ORAL HYPOGLYC 05/26/2016 MITZI [...] MD, Ot I25.10 ATHSCL HEART DISEASE OF [place] CORONARY 06/08/2016 KERI MALDONADO MD Ot I48.2 CHRONIC ATRIAL FIBRILLATION 06/08/2016 KERI MALDONADO MD Ot I50.9 HEART FAILURE, UNSPECIFIED 06/08/2016 KERI MALDONADO MD, Ot J44.9 CHRONIC OBSTRUCTIVE PULMONARY DISEASE, U 06/08/2016 KERI MALDONADO MD Ot N18.9 CHRONIC KIDNEY DISEASE, UNSPECIFIED 06/08/2016 KERI MALDONADO MD, Ot Z95.1 PRESENCE OF AORTOCORONARY BYPASS GRAFT 06/25/2016 ILSY , GINA K Ot E11.9 TYPE 2 [...] 06/25/2016 LISY GINA JOINER K Ot Z79.82 JAIL (CURRENT) USE OF ASPIRIN 06/25/2016 LISY SEVERO JOINERA K Ot Z79.899 OTHER CUSHION COVER INSPECTOR (CURRENT) DRUG THERAPY 06/25/2016 LISY SEVERO JOINERA [...] BREATH 07/02/2016 LISY GINA Tobias Ot Z79.82 CUSHION COVER INSPECTOR (CURRENT) USE OF ASPIRIN 07/02/2016 LISY GINA K Ot Z79.899 OTHER JAIL (CURRENT) DRUG THERAPY 07/02/2016 LISY SEVERO JOINERA [...] K Ot I25.10 ATHSCL HEART DISEASE OF [place] CORONARY 07/13/2016 LISY DO, GINA K Ot J44.1 CHRONIC OBSTRUCTIVE PULMONARY DISEASE W 07/13/2016 LISY DO, GINA K Ot R06.02 SHORTNESS OF BREATH 07/13/2016 LISY DO, GINA K Ot Z79.899 OTHER JAIL (CURRENT) DRUG THERAPY 07/13/2016 LISY DO, GINA [...] K Ot I25.10 ATHSCL HEART DISEASE OF [place] CORONARY 07/15/2016 LISY DO, GINA K Ot J44.1 CHRONIC OBSTRUCTIVE PULMONARY DISEASE W 07/15/2016 LISY DO, GINA K Ot R06.02 SHORTNESS OF BREATH 07/15/2016 LISY DO, GIAN K Ot Z79.899 OTHER CUSHION COVER INSPECTOR (CURRENT) DRUG THERAPY 07/15/2016 LISY DO, GINA [...] K Ot I25.10 ATHSCL HEART DISEASE OF [place] CORONARY 07/16/2016 LISY DO, GINA K Ot J44.1 CHRONIC OBSTRUCTIVE PULMONARY DISEASE W 07/16/2016 GINA WASSERMAN DO Ot R06.02 SHORTNESS OF BREATH 07/16/2016 GINA WASSERMAN DO Ot Z79.899 OTHER CUSHION COVER INSPECTOR (CURRENT) DRUG THERAPY 07/16/2016 GINA WASSERMAN DO [...] MD Ot I25.10 ATHSCL HEART DISEASE OF [place] CORONARY 08/01/2016 DOM SOLARES MD Ot I25.5 [...] MD Ot I25.10 ATHSCL HEART DISEASE OF [place] CORONARY 08/31/2016 MICHELLE MADRID MD Ot I51.7 CARDIOMEGALY 08/31/2016 MICHELLE MADRID MD Ot J44.1 CHRONIC OBSTRUCTIVE PULMONARY DISEASE W 08/31/2016 MICHELLE MADRID MD Ot R06.02 SHORTNESS OF BREATH 08/31/2016 MICHELLE MADRID MD Ot Z79.01 CUSHION COVER INSPECTOR (CURRENT) USE OF ANTICOAGULANT 08/31/2016 MICHELLE MADRID MD Ot Z79.82 JAIL (CURRENT) USE OF ASPIRIN 08/31/2016 MICHELLE MADRID MD Ot Z79.899 OTHER JAIL (CURRENT) DRUG THERAPY 08/31/2016 MICHELLE MADRID MD [...] MD Ot I25.10 ATHSCL HEART DISEASE OF [place] CORONARY 09/02/2016 MICHELLE MADRID MD Ot I51.7 CARDIOMEGALY 09/02/2016 MICHELLE MADRID MD Ot J44.1 CHRONIC OBSTRUCTIVE PULMONARY DISEASE W 09/02/2016 MICHELLE MADRID MD Ot R06.02 SHORTNESS OF BREATH 09/02/2016 MICHELLE MADRID MD Ot Z79.01 CUSHION COVER INSPECTOR (CURRENT) USE OF ANTICOAGULANT 09/02/2016 MICHELLE MADRID MD Ot Z79.82 JAIL (CURRENT) USE OF ASPIRIN 09/02/2016 MICHELLE MADRID MD Ot Z79.899 OTHER CUSHION COVER INSPECTOR (CURRENT) DRUG THERAPY 09/02/2016 MICHELLE MADRID MD [...] MD Ot I25.10 ATHSCL HEART DISEASE OF [place] CORONARY 09/03/2016 MICHELLE MADRID MD Ot I51.7 CARDIOMEGALY 09/03/2016 MICHELLE MADRID MD Ot J44.1 CHRONIC OBSTRUCTIVE PULMONARY DISEASE W 09/03/2016 MICHELLE MADRID MD Ot R06.02 SHORTNESS OF BREATH 09/03/2016 MICHELLE MADRID MD Ot Z79.01 CUSHION COVER INSPECTOR (CURRENT) USE OF ANTICOAGULANT 09/03/2016 MICHELLE MADRID MD Ot Z79.82 CUSHION COVER INSPECTOR (CURRENT) USE OF ASPIRIN 09/03/2016 MICHELLE MADRID MD Ot Z79.899 OTHER CUSHION COVER INSPECTOR (CURRENT) DRUG THERAPY 09/03/2016 MICHELLE MADRID MD [...] MD Ot I25.10 ATHSCL HEART DISEASE OF [place] CORONARY 09/27/2016 MANJULA COLES MD Ot I48.1 [...] MD Ot I25.10 ATHSCL HEART DISEASE OF [place] CORONARY 09/30/2016 MANJULA COLES MD Ot I48.1 [...] COLES MD Ot Z91.19 PATIENT'S NONCOMPLIANCE W [facility] MEDICAL TR 09/30/2016 MANJULA CLOES MD Ot Z95.1 PRESENCE OF AORTOCORONARY BYPASS [...] MD, Ot I25.10 ATHSCL HEART DISEASE OF [place] CORONARY 11/22/2016 MITZI BARTLETT MD, Ot I48.2 [...] ADULT 11/22/2016 MITZI BARTLETT MD, Ot Z79.01 CUSHION COVER INSPECTOR (CURRENT) USE OF ANTICOAGULANT 11/22/2016 MITZI BARTLETT [...] MD, Ot I25.10 ATHSCL HEART DISEASE OF [place] CORONARY 12/06/2016 CARON LOPEZ MD Ot I48.0 [...] ADULT 12/06/2016 CARON LOPEZ MD Ot Z79.01 JAIL (CURRENT) USE OF ANTICOAGULANT 12/06/2016 CARON LOPEZ [...] MD, Ot I25.10 ATHSCL HEART DISEASE OF [place] CORONARY 12/26/2016 CARON LOPEZ MD, Ot I45.10 [...] INJECTION- LARGE JOINT (SPECIFY MEDCIN DESCRIPTION) 12/08/2013 [id number] CERUMEN REMOVAL 12/08/2013 Encounters ACCT No. Visit Date/Time Discharge Status Pt. Type Provider Facility Loc./Unit Complaint [id number] 12/25/2016 16:56:00 2016 14:35:00 DIS Inpatient CARON LOPEZ MD [facility] ICU HYPERCAPNIA,OBESITY DYSPNEA [id number] 12/05/2016 18:38:00 2016 13:00:00 DIS Inpatient CARON LOPEZ MD [facility] ICU AFIB W/ RVR, CHF [id number] 11/21/2016 20:50:00 2016 12:10:00 DIS Inpatient MITZI BARTLTET MD [facility] ICU A-FIB LESS THAN OR EQUAL TO RVR, COPD [id number] 09/26/2016 21:04:00 2016 11:09:00 DIS Inpatient SANKET GOODSON, MANJULA Bright [facility] ICU CHF [id number] 08/31/2016 07:33:00 2016 10:22:00 DIS Emergency MICHELLE MADRID MD [facility] ER SOB [id number] 07/31/2016 17:25:00 2016 18:30:00 DIS Inpatient DOM SOLARES MD [facility] ICU COPD EXACERBATION, A-FIB W/RVR [id number] 07/13/2016 15:36:00 2016 17:26:00 DIS Emergency LISY DOGINA [facility] ER SOA [id number] 06/25/2016 02:03:00 2015 04:44:00 DIS Emergency LISY DOGINA [facility] ER SOB [id number] 06/05/2016 22:17:00 2015 09:51:00 DIS Inpatient ERICA GOODSON, KERI Bright [facility] 4TH CHF EXACERBATION [id number] 05/21/2016 12:26:00 2015 16:02:00 DIS Inpatient DHRUV GOODSON, MITZI Calhoun [facility] 4TH DYSPNEA AFIB RVR CHF ELEV UBC W/LEFT SHIFT [id number] 05/08/2016 23:57:00 2015 14:55:00 DIS Inpatient SUJATHA GOODSON, DOM Amos [facility] 4TH ACUTE RENAL FAILURE;NIDDM [id number] 12/04/2012 15:13:00 2012 23:59:59 CLS Outpatient MAJOR, BHUPINDER TELEHEALTH COORDINATOR [facility] QUICK LEG PAIN/INJURY [id number] 11/19/2016 08:17:00 ACT Outpatient SANKET GOODSON, MANJULA Bright [facility] CARD I48.91,N17.9,I50.9
[2017-01-08] MEDS ORDERED: CATHETER FLUSH 10 ML SYR IV PRN (14:30)
--- NOTE | 2017-01-08 15:24 | Consultation-Cardiology ---
HPI-Cardiology Cardiology Consultation Date of Consultation 01/08/17 Date of Admission Time Seen by Provider: 15:19 Indication: hypertension, shortness of breath HPI 76-year-old gentleman with history of coronary artery disease, COPD, paroxysmal atrial fibrillation, hypertension, was having increasing shortness of breath, called EMT and brought to the emergency room, he was in respiratory failure. Upon my evaluation patient was on BiPAP, reporting improvement in his breathing , he denied any fever or chills, had right upper side chest pain. No palpitation, no syncope or near syncopal episodes. No claudications. Home Medications & Allergies Allergies: Coded Allergies: adhesive tape (Verified Allergy, Mild, RASH, 05/23/16) shellfish derived (Verified Allergy, Mild, HIVES, 05/23/16) Penicillins (Verified Allergy, Unknown, 05/09/16) Home Medication List Reviewed: Yes HEU-Exocwe-Gxxqge Hx Patient Social History Marital Status: Employed/Student: retired Alcohol Use: Occasionally Uses Recreational Drug Use: No Smoking Status: Former Smoker Type Used: Cigarettes 2nd Hand Smoke Exposure: No Recent Foreign Travel: No Recent Infectious Disease Expo: No Recent Hopitalizations: Yes (two weeks ago) Immunizations Up To Date Tetanus Booster (TDap): Unknown Date of Pneumonia Vaccine: Apr 24, 2016 Date of Influenza Vaccine: Apr 24, 2016 Past Medical History past medical history as discussed below Family Medical History Significant Family History: No Pertinent Family Hx Family Medical Hx noncontributory to his current condition Family History: Patient reports no known family medical history. Constitutional: see HPI, dizziness, malaise, weakness, weight gain EENTM: no symptoms reported, see HPI Respiratory: see HPI, cough, dyspnea on exertion, orthopnea, short of breath, wheezing Cardiovascular: see HPI, chest pain, edema, No Hx of Intervention, No palpitations, No syncope, No vascular heart diseas, No other Gastrointestinal: no symptoms reported, see HPI Genitourinary: no symptoms reported, see HPI Musculoskeletal: no symptoms reported, see HPI Skin: no symptoms reported, see HPI Psychiatric/Neurological: No Symptoms Reported, See HPI Reviewed Test Results Reviewed Test Results Lab Laboratory Tests Test 01/08/17 11:37 01/08/17 11:45 01/08/17 12:02 Range/Units White Blood Count 8.1 4.3-11.0 10^3/uL Red Blood Count 4.76 4.35-5.85 10^6/uL Hemoglobin 14.3 13.3-17.7 G/DL Hematocrit 45 40-54 % Mean Corpuscular Volume 95 80-99 FL Mean Corpuscular Hemoglobin 30 25-34 PG Mean Corpuscular Hemoglobin Concent 32 32-36 G/DL Red Cell Distribution Width 14.8 H 10.0-14.5 % Platelet Count 266 130-400 10^3/uL Mean Platelet Volume 10.0 7.4-10.4 FL Neutrophils (%) (Auto) 67 42-75 % Lymphocytes (%) (Auto) 24 12-44 % Monocytes (%) (Auto) 5 0-12 % Eosinophils (%) (Auto) 4 0-10 % Basophils (%) (Auto) 1 0-10 % Neutrophils # (Auto) 5.4 1.8-7.8 X 10^3 Lymphocytes # (Auto) 1.9 1.0-4.0 X 10^3 Monocytes # (Auto) 0.4 0.0-1.0 X 10^3 Eosinophils # (Auto) 0.3 0.0-0.3 10^3/uL Basophils # (Auto) 0.1 0.0-0.1 10^3/uL Prothrombin Time 12.5 12.2-14.7 SEC INR Comment 1.0 0.8-1.4 Activated Partial Thromboplast Time 28 24-35 SEC Sodium Level 139 135-145 MMOL/L Potassium Level 4.0 3.6-5.0 MMOL/L Chloride Level 93 L 98-107 MMOL/L Carbon Dioxide Level 32 21-32 MMOL/L Anion Gap 14 5-14 MMOL/L Blood Urea Nitrogen 14 7-18 MG/DL Creatinine 1.09 0.60-1.30 MG/DL Estimat Glomerular Filtration Rate > 60 BUN/Creatinine Ratio 13 Glucose Level 163 H 70-105 MG/DL Calcium Level 9.3 8.5-10.1 MG/DL Magnesium Level 1.8 1.8-2.4 MG/DL Total Bilirubin 0.4 0.1-1.0 MG/DL Aspartate Amino Transf (AST/SGOT) 17 5-34 U/L Alanine Aminotransferase (ALT/SGPT) 20 0-55 U/L Alkaline Phosphatase 100 40-136 U/L Total Creatine Kinase 17 L 30-200 U/L Creatine Kinase MB 1.3 <6.6 NG/ML Troponin I < 0.30 <0.30 NG/ML B-Type Natriuretic Peptide 124.0 H <100.0 PG/ML Total Protein 7.4 6.4-8.2 GM/DL Albumin 3.7 3.2-4.5 GM/DL Blood Gas Puncture Site RR Blood Gas Patient Temperature 98.2 Arterial Blood pH 7.35 L 7.37-7.43 Arterial Blood Partial Pressure CO2 53 H 35-45 MMHG Arterial Blood Partial Pressure O2 138 H 79-93 MMHG Arterial Blood HCO3 28 H 23-27 MMOL/L Arterial Blood Total CO2 29.8 21.0-31.0 MMOL/L Arterial Blood Oxygen Saturation 99 94-100 % Arterial Blood Base Excess 3.0 H -2.5-2.5 MMOL/L Hayder Test YES-POS Blood Gas Ventilator Setting NO Blood Gas Inspired Oxygen 50% Lactic Acid Level 1.78 0.50-2.00 MMOL/L Physical Exam Vital Signs Vital Sign - Last 12Hours 01/08/17 01/08/17 01/08/17 11:34 11:45 12:00 Temp 98.2 Pulse 97 Resp 22 B/P (MAP) 199/139 Pulse Ox 98 O2 Delivery NIV Bilevel O2 Flow Rate 50.00 FiO2 50 Capillary Refill : Less Than 3 Seconds General Appearance: WD/WN, Obese, Severe Distress Eyes: Bilateral Eye EOMI, Bilateral Eye Normal Inspection, Bilateral Eye PERRL HEENT: PERRL/EOMI, TMs Normal, Normal ENT Inspection, Pharynx Normal Neck: Full Range of Motion, Normal Inspection, Non Tender, Supple, Carotid Bruit Respiratory: Expiration, Inspiration, Respiratory Distress, Wheezing Cardiovascular: No Edema, No Gallop, No JVD, Normal Peripheral Pulses, Systolic Murmur, Irregularly Irregular Gastrointestinal: Normal Bowel Sounds, No Organomegaly, No Pulsatile Mass, Non Tender, Soft Back: Normal Inspection, No CVA Tenderness, No Vertebral Tenderness Extremity: Normal Capillary Refill, Normal Inspection, Normal Range of Motion, Non Tender, No Calf Tenderness, Pedal Edema Neurologic/Psychiatric: Alert, Oriented x3, No Motor/Sensory Deficits, Normal Mood/Affect Skin: Normal Color, Warm/Dry Lymphatic: No Adenopathy A/P-Cardiology Admission Diagnosis acute respiratory failure Acute exacerbation of COPD Hypertension Persistent atrial fibrillation Assessment/Plan Acute respiratory failure, non-invasive ventilatory assistance, on BiPAP, managed by Dr. Conti. Admitted to the ICU. Congestive heart failure, chronic compensated left ventricular systolic dysfunction, ejection fraction 40-45 percent, probably ischemic cardiomyopathy, maintained on beta blockers, unable to tolerate PAMELA inhibitor and/or ARB due to renal insufficiency and history of renal failure, Continue to monitor closely Persistent atrial fibrillation, rate is controlled, I will restart his home medication monitor [id number] score is 5, yearly risk of stroke without oral anticoagulation is 6.7 percent, he is maintained on Eliquis 5 mg twice daily.continue on Eliquis for now Coronary artery disease, history of CABG 3 done in 2002, no recent workup was done.continue to monitor closely Chronic renal insufficiency, continue to monitor renal function Hypertension, poorly controlled, restart home medication monitor his tolerance and response COPD/obstructive sleep apnea, severe exacerbation, managed byDr. Conti Diabetes mellitus, followed and managed by primary care physician Hypothyroidism, followed and managed by primary care physician Obesity, BMI is 47. Continue to monitor. MANJULA COLES MD Jan 08, 2017 15:24
[2017-01-08] MEDS ORDERED: GLIP10TA13 PO (16:14)
[2017-01-08] MEDS ORDERED: ACET325T49 PO (16:14)
[2017-01-08] MEDS ORDERED: ROPI1TAB2 PO (16:14)
[2017-01-08] MEDS ORDERED: LEVO200T6 PO (16:14)
[2017-01-08] MEDS ORDERED: CARV25TA PO (16:14)
[2017-01-08] MEDS: methylPREDNISolone 125 MG (Solu-MEDROL) VIAL IV SCH (16:38)
[2017-01-08] MEDS: NITROGLYCERIN 2% OINT 1 GM UNIT DOSE PACKET TOP SCH (16:38)
[2017-01-08] MEDS: inSUlin (REGULAR) HUMAN 1 UNIT/0.01 ML (CHARGE PER UNIT) SC SCH ×2 (16:54→20:52)
[2017-01-08] MEDS ORDERED: RT-ALBUTEROL/IPRATROPIUM 3 ML (DUONEB) VIAL INH PRN (17:30)
[2017-01-08] MEDS: RT-ALBUTEROL/IPRATROPIUM 3 ML (DUONEB) VIAL INH SCH ×2 (18:41→22:17)
[2017-01-08] MEDS ORDERED: LORazepam 1 MG (ATIVAN) TAB PO PRN (19:15)
[2017-01-08] MEDS ORDERED: ACETAMINOPHEN 325 MG TABLET/CAPLET (TYLENOL) PO PRN (19:15)
[2017-01-08] MEDS ORDERED: HYDROcodone/APAP 5 MG/325 MG (LORTAB) TAB PO PRN (19:45)
[2017-01-08] MEDS ORDERED: ARTIFICAL TEARS 0.4 ML UNIT DOSE (REFRESH PLUS) OU PRN (19:45)
[2017-01-08] MEDS: glipiZIDE 5 MG (GLUCOTROL) TAB PO SCH (20:47)
[2017-01-08] MEDS: APIXABAN 5 MG (ELIQUIS) TABLET PO SCH (20:47)
[2017-01-08] MEDS: CARVEDILOL 12.5 MG (COREG) TABLET PO SCH (20:47)
[2017-01-08] MEDS: ATORVASTATIN 40 MG (LIPITOR) TABLET PO SCH (20:47)
[2017-01-08] MEDS: ALFUZOSIN HCL 10 MG TAB (UROXATRAL) PO SCH (20:47)
[2017-01-08] MEDS: traZODone 150 MG (DESYREL) TABLET PO SCH (20:47)
[2017-01-08] MEDS: GABAPENTIN 600 MG (NEURONTIN) TAB PO SCH (20:47)
[2017-01-08] MEDS: rOPINIRole 1 MG (REQUIP) TABLET PO SCH (20:47)
[2017-01-08] MEDS: CATHETER FLUSH 10 ML SYR IV SCH (20:48)
[2017-01-08] MEDS: RT-ADVAIR HFA 115/21 MCG PER PUFF IH SCH (22:21)
[2017-01-09] VITALS (11 sets, daily range): BP systolic 95–135; BP diastolic 53–90
[2017-01-09] MEDS: methylPREDNISolone 125 MG (Solu-MEDROL) VIAL IV SCH ×2 (00:55→06:34)
[2017-01-09] MEDS: NITROGLYCERIN 2% OINT 1 GM UNIT DOSE PACKET TOP SCH ×4 (00:55→18:08)
[2017-01-09] MEDS: RT-ALBUTEROL/IPRATROPIUM 3 ML (DUONEB) VIAL INH SCH ×5 (02:30→18:29)
[2017-01-09 04:12] LABS: BASOPHILS % (AUTO) 0 % (0-10); EOSINOPHILS % (AUTO) 0 % (0-10); LYMPHOCYTES # (AUTO) 1.1 X 10^3 (1.0-4.0); LYMPHOCYTES % (AUTO) 10 % (12-44); MEAN CORPUSCULAR HEMOGLOBIN 30 PG (25-34); MEAN CORPUSCULAR HGB CONC 32 G/DL (32-36); MEAN CORPUSCULAR VOLUME 94 FL (80-99); MEAN PLATELET VOLUME 10.4 FL (7.4-10.4); MONOCYTES # (AUTO) 0.1 X 10^3 (0.0-1.0); MONOCYTES % (AUTO) 1 % (0-12); NEUTROPHILS # (AUTO) 9.6 X 10^3 (1.8-7.8); NEUTROPHILS % (AUTO) 90 % (42-75); PLATELET COUNT 272 10^3/uL (130-400); RED BLOOD COUNT 4.51 10^6/uL (4.35-5.85); RED CELL DISTRIBUTION WIDTH 14.6 % (10.0-14.5); WHITE BLOOD COUNT 10.7 10^3/uL (4.3-11.0)
[2017-01-09 04:38] LABS: ALANINE AMINOTRANSFERASE 20 U/L (0-55); ALBUMIN 3.4 GM/DL (3.2-4.5); ANION GAP 14 MMOL/L (5-14); ASPARTATE AMINO TRANSFERASE 15 U/L (5-34); BILIRUBIN,TOTAL 0.4 MG/DL (0.1-1.0); BLOOD UREA NITROGEN 22 MG/DL (7-18); BUN/CREATININE RATIO 18; CALCIUM 9.3 MG/DL (8.5-10.1); CARBON DIOXIDE 32 MMOL/L (21-32); CHLORIDE 92 MMOL/L (98-107); CREATININE SERUM 1.21 MG/DL (0.60-1.30); GFR ESTIMATED 59; GLUCOSE 249 MG/DL (70-105); POTASSIUM 4.2 MMOL/L (3.6-5.0); SODIUM 138 MMOL/L (135-145); TOTAL PROTEIN 7.1 GM/DL (6.4-8.2)
[2017-01-09] MEDS ORDERED: FUROSEMIDE 40 MG/4 ML INJ (LASIX) ONE (06:22)
[2017-01-09] MEDS ORDERED: FUROSEMIDE 40 MG/4 ML INJ (LASIX) IVP ONE (06:30)
--- NOTE | 2017-01-09 06:31 | Pulmonary Consultation ---
History of Present Illness History of Present Illness Date of Consultation 01/09/17 06:25 Time Seen by Provider: 06:00 Date of Admission Reason for Visit: hypertension, shortness of breath History of Present Illness 76yo with hx of severe oxygen dependent (4-5liters) COPD, CHF, multiple hospitalizations and OHS presented to ED via EMS secondary to worsening SOB and productive cough of scant sputum. Pt does use home BiPAP frequently at home. EMS states upon arrival he was using BiPAP however oxygen was turned off. PT was just admitted here 12/25 for same complaints. I am consulted for ICU/ pulmonary management. Allergies and Home Medications Allergies Coded Allergies: adhesive tape (Verified Allergy, Mild, RASH, 05/23/16) shellfish derived (Verified Allergy, Mild, HIVES, 05/23/16) Penicillins (Verified Allergy, Unknown, 05/09/16) Home Medications Acetaminophen 325 Mg Tablet, 650 MG PO QID PRN for PAIN-MILD, (Reported) TAKES 2 (325 MG) TABLETS Allopurinol 300 Mg Tablet, 300 MG PO DAILY, (Reported) Apixaban 5 Mg Tablet, 5 MG PO BID, (Reported) LAST DISPENSED 11/14/16 #60 Aspirin 81 Mg Tablet.dr, 81 MG PO DAILY, (Reported) Atorvastatin Calcium 80 Mg Tablet, 40 MG PO HS, (Reported) TAKES 1/2 (80MG) TABLET Budesonide/Formoterol Fumarate 10.2 Gm Hfa.aer.ad, 2 PUFF IH BID, (Reported) LAST DISPENSED 11/14/16 #1 INHALER Carboxymethylcellulose Sodium 15 Ml Drops, 1 DROP OU QID PRN for DRY EYES, ( Reported) Carvedilol 25 Mg Tablet, 25 MG PO BID, (Reported) Furosemide 80 Mg Tablet, 80 MG PO DAILY, (Reported) Gabapentin 300 Mg Capsule, 600 MG PO TID, (Reported) TAKES 2 (300 MG) CAPSULES Glipizide 10 Mg Tablet, 10 MG PO DAILY, (Reported) Glipizide 10 Mg Tablet, 5 MG PO DAILY@1700, (Reported) Hydrocodone/Acetaminophen 1 Each Tablet, 1 TAB PO BID PRN for PAIN, (Reported) Isosorbide Mononitrate 60 Mg Tab, 60 MG PO DAILY, (Reported) LAST DISPENSED 08/14/16 #90 Levothyroxine Sodium 200 Mcg Tablet, 200 MCG PO DAILY, (Reported) Lorazepam 1 Mg Tablet, 0.5-1 MG PO BID PRN for AIR HUNGER, (Reported) TAKES 1/2 TO 1 OF A (1 MG) TABLET Losartan Potassium 100 Mg Tablet, 100 MG PO DAILY, (Reported) LAST DISPENSED 09/11/16 #90 Potassium Chloride 20 Meq Tablet.er, 20 MEQ PO DAILY, (Reported) Ropinirole HCl 1 Mg Tablet, 1 MG PO HS, (Reported) Tamsulosin HCl 0.4 Mg Cap.er.24h, 0.4 MG PO HS, (Reported) Trazodone HCl 100 Mg Tablet, 150 MG PO HS, (Reported) TAKES 1 & 1/2 OF A (100 MG) TABLET / LAST DISPENSED 11/14/16 #45 Past Hcupabl-Vogvri-Pxfncy Hx Patient Social History Alcohol Use: Denies Use Recreational Drug Use: No Smoking Status: Former Smoker Type Used: Cigarettes 2nd Hand Smoke Exposure: No Recent Foreign Travel: No Contact w/Someone Who Travel: No Recent Infectious Disease Expo: No Recent Hopitalizations: Yes (two weeks ago) Physical Abuse Screen: No Sexual Abuse: No Immunizations Up To Date Tetanus Booster (TDap): Unknown PED Vaccines UTD: No Date of Pneumonia Vaccine: Apr 24, 2016 Date of Influenza Vaccine: Apr 24, 2016 Seasonal Allergies Seasonal Allergies: No Surgeries HX Surgeries: Yes (CARDIAC CATHS WITH STENTS, THEN CABG; RIGHT TOTAL KNEE REPLACEMENT) Surgeries: Cardiac, CABG, Coronary Stent, Joint Replacement, Orthopedic, Vasectomy Respiratory Hx Respiratory Disorders: Yes (O2 DEPENDENT AT 4L/NC; BIPAP AT HIS AND PRN DURING DAY) Respiratory Disorders: Asthma, Sleep Apnea, COPD Cardiovascular Hx Cardiac Disorders: Yes (CHF; RBBB) Cardiac Disorders: Atrial Fibrillation, Coronary Artery Disease, High Cholesterol, Hypertension, Peripheral Vascular Neurological Hx Neurological Disorders: Yes (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; RESTLESS LEG) Neurological Disorders: Neuropathy, Stroke Reproductive System Hx Reproductive Disorders: No Sexually Transmitted Disease: No HIV/AIDS: No Genitourinary Hx 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) Genitourinary Disorders: Renal Failure Gastrointestinal Hx Gastrointestinal Disorders: Yes Gastrointestinal Disorders: Gastroesophageal Reflux Musculoskeletal Hx Musculoskeletal Disorders: Yes (ELECTRIC WHEELCHAIR) Musculoskeletal Disorders: Arthritis Endocrine Hx Endocrine Disorders: Yes (MORBID OBESITY) Endocrine Disorders: Hypothyroidsim, Diabetes, Non-Insulin dep HEENT HX ENT Disorders: No (GLASSES) Cancer Hx Cancer: No Psychosocial Hx Psychiatric Problems: No Integumentary HX Skin/Integumentary Disorder: No Blood Transfusions Hx Blood Disorders: No Family Medical History Significant Family History: No Pertinent Family Hx Family Medial History: Patient reports no known family medical history. Review of Systems Constitutional: Malaise, Sweats, Weakness, No: Chills, Fever, Other Eyes: No: Conjunctivae inflammation, Eyelid inflammation, Other, Pain, Redness , Vision change ENT: No: Ear discharge, Ear pain, Mouth pain, Mouth swelling, Nose congestion, Nose discharge, Nose pain, Other, Throat pain, Throat swelling Respiratory: Cough, Dry, SOB with excertion, Shortness of breath Cardiovascular: Orthopnea, Paroxysmal Noc. Dyspnea, No: Chest Pain, Edema, Lt Headedness, Other, Palpitations Neurological: Weakness Exam Exam Vital Signs Date Time Temp Pulse Resp B/P (MAP) Pulse Ox O2 Delivery O2 Flow Rate FiO2 01/09/17 04:44 77 19 92 30.00 01/09/17 04:00 96.6 73 18 113/64 90 NIV Bilevel 30.00 01/09/17 04:00 90 NIV Bilevel 30 01/09/17 02:32 78 20 91 30.00 01/09/17 01:00 75 01/09/17 00:00 97.3 82 21 110/69 93 NIV Bilevel 30.00 01/09/17 00:00 98 NIV Bilevel 30 01/08/17 22:23 93 15 93 30.00 01/08/17 21:00 93 NIV Bilevel 30 01/08/17 20:44 97 15 94 30.00 01/08/17 20:00 99.1 98 22 146/95 93 NIV Bilevel 30.00 01/08/17 20:00 98 NIV Bilevel 30 01/08/17 19:00 93 01/08/17 18:41 101 15 94 30.00 01/08/17 18:00 99 27 168/115 94 NIV Bilevel 30.00 01/08/17 17:00 108 23 156/115 95 NIV Bilevel 30.00 01/08/17 16:06 91 22 92 30.00 01/08/17 16:00 84 24 159/99 92 NIV Bilevel 30.00 01/08/17 16:00 98 NIV Bilevel 30 01/08/17 15:00 93 17 93 NIV Bilevel 30.00 01/08/17 14:06 22 30.00 01/08/17 14:00 97.9 95 21 163/101 91 NIV Bilevel 30.00 01/08/17 14:00 NIV Bilevel 30 01/08/17 13:11 98.2 80 24 98 NIV Bilevel 50.00 01/08/17 12:00 98.2 97 22 199/139 98 50.00 01/08/17 11:50 98 Bi-pap 50 01/08/17 11:45 99 NIV Bilevel 50 01/08/17 11:34 97 22 98 50.00 I & O 01/09/17 07:00 Intake Total 50 ml Output Total 450 ml Balance -400 ml General Appearance: No Apparent Distress, WD/WN, Anxious, Obese HEENT: PERRL/EOMI, TMs Normal, Normal ENT Inspection, Pharynx Normal Neck: Full Range of Motion, Normal Inspection, Non Tender, Supple, Carotid Bruit Respiratory: Expiration, Inspiration, Respiratory Distress, Wheezing Cardiovascular: No Edema, No Gallop, No JVD, Normal Peripheral Pulses, Systolic Murmur, Irregularly Irregular Capillary Refill: Less Than 3 Seconds Gastrointestinal: non tender, soft Extremity: Normal Capillary Refill, Normal Inspection, Normal Range of Motion, Non Tender, No Calf Tenderness, Pedal Edema Neurologic/Psychiatric: Alert, Oriented x3, No Motor/Sensory Deficits, Normal Mood/Affect Skin: Normal Color, Warm/Dry Lymphatic: No Adenopathy Results Lab Laboratory Tests 01/08/17 11:37 01/09/17 03:57 Assessment/Plan Assessment/Plan Acute on chronic respiratory failure -Solumedrol change to prednisone 20mg daily -PT may do better with intermediate teacher prednisone use of 10-20mg daily -Lasix -SVNs Severe COPDAE- oxygen dependent at home Persistent Afib CHF EF 40-45% ischemic cardiomyopathy HTN CKD Debility- bed bound with little help at home. I doubt pt can really take care of himself at home. I believe pt needs either ECF and/or Hospice. Will consult hospice for education. PT refuses halfway. He states that he has been on hospice in past and did not have a good experience. I had a long conversation with patient about hospice/halfway and code status. Will consult hospice for education. PT wants to be a full DNR/DNI he states he told everyone last admission he is a DNR and he is tired of talking about it. He never wants to be coded. He never wants to be on a ventilator. 255 120min spent with patient and medical team discussing plan of care. PT is doing better will transfer to 4th floor. Clinical Quality Measures DVT/VTE Risk/Contraindication: Risk Factor Score Per Nursin RFS Level Per Nursing on Admit: 4+=Very High MU JACKSON DO Jan 09, 2017 06:31
[2017-01-09] MEDS: KCL 20 MEQ TAB (K-DUR) PO SCH (06:34)
[2017-01-09] MEDS: CATHETER FLUSH 10 ML SYR IV SCH ×3 (06:34→21:51)
[2017-01-09] MEDS: LEVOTHYROXINE 100 MCG (LEVOTHROID) TAB PO SCH (06:34)
[2017-01-09] MEDS: glipiZIDE 5 MG (GLUCOTROL) TAB PO SCH ×2 (06:35→17:16)
[2017-01-09] MEDS: FUROSEMIDE 40 MG (LASIX) TAB PO SCH (06:42)
[2017-01-09] MEDS: inSUlin (REGULAR) HUMAN 1 UNIT/0.01 ML (CHARGE PER UNIT) SC SCH ×4 (06:49→21:50)
[2017-01-09] MEDS: ALLOPURINOL 300 MG (ZYLOPRIM) TAB PO SCH (08:33)
[2017-01-09] MEDS: APIXABAN 5 MG (ELIQUIS) TABLET PO SCH ×2 (08:33→21:50)
[2017-01-09] MEDS: predniSONE 20 MG TAB PO SCH (08:33)
[2017-01-09] MEDS: CARVEDILOL 12.5 MG (COREG) TABLET PO SCH ×2 (08:34→21:50)
[2017-01-09] MEDS: ASPIRIN E.C. 81 MG (ECOTRIN) TAB PO SCH (08:34)
[2017-01-09] MEDS: ISOSORBIDE MONONITRATE 60 MG (IMDUR) TAB PO SCH (08:34)
[2017-01-09] MEDS: GABAPENTIN 600 MG (NEURONTIN) TAB PO SCH ×3 (08:34→21:50)
[2017-01-09] MEDS: LOSARTAN 50 MG (COZAAR) TAB PO SCH (08:34)
[2017-01-09] MEDS: RT-ADVAIR HFA 115/21 MCG PER PUFF IH SCH ×2 (09:02→18:29)
--- NOTE | 2017-01-09 10:39 | Diagnostic Imaging Report ---
Portable upright radiograph of the chest. INDICATION: CHF. COMPARISON: 01/08/17. FINDINGS: There is cardiomegaly with pulmonary vascular congestion, appears slightly worse compared to the prior study, i.e. mild interstitial edema. No significant effusion on the right side. There is a possible small left effusion. No pneumothorax. Sternotomy wires are noted. IMPRESSION: Interstitial pulmonary edema with minimal worsening. Dictated by: Dictated on workstation # [id number]
--- NOTE | 2017-01-09 10:52 | History & Physical-Hospitalist ---
HPI History of Present Illness: HPI/Chief Complaint CC: SOB HPI: This is a 76 yoWM pt frequently here for CHF and COPD that presented to ER with SOB. pharmacy informaticist: Telemetry was DC Patient Interview: Pt confirms PCP in [place] at [facility] O2 looks better today Physical exam stable Pt was very interested in my family and education history. Pt's sons went to school in the same area. Pt was informed he is doing better Pt was moved from ICU7 to 418 Scribed by Fiorella Jordan under the direct supervision of Dr. Haile. Source: patient Date Seen 01/09/17 Time Seen by Provider: 10:00 Attending Physician Ginger Haile DO PCP Aliyah Gonzales DO Referring Physician Date of Admission Jan 09, 2017 at 09:19 Home Medications & Allergies Home Medications Reviewed patient Home Medication Reconciliation Form Allergies Allergies Coded Allergies adhesive tape (Verified Allergy, Mild, RASH, 05/23/16) shellfish derived (Verified Allergy, Mild, HIVES, 05/23/16) Penicillins (Verified Allergy, Unknown, 05/09/16) Past Vhnmren-Mfukqj-Zituyg Hx Patient Social History Marrital Status: Employed/Student: retired Alcohol Use: Denies Use Recreational Drug Use: No Smoking Status: Former Smoker Type Used: Cigarettes 2nd Hand Smoke Exposure: No Physical Abuse Screen: No Sexual Abuse: No Recent Foreign Travel: No Contact w/other who traveled: No Recent Hopitalizations: Yes (two weeks ago) Recent Infectious Disease Expo: No Immunizations Up To Date Tetanus Booster (TDap): Unknown Date of Pneumonia Vaccine: Apr 24, 2016 Date of Influenza Vaccine: Apr 24, 2016 Seasonal Allergies Seasonal Allergies: No Surgeries HX Surgeries: Yes (CARDIAC CATHS WITH STENTS, THEN CABG; RIGHT TOTAL KNEE REPLACEMENT) Surgeries: Cardiac, CABG, Coronary Stent, Joint Replacement, Orthopedic, Vasectomy Respiratory Hx Respiratory Disorders: Yes (O2 DEPENDENT AT 4L/NC; BIPAP AT HIS AND PRN DURING DAY) Respiratory Disorders: COPD, Sleep Apnea Cardiovascular Hx Cardiovascular Disorders: Yes (CHF; RBBB) Cardiac Disorders: Atrial Fibrillation, Coronary Artery Disease, High Cholesterol, Hypertension, Peripheral Vascular Neurological Hx Neurological Disorders: Yes (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; RESTLESS LEG) Neurological Disorders: Neuropathy, Stroke Reproductive System Hx Reproductive Disorders: No Sexually Transmitted Disease: No HIV/AIDS: No Genitourinary Hx 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) Genitourinary Disorders: Renal Failure Gastrointestinal Hx Gastrointestinal Disorders: Yes Gastrointestinal Disorders: Gastroesophageal Reflux Musculoskeletal Hx Musculoskeletal Disorders: Yes (ELECTRIC WHEELCHAIR) Musculoskeletal Disorders: Arthritis Endocrine Hx Endocrine Disorders: Yes (MORBID OBESITY) Endocrine Disorders: Hypothyroidsim, Diabetes, Non-Insulin dep HEENT HX ENT Disorders: No (GLASSES) Cancer Hx Cancer: No Psychosocial Hx Psychiatric Problems: No Integumentary HX Skin/Integumentary Disorder: No Blood Transfusions Hx Blood Disorders: No Family Medical History Significant Family History: No Pertinent Family Hx Other Significan Family Hx: noncontributory to his current condition Family Hx: Patient reports no known family medical history. Review of Systems Constitutional: see HPI, weakness EENTM: no symptoms reported Respiratory: dyspnea on exertion, short of breath, wheezing Cardiovascular: no symptoms reported Gastrointestinal: no symptoms reported Genitourinary: no symptoms reported Musculoskeletal: no symptoms reported Skin: no symptoms reported Psychiatric/Neurological: No Symptoms Reported All Other Systems Reviewed Negative Unless Noted: Yes Physical Exam Physical Exam Vital Signs Vital Sign - Last 12Hours 01/08/17 01/08/17 01/08/17 11:34 11:45 12:00 Temp 98.2 Pulse 97 Resp 22 B/P (MAP) 199/139 Pulse Ox 98 O2 Delivery NIV Bilevel O2 Flow Rate 50.00 FiO2 50 Capillary Refill : Less Than 3 Seconds General Appearance: No Apparent Distress, WD/WN, Chronically ill, Obese Eyes: Bilateral Eye Normal Inspection, Bilateral Eye PERRL HEENT: PERRL/EOMI, Normal ENT Inspection, Pharynx Normal Neck: Full Range of Motion, Normal Inspection, Non Tender, Supple, Carotid Bruit Respiratory: Chest Non Tender, No Accessory Muscle Use, No Respiratory Distress , Decreased Breath Sounds, Wheezing (subtle) Cardiovascular: Regular Rate, Rhythm, No Edema, No Gallop, No JVD, No Murmur, Normal Peripheral Pulses Gastrointestinal: Normal Bowel Sounds, No Organomegaly, No Pulsatile Mass, Non Tender, Soft Back: Normal Inspection, No CVA Tenderness, No Vertebral Tenderness Extremity: Normal Capillary Refill, Normal Inspection, Normal Range of Motion, Non Tender, No Calf Tenderness, No Pedal Edema Neurologic/Psychiatric: Alert, Oriented x3, No Motor/Sensory Deficits, Normal Mood/Affect Skin: Normal Color, Warm/Dry Lymphatic: No Adenopathy Results Results/Procedures Lab Laboratory Tests 01/08/17 11:37 01/09/17 03:57 Assessment/Plan Admission Diagnosis Assessment: Respiratory insufficiency with pulmonary edema and exacerbation of COPD Morbid obesity Sleep apnea Diabetes mellitus Gout GERD Hypertension Hyperlipidemia Neuropathy Assessment and Plan Plan: Palliative Care consult Discontinue telemetry Oxygen supplementation Nebulizer treatment Definitive care Poor prognosis Clinical Quality Measures DVT/VTE Risk/Contraindication: Risk Factor Score Per Nursin RFS Level Per Nursing on Admit: 4+=Very High GINGER HAILE DO Jan 09, 2017 10:52
[2017-01-09] MEDS: ALFUZOSIN HCL 10 MG TAB (UROXATRAL) PO SCH (17:16)
--- NOTE | 2017-01-09 19:12 | Cardiology Progress Note ---
Cardiology SOAP Progress Note Subjective: significant improvement of shortness of breath Objective: I&O/Vital Signs Vital Sign - Last 12Hours 01/09/17 01/09/17 01/09/17 01/09/17 08:00 08:00 08:56 09:05 Temp 98.1 Pulse 82 Resp 22 B/P (MAP) 135/68 Pulse Ox 98 93 93 94 O2 Delivery Nasal Cannula Nasal Cannula Nasal Cannula Nasal Cannula O2 Flow Rate 5.00 5.00 5.00 5.00 01/09/17 01/09/17 01/09/17 01/09/17 10:20 12:00 12:00 14:10 Temp 97.9 Pulse 140 Resp 26 B/P (MAP) 105/57 Pulse Ox 98 93 93 O2 Delivery Nasal Cannula Nasal Cannula Nasal Cannula Nasal Cannula O2 Flow Rate 5.00 5.00 5.00 5.00 01/09/17 01/09/17 01/09/17 16:00 16:00 18:29 Temp 98.4 Pulse 80 Resp 24 B/P (MAP) 95/53 Pulse Ox 98 95 94 O2 Delivery Nasal Cannula Nasal Cannula Nasal Cannula O2 Flow Rate 5.00 5.00 5.00 Intake and Output 01/09/17 00:00 Intake Total 50 ml Output Total 450 ml Balance -400 ml Weight (Pounds): 297 Weight (Ounces): 4.0 Weight (Calculated Kilograms): 134.987045 Constitutional: No appears stated age, No AAO x 3, No apparent distress, No PERRL, No well-developed, No well-nourished, No other Respiratory: No accessory muscle use, No respiratory distress, No chest tender , No chest expansion is symmetric, No chest is bilaterally symmetric, No lungs clear to percussion, No lungs clear to auscultation, No crackles, No rhonchi, No rales, No stridor, No wheezing, No pleural rub, No other Cardiovascular: irregularly irregular, S1 and S2 Gastrointestional: No tender, No soft, No round, No distended, No pulsatile mass, No organomegaly, No guarding, No rebound, No tenderness, No hernia, No mass, No audible bowel sounds, No abnormal bowel sounds, No abdominal bruits, No spleenomegaly, No other Extremities: No normal range of motion, No non-tender, No normal inspection, No pedal edema, No calf tenderness, No normal capillary refill, No pelvis stable , No calf tenderness, No inflammation, No pedal edema, No slow capillary refill , No swelling, No other, No abrasion, No clubbing, No cyanosis, No ecchymosis, No laceration, No no lower extremity edema bilateral, No significant edema, No tenderness, No wound Neurologic/Psychiatric: No livestock producer II-XII nml as tested, No no motor/sensory deficits, No alert, No normal mood/affect, No oriented x 3, No abnormal cerebellar tests, No abnormal livestock producer II-XII, No abnormal gait, No aphasia, No EOM palsy, No facial droop, No motor weakness, No sensory deficit, No depressed affect, No disoriented x 3, No other, No grossly intact, No power is 5/5 both on sides Skin: No normal color, No warm/dry, No cyanosis, No cool, No diaphoresis, No damp, No ecchymosis, No jaundice, No mottled, No pallor, No rash, No tattoos/ piercings, No ulcerations, No rash on exposed areas, No ulcerations on exposed areas, No other Results/Procedures: Labs Laboratory Tests 01/08/17 20:44: Glucometer 208H 01/09/17 03:57: White Blood Count 10.7, Red Blood Count 4.51, Hemoglobin 13.5, Hematocrit 42, Mean Corpuscular Volume 94, Mean Corpuscular Hemoglobin 30, Mean Corpuscular Hemoglobin Concent 32, Red Cell Distribution Width 14.6H, Platelet Count 272, Mean Platelet Volume 10.4, Neutrophils (%) (Auto) 90H, Lymphocytes (%) (Auto) 10L, Monocytes (%) (Auto) 1, Eosinophils (%) (Auto) 0, Basophils (%) (Auto) 0, Neutrophils # (Auto) 9.6H, Lymphocytes # (Auto) 1.1, Monocytes # (Auto) 0.1, Eosinophils # (Auto) 0.0, Basophils # (Auto) 0.0, Sodium Level 138, Potassium Level 4.2, Chloride Level 92L, Carbon Dioxide Level 32, Anion Gap 14, Blood Urea Nitrogen 22H, Creatinine 1.21, Estimat Glomerular Filtration Rate 59, BUN/ Creatinine Ratio 18, Glucose Level 249H, Calcium Level 9.3, Total Bilirubin 0.4 , Aspartate Amino Transf (AST/SGOT) 15, Alanine Aminotransferase (ALT/SGPT) 20, Alkaline Phosphatase 84, Troponin I < 0.30, Total Protein 7.1, Albumin 3.4 01/09/17 10:54: Glucometer 289H 01/09/17 16:26: Glucometer 256H Microbiology 01/08/17 Blood Culture - Preliminary, Resulted No growth A/P: Assessment/Dx: Admission Diagnosis acute respiratory failure Acute exacerbation of COPD Hypertension Persistent atrial fibrillation Plan: Assessment/Plan Acute respiratory failure, non-invasive ventilatory assistance, on BiPAP, managed by Dr. Conti. significant improvement Shortness of breath not secondary to significant CHF since BNP is low. chronic compensated left ventricular systolic dysfunction, ejection fraction 40-45 percent, probably ischemic cardiomyopathy, maintained on beta blockers, unable to tolerate PAMELA inhibitor and/or ARB due to renal insufficiency and history of renal failure, Continue to monitor closely. Good cardiac prognosis. Persistent atrial fibrillation, rate is controlled [id number] score is 5, yearly risk of stroke without oral anticoagulation is 6.7 percent, he is maintained on Eliquis 5 mg twice daily.continue on Eliquis for now Coronary artery disease, history of CABG 3 done in 2002, no recent workup was done.continue to monitor closely Chronic renal insufficiency, continue to monitor renal function Hypertension, poorly controlled, restart home medication monitor his tolerance and response COPD/obstructive sleep apnea, severe exacerbation, managed by Dr. Conti Diabetes mellitus, followed and managed by primary care physician Hypothyroidism, followed and managed by primary care physician Obesity, BMI is 47. Continue to monitor. once ready for discharge, he can follow with his primary bung remover. Thank you for your consultation. Please call me if you have any questions. Susanne Wright MD, FACP, FACC, FSCAI, FHRS, CCDS Interventional Cardiology Cardiac Electrophysiology Vascular Medicine and Endovascular Interventions Devon WRIGHT MD Jan 09, 2017 7:12 pm
[2017-01-09] MEDS: traZODone 150 MG (DESYREL) TABLET PO SCH (21:50)
[2017-01-09] MEDS: rOPINIRole 1 MG (REQUIP) TABLET PO SCH (21:50)
[2017-01-09] MEDS: ATORVASTATIN 40 MG (LIPITOR) TABLET PO SCH (21:50)
[2017-01-10] VITALS: BP 108/56
[2017-01-10] MEDS: RT-ALBUTEROL/IPRATROPIUM 3 ML (DUONEB) VIAL INH SCH ×4 (02:07→10:48)
[2017-01-10 04:25] VITALS: BP 103/61
[2017-01-10] MEDS: inSUlin (REGULAR) HUMAN 1 UNIT/0.01 ML (CHARGE PER UNIT) SC SCH ×2 (05:30→11:00)
[2017-01-10] MEDS: LEVOTHYROXINE 100 MCG (LEVOTHROID) TAB PO SCH (06:05)
[2017-01-10] MEDS: glipiZIDE 5 MG (GLUCOTROL) TAB PO SCH (06:05)
[2017-01-10] MEDS: FUROSEMIDE 40 MG (LASIX) TAB PO SCH (06:05)
[2017-01-10] MEDS: KCL 20 MEQ TAB (K-DUR) PO SCH (06:05)
[2017-01-10] MEDS: CATHETER FLUSH 10 ML SYR IV SCH ×2 (06:05→12:33)
[2017-01-10] MEDS: RT-ADVAIR HFA 115/21 MCG PER PUFF IH SCH (06:45)
[2017-01-10 08:28] VITALS: BP 119/71
[2017-01-10] MEDS: ALLOPURINOL 300 MG (ZYLOPRIM) TAB PO SCH (09:34)
[2017-01-10] MEDS: ISOSORBIDE MONONITRATE 60 MG (IMDUR) TAB PO SCH (09:34)
[2017-01-10] MEDS: GABAPENTIN 600 MG (NEURONTIN) TAB PO SCH ×2 (09:34→12:38)
[2017-01-10] MEDS: predniSONE 20 MG TAB PO SCH (09:34)
[2017-01-10] MEDS: ASPIRIN E.C. 81 MG (ECOTRIN) TAB PO SCH (09:34)
[2017-01-10] MEDS: LOSARTAN 50 MG (COZAAR) TAB PO SCH (09:34)
[2017-01-10] MEDS: CARVEDILOL 12.5 MG (COREG) TABLET PO SCH (09:34)
[2017-01-10] MEDS: APIXABAN 5 MG (ELIQUIS) TABLET PO SCH (09:34)
[2017-01-10 12:00] VITALS: BP 95/54
--- NOTE | 2017-01-10 12:06 | Discharge Instructions ---
Discharge [facility] Discharge Medications New, Converted or Re-Newed RX: Other Continued Medications: Acetaminophen (Acetaminophen) 325 Mg Tablet 650 MG PO QID PRN for PAIN-MILD, TAB TAKES 2 (325 MG) TABLETS Allopurinol (Allopurinol) 300 Mg Tablet 300 MG PO DAILY, TAB Apixaban (Eliquis) 5 Mg Tablet 5 MG PO BID, TAB LAST DISPENSED 11/14/16 #60 Aspirin (Aspirin EC) 81 Mg Tablet.dr 81 MG PO DAILY, TAB Atorvastatin Calcium (Lipitor) 80 Mg Tablet 40 MG PO HS, TAB TAKES 1/2 (80MG) TABLET Budesonide/Formoterol Fumarate (Symbicort 160-4.5 Mcg Inhaler) 10.2 Gm Hfa.aer.ad 2 PUFF IH BID, INHALER LAST DISPENSED 11/14/16 #1 INHALER Carboxymethylcellulose Sodium (Lubricant Eye Drops) 15 Ml Drops 1 DROP OU QID PRN for DRY EYES, DROPS Carvedilol (Carvedilol) 25 Mg Tablet 25 MG PO BID, TAB Furosemide (Furosemide) 80 Mg Tablet 80 MG PO DAILY, TAB Gabapentin (Gabapentin) 300 Mg Capsule 600 MG PO TID, CAP TAKES 2 (300 MG) CAPSULES Glipizide (Glipizide) 10 Mg Tablet 10 MG PO DAILY, TAB Glipizide (Glipizide) 10 Mg Tablet 5 MG PO DAILY@1700, TAB Hydrocodone/Acetaminophen (Hydrocodon -Acetaminophen 5-325) 1 Each Tablet 1 TAB PO BID PRN for PAIN Isosorbide Mononitrate (Isosorbide Mononitrate ER) 60 Mg Tab 60 MG PO DAILY, TAB LAST DISPENSED 08/14/16 #90 Levothyroxine Sodium (Levothyroxine Sodium) 200 Mcg Tablet 200 MCG PO DAILY, TAB Lorazepam (Lorazepam) 1 Mg Tablet 0.5-1 MG PO BID PRN for AIR HUNGER, TAB TAKES 1/2 TO 1 OF A (1 MG) TABLET Losartan Potassium (Losartan Potassium) 100 Mg Tablet 100 MG PO DAILY, TAB LAST DISPENSED 09/11/16 #90 Potassium Chloride (Potassium Chloride) 20 Meq Tablet.er 20 MEQ PO DAILY, TAB Ropinirole HCl (Ropinirole HCl) 1 Mg Tablet 1 MG PO HS Tamsulosin HCl (Tamsulosin HCl) 0.4 Mg Cap.er.24h 0.4 MG PO HS, CAP Trazodone HCl (Trazodone HCl) 100 Mg Tablet 150 MG PO HS, TAB TAKES 1 & 1/2 OF A (100 MG) TABLET / LAST DISPENSED 11/14/16 #45 Patient Instructions Goal/Follow Up Appt: The nurse from [facility] will call you on Thursday with an appointment. Patient Instructions: Please take all medications as prescribed. Please consider hospice as this is what your doctors are advising due to your poor health. You can discuss this with your PCP at your next appointment. [facility] to [facility] For: low oxygenation, rapid heart rate Activity & Diet Discharge Diet: Low Fat/Low Cholesterol Activity as Tolerated: Yes Copy Copies To 1: CARON KNUTSON APRN, MD Jan 10, 2017 12:06
--- NOTE | 2017-01-10 12:07 | Discharge Summary ---
Diagnosis/Chief Complaint Date of Admission Jan 09, 2017 at 09:19 Date of Discharge Discharge Summary-Simple/Stand Consultations Discharge Physical Examination Allergies: Coded Allergies: adhesive tape (Verified Allergy, Mild, RASH, 05/23/16) shellfish derived (Verified Allergy, Mild, HIVES, 05/23/16) Penicillins (Verified Allergy, Unknown, 05/09/16) Vitals & I&Os Vital Sign - Last 12Hours Date Time Temp Pulse Resp B/P (MAP) Pulse Ox O2 Delivery O2 Flow Rate FiO2 01/10/17 10:48 95 Nasal Cannula 4.00 01/10/17 08:28 97.4 87 18 119/71 01/09/17 04:00 30 Intake and Output 01/10/17 00:00 Intake Total 1200 ml Output Total 900 ml Balance 300 ml Hospital Course See final discharge diagnosis. Discharge Instructions to patient/family Please see electonic discharge instructions given to patient. Discharge Medications Reviewed and agree with Discharge Medication list on patient's Discharge Instruction sheet Clinical Quality Measures DVT/VTE Risk/Contraindication: Risk Factor Score Per Nursin RFS Level Per Nursing on Admit: 4+=Very High CARON KANG MD Jan 10, 2017 12:07
--- NOTE | 2017-01-10 12:26 | Cardiology Progress Note ---
Cardiology SOAP Progress Note Subjective: Much better Objective: I&O/Vital Signs Vital Sign - Last 12Hours 01/10/17 01/10/17 01/10/17 01/10/17 02:12 04:25 06:45 08:28 Temp 96.8 97.4 Pulse 79 87 Resp 18 18 B/P (MAP) 103/61 119/71 Pulse Ox 96 94 96 95 O2 Delivery Nasal Cannula Nasal Cannula Nasal Cannula Nasal Cannula O2 Flow Rate 5.00 5.00 5.00 5.00 01/10/17 01/10/17 09:00 10:48 Pulse Ox 95 O2 Delivery Nasal Cannula Nasal Cannula O2 Flow Rate 5.00 4.00 Intake and Output 01/10/17 00:00 Intake Total 1200 ml Output Total 900 ml Balance 300 ml Weight (Pounds): 299 Weight (Ounces): 5.0 Weight (Calculated Kilograms): 135.219416 Constitutional: No appears stated age, No AAO x 3, No apparent distress, No PERRL, No well-developed, No well-nourished, No other Respiratory: No accessory muscle use, No respiratory distress, No chest tender , No chest expansion is symmetric, No chest is bilaterally symmetric, No lungs clear to percussion, No lungs clear to auscultation, No crackles, No rhonchi, No rales, No stridor, No wheezing, No pleural rub, No other Cardiovascular: irregularly irregular, S1 and S2 Gastrointestional: No tender, No soft, No round, No distended, No pulsatile mass, No organomegaly, No guarding, No rebound, No tenderness, No hernia, No mass, No audible bowel sounds, No abnormal bowel sounds, No abdominal bruits, No spleenomegaly, No other Extremities: No normal range of motion, No non-tender, No normal inspection, No pedal edema, No calf tenderness, No normal capillary refill, No pelvis stable , No calf tenderness, No inflammation, No pedal edema, No slow capillary refill , No swelling, No other, No abrasion, No clubbing, No cyanosis, No ecchymosis, No laceration, No no lower extremity edema bilateral, No significant edema, No tenderness, No wound Neurologic/Psychiatric: No devops developer II-XII nml as tested, No no motor/sensory deficits, No alert, No normal mood/affect, No oriented x 3, No abnormal cerebellar tests, No abnormal devops developer II-XII, No abnormal gait, No aphasia, No EOM palsy, No facial droop, No motor weakness, No sensory deficit, No depressed affect, No disoriented x 3, No other, No grossly intact, No power is 5/5 both on sides Skin: No normal color, No warm/dry, No cyanosis, No cool, No diaphoresis, No damp, No ecchymosis, No jaundice, No mottled, No pallor, No rash, No tattoos/ piercings, No ulcerations, No rash on exposed areas, No ulcerations on exposed areas, No other Results/Procedures: Labs Laboratory Tests 01/09/17 16:26: Glucometer 256H 01/09/17 21:23: Glucometer 219H 01/10/17 05:28: Glucometer 166H 01/10/17 11:08: Glucometer 267H Microbiology 01/08/17 Blood Culture - Preliminary, Resulted No growth A/P: Assessment/Dx: Admission Diagnosis acute respiratory failure Acute exacerbation of COPD Hypertension Persistent atrial fibrillation Plan: Assessment/Plan Acute respiratory failure, non-invasive ventilatory assistance, on BiPAP, managed by Dr. Conti. significant improvement Shortness of breath not secondary to significant CHF since BNP is low. chronic compensated left ventricular systolic dysfunction, ejection fraction 40-45 percent, probably ischemic cardiomyopathy, maintained on beta blockers, unable to tolerate PAMELA inhibitor and/or ARB due to renal insufficiency and history of renal failure, Continue to monitor closely. Stable cardiac-bravo. Can be discharged to follow-up with Dr. Butler as an outpatient. Persistent atrial fibrillation, rate is controlled [id number] score is 5, yearly risk of stroke without oral anticoagulation is 6.7 percent, he is maintained on Eliquis 5 mg twice daily.continue on Eliquis for now Coronary artery disease, history of CABG 3 done in 2002, no recent workup was done.continue to monitor closely Chronic renal insufficiency, continue to monitor renal function Hypertension, poorly controlled, restart home medication monitor his tolerance and response COPD/obstructive sleep apnea, severe exacerbation, managed by Dr. Conti Diabetes mellitus, followed and managed by primary care physician Hypothyroidism, followed and managed by primary care physician Obesity, BMI is 47. Continue to monitor. Stable to discharge cardiac-bravo, we'll follow with Dr. Butler as an outpatient. Thank you for your consultation. Please call me if you have any questions. Susanne Wright MD, FACP, FACC, [facility], FHRS, CCDS Interventional Cardiology Cardiac Electrophysiology Vascular Medicine and Endovascular Interventions Devon WRIGHT MD Jan 10, 2017 12:26 pm
== END 2017-01-10 14:42 | disposition home or self-care (01) | DRG 189 ==
LOC: EDUNIT# 11:23 → ER 11:26 → UNDOADMOB 12:45 → ICU 12:45 → OBSVTOIN 01-09 09:19 → INTOOBSV 01-09 09:19 → 4TH 01-09 09:59 → ICU 01-09 09:59 → UNDODISIN 01-10 14:42
PROVIDERS: ADMIT Internal Medicine; ATTEND Internal Medicine
DX: J96.20 Acute and chronic respiratory failure, unspecified whether with hypoxia or hypercapnia (principal); J44.1 Chronic obstructive pulmonary disease with (acute) exacerbation; E66.01 Morbid (severe) obesity due to excess calories; I48.1 Persistent atrial fibrillation; I69.351 Hemiplegia and hemiparesis following cerebral infarction affecting right dominant side; Z68.42 Body mass index [BMI] 45.0-49.9, adult; G47.33 Obstructive sleep apnea (adult) (pediatric); Z66 Do not resuscitate; E11.40 Type 2 diabetes mellitus with diabetic neuropathy, unspecified; K21.9 Gastro-esophageal reflux disease without esophagitis; I13.0 Hypertensive heart and chronic kidney disease with heart failure and stage 1 through stage 4 chronic kidney disease, or unspecified chronic kidney disease; E78.5 Hyperlipidemia, unspecified; M10.9 Gout, unspecified; I25.5 Ischemic cardiomyopathy; I25.10 Atherosclerotic heart disease of native coronary artery without angina pectoris; Z95.1 Presence of aortocoronary bypass graft; N18.9 Chronic kidney disease, unspecified; E03.9 Hypothyroidism, unspecified; Z87.891 Personal history of nicotine dependence; Z95.5 Presence of coronary angioplasty implant and graft; Z96.651 Presence of right artificial knee joint; E78.00 Pure hypercholesterolemia, unspecified; I50.9 Heart failure, unspecified
CPT/HCPCS: 36415; 71010; 80053; 82550; 82553; 82805; 82962; 83605; 83735; 83880; 84484; 85025; 85610; 85730; 87040; 93005; 93041; 94640; 94660; 94760; 96374; 96375; 99211; G0378

== ENCOUNTER 2017-02-19 13:10 | Inpatient (IN) | payer MEDICARE, MEDICAID ==
[~2017-02-19] VITALS: Ht 167.6 cm; Wt 141.2 kg
[~2017-02-19 13:10] MED LIST changes: +ACET325T49 PO; +CARV25TA PO; +HYOS-20 PO; -HYOS0.1216 PO; +ROPI1TAB2 PO
[2017-02-19] MEDS ORDERED: RT-ALBUTEROL/IPRATROPIUM 3 ML (DUONEB) VIAL ONE (13:16)
--- NOTE | 2017-02-19 13:27 | ED Cough/URI ---
General Chief Complaint: Respiratory Problems Stated Complaint: RESP PROBLEMS Nursing Triage Note: PT TO RM 8 BY [facility] WITH CC OF SOB AT REST, PTON O2 AT HOME, 10 LPM NON REBREATHER ON ARRIVAL, O2 SAT AT 98%. DENIES CHEST PAIN. Source: patient Exam Limitations: no limitations History of Present Illness Time seen by provider: 13:25 Initial Comments To ER per EMS from home in [place] with reports of shortness of breath. He states that he has been wearing his CPAP At home but has not been taking his breathing treatments for his endstage COPD because "I didn't feel like it". When asked if I could place him on hospice he states "I'm thinking about it". This is been offered him multiple times that he has historically declined. He also declines being placed in a intermediate. However, he is very noncompliant with treatments historically. Timing/Duration: this morning Severity/Quality: dry cough Associated Symptoms: cough Allergies and Home Medications Allergies Coded Allergies: adhesive tape (Verified Allergy, Mild, RASH, 05/23/16) shellfish derived (Verified Allergy, Mild, HIVES, 05/23/16) Penicillins (Verified Allergy, Unknown, 05/09/16) Home Medications Acetaminophen 325 Mg Tablet, 650 MG PO QID PRN for PAIN-MILD, (Reported) TAKES 2 (325 MG) TABLETS Allopurinol 300 Mg Tablet, 300 MG PO DAILY, (Reported) Apixaban 5 Mg Tablet, 5 MG PO BID, (Reported) LAST DISPENSED 11/14/16 #60 Aspirin 81 Mg Tablet.dr, 81 MG PO DAILY, (Reported) Atorvastatin Calcium 80 Mg Tablet, 40 MG PO HS, (Reported) TAKES 1/2 (80MG) TABLET Budesonide/Formoterol Fumarate 10.2 Gm Hfa.aer.ad, 2 PUFF IH BID, (Reported) LAST DISPENSED 11/14/16 #1 INHALER Carboxymethylcellulose Sodium 15 Ml Drops, 1 DROP OU QID PRN for DRY EYES, ( Reported) Carvedilol 25 Mg Tablet, 25 MG PO BID, (Reported) Furosemide 80 Mg Tablet, 80 MG PO DAILY, (Reported) Gabapentin 300 Mg Capsule, 600 MG PO TID, (Reported) TAKES 2 (300 MG) CAPSULES Glipizide 10 Mg Tablet, 10 MG PO DAILY, (Reported) Glipizide 10 Mg Tablet, 5 MG PO DAILY@1700, (Reported) Hydrocodone/Acetaminophen 1 Each Tablet, 1 TAB PO BID PRN for PAIN, (Reported) Isosorbide Mononitrate 60 Mg Tab, 60 MG PO DAILY, (Reported) LAST DISPENSED 08/14/16 #90 Levothyroxine Sodium 200 Mcg Tablet, 200 MCG PO DAILY, (Reported) Lorazepam 1 Mg Tablet, 0.5-1 MG PO BID PRN for AIR HUNGER, (Reported) TAKES 1/2 TO 1 OF A (1 MG) TABLET Losartan Potassium 100 Mg Tablet, 100 MG PO DAILY, (Reported) LAST DISPENSED 09/11/16 #90 Potassium Chloride 20 Meq Tablet.er, 20 MEQ PO DAILY, (Reported) Ropinirole HCl 1 Mg Tablet, 1 MG PO HS, (Reported) Tamsulosin HCl 0.4 Mg Cap.er.24h, 0.4 MG PO HS, (Reported) Trazodone HCl 100 Mg Tablet, 150 MG PO HS, (Reported) TAKES 1 & 1/2 OF A (100 MG) TABLET / LAST DISPENSED 11/14/16 #45 Constitutional: see HPI, No chills, No fever EENTM: see HPI Respiratory: see HPI, short of breath Cardiovascular: no symptoms reported Genitourinary: no symptoms reported Musculoskeletal: no symptoms reported Skin: no symptoms reported Psychiatric/Neurological: No Symptoms Reported Past Bscucmm-Wmqiik-Jcwlsq Hx Patient Social History Type Used: Cigarettes 2nd Hand Smoke Exposure: No Recent Foreign Travel: No Contact w/Someone Who Travel: No Recent Infectious Disease Expo: No Recent Hopitalizations: Yes (two weeks ago) Immunizations Up To Date Tetanus Booster (TDap): Unknown PED Vaccines UTD: No Date of Pneumonia Vaccine: Apr 24, 2016 Date of Influenza Vaccine: Apr 24, 2016 Seasonal Allergies Seasonal Allergies: No Surgeries HX Surgeries: Yes (CARDIAC CATHS WITH STENTS, THEN CABG; RIGHT TOTAL KNEE REPLACEMENT) Surgeries: Cardiac, CABG, Coronary Stent, Joint Replacement, Orthopedic, Vasectomy Respiratory Hx Respiratory Disorders: Yes (O2 DEPENDENT AT 4L/NC; BIPAP AT HIS AND PRN DURING DAY) Respiratory Disorders: Asthma, Sleep Apnea, COPD Cardiovascular Hx Cardiac Disorders: Yes (CHF; RBBB) Cardiac Disorders: Atrial Fibrillation, Coronary Artery Disease, High Cholesterol, Hypertension, Peripheral Vascular Neurological Hx Neurological Disorders: Yes (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; RESTLESS LEG) Neurological Disorders: Neuropathy, Stroke Reproductive System Hx Reproductive Disorders: No Sexually Transmitted Disease: No HIV/AIDS: No Genitourinary Hx 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) Genitourinary Disorders: Renal Failure Gastrointestinal Hx Gastrointestinal Disorders: Yes Gastrointestinal Disorders: Gastroesophageal Reflux Musculoskeletal Hx Musculoskeletal Disorders: Yes (ELECTRIC WHEELCHAIR) Musculoskeletal Disorders: Arthritis Endocrine Hx Endocrine Disorders: Yes (MORBID OBESITY) Endocrine Disorders: Hypothyroidsim, Diabetes, Non-Insulin dep HEENT HX ENT Disorders: No (GLASSES) Cancer Hx Cancer: No Psychosocial Hx Psychiatric Problems: No Integumentary HX Skin/Integumentary Disorder: No Blood Transfusions Hx Blood Disorders: No Family Medical History Significant Family History: No Pertinent Family Hx Family Medial History: Patient reports no known family medical history. Physical Exam Vital Signs Vital Sign - Last 12Hours 02/19/17 02/19/17 13:19 13:28 Temp 96.9 Pulse 110 Resp 24 B/P (MAP) 98/81 Pulse Ox 98 O2 Delivery Non Rebreather O2 Flow Rate 15.00 Capillary Refill : Less Than 3 Seconds General Appearance: WD/WN, mild distress, obese Eyes: Bilateral Eye EOMI, Bilateral Eye Normal Inspection, Bilateral Eye PERRL HEENT: PERRL/EOMI, normal ENT inspection Neck: non-tender, full range of motion Respiratory: normal breath sounds, no respiratory distress, decreased breath sounds, accessory muscle use Cardiovascular: regular rate, rhythm, no murmur Gastrointestinal: normal bowel sounds, non tender, soft Neurologic/Psychiatric: alert, normal mood/affect, oriented x 3 Skin: normal color, warm/dry Progress/Results/Core Measures Results/Orders Lab Results Laboratory Tests Test 02/19/17 13:28 02/19/17 13:40 Range/Units Blood Gas Puncture Site right radial Blood Gas Patient Temperature 97.5 Arterial Blood pH 7.26 *L 7.37-7.43 Arterial Blood Partial Pressure CO2 86 *H 35-45 MMHG Arterial Blood Partial Pressure O2 54 L 79-93 MMHG Arterial Blood HCO3 37 H 23-27 MMOL/L Arterial Blood Total CO2 40.1 H 21.0-31.0 MMOL/L Arterial Blood Oxygen Saturation 85 L 94-100 % Arterial Blood Base Excess 10.2 H -2.5-2.5 MMOL/L Hayder Test YES-POS Blood Gas Ventilator Setting NO Blood Gas Inspired Oxygen 15 White Blood Count 12.9 H 4.3-11.0 10^3/uL Red Blood Count 4.80 4.35-5.85 10^6/uL Hemoglobin 14.4 13.3-17.7 G/DL Hematocrit 46 40-54 % Mean Corpuscular Volume 97 80-99 FL Mean Corpuscular Hemoglobin 30 25-34 PG Mean Corpuscular Hemoglobin Concent 31 L 32-36 G/DL Red Cell Distribution Width 15.2 H 10.0-14.5 % Platelet Count 274 130-400 10^3/uL Mean Platelet Volume 10.3 7.4-10.4 FL Neutrophils (%) (Auto) 82 H 42-75 % Lymphocytes (%) (Auto) 9 L 12-44 % Monocytes (%) (Auto) 4 0-12 % Eosinophils (%) (Auto) 4 0-10 % Basophils (%) (Auto) 0 0-10 % Neutrophils # (Auto) 10.6 H 1.8-7.8 X 10^3 Lymphocytes # (Auto) 1.2 1.0-4.0 X 10^3 Monocytes # (Auto) 0.6 0.0-1.0 X 10^3 Eosinophils # (Auto) 0.5 H 0.0-0.3 10^3/uL Basophils # (Auto) 0.1 0.0-0.1 10^3/uL Sodium Level 141 135-145 MMOL/L Potassium Level 4.3 3.6-5.0 MMOL/L Chloride Level 94 L 98-107 MMOL/L Carbon Dioxide Level 36 H 21-32 MMOL/L Anion Gap 11 5-14 MMOL/L Blood Urea Nitrogen 11 7-18 MG/DL Creatinine 0.90 0.60-1.30 MG/DL Estimat Glomerular Filtration Rate > 60 BUN/Creatinine Ratio 12 Glucose Level 180 H 70-105 MG/DL Calcium Level 9.6 8.5-10.1 MG/DL Total Bilirubin 0.7 0.1-1.0 MG/DL Aspartate Amino Transf (AST/SGOT) 15 5-34 U/L Alanine Aminotransferase (ALT/SGPT) 14 0-55 U/L Alkaline Phosphatase 80 40-136 U/L Troponin I < 0.30 <0.30 NG/ML B-Type Natriuretic Peptide 266.5 H <100.0 PG/ML Total Protein 7.4 6.4-8.2 GM/DL Albumin 3.8 3.2-4.5 GM/DL My Orders Orders - MOUNA CLAUDIO APRN Cbc With Automated Diff (02/19/17 13:21) Comprehensive Metabolic Panel (02/19/17 13:21) Troponin I (02/19/17 13:21) Continuous Ekg Monitoring (02/19/17 13:21) Chest 1 View, Ap/Pa Only (02/19/17 13:21) Arterial Blood Gas (02/19/17 13:32) BNP (02/19/17 13:42) Medications Given in ED Current Medications Medications Dose Ordered Sig/Scar Route Start Time Stop Time Status Last Admin Dose Admin Albuterol/ Ipratropium 3 ml STK-MED ONCE .ROUTE 02/19/17 13:16 02/19/17 13:23 DC 02/19/17 13:27 3 ML Vital Signs/I&O Vital Sign - Last 12Hours 02/19/17 02/19/17 13:19 13:28 Temp 96.9 Pulse 110 Resp 24 B/P (MAP) 98/81 Pulse Ox 98 O2 Delivery Non Rebreather Non Rebreather O2 Flow Rate 15.00 Blood Pressure Mean: 87 Diagnostic Imaging Diagonstic Imaging: Xray Plain Films/CT/US/NM/MRI: chest Comments NAME: [facility] REC#: [id number] PT STATUS: REG ER : 1940 PHYSICIAN: MOUNA CLAUDIO APRN ADMIT DATE: 02/19/17/ER Draft Date of Exam:02/19/17 CHEST 1 VIEW, AP/PA ONLY EXAMINATION: Portable upright radiograph of the chest. INDICATION: Shortness of breath. Findings: The heart size is enlarged with pulmonary vascular congestion and superimposed right infrahilar infiltrates or atelectasis. No significant effusion. No pneumothorax. The mediastinum and smitha appear unremarkable. Sternotomy wires are seen. IMPRESSION: Cardiomegaly with pulmonary vascular congestion. There is a small airspace opacity in the right infrahilar region may relate to atelectasis or infiltrate. Dictated on workstation # [id number] Dict: 02/19/17 1408 Trans: 02/19/[address] [place] [address] [id number] Interpreted by: NIKOLAS NARAYANAN MD Electronically signed by: Departure Communication Progress Notes Patient reports RN, "get a 45, put it to my ear and pull the trigger". [id number] have discussed at length with the patient the effect of his noncompliance on his COPD and not taking his breathing treatments at home. I also advised him of the progressive and worsening nature of his COPD and the need for hospice. He states that he cannot make this decision until Thursday the of this month when his friend Radha Bhat and Fermín his [employer] protective services social worker can meet with him. He does state that he does not want a tube down his throat or chest compressions if his heart should stop suddenly so he will remain a DO NOT RESUSCITATE status. Impression Impression: Primary Impression: Non-compliance Additional Impressions: COPD exacerbation Right lower lobe pneumonia Disposition: ADMITTED INPATIENT Condition: Stable Decision to Admit Reason: Admit from ER (General) Decision to Admit/Date: Feb 19, 2017 Time/Decision to Admit Time: 14:46 Departure-Patient Inst. Referrals: LEI CHATTERJEE DO (PCP/Family) Primary Care Physician MOUNA CLAUDIO APRN Feb 19, 2017 13:27
[2017-02-19 13:38] LABS: ABG BASE EXCESS 10.2 MMOL/L (-2.5-2.5); ABG HCO3 37 MMOL/L (23-27); ABG OXYGEN SATURATION 85 % (94-100); ABG PO2 54 MMHG (79-93); ABG TCO2 40.1 MMOL/L (21.0-31.0)
[2017-02-19 13:41] LABS: ABG PCO2 86 MMHG (35-45); ABG PH 7.26 (7.37-7.43); ALLENS TEST YES-POS
[2017-02-19 13:42] LABS: PATIENT TEMP 97.5
[2017-02-19 13:50] LABS: BASOPHILS # (AUTO) 0.1 10^3/uL (0.0-0.1); BASOPHILS % (AUTO) 0 % (0-10); EOSINOPHILS # (AUTO) 0.5 10^3/uL (0.0-0.3); EOSINOPHILS % (AUTO) 4 % (0-10); LYMPHOCYTES # (AUTO) 1.2 X 10^3 (1.0-4.0); LYMPHOCYTES % (AUTO) 9 % (12-44); MEAN CORPUSCULAR HEMOGLOBIN 30 PG (25-34); MEAN CORPUSCULAR HGB CONC 31 G/DL (32-36); MEAN CORPUSCULAR VOLUME 97 FL (80-99); MEAN PLATELET VOLUME 10.3 FL (7.4-10.4); MONOCYTES # (AUTO) 0.6 X 10^3 (0.0-1.0); MONOCYTES % (AUTO) 4 % (0-12); NEUTROPHILS # (AUTO) 10.6 X 10^3 (1.8-7.8); NEUTROPHILS % (AUTO) 82 % (42-75); PLATELET COUNT 274 10^3/uL (130-400); RED CELL DISTRIBUTION WIDTH 15.2 % (10.0-14.5); WHITE BLOOD COUNT 12.9 10^3/uL (4.3-11.0)
[2017-02-19 14:07] LABS: ALANINE AMINOTRANSFERASE 14 U/L (0-55); ALBUMIN 3.8 GM/DL (3.2-4.5); ANION GAP 11 MMOL/L (5-14); ASPARTATE AMINO TRANSFERASE 15 U/L (5-34); BILIRUBIN,TOTAL 0.7 MG/DL (0.1-1.0); BLOOD UREA NITROGEN 11 MG/DL (7-18); BUN/CREATININE RATIO 12; CALCIUM 9.6 MG/DL (8.5-10.1); CARBON DIOXIDE 36 MMOL/L (21-32); CHLORIDE 94 MMOL/L (98-107); GFR ESTIMATED > 60; GLUCOSE 180 MG/DL (70-105); POTASSIUM 4.3 MMOL/L (3.6-5.0); SODIUM 141 MMOL/L (135-145); TOTAL PROTEIN 7.4 GM/DL (6.4-8.2)
--- NOTE | 2017-02-19 14:13 | Diagnostic Imaging Report ---
EXAMINATION: Portable upright radiograph of the chest. INDICATION: Shortness of breath. Findings: The heart size is enlarged with pulmonary vascular congestion and superimposed right infrahilar infiltrates or atelectasis. No significant effusion. No pneumothorax. The mediastinum and smitha appear unremarkable. Sternotomy wires are seen. IMPRESSION: Cardiomegaly with pulmonary vascular congestion. There is a small airspace opacity in the right infrahilar region may relate to atelectasis or infiltrate. Dictated by: Dictated on workstation # [id number]
[2017-02-19 14:14] LABS: TROPONIN I < 0.30 NG/ML (<0.30)
[2017-02-19] MEDS ORDERED: LEVOFLOXACIN 750 MG/150 ML IV 150 ML IV ONE (15:15)
[2017-02-19 16:45] VITALS: BP 146/93
[2017-02-19] MEDS: NS IV 1000 ML 1,000 ML IV SCH (16:49)
[2017-02-19 17:01] VITALS: BP 98/81
[2017-02-19] MEDS ORDERED: GUAI100L36 PO (17:15)
[2017-02-19] MEDS ORDERED: RT-ALBUTEROL/IPRATROPIUM 3 ML (DUONEB) VIAL INH PRN (17:15)
[2017-02-19 17:45] VITALS: BP 148/79
[2017-02-19 18:00] VITALS: BP 108/51
[2017-02-19] MEDS: RT-ALBUTEROL/IPRATROPIUM 3 ML (DUONEB) VIAL INH SCH ×2 (18:29→22:09)
[2017-02-19] MEDS: CEFEPIME 2 GM/NS 50 ML IVPB IV SCH ×2 (18:36)
[2017-02-19 20:00] VITALS: BP 123/83
[2017-02-19] MEDS ORDERED: traZODone 100 MG (DESYREL) TAB ONE (22:05)
[2017-02-19] MEDS ORDERED: rOPINIRole 1 MG (REQUIP) TABLET ONE (22:05)
[2017-02-19] MEDS ORDERED: GABAPENTIN 300 MG (NEURONTIN) CAP ONE (22:05)
[2017-02-19] MEDS: GABAPENTIN 300 MG (NEURONTIN) CAP PO SCH (22:18)
[2017-02-20 00:14] VITALS: BP 118/98
[2017-02-20] MEDS: NS IV 1000 ML 1,000 ML IV SCH (02:37)
[2017-02-20] MEDS: RT-ALBUTEROL/IPRATROPIUM 3 ML (DUONEB) VIAL INH SCH ×4 (02:40→14:15)
[2017-02-20 04:00] VITALS: BP 100/78
[2017-02-20] MEDS: CEFEPIME 2 GM/NS 50 ML IVPB IV SCH ×2 (04:20)
[2017-02-20] MEDS: GABAPENTIN 300 MG (NEURONTIN) CAP PO SCH ×2 (08:30→13:40)
[2017-02-20] MEDS ORDERED: LEVOFLOXACIN 750 MG TAB (LEVAQUIN) PO SCH (11:00)
[2017-02-20 12:00] VITALS: BP 140/109
--- NOTE | 2017-02-20 14:53 | Discharge Instructions ---
Discharge [facility] Discharge Medications New, Converted or Re-Newed RX: Transmitted to Pharmacy Continued Medications: Acetaminophen (Acetaminophen) 325 Mg Tablet 650 MG PO QID PRN for PAIN-MILD, TAB TAKES 2 (325 MG) TABLETS Allopurinol (Allopurinol) 300 Mg Tablet 300 MG PO DAILY, TAB Aspirin (Aspirin EC) 81 Mg Tablet.dr 81 MG PO DAILY, TAB Budesonide/Formoterol Fumarate (Symbicort 160-4.5 Mcg Inhaler) 10.2 Gm Hfa.aer.ad 2 PUFF IH BID, INHALER LAST DISPENSED 11/14/16 #1 INHALER Carboxymethylcellulose Sodium (Lubricant Eye Drops) 15 Ml Drops 1 DROP OU QID PRN for DRY EYES, DROPS Carvedilol (Carvedilol) 25 Mg Tablet 12.5 MG PO BID, TAB TAKES 1/2 OF A (25 MG) TABLET Furosemide (Furosemide) 80 Mg Tablet 80 MG PO DAILY, TAB Gabapentin (Gabapentin) 300 Mg Capsule 600 MG PO TID, CAP TAKES 2 (300 MG) CAPSULES Glipizide (Glipizide) 10 Mg Tablet 20 MG PO BID, TAB TAKES 2 (10MG) TABLETS Guaifenesin (Tussin) 100 Mg/5 Ml Liquid 200 MG PO Q4H PRN for CONGESTION, EA TAKES 10 ML OF A (100MG/5ML) SUSPENSION Hydrocodone/Acetaminophen (Hydrocodon -Acetaminophen 5-325) 1 Each Tablet 1 TAB PO BID PRN for PAIN-MODERATE, TAB Levothyroxine Sodium (Levothyroxine Sodium) 200 Mcg Tablet 200 MCG PO DAILY, TAB LAST FILLED 11/16/16 #60 Losartan Potassium (Losartan Potassium) 100 Mg Tablet 100 MG PO DAILY, TAB LAST DISPENSED 09/11/16 #90 Potassium Chloride (Potassium Chloride) 20 Meq Tablet.er 20 MEQ PO DAILY, TAB Ropinirole HCl (Ropinirole HCl) 1 Mg Tablet 1 MG PO HS, TAB Tamsulosin HCl (Tamsulosin HCl) 0.4 Mg Cap.er.24h 0.4 MG PO HS, CAP Trazodone HCl (Trazodone HCl) 100 Mg Tablet 150 MG PO HS, TAB TAKES 1 & 1/2 OF A (100 MG) TABLET Discontinued Medications: Apixaban (Eliquis) 5 Mg Tablet 5 MG PO BID, TAB LAST DISPENSED 11/14/16 #60 Atorvastatin Calcium (Lipitor) 80 Mg Tablet 40 MG PO HS, TAB TAKES 1/2 (80MG) TABLET Lorazepam (Lorazepam) 1 Mg Tablet 0.5-1 MG PO BID PRN for AIR HUNGER, TAB TAKES 1/2 TO 1 OF A (1 MG) TABLET Patient Instructions Goal/Follow Up Appt: HOSPICE WILL MEET YOU AT YOUR HOME. YOU MAY MAKE A FOLLOW UP APPOINTMENT WITH COLIN WAYNE APRN IF YOU WOULD LIKE. Patient Instructions: PLEASE ADMINISTRATIVE DIETITIAN YOUR ATIVAN AND ROXANOL PRESCRIPTIONS AT [facility]. THEY WERE SENT THERE THROUGH THE CLINIC COMPUTER SYSTEM. Return to The Hospital For: CALL THE ON-CALL HOSPICE NURSE IF YOU HAVE QUESTIONS OR CONCERNS. THEY CAN HELP DECIDE WHAT FURTHER ACTIONS NEED TO TAKE PLACE. Activity & Diet Discharge Diet: ADA Diet Activity as Tolerated: Yes Orders-Post D/C & Referrals [facility] Copy Copies To 1: CARON KNUTSON APRN, MD Feb 20, 2017 2:53 pm
--- NOTE | 2017-02-20 14:54 | Short Stay Summary ---
HPI History of Present Illness: Mr Nguyễn is a patient well known to [facility] who presented to ER with complaints of shortness of breath. Patient has a longstanding history of paroxysmal atrial fibrillation, CHF, COPD, obesity hypoventilation syndrome, and poor funcitonal status. Patient denies fever or sputum production. He states that this week has been difficult because his regular INFORMATICS PHYSICIAN LIAISON had surgery,a nd his replacement INFORMATICS PHYSICIAN LIAISON has an amputated leg. He lives alone and states taht he often gets nervous about his breathing, so that is why he came to hospital today, as in previous times. Source: patient Exam Limitations: no limitations Date seen by provider: Feb 20, 2017 Time Seen by Provider: 08:00 Attending Physician Caron Adames MD PCP Aliyah Gonzales DO Consult Date of Admission Feb 19, 2017 at 2:50 pm Home Medications Home Medications Reviewed patient Home Medication Reconciliation Form Allergies Coded Allergies: adhesive tape (Verified Allergy, Mild, RASH, 05/23/16) shellfish derived (Verified Allergy, Mild, HIVES, 05/23/16) Penicillins (Verified Allergy, Unknown, 05/09/16) ANF-Alyzgm-[place] Hx Patient Social History Alcohol Use: Occasionally Uses Recreational Drug Use: No Smoking Status: Former Smoker Type Used: Cigarettes 2nd Hand Smoke Exposure: No Recent Foreign Travel: No Contact w/other who traveled: No Recent Hopitalizations: Yes Recent Infectious Disease Expo: No Physical Abuse Screen: No Sexual Abuse: No Immunizations Up To Date Tetanus Booster (TDap): Unknown Date of Pneumonia Vaccine: Apr 24, 2016 Date of Influenza Vaccine: Apr 24, 2016 Past Medical History PMHx: NIDDMII HTN HLD CHF Hypothyroidism CVA with left leg weakness- non-ambulatory CAD s/p Stents then CABG Chronic A fib COPD SurgHx: Coronary artery bypass Right knee replacement Vasectomy Family Medical History Significant Family History: No Pertinent Family Hx Other Significan Family Hx: noncontributory to his current condition Family History: Patient reports no known family medical history. Review of Systems ([facility]) Constitutional: no symptoms reported All Other Systems Reviewed Negative Unless Noted: Yes (Negative excepted noted.) Reviewed Test Results Reviewed Test Results Lab Laboratory Tests Test 02/19/17 21:44 02/20/17 01:07 Range/Units Lactic Acid Level 1.70 1.22 0.50-2.00 MMOL/L Physical Exam-([facility]) Physical Exam Vital Signs VS - Last 72 Hours, by Label 02/19/17 02/19/17 02/19/17 02/19/17 13:19 13:28 16:00 16:05 Temp 96.9 97.0 Pulse 110 95 Resp 24 20 B/P (MAP) 98/81 Pulse Ox 98 95 O2 Delivery Non Rebreather Non Rebreather Nasal Cannula Nasal Cannula O2 Flow Rate 15.00 4.00 4.00 02/19/17 02/19/17 02/19/17 02/19/17 16:45 16:58 17:01 17:45 Pulse 95 110 96 Resp 25 B/P (MAP) 146/93 148/79 Pulse Ox 98 98 02/19/17 02/19/17 02/19/17 02/19/17 18:00 18:29 19:00 20:00 Pulse Resp 24 B/P (MAP) 108/51 Pulse Ox 91 93 97 O2 Delivery Nasal Cannula Nasal Cannula O2 Flow Rate 5.00 5.00 02/19/17 02/19/17 02/19/17 02/20/17 20:00 21:00 22:09 00:00 Temp 97.3 Pulse 96 Resp 16 B/P (MAP) 123/83 Pulse Ox 97 96 95 95 O2 Delivery Nasal Cannula Nasal Cannula Nasal Cannula Nasal Cannula O2 Flow Rate 5.00 5.00 5.00 5.00 02/20/17 02/20/17 02/20/17 02/20/17 00:14 01:00 02:40 04:00 Temp 99.2 Pulse 104 94 Resp 18 B/P (MAP) 118/98 Pulse Ox 94 96 95 O2 Delivery Nasal Cannula Nasal Cannula Nasal Cannula O2 Flow Rate 5.00 5.00 5.00 02/20/17 02/20/17 02/20/17 02/20/17 04:00 06:14 07:00 08:00 Temp 98.4 98.2 Pulse 101 120 Resp 16 B/P (MAP) 100/78 Pulse Ox 96 95 O2 Delivery Nasal Cannula Nasal Cannula Nasal Cannula O2 Flow Rate 5.00 5.00 5.00 02/20/17 02/20/17 02/20/17 02/20/17 08:40 08:40 09:14 10:02 Pulse 113 Resp 26 Pulse Ox 96 97 96 94 O2 Delivery Nasal Cannula Nasal Cannula Nasal Cannula O2 Flow Rate 5.00 5.00 5.00 40.00 02/20/17 02/20/17 02/20/17 02/20/17 12:00 12:00 12:39 13:00 Pulse 110 111 111 Resp 28 21 B/P (MAP) 140/109 Pulse Ox 97 94 98 O2 Delivery Nasal Cannula Nasal Cannula O2 Flow Rate 5.00 5.00 40.00 02/20/17 14:16 Pulse 98 Resp 23 Pulse Ox 100 O2 Flow Rate 35.00 Capillary Refill : Less Than 3 Seconds General Appearance: WD/WN, no apparent distress HEENT: PERRL/EOMI, normal ENT inspection, pharynx normal Neck: non-tender, full range of motion, supple, normal inspection Respiratory: chest non-tender, lungs clear, normal breath sounds, no respiratory distress, no accessory muscle use Cardiovascular: no edema, no gallop, no JVD, no murmur, irregularly irregular Gastrointestinal: normal bowel sounds, non tender, soft, no organomegaly, no pulsatile mass Extremities: normal range of motion, non-tender, normal inspection, no pedal edema, no calf tenderness, normal capillary refill Neurologic/Psychiatric: senior accounting associate II-XII nml as tested, no motor/sensory deficits, alert, normal mood/affect, oriented x 3 Skin: normal color, warm/dry Short Stay Diagnosis Discharge Diagnosis-Short Stay Admission Diagnosis RIGHT LOBAR PNEUMONIA, CAP VERSUS HCAP PAROXYSMAL ATRIAL FIBRILLATION WITH RAPID VENTRICULAR RESPONSE CHRONIC SYSTOLIC HEART FAILURE SEVERE COPD OBESITY HYPOVENTILATION SYNDROME HTN HL Final Discharge Diagnosis SEE ABOVE Conclusion Plan I had a long discussion with Jeremie about his prognosis. He continues to require BiPAP for his comfort and remains deeply anious about his health. The fact taht he is in afib with RVR is a poor prognostic indicator alongisde julius extensive right infiltrate. He has decided that he does not want to be intubated, and he does want hospice this time. We had talked about it during a previous hospitalization, but he was not ready. He has decided taht he will go home on hospice today. I did reassure him that he can continue to see Derrick Johnston if he would like. Jeremie chose [facility], a nd they will meet him at his home. Clinical Quality Measures DVT/VTE Risk/Contraindication: Risk Factor Score Per Nursin RFS Level Per Nursing on Admit: 4+=Very High Copy Copies To 1: CARON KNUTSON APRN, MD Feb 20, 2017 2:54 pm
[2017-02-20] MEDS ORDERED: LEVOFLOXACIN 750 MG/D5W 150 ML PRE-MIX IV SCH (16:00)
[2017-02-20] MEDS ORDERED: rOPINIRole 1 MG (REQUIP) TABLET PO SCH (21:00)
[2017-02-20] MEDS ORDERED: traZODone 100 MG (DESYREL) TAB PO SCH (21:00)
== END 2017-02-20 16:30 | disposition hospice, home (50) | DRG 190 ==
LOC: EDUNIT# 13:10 → ER 13:12 → ICU 14:50
PROVIDERS: ADMIT Pediatrics; ATTEND Pediatrics
DX: J44.0 Chronic obstructive pulmonary disease with (acute) lower respiratory infection (principal); J18.9 Pneumonia, unspecified organism; J44.1 Chronic obstructive pulmonary disease with (acute) exacerbation; J45.909 Unspecified asthma, uncomplicated; I11.0 Hypertensive heart disease with heart failure; I50.22 Chronic systolic (congestive) heart failure; E66.2 Morbid (severe) obesity with alveolar hypoventilation; Z68.43 Body mass index [BMI] 50.0-59.9, adult; Z66 Do not resuscitate; I69.354 Hemiplegia and hemiparesis following cerebral infarction affecting left non-dominant side; I48.0 Paroxysmal atrial fibrillation; I25.10 Atherosclerotic heart disease of native coronary artery without angina pectoris; F17.210 Nicotine dependence, cigarettes, uncomplicated; E78.00 Pure hypercholesterolemia, unspecified; E11.51 Type 2 diabetes mellitus with diabetic peripheral angiopathy without gangrene; I69.998 Other sequelae following unspecified cerebrovascular disease; R32 Unspecified urinary incontinence; E03.9 Hypothyroidism, unspecified; K21.9 Gastro-esophageal reflux disease without esophagitis; M19.91 Primary osteoarthritis, unspecified site; Z91.19 Patient's noncompliance with other medical treatment and regimen; Z99.81 Dependence on supplemental oxygen; Z95.1 Presence of aortocoronary bypass graft; Z95.5 Presence of coronary angioplasty implant and graft; Z79.4 Long term (current) use of insulin; Z96.651 Presence of right artificial knee joint
CPT/HCPCS: 36415; 71010; 80053; 82805; 83605; 83880; 84484; 85025; 87040; 94640; 94660; 96365